=== PATIENT | female | born 1940 | race Caucasian/White ===

== ENCOUNTER 2020-05-18 12:00 | Inpatient (IN) | payer OTHER, SELFPAY ==
[2020-05-18] VITALS (8 sets, daily range): BP systolic 133–137; BP diastolic 59–70; PULSE 91–138; RESP 18–20; TEMP 36.7–37.7; O2SAT 91–97; BMI 22.6
--- NOTE | 2020-05-18 12:54 | XR_ITS ---
EXAMINATION: XR CHEST CLINICAL INFORMATION: Weakness COMPARISON: None TECHNIQUE: Frontal view of the chest was obtained. FINDINGS: The patient is rotated to the left. The cardiac silhouette does not appear enlarged. The thoracic aorta is calcified. Hilar and mediastinal contours are otherwise unremarkable. The lungs are clear. There is no pleural effusion or pneumothorax. There are degenerative changes of the spine and scoliosis.. XR/XR chest 1V IMPRESSION: No evidence for acute disease in the chest.
--- NOTE | 2020-05-18 12:54 | ECG_ITS ---
Test Reason : SOB Blood Pressure : / mmHG Vent. Rate : 092 BPM Atrial Rate : 092 BPM P-R Int : 160 ms QRS Dur : 078 ms QT Int : 346 ms P-R-T Axes : 070 006 014 degrees QTc Int : 427 ms Sinus rhythm with Premature atrial complexes Nonspecific ST and T wave abnormality Abnormal ECG When compared with ECG of 29-APR-2010 19:15, Premature atrial complexes are now Present Nonspecific T wave changes Referred By: Amelia Mtz Electronically Signed By:Sal Mcgrath
--- NOTE | 2020-05-18 13:01 | ED_ITS ---
HPI - URI/Sore Throat General Chief Complaint: Upper Respiratory Symptoms Stated Complaint: multiple complaints Time Seen by Provider: 05/18/20 12:43 Source: patient Mode of arrival: ambulatory Limitations: no limitations History of Present Illness HPI Narrative: 79-year-old female with a past medical history of glaucoma, high cholesterol here with complaints of malaise, diarrhea, chills, low-grade temps, headache, dyspnea on exertion, cough times 5 days. No chest pain, leg swelling or pain. MD elicited complaint: fever and cough Onset (ago): day(s) Consistency: intermittent Severity: moderate Able to tolerate fluids by mouth: Yes Exacerbating factors: nothing Relieving factors: nothing Associated symptoms: fever, chills, myalgias, headache, cough, shortness of breath and diarrhea Treatments prior to arrival: acetaminophen Related Data Allergies Allergy/AdvReac Type Severity Reaction Status Date / Time No Known Allergies Allergy Unverified 01/26/20 15:09 [No Known Allergies*] ssri Allergy Unknown diarrhea Uncoded 12/16/19 00:00 Augmex AdvReac Unknown severe Uncoded 12/16/19 00:00 vomiting/diarrhea Review of Systems Review of Systems: Yes all other systems are reviewed and are negative Constitutional: Constitutional: Reports no additional constitutional complaints, Reports body ache(s), Reports chills, Reports fever(s), Reports headache(s), Reports malaise and Denies weakness Eyes: Eyes: Reports no additional eye complaints and Denies change in vision ENT: Reports system reviewed and no additional complaints, except as documented, Denies dizziness, Reports headache(s), Denies nasal congestion, Denies nasal discharge and Denies neck pain Cardiovascular: Cardiovascular: Reports no additional cardiovascular complaints, Denies chest pain, Denies leg edema and Reports dyspnea Respiratory: Respiratory: Reports no additional respiratory complaints, Reports cough and Reports dyspnea Gastrointestinal: Gastrointestinal: Reports no additional gastrointestinal complaints, Denies abdominal pain, Reports diarrhea, Denies nausea and Denies vomiting Genitourinary: Genitourinary: Reports no additional female genitourinary complaints and Denies urinary incontinence Musculoskeletal: Musculoskeletal: Reports no additional musculoskeletal complaints, Denies back pain, Denies arthralgias, Denies joint swelling, Denies neck pain, Denies numbness and Denies tingling Integumentary/Breasts: Skin/Breast: Reports system reviewed and no additional complaints, except as docu and Denies rash Neurologic: Denies Abnormal speech present, Denies dizziness, Reports headache(s), Denies numbness, Denies tingling and Denies weakness PMFSH Past Medical History Attestation statement: The following information was validated with the patient. Source: old records reviewed and nursing notes reviewed Medical History Hypertension Social History Social History Alcohol intake: never Smoking Status: Current some day smoker Use of substances other than those prescribed or required for medical reasons: No Advance Directives: No Advance Directives Information Provided: No Physical Exam Vital Signs: Vital Signs: Last Vital Signs Temp 99.8 F 05/18/20 15:15 Pulse 104 H 05/18/20 15:15 Resp 18 05/18/20 15:15 BP 136/70 05/18/20 15:15 Pulse Ox 96 05/18/20 15:15 Body Mass Index 22.6 Const: General: cooperative, healthy appearing, comfortable and no acute distress Orientation/consciousness: patient oriented x3 Limitations: no limitations HENMT: Head: Yes normal to inspection Ears: hearing grossly normal bilaterally General nose exam: Normal external nose present Face and sin us: Yes normal facial exam Mouth: Normal oral and palatal mucosa present Throat: Yes posterior oropharynx normal Eyes: General: appearance normal, both eyes and all related structures Pupils: Equal, round and reactive pupils present Neck: Neck: Yes normal visual inspection Chest: Chest palpation & inspection: normal inspection of the chest Resp: Other: Mild tachypnea RR 20-24 with speaking Effort & Inspection: normal respiratory effort Auscultation: clear to auscultation bilaterally Cardio: Rate: regular rate Rhythm: regular rhythm Peripheral pulses: Peripheral pulses 2+ throughout GI: Inspection: Yes normal to inspection Palpation (GI): Soft to palpation and nontender Auscultation: normal bowel sounds Back/Spine/Pelvis: Thoracic/Lumbar Spine: thoracic and lumbar spine normal to inspection Skin: General skin exam: no rashes or lesions noted Neuro: General: patient oriented x3, no focal motor deficits and normal sensation to monofilament Cranial nerves: Yes Equal, round and reactive pupils present Cognition (Neuro): normal cognition Speech: No Abnormal speech present Gait exam (Neuro): Normal gait present Motor exam (neuro): 5/5 motor strength present throughout Extrem: General: Yes normal to inspection, Yes no pedal edema and Yes no calf tenderness Course Course Course Narrative: 79-year-old female here with flu-like symptoms x5 days. On arrival mild tachypnea, low-grade fever, room air saturation 91%. Will check labs including blood cultures and lactic acid, chest x-ray, EKG, COVID testing. This is from a viral infection. 1430-patient has an EKG with depressions in leads V4, V5 and V6. No recent EKGs to compare to. She has a troponin that is elevated at 288.3. Less likely ACS as patient has no reports of chest pain. Will add on D-dimer, cpk. Labs also reviewed which show mild hypokalemia likely secondary to volume loss. Repletion ordered. Elevated PT/INR, LFTs, thrombocytopenia all likely secondary to a viral infection. 1615-CTA is negative for PE. Repeat troponin is pending. UA is consistent with the UTI. At this time bacterial infection is suspected. Antibiotics ordered. Patient was ambulated in the ER with oxygen saturation of 90-91% and a heart rate of 130 with some dyspnea noted on exertion. Plan to discuss with Cardiology s/p repeat EKG, repeat troponin. 1650-unfortunately the repeat troponin was drawn by nursing 1 hour to early. The patient will need to be drawn again for repeat troponin at 17:30 this was scheduled and discussed with nursing. 1700-sign out to Bharat GUILLOTINE OPERATOR pending above. MDM - URI/Sore Throat MDM Narrative Medical decision making narrative: viral syndrome, covid 19, underlying bacterial process(PNA), pe, nstemi Medical Records Attestation: I reviewed the patient's medical records. Lab Data Attestation: I reviewed the patient's lab results. Result diagrams: 05/18/20 13:32 05/18/20 13:32 Labs: Lab Results 05/18/20 05/18/20 05/18/20 Range/Units 13:32 13:32 13:32 WBC 9.6 (4.8-10.8) X10*3/uL RBC 4.27 (4.20-5.50) X10*6/uL Hgb 12.9 (12.0-16.0) g/dl Hct 38.4 (37-47) % MCV 89.9 (80-98) fL MCH 30.2 (27.0-33.0) pg MCHC 33.6 (31.0-35.0) g/dl RDW 13.3 (11.0-16.0) % Plt Count 84 L (160-400) X10*3/uL MPV 12.0 (9.4-12.3) fL Immature Gran % (Auto) 0.7 H (0.0-0.4) % Neut % (Auto) 89.5 H (45-73) % Lymph % (Auto) 4.8 L (20-40) % [place] % (Auto) 4.8 (2-11) % Eos % (Auto) 0.1 (0-4) % Baso % (Auto) 0.1 (0-2) % Lymph # (Auto) 0.5 L (1.2-4.9) X10*3/uL [place] # (Auto) 0.5 (0.1-1.2) X10*3/uL Eos # (Auto) 0.0 (0.0-0.4) X10*3/uL Baso # (Auto) 0.0 (0.0-0.2) X10*3/uL Abs Immat Gran (auto) 0.07 H (0.00-0.03) X10*3/uL Absolute Neuts (auto) 8.6 H (2.0-8.3) X10*3/uL Absolute Nucleated RBC 0.000 (0.0-0.012) X10*3/uL Nucleated RBC % (auto) 0.0 (0.0-0.2) /100WBC Smear Tech's Comments VERIFIED PT 14.9 H (10.8-13.0) SEC INR 1.3 H (0.9-1.1) D-Dimer 2784 NG/ML Sodium 134 L (135-145) mmol/L Potassium 3.0 L (3.3-5.1) mmol/l Chloride 101 (96-108) mmol/L Carbon Dioxide 21 L (22-29) mmol/L Anion Gap 15 (12-20) BUN 17 H (9-16) mg/dL Creatinine 0.75 (0.5-1.4) mg/dL Estim Creat Clear Calc 55.0 Estimated GFR > 60 Random Glucose 102 (60-115) mg/dL Lactic Acid (0.5-2.0) mmol/L Calcium 7.8 L (8.4-10.2) mg/dL Magnesium 1.8 (1.6-2.6) mg/dL Ferritin (10-250) ng/mL Total Bilirubin 0.9 (0.0-1.0) mg/dL Direct Bilirubin 0.5 (0.0-0.5) mg/dL AST 77 H (5-31) U/L ALT 67 H (0-31) U/L Alkaline Phosphatase 74 (39-117) U/L Lactate Dehydrogenase 214 (122-220) U/L Total Creatine Kinase 401 H (26-140) U/L Troponin I High Sens (<3.5-17.0) ng/L B-Natriuretic Peptide (<100) pg/mL Total Protein 5.8 L (6.5-8.0) g/dL Albumin 3.6 (3.5-5.0) g/dL Procalcitonin ng/mL Urine Color Urine Appearance Urine pH (5.0-8.0) Ur Specific [place] (1.005-1.025) Urine Protein (NEG-TRACE) MG/DL Urine Glucose (UA) (NEG) MG/DL Urine Ketones (NEG) MG/DL Urine Blood (NEG) Urine Nitrite (NEG) Ur Leukocyte Esterase (NEG) Urine RBC (0) /HPF Urine WBC (0-4) /HPF Ur Squamous Epith Cells /LPF Urine Bacteria /LPF Coronavirus (PCR) (Negative) Influenza Type A (PCR) (Negative) Influenza Type B (PCR) (Negative) RSV RNA Qual (PCR) (Negative) 05/18/20 05/18/20 05/18/20 Range/Units 13:32 13:32 13:33 WBC (4.8-10.8) X10*3/uL RBC (4.20-5.50) X10*6/uL Hgb (12.0-16.0) g/dl Hct (37-47) % MCV (80-98) fL MCH (27.0-33.0) pg MCHC (31.0-35.0) g/dl RDW (11.0-16.0) % Plt Count (160-400) X10*3/uL MPV (9.4-12.3) fL Immature Gran % (Auto) (0.0-0.4) % Neut % (Auto) (45-73) % Lymph % (Auto) (20-40) % [place] % (Auto) (2-11) % Eos % (Auto) (0-4) % Baso % (Auto) (0-2) % Lymph # (Auto) (1.2-4.9) X10*3/uL [place] # (Auto) (0.1-1.2) X10*3/uL Eos # (Auto) (0.0-0.4) X10*3/uL Baso # (Auto) (0.0-0.2) X10*3/uL Abs Immat Gran (auto) (0.00-0.03) X10*3/uL Absolute Neuts (auto) (2.0-8.3) X10*3/uL Absolute Nucleated RBC (0.0-0.012) X10*3/uL Nucleated RBC % (auto) (0.0-0.2) /100WBC Smear Tech's Comments PT (10.8-13.0) SEC INR (0.9-1.1) D-Dimer NG/ML Sodium (135-145) mmol/L Potassium (3.3-5.1) mmol/l Chloride (96-108) mmol/L Carbon Dioxide (22-29) mmol/L Anion Gap (12-20) BUN (9-16) mg/dL Creatinine (0.5-1.4) mg/dL Estim Creat Clear Calc Estimated GFR Random Glucose (60-115) mg/dL Lactic Acid (0.5-2.0) mmol/L Calcium (8.4-10.2) mg/dL Magnesium (1.6-2.6) mg/dL Ferritin 338 H (10-250) ng/mL Total Bilirubin (0.0-1.0) mg/dL Direct Bilirubin (0.0-0.5) mg/dL AST (5-31) U/L ALT (0-31) U/L Alkaline Phosphatase (39-117) U/L Lactate Dehydrogenase (122-220) U/L Total Creatine Kinase (26-140) U/L Troponin I High Sens 288.3 H (<3.5-17.0) ng/L B-Natriuretic Peptide 147 H (<100) pg/mL Total Protein (6.5-8.0) g/dL Albumin (3.5-5.0) g/dL Procalcitonin ng/mL Urine Color Urine Appearance Urine pH (5.0-8.0) Ur Specific [place] (1.005-1.025) Urine Protein (NEG-TRACE) MG/DL Urine Glucose (UA) (NEG) MG/DL Urine Ketones (NEG) MG/DL Urine Blood (NEG) Urine Nitrite (NEG) Ur Leukocyte Esterase (NEG) Urine RBC (0) /HPF Urine WBC (0-4) /HPF Ur Squamous Epith Cells /LPF Urine Bacteria /LPF Coronavirus (PCR) NEGATIVE (Negative) Influenza Type A (PCR) NEGATIVE (Negative) Influenza Type B (PCR) NEGATIVE (Negative) RSV RNA Qual (PCR) NEGATIVE (Negative) 05/18/20 05/18/20 05/18/20 Range/Units 13:33 13:33 15:14 WBC (4.8-10.8) X10*3/uL RBC (4.20-5.50) X10*6/uL Hgb (12.0-16.0) g/dl Hct (37-47) % MCV (80-98) fL MCH (27.0-33.0) pg MCHC (31.0-35.0) g/dl RDW (11.0-16.0) % Plt Count (160-400) X10*3/uL MPV (9.4-12.3) fL Immature Gran % (Auto) (0.0-0.4) % Neut % (Auto) (45-73) % Lymph % (Auto) (20-40) % [place] % (Auto) (2-11) % Eos % (Auto) (0-4) % Baso % (Auto) (0-2) % Lymph # (Auto) (1.2-4.9) X10*3/uL [place] # (Auto) (0.1-1.2) X10*3/uL Eos # (Auto) (0.0-0.4) X10*3/uL Baso # (Auto) (0.0-0.2) X10*3/uL Abs Immat Gran (auto) (0.00-0.03) X10*3/uL Absolute Neuts (auto) (2.0-8.3) X10*3/uL Absolute Nucleated RBC (0.0-0.012) X10*3/uL Nucleated RBC % (auto) (0.0-0.2) /100WBC Smear Tech's Comments PT (10.8-13.0) SEC INR (0.9-1.1) D-Dimer NG/ML Sodium (135-145) mmol/L Potassium (3.3-5.1) mmol/l Chloride (96-108) mmol/L Carbon Dioxide (22-29) mmol/L Anion Gap (12-20) BUN (9-16) mg/dL Creatinine (0.5-1.4) mg/dL Estim Creat Clear Calc Estimated GFR Random Glucose (60-115) mg/dL Lactic Acid 0.7 (0.5-2.0) mmol/L Calcium (8.4-10.2) mg/dL Magnesium (1.6-2.6) mg/dL Ferritin (10-250) ng/mL Total Bilirubin (0.0-1.0) mg/dL Direct Bilirubin (0.0-0.5) mg/dL AST (5-31) U/L ALT (0-31) U/L Alkaline Phosphatase (39-117) U/L Lactate Dehydrogenase (122-220) U/L Total Creatine Kinase (26-140) U/L Troponin I High Sens (<3.5-17.0) ng/L B-Natriuretic Peptide (<100) pg/mL Total Protein (6.5-8.0) g/dL Albumin (3.5-5.0) g/dL Procalcitonin 19.16 ng/mL Urine Color YELLOW Urine Appearance HAZY Urine pH 6.0 (5.0-8.0) Ur Specific [place] 1.020 (1.005-1.025) Urine Protein TRACE (NEG-TRACE) MG/DL Urine Glucose (UA) NEG (NEG) MG/DL Urine Ketones 15 (NEG) MG/DL Urine Blood 1+ H (NEG) Urine Nitrite NEG (NEG) Ur Leukocyte Esterase NEG (NEG) Urine RBC 1-4 (0) /HPF Urine WBC 15-29 H (0-4) /HPF Ur Squamous Epith Cells 1+ /LPF Urine Bacteria 1+ /LPF Coronavirus (PCR) (Negative) Influenza Type A (PCR) (Negative) Influenza Type B (PCR) (Negative) RSV RNA Qual (PCR) (Negative) Imaging Data Chest x-ray: Attestation: I personally reviewed and interpreted this imaging study as follows: Radiologist's impression: [address] [address] XRay Report Signed Patient: Zuleima Shepard EMR#: [id number] : 1941Acct:[id number] Age/Sex: 79 / FADM Date: 05/18/20 Loc: .ED Attending Dr: Ordering Physician: AMELIA JETT NP Date of Service: 05/18/20 Procedure(s): XR chest 1V Accession Number(s): [id number] cc: AMELIA JETT NP~ EXAMINATION: XR CHEST CLINICAL INFORMATION: Weakness COMPARISON: None TECHNIQUE: Frontal view of the chest was obtained. FINDINGS: The patient is rotated to the left. The cardiac silhouette does not appear enlarged. The thoracic aorta is calcified. Hilar and mediastinal contours are otherwise unremarkable. The lungs are clear. There is no pleural effusion or pneumothorax. There are degenerative changes of the spine and scoliosis.. XR/XR chest 1V IMPRESSION: No evidence for acute disease in the chest. CT scan - chest: Attestation: I personally reviewed and interpreted this imaging study as follows: Radiologist's impression: EXAMINATION: CT ANGIOGRAM OF THE CHEST WITH AND WITHOUT CONTRAST (CT PULMONARY ANGIOGRAM FOR PE) CLINICAL INFORMATION: Reason for Exam sob, elevated d dimer, r/o pe COMPARISON: None TECHNIQUE: Prior to contrast administration, noncontrast localization images were obtained. Subsequently, multidetector volumetric imaging was performed from the thoracic inlet to below the diaphragms following the administration of 80 mL Omnipaque 350 intravenous contrast. No contrast reaction reported Sagittal, coronal, and MIP oblique sagittal reformatted images were obtained on the CT workstation, uploaded to PACS, and reviewed. This CT examination was performed using dose optimization techniques as appropriate, variously including the following: *Automated exposure control *Adjustment of mA and/or kV according to patient size (this includes techniques or standardized protocols for targeted exams where dose is matched to indication/reason for exam; i.e. extremities or head) *Use of iterative reconstruction technique Total exam dose-length product 305 mGy-cm FINDINGS: QUALITY OF STUDY/CONTRAST BOLUS: Satisfactory. PULMONARY ARTERIES: No central or segmental pulmonary emboli. THORACIC AORTA: There is no evidence of aneurysm or dissection. Mild atherosclerotic changes are seen at the origins of brachiocephalic and left common carotid artery. LUNG: The lungs are well-expanded with atelectatic changes seen in the right lung apex. There is dependent bibasilar atelectasis. No acute consolidation or mass appearing nodules seen. PLEURA: No pleural effusion or pneumothorax. MEDIASTINUM: The thyroid lobes are symmetrical and normal. Central trachea and the bronchi widely patent. No pericardial effusion. No hilar or mediastinal lymphadenopathy. No evidence of septal bowing or right heart strain. CHEST WALL/AXILLA: No axillary or internal mammary lymphadenopathy. OSSEOUS STRUCTURES: There is moderate ventral osteophytosis T4-T5, T5-T6 severe compression fracture T8. No acute or suspicious osseous abnormality. There is mild scoliosis. UPPER ABDOMEN: Visualized liver, spleen, pancreas and bilateral adrenal glands are unremarkable. No reflux of contrast into the hepatic veins to suggest elevated right heart pressures. CT/CT angio chest PE protocol IMPRESSION: No evidence of PE. No evidence of aortic dissection or aneurysm. The lungs are clear. Compression deformity T8 vertebra most likely old. Moderate spondylosis mid dorsal spine. Mild scoliosis VTE: Negative. ECG Data Attestation: I personally reviewed and interpreted this ECG as follows: ECG interpretation date: 05/18/20 ECG interpretation time: 13:55 Interpretation: Sinus rhythm with PACs, ST changes with depressions in leads V4, V5 and V6. Normal UT, normal QRS, normal QT
--- NOTE | 2020-05-18 13:35 | PC.NURSE ---
iv inserted, labs drawn, covid swab performed, will continue to monitor
[2020-05-18 13:46] LABS: Basophils Percent Auto 0.1 % (0-2); Eosinophils Percent Auto 0.1 % (0-4); Hematocrit 38.4 % (37-47); Hemoglobin 12.9 g/dl (12.0-16.0); Imm Gran Abs Auto 0.07 X10*3/uL (0.00-0.03); Imm Gran Pct Auto 0.7 % (0.0-0.4); Lymphocytes Absolute Auto 0.5 X10*3/uL (1.2-4.9); Lymphocytes Percent Auto 4.8 % (20-40); MANUAL DIFF FLAG SCAN; Mean Corpuscular HGB Conc 33.6 g/dl (31.0-35.0); Mean Corpuscular Hemoglobin 30.2 pg (27.0-33.0); Mean Corpuscular Volume 89.9 fL (80-98); Monocytes Absolute Auto 0.5 X10*3/uL (0.1-1.2); Monocytes Percent Auto 4.8 % (2-11); Neutrophils Absolute Auto 8.6 X10*3/uL (2.0-8.3); Neutrophils Percent Auto 89.5 % (45-73); Red Blood Count 4.27 X10*6/uL (4.20-5.50); Red Cell Distribution Width 13.3 % (11.0-16.0); SCAN SMEAR FLAG 1; White Blood Count 9.6 X10*3/uL (4.8-10.8)
[2020-05-18 13:52] LABS: INTERNATIONAL NORM RATIO 1.3 (0.9-1.1); Prothrombin Time 14.9 SEC (10.8-13.0)
[2020-05-18 14:02] LABS: Lactic Acid 0.7 mmol/L (0.5-2.0)
[2020-05-18 14:07] LABS: Alanine Aminotransferase 67 U/L (0-31); Albumin Level 3.6 g/dL (3.5-5.0); Alkaline Phosphatase 74 U/L (39-117); Anion Gap 15 (12-20); Aspartate Amino Transferase 77 U/L (5-31); Bilirubin Direct 0.5 mg/dL (0.0-0.5); Bilirubin Total 0.9 mg/dL (0.0-1.0); Blood Urea Nitrogen 17 mg/dL (9-16); Calcium 7.8 mg/dL (8.4-10.2); Carbon Dioxide 21 mmol/L (22-29); Chloride 101 mmol/L (96-108); Estimated Glomerular Filt Rate > 60; Glucose Random 102 mg/dL (60-115); Lactate Dehydrogenase 214 U/L (122-220); Magnesium 1.8 mg/dL (1.6-2.6); Sodium 134 mmol/L (135-145); Total Protein 5.8 g/dL (6.5-8.0)
[2020-05-18 14:15] LABS: Troponin-I High Sensitivity 288.3 ng/L (<3.5-17.0)
[2020-05-18 14:23] LABS: Platelet Count 84 X10*3/uL (160-400)
[2020-05-18 14:24] LABS: SLIDE REVIEW VERIFIED
[2020-05-18 14:25] LABS: Ferritin 338 ng/mL (10-250)
[2020-05-18 14:25] LABS: Procalcitonin 19.16 ng/mL
[2020-05-18 14:36] LABS: D Dimer 2784 NG/ML
[2020-05-18] MEDS: Potassium Chloride ER 20 MEQ TAB.ER.PRT 50 MEQ PO (14:36)
--- NOTE | 2020-05-18 14:42 | CT_ITS ---
EXAMINATION: CT ANGIOGRAM OF THE CHEST WITH AND WITHOUT CONTRAST (CT PULMONARY ANGIOGRAM FOR PE) CLINICAL INFORMATION: Reason for Exam sob, elevated d dimer, r/o pe COMPARISON: None TECHNIQUE: Prior to contrast administration, noncontrast localization images were obtained. Subsequently, multidetector volumetric imaging was performed from the thoracic inlet to below the diaphragms following the administration of 80 mL Omnipaque 350 intravenous contrast. No contrast reaction reported Sagittal, coronal, and MIP oblique sagittal reformatted images were obtained on the CT workstation, uploaded to PACS, and reviewed. This CT examination was performed using dose optimization techniques as appropriate, variously including the following: *Automated exposure control *Adjustment of mA and/or kV according to patient size (this includes techniques or standardized protocols for targeted exams where dose is matched to indication/reason for exam; i.e. extremities or head) *Use of iterative reconstruction technique Total exam dose-length product 305 mGy-cm FINDINGS: QUALITY OF STUDY/CONTRAST BOLUS: Satisfactory. PULMONARY ARTERIES: No central or segmental pulmonary emboli. THORACIC AORTA: There is no evidence of aneurysm or dissection. Mild atherosclerotic changes are seen at the origins of brachiocephalic and left common carotid artery. LUNG: The lungs are well-expanded with atelectatic changes seen in the right lung apex. There is dependent bibasilar atelectasis. No acute consolidation or mass appearing nodules seen. PLEURA: No pleural effusion or pneumothorax. MEDIASTINUM: The thyroid lobes are symmetrical and normal. Central trachea and the bronchi widely patent. No pericardial effusion. No hilar or mediastinal lymphadenopathy. No evidence of septal bowing or right heart strain. CHEST WALL/AXILLA: No axillary or internal mammary lymphadenopathy. OSSEOUS STRUCTURES: There is moderate ventral osteophytosis T4-T5, T5-T6 severe compression fracture T8. No acute or suspicious osseous abnormality. There is mild scoliosis. UPPER ABDOMEN: Visualized liver, spleen, pancreas and bilateral adrenal glands are unremarkable. No reflux of contrast into the hepatic veins to suggest elevated right heart pressures. CT/CT angio chest PE protocol IMPRESSION: No evidence of PE. No evidence of aortic dissection or aneurysm. The lungs are clear. Compression deformity T8 vertebra most likely old. Moderate spondylosis mid dorsal spine. Mild scoliosis VTE: Negative.
[2020-05-18 14:43] LABS: Influenza A PCR NEGATIVE (Negative); Influenza B PCR NEGATIVE (Negative); Resp Syncy Virus RNA Qual PCR NEGATIVE (Negative); SARS COV2 PCR INHOUSE NEGATIVE (Negative)
--- NOTE | 2020-05-18 14:43 | PC.NURSE ---
patient medicated per order, vitals currently stable, patient speaking in full sentences/breathing non labored at this time, 1l o2 nc, will continue to monitor.
--- NOTE | 2020-05-18 15:17 | PC.NURSE ---
patient ambulated with assist to bathroom on o2 sat monitor on room air, patients o2 sat decreased to 91% and hr increased to 138, pt also was noted to be dyspnic and unsteady ambulating, pt o2 was reapplied and she recovered quickly speaking in full sentences- provider was notified and in to see the patient, urine was obtained, pt moved to [facility] 5, school bus monitor applied, pt is sinus tach on monitor- vitals otherwise now stable, pt now awaiting ct scan, will continue to monitor
[2020-05-18 15:30] LABS: Glucose Urine UA NEG (NEG); Leukocyte Esterase Urine NEG (NEG); Nitrite Urine NEG (NEG); Urine Blood 1+ (NEG); Urine Ketones 15 MG/DL (NEG); Urine Protein TRACE MG/DL (NEG-TRACE)
--- NOTE | 2020-05-18 15:30 | PC.NURSE ---
unable to get an ekg for patient due to the machine being not available, charge nurse is aware
[2020-05-18 15:35] LABS: Appearance Urine HAZY; Color Urine YELLOW
[2020-05-18 15:39] LABS: Bacteria Urine 1+ /LPF; Squamous Epithelial Cell Urine 1+ /LPF; UACC CULT YES
[2020-05-18] MEDS: iohexoL 350 MG/ML 100 ML INFUS..BTL IV (15:45)
--- NOTE | 2020-05-18 16:17 | ECG_ITS ---
Test Reason : repeat, elevated troponin Blood Pressure : / mmHG Vent. Rate : 099 BPM Atrial Rate : 099 BPM P-R Int : 168 ms QRS Dur : 080 ms QT Int : 358 ms P-R-T Axes : 063 012 010 degrees QTc Int : 459 ms Poor data quality Sinus rhythm with Premature atrial complexes Nonspecific ST and T wave abnormality Abnormal ECG When compared with ECG of 18-MAY-2020 13:55, No significant change was found Referred By: Amelia Mtz Electronically Signed By:Sal Mcgrath
[2020-05-18 16:56] LABS: B Type Natriuretic Peptide 147 pg/mL (<100)
[2020-05-18] MEDS: cefTRIAXone sodium 1 GM in 0.9 % Sodium Chloride 50 ML IV (17:06)
[2020-05-18 17:20] LABS: Troponin-I High Sensitivity 248.1 ng/L (<3.5-17.0)
--- NOTE | 2020-05-18 17:30 | PC.NURSE ---
ekg machine not available
--- NOTE | 2020-05-18 20:38 | PC.NURSE ---
ekg performed, hospitalist saw in room.
--- NOTE | 2020-05-18 21:25 | PM.IMHP ---
History of Present Illness Date of Service: 05/18/20 Chief Complaint: Nausea, diarrhea, chills, lethargy An 79 years old lady with PMH of hypertension who presents to the hospital complaining of 3 days history of nausea, watery diarrhea and lower abdominal pain. To patient reports that diarrhea started out of no where up to 10 times a day which was watery in nature associated with nausea but no vomiting. She had no appetite over the last 3 days to eat much as her symptoms were associated with lower abdominal pain which was colicky in nature with no radiation and improved significantly today. She reports chills mainly 2 days ago associated with tremors but seems to be improving today. Id because of her decreased oral intake her son brought her to the hospital today. In the emergency she was found to be hypokalemic of 3. Rest of blood work was concerning for elevated troponin with mild EKG changes which was discussed with Cardiology by ED provider and recommended no active treatment at this point. Noticed to have elevated D-dimers and a CTA was done negative for any PE or infiltrates. Admitted to the hospital for further evaluation and treatment. Review of Systems Review of Systems: Reporting a lot of chills and generalized weakness No chest pain, palpitation Reporting exertion shortness of breath or coughing Mild nausea, lower abdominal pain, no vomiting No urinary symptoms No any rash or wounds Constitutional: Constitutional: Reports headache(s) and Denies weakness ENT: Denies dizziness and Reports headache(s) Musculoskeletal: Musculoskeletal: Denies numbness and Denies tingling Neurologic: Denies Abnormal speech present, Denies dizziness, Reports headache(s), Denies numbness, Denies tingling and Denies weakness [facility] Medical History Hypertension Social History Alcohol intake: never Smoking Status: Current some day smoker Use of substances other than those prescribed or required for medical reasons: No Advance Directives: No Advance Directives Information Provided: No Meds Allergies Allergy/AdvReac Type Severity Reaction Status Date / Time No Known Allergies Allergy Unverified 01/26/20 15:09 [No Known Allergies*] ssri Allergy Unknown diarrhea Uncoded 12/16/19 00:00 Augmex AdvReac Unknown severe Uncoded 12/16/19 00:00 vomiting/diarrhea Physical Exam Vital Signs and Narrative: Vital Signs: Last Vital Signs Temp 99.8 F 05/18/20 15:15 Pulse 104 H 05/18/20 15:15 Resp 18 05/18/20 15:15 BP 136/70 05/18/20 15:15 Pulse Ox 96 05/18/20 15:15 Body Mass Index 22.6 Constitutional : Alert, oriented, not in distress Neck : Normal inspection, Supple Cardiovascular : RRR, S1 S2, no lower extremity edema Respiratory : Good bilateral air entry, no crackles, wheezes or rhonchi Gastrointestinal: soft, lax, Normal bowel sounds, mild suprapubic tenderness with palpation Skin : Warm/Dry, No rash Neurological : Alert & oriented x3, No focal deficit Neuro: Speech: No Abnormal speech present Results Labs CBC and Chem 7: 05/18/20 13:32 05/18/20 13:32 Labs: Laboratory Results - last 24 hr 05/18/20 05/18/20 05/18/20 13:32 13:32 13:32 MCV 89.9 MCH 30.2 MCHC 33.6 RDW 13.3 Plt Count 84 L MPV 12.0 Immature Gran % (Auto) 0.7 H Neut % (Auto) 89.5 H Lymph % (Auto) 4.8 L [place] % (Auto) 4.8 Eos % (Auto) 0.1 Baso % (Auto) 0.1 Lymph # (Auto) 0.5 L [place] # (Auto) 0.5 Eos # (Auto) 0.0 Baso # (Auto) 0.0 Abs Immat Gran (auto) 0.07 H Absolute Neuts (auto) 8.6 H Absolute Nucleated RBC 0.000 Nucleated RBC % (auto) 0.0 Smear Tech's Comments VERIFIED PT 14.9 H INR 1.3 H D-Dimer 2784 Anion Gap 15 Estim Creat Clear Calc 55.0 Estimated GFR > 60 Random Glucose 102 Lactic Acid Calcium 7.8 L Magnesium 1.8 Ferritin Total Bilirubin 0.9 Direct Bilirubin 0.5 AST 77 H ALT 67 H Alkaline Phosphatase 74 Lactate Dehydrogenase 214 Total Creatine Kinase 401 H Troponin I High Sens B-Natriuretic Peptide Total Protein 5.8 L Albumin 3.6 Procalcitonin Urine Color Urine Appearance Urine pH Ur Specific [place] Urine Protein Urine Glucose (UA) Urine Ketones Urine Blood Urine Nitrite Ur Leukocyte Esterase Urine RBC Urine WBC Ur Squamous Epith Cells Urine Bacteria Coronavirus (PCR) Influenza Type A (PCR) Influenza Type B (PCR) RSV RNA Qual (PCR) 05/18/20 05/18/20 05/18/20 13:32 13:32 13:33 MCV MCH MCHC RDW Plt Count MPV Immature Gran % (Auto) Neut % (Auto) Lymph % (Auto) [place] % (Auto) Eos % (Auto) Baso % (Auto) Lymph # (Auto) [place] # (Auto) Eos # (Auto) Baso # (Auto) Abs Immat Gran (auto) Absolute Neuts (auto) Absolute Nucleated RBC Nucleated RBC % (auto) Smear Tech's Comments PT INR D-Dimer Anion Gap Estim Creat Clear Calc Estimated GFR Random Glucose Lactic Acid Calcium Magnesium Ferritin 338 H Total Bilirubin Direct Bilirubin AST ALT Alkaline Phosphatase Lactate Dehydrogenase Total Creatine Kinase Troponin I High Sens 288.3 H B-Natriuretic Peptide 147 H Total Protein Albumin Procalcitonin Urine Color Urine Appearance Urine pH Ur Specific [place] Urine Protein Urine Glucose (UA) Urine Ketones Urine Blood Urine Nitrite Ur Leukocyte Esterase Urine RBC Urine WBC Ur Squamous Epith Cells Urine Bacteria Coronavirus (PCR) NEGATIVE Influenza Type A (PCR) NEGATIVE Influenza Type B (PCR) NEGATIVE RSV RNA Qual (PCR) NEGATIVE 05/18/20 05/18/20 05/18/20 13:33 13:33 15:14 MCV MCH MCHC RDW Plt Count MPV Immature Gran % (Auto) Neut % (Auto) Lymph % (Auto) [place] % (Auto) Eos % (Auto) Baso % (Auto) Lymph # (Auto) [place] # (Auto) Eos # (Auto) Baso # (Auto) Abs Immat Gran (auto) Absolute Neuts (auto) Absolute Nucleated RBC Nucleated RBC % (auto) Smear Tech's Comments PT INR D-Dimer Anion Gap Estim Creat Clear Calc Estimated GFR Random Glucose Lactic Acid 0.7 Calcium Magnesium Ferritin Total Bilirubin Direct Bilirubin AST ALT Alkaline Phosphatase Lactate Dehydrogenase Total Creatine Kinase Troponin I High Sens B-Natriuretic Peptide Total Protein Albumin Procalcitonin 19.16 Urine Color YELLOW Urine Appearance HAZY Urine pH 6.0 Ur Specific [place] 1.020 Urine Protein TRACE Urine Glucose (UA) NEG Urine Ketones 15 Urine Blood 1+ H Urine Nitrite NEG Ur Leukocyte Esterase NEG Urine RBC 1-4 Urine WBC 15-29 H Ur Squamous Epith Cells 1+ Urine Bacteria 1+ Coronavirus (PCR) Influenza Type A (PCR) Influenza Type B (PCR) RSV RNA Qual (PCR) 05/18/20 16:20 MCV MCH MCHC RDW Plt Count MPV Immature Gran % (Auto) Neut % (Auto) Lymph % (Auto) [place] % (Auto) Eos % (Auto) Baso % (Auto) Lymph # (Auto) [place] # (Auto) Eos # (Auto) Baso # (Auto) Abs Immat Gran (auto) Absolute Neuts (auto) Absolute Nucleated RBC Nucleated RBC % (auto) Smear Tech's Comments PT INR D-Dimer Anion Gap Estim Creat Clear Calc Estimated GFR Random Glucose Lactic Acid Calcium Magnesium Ferritin Total Bilirubin Direct Bilirubin AST ALT Alkaline Phosphatase Lactate Dehydrogenase Total Creatine Kinase Troponin I High Sens 248.1 H B-Natriuretic Peptide Total Protein Albumin Procalcitonin Urine Color Urine Appearance Urine pH Ur Specific [place] Urine Protein Urine Glucose (UA) Urine Ketones Urine Blood Urine Nitrite Ur Leukocyte Esterase Urine RBC Urine WBC Ur Squamous Epith Cells Urine Bacteria Coronavirus (PCR) Influenza Type A (PCR) Influenza Type B (PCR) RSV RNA Qual (PCR) Imaging Radiologist's Impressions: Impressions Chest X-Ray 05/18/20 12:54 IMPRESSION: No evidence for acute disease in the chest. Chest CTA 05/18/20 14:42 IMPRESSION: No evidence of PE. No evidence of aortic dissection or aneurysm. The lungs are clear. Compression deformity T8 vertebra most likely old. Moderate spondylosis mid dorsal spine. Mild scoliosis VTE: Negative. Assessment and Plan (1) Hypokalemia: Status: Acute (2) Elevated troponin: Status: Acute (3) Elevated d-dimer: Status: Acute (4) Diarrhea: Status: Acute (5) Chills: Status: Acute (6) Generalized weakness: Status: Acute An 79 years old lady with PMH of hypertension who presents to the hospital complaining of 3 days history of nausea, watery diarrhea and lower abdominal pain. Generalized weakness Nausea, diarrhea and chills Could be viral gastroenteritis Benign exam, improving at this point, no images done in ED Continue supportive measures and if needed CT abdomen can be done start diet UTI Suprapubic pain, abnormal urine test Pending cultures Treat with ceftriaxone Hypokalemia Secondary to diarrhea and decreased oral intake Replacement given Monitor BMP Elevated troponin Likely type 2 demand mediated ischemia No specific ST or T-wave changes to suggest ACS Troponin trended flat Keep on telemetry To get cardiology consult Elevated D-dimer 2700 Negative CTA for PE To discuss with Cardiology in morning Home meds not ready at time of admission, follow for reconciliation DVT PPX Juanx
[2020-05-18] MEDS: Enoxaparin Sodium 40 MG/0.4 ML SYRINGE SUBCUT (22:11)
--- NOTE | 2020-05-18 22:54 | PC.NURSE ---
patient a&ox3, rn cardiac cath sinus tach, vss, will continue to monitor.
[2020-05-18 23:44] LABS: Troponin-I High Sensitivity 164.9 ng/L (<3.5-17.0)
[2020-05-19] VITALS (22 sets, daily range): BP systolic 84–145; BP diastolic 51–79; PULSE 77–156; RESP 14–20; TEMP 36.4–37.6; O2SAT 91–97
[2020-05-19] MEDS: 0.9 % Sodium Chloride Flush 3 ML SYRINGE IVFLUSH ×3 (01:21→18:08)
--- NOTE | 2020-05-19 02:45 | PC.NURSE ---
pt a&o, no sob or chest pain. pt oob to bathroom with a steady gait. Pt denies any dizziness or lightheadness.
[2020-05-19] MEDS: Acetaminophen 325 MG TABLET 975 MG PO (02:58)
--- NOTE | 2020-05-19 03:01 | PC.NURSE ---
Patient has a fever of 99.6 and was given Tylenol.
--- NOTE | 2020-05-19 09:47 | CT_ITS ---
EXAMINATION: CT ABDOMEN AND PELVIS WITHOUT CONTRAST CLINICAL INFORMATION: Abdominal pain, LFTs elevated COMPARISON: CT angiogram chest from 05/18/2020 CT pelvis from 10/07/2015 TECHNIQUE: Multidetector volumetric imaging was performed from the superior aspect of the liver through the pubic symphysis. Sagittal and coronal reformatted images were obtained on the technologist's workstation. This CT examination was performed using dose optimization techniques as appropriate, variously including the following: *Automated exposure control *Adjustment of mA and/or kV according to patient size (this includes techniques or standardized protocols for targeted exams where dose is matched to indication/reason for exam; i.e. extremities or head) *Use of iterative reconstruction technique DLP: 526 mGy-cm FINDINGS: LUNG BASES: Basilar atelectasis. The heart is not enlarged. There is no pericardial effusion. LIVER, GALLBLADDER, AND BILIARY TREE: The liver is normal in size, shape, and attenuation. No focal hepatic lesion or biliary ductal dilatation is present. The gallbladder is unremarkable with no evidence of radiopaque gallstones, gallbladder wall thickening, or obvious pericholecystic inflammatory changes. PANCREAS: Unremarkable. SPLEEN: Unremarkable. ADRENAL GLANDS: Unremarkable. KIDNEYS AND URETERS: The kidneys are normal in size, shape, and attenuation. No hydronephrosis, hydroureter, or calculi seen. No perinephric stranding. BLADDER: Unremarkable. GASTROINTESTINAL TRACT: Mild thickening of the sigmoid colon with pericolonic inflammatory stranding suggesting sigmoid diverticulitis. There is no extraluminal free air, fluid collection, or abscess formation identified. The small and large bowel are unremarkable. The appendix is unremarkable. ABDOMINAL WALL: No significant hernia is appreciated. LYMPH NODES: No enlarged lymph nodes per CT size criteria VASCULAR: Abdominal aorta is nonaneurysmal. Atherosclerotic calculations of the abdominal aorta and its branches. PELVIC VISCERA: Unremarkable. OSSEOUS STRUCTURES: Visualized osseous structures are osteopenic. Moderate dextro curvature of the mid lumbar spine. Compression deformity of L3, chronicity indeterminate. Slight loss of height of the superior endplate of L4, chronicity indeterminate. Multilevel degenerative changes of the thoracolumbar and lumbosacral spine. No large lytic or blastic lesions are identified. Healed fracture deformities involving the left superior and inferior pubic rami. 2 mm bone island noted in the left femoral head. CT/CT abdomen pelvis wo con IMPRESSION: 1. Mild thickening of the sigmoid colon with pericolonic inflammatory stranding suggesting sigmoid diverticulitis. There is no extraluminal free air, fluid collection, or abscess formation identified . 2. Osteopenia with compression deformity of L3, chronicity indeterminate. Slight loss of height of the superior endplate of L4, chronicity indeterminate. 3. Healed fracture deformities involving the left superior and inferior pubic rami.
--- NOTE | 2020-05-19 09:48 | HO.PM.IMPN ---
Subjective Subjective Date of Service: 05/19/20 Interval History: feeling much better, stool more formed, denies ever having chest pain, no sob Cardiovascular Cardiovascular: Reports no additional cardiovascular complaints Respiratory Respiratory: Reports no additional respiratory complaints Physical Exam Vital Signs: Vital Signs: Last Vital Signs Temp 97.9 F 05/19/20 08:06 Pulse 77 05/19/20 08:06 Resp 17 05/19/20 08:06 BP 129/72 05/19/20 08:06 Pulse Ox 93 05/19/20 08:06 Body Mass Index 22.6 General: AO X 3, no acute distress Resp: CTA bilateral CVS: S1,S2,RRR GI: soft, non tender, non distended Neuro: motor grossly intact Psych: appropriate affect Objective Data Current Medications Generic Name Dose Route Start Last Admin Trade Name Freq PRN Reason Stop Dose Admin Acetaminophen 650 mg 05/18/20 21:23 Acetaminophen 325 Mg Tablet PO Q6H PRN Pain, Mild (Pain Scale 1-3) Al Hydroxide/Mg Hydroxide 30 ml 05/18/20 21:23 Magnesium Hydrox/Alum Hydrox 30 Ml Oral.Susp PO Q4H PRN Heartburn/Nausea Aspirin 81 mg 05/19/20 09:00 Aspirin 81 Mg Tab.Chew PO DAILY [facility] Atenolol 50 mg 05/19/20 09:00 Atenolol 50 Mg Tablet PO DAILY [facility] Protocol Atorvastatin Calcium 10 mg 05/19/20 02:15 05/19/20 03:08 Atorvastatin Calcium 10 Mg Tablet PO Not Given BEDTIME [facility] Calcium Carbonate 500 mg 05/19/20 09:00 Calcium Carbonate 500 Mg Tablet PO DAILY [facility] Dorzolamide HCl 1 drop 05/19/20 09:00 Dorzolamide Hcl 2 % Ophth [place] 10 Ml Drpbtl EYE-BOTH BID [facility] Enoxaparin Sodium 40 mg 05/18/20 21:30 05/18/20 22:11 Enoxaparin Sodium 40 Mg/0.4 Ml Syringe SUBCUT 40 mg Q24H [facility] Administration Ceftriaxone Sodium 1 gm/ 50 mls @ 100 mls/hr 05/19/20 16:00 Sodium Chloride IV Q24H RAFFI Magnesium Hydroxide 30 ml 05/18/20 21:23 Milk Of Magnesia 30 Ml Oral.Susp PO DAILY PRN Constipation Multivitamins/Vitamin C 1 tab 05/19/20 09:00 Multivitamin Tablet PO DAILY [facility] Ondansetron HCl 4 mg 05/18/20 21:23 Ondansetron Hcl 4 Mg/2 Ml Vial IVPUSH Q8H PRN Nausea and Vomiting Sodium Chloride 3 ml 05/19/20 00:00 05/19/20 01:21 0.9 % Sodium Chloride Flush 3 Ml Syringe IVFLUSH 3 ml QSHIFT RAFFI Administration Timolol Maleate 1 drop 05/19/20 09:00 Timolol Maleate 0.5 % Oph [place]raine 5 Ml Drbtl EYE-BOTH DAILY [facility] Labs CBC & Chem 7: 05/18/20 13:32 05/18/20 13:32 Microbiology Microbiology Results: Microbiology 05/18/20 Unknown Urine clean catch - Clean Catch Midstream Urine Culture - Preliminary Gram negative torie 05/18/20 13:33 Blood - Venous Blood Culture - Preliminary 05/18/20 13:33 Blood - Venous Blood Culture - Preliminary Assessment and Plan (1) Thrombocytopenia: Status: Acute (2) UTI (urinary tract infection): Status: Acute (3) Gram-negative bacteremia: Status: Acute (4) Gastroenteritis: Status: Acute (5) HLD (hyperlipidemia): Status: Acute (6) Osteoporosis: Status: Acute (7) Unspecified glaucoma: Status: Acute Assessment and Plan: 79F presented with abdominal pain, diarrhea, chills, found to have elevated troponin, positive ua with gram negative bacteremia. severe sepsis (thrombocytopenia) poa due to UTI GNR in urine continue ceftriaxone GNR bacteremia could be urine source... given GI symptoms, could also be gi source continue ceftriaxone, follow up species/sensitivities check CT abd hepatitis panel afib with RVR appears to be new rate control cardio to see thrombocytopenia appears chronic, but worse than baseline, monitor elevated troponin stable, asymptomatic, likely strain, follow up cardiology hypokalemia due to diarreha, replace and monitor htn atenolol
--- NOTE | 2020-05-19 10:19 | PC.NURSE ---
PT SITTING UP IN STRETCHER HER HR HAS INCREASED TO THE 160'S. SHE DENIES SOB OR CHEST PAIN
--- NOTE | 2020-05-19 10:27 | ECG_ITS ---
Test Reason : TACHYCARDIA Blood Pressure : / mmHG Vent. Rate : 146 BPM Atrial Rate : 182 BPM P-R Int : 000 ms QRS Dur : 080 ms QT Int : 312 ms P-R-T Axes : 000 025 -34 degrees QTc Int : 486 ms Atrial fibrillation with rapid ventricular response Septal infarct , age undetermined ST & T wave abnormality, consider inferior ischemia Abnormal ECG When compared with ECG of 18-MAY-2020 20:31, Atrial fibrillation has replaced Sinus rhythm Referred By: Donell Epstein Electronically Signed By:Sal Mcgrath
[2020-05-19] MEDS: Multivitamin TABLET 1 TAB PO (10:29)
[2020-05-19] MEDS: Aspirin 81 MG TAB.CHEW PO (10:29)
[2020-05-19] MEDS: atenoloL 50 MG TABLET PO (10:29)
[2020-05-19] MEDS: dilTIAZem HCL 50 MG/10 ML VIAL 20 MG IVPUSH (11:01)
[2020-05-19] MEDS: Lactated Ringers 1,000 ML 100 ML IVCONT ×2 (11:02→21:48)
--- NOTE | 2020-05-19 11:30 | PC.NURSE ---
RESTING QUEITLY. SKIN PWD. UNLABORED RESP. CONTROLLED A FIB ON MONITORO FOLLOWING CARDIZEM IVP. AWARE OF PLAN OF CARE INCLUDING ADMITTION ORDERS. LS CTA.
--- NOTE | 2020-05-19 12:22 | PC.NURSE ---
cardio at bedside. plan is hold cardizem drip and asa, given digoxin which will be ordered.
--- NOTE | 2020-05-19 13:12 | PC.NURSE ---
bp remains in 80/50's. LR opened wide. No change in mental statues. A fib in 130's. Doc Jesin aware. pt awaiting transfer to floor.
[2020-05-19] MEDS: timoloL maleate 0.5 % Oph Sol 5 ML DRBTL 1 DROP EYE-BOTH (13:14)
[2020-05-19] MEDS: Dorzolamide HCl 2 % Ophth Sol 10 ML DRPBTL 1 DROP EYE-BOTH (13:14)
[2020-05-19 13:15] LABS: Hematocrit 39.8 % (37-47); Hemoglobin 13.4 g/dl (12.0-16.0); Mean Corpuscular HGB Conc 33.7 g/dl (31.0-35.0); Mean Corpuscular Hemoglobin 30.2 pg (27.0-33.0); Mean Corpuscular Volume 89.8 fL (80-98); Mean Platelet Volume 12.7 fL (9.4-12.3); Red Blood Count 4.43 X10*6/uL (4.20-5.50); Red Cell Distribution Width 13.2 % (11.0-16.0); White Blood Count 10.3 X10*3/uL (4.8-10.8)
[2020-05-19] MEDS: Apixaban 5 MG TABLET PO ×2 (13:15→21:47)
[2020-05-19] MEDS: Digoxin 0.5 MG/2 ML AMPUL 0.25 MG IVPUSH ×3 (13:16→23:58)
[2020-05-19 13:19] LABS: Platelet Count 84 X10*3/uL (160-400)
[2020-05-19 13:36] LABS: Alanine Aminotransferase 52 U/L (0-31); Albumin Level 3.3 g/dL (3.5-5.0); Alkaline Phosphatase 73 U/L (39-117); Anion Gap 12 (12-20); Aspartate Amino Transferase 41 U/L (5-31); Bilirubin Total 0.7 mg/dL (0.0-1.0); Blood Urea Nitrogen 12 mg/dL (9-16); Calcium 7.7 mg/dL (8.4-10.2); Carbon Dioxide 23 mmol/L (22-29); Chloride 104 mmol/L (96-108); Creatinine Clr Calc Pharmacy 63.5; Estimated Glomerular Filt Rate > 60; Glucose Random 107 mg/dL (60-115); Sodium 136 mmol/L (135-145); Total Protein 5.3 g/dL (6.5-8.0)
--- NOTE | 2020-05-19 15:19 | PM.CNCAR ---
History of Present Illness History of Present Illness Date of Service: 05/19/20 Requesting physician: Donell Epstein Chief complaint: Bacteremia gram negative Narrative: 79-year-old female who is presenting with diarrhea and nausea. She had multiple episodes of watery diarrhea. She presented to [facility] and subsequently was diagnosed with UTI and Gram-negative bacteremia. She also developed AFib with RVR in the emergency department. She complained of palpitations when she was in AFib. She continues to be in atrial fibrillation with rate control fluctuating and uncontrolled at at times. She has no bleeding issues. She was on baby aspirin in the past. She has history of hypertension and has been on atenolol. Denies any chest discomfort or any other symptoms right now. Review of Systems Constitutional: Constitutional: Reports headache(s) and Denies weakness ENT: Denies dizziness and Reports headache(s) Musculoskeletal: Musculoskeletal: Denies numbness and Denies tingling Neurologic: Denies dizziness, Reports headache(s), Denies numbness, Denies tingling and Denies weakness PMF Past Medical History Medical History (Updated 05/19/20 @ 18:49 by Sal Mcgrath MD) HLD (hyperlipidemia) Hypertension Osteoporosis Thrombocytopenia Unspecified glaucoma Social History Social History Alcohol intake: never Smoking Status: Current some day smoker Use of substances other than those prescribed or required for medical reasons: No Advance Directives: No Advance Directives Information Provided: No Meds Allergies Allergy/AdvReac Type Severity Reaction Status Date / Time No Known Allergies Allergy Unverified 01/26/20 15:09 [No Known Allergies*] ssri Allergy Unknown diarrhea Uncoded 12/16/19 00:00 Augmex AdvReac Unknown severe Uncoded 12/16/19 00:00 vomiting/diarrhea Home Medications Medication Instructions Recorded Confirmed Type Calcium 500 500 mg PO DAILY 05/18/20 05/18/20 History aspirin 81 mg PO DAILY 05/18/20 05/18/20 History atenolol 50 mg PO DAILY 05/18/20 05/18/20 History atorvastatin 10 mg PO DIRECTED 05/18/20 05/18/20 History dorzolamide 1 drp OPHTHALMIC (EYE) BID 05/18/20 05/18/20 History multivitamin 1 tab PO DAILY 05/18/20 05/18/20 History timolol 1 drp OPHTHALMIC (EYE) DAILY 05/18/20 05/18/20 History Physical Exam Vital Signs: Vital Signs: Last Vital Signs Temp 97.9 F 05/19/20 08:06 Pulse 125 H 05/19/20 14:38 Resp 17 05/19/20 14:38 BP 113/79 05/19/20 14:38 Pulse Ox 96 05/19/20 14:38 Body Mass Index 22.6 GENERAL APPEARANCE: in no acute distress, well developed, well nourished. HEENT: unremarkable. HEAD: normocephalic, atraumatic. NECK/THYROID: no carotid bruit, no jugular venous distention. SKIN: no suspicious lesions, warm and dry. HEART: no murmurs, irregular rate and rhythm, S1, S2 normal. LUNGS: Few crackles at bases. ABDOMEN: normal, bowel sounds present, soft, nontender, nondistended. EXTREMITIES: no clubbing, cyanosis, or edema. PERIPHERAL PULSES: equal. NEUROLOGIC: nonfocal, alert and oriented. PSYCH: mood/affect full range. Results Labs and Meds Result diagrams: 05/19/20 12:51 05/19/20 12:51 Lab results: Laboratory Results - last 24 hr 05/18/20 05/18/20 05/18/20 13:32 15:14 16:20 WBC RBC Hgb Hct MCV MCH MCHC RDW Plt Count MPV Absolute Nucleated RBC Nucleated RBC % (auto) Sodium Potassium Chloride Carbon Dioxide Anion Gap BUN Creatinine Estim Creat Clear Calc Estimated GFR Random Glucose Calcium Total Bilirubin AST ALT Alkaline Phosphatase Troponin I High Sens 248.1 H B-Natriuretic Peptide 147 H Total Protein Albumin Urine Color YELLOW Urine Appearance HAZY Urine pH 6.0 Ur Specific [place] 1.020 Urine Protein TRACE Urine Glucose (UA) NEG Urine Ketones 15 Urine Blood 1+ H Urine Nitrite NEG Ur Leukocyte Esterase NEG Urine RBC 1-4 Urine WBC 15-29 H Ur Squamous Epith Cells 1+ Urine Bacteria 1+ 05/18/20 05/19/20 05/19/20 22:50 12:51 12:51 WBC 10.3 RBC 4.43 Hgb 13.4 Hct 39.8 MCV 89.8 MCH 30.2 MCHC 33.7 RDW 13.2 Plt Count 84 L MPV 12.7 H Absolute Nucleated RBC 0.000 Nucleated RBC % (auto) 0.0 Sodium 136 Potassium 3.0 L Chloride 104 Carbon Dioxide 23 Anion Gap 12 BUN 12 Creatinine 0.65 Estim Creat Clear Calc 63.5 Estimated GFR > 60 Random Glucose 107 Calcium 7.7 L Total Bilirubin 0.7 AST 41 H D ALT 52 H Alkaline Phosphatase 73 Troponin I High Sens 164.9 H B-Natriuretic Peptide Total Protein 5.3 L Albumin 3.3 L Urine Color Urine Appearance Urine pH Ur Specific [place] Urine Protein Urine Glucose (UA) Urine Ketones Urine Blood Urine Nitrite Ur Leukocyte Esterase Urine RBC Urine WBC Ur Squamous Epith Cells Urine Bacteria Imaging Radiologist's impression: Impressions Chest CTA 05/18/20 14:42 IMPRESSION: No evidence of PE. No evidence of aortic dissection or aneurysm. The lungs are clear. Compression deformity T8 vertebra most likely old. Moderate spondylosis mid dorsal spine. Mild scoliosis VTE: Negative. Assessment and Plan (1) Elevated troponin: Status: Acute (2) Thrombocytopenia: Status: Acute (3) Gram-negative bacteremia: Status: Acute (4) PAF (paroxysmal atrial fibrillation): Status: Acute Pleasant 79-year-old female who is presenting with diarrhea and nausea and was diagnosed with urinary tract infection and Gram-negative bacteremia. She has been on IV antibiotics. She has developed atrial fibrillation with rapid ventricular response in the emergency department. She has been on atenolol her blood pressure is soft. She was given Cardizem bolus in the ED but I do not think she can tolerate Cardizem. I think we will load her with digoxin and then continue digoxin 125 microgram every other day. She has high chads Vasc score. Please stop the aspirin. Please start her Eliquis. Please monitor electrolytes specially potassium closely while the patient is on digoxin. We will follow along with the. Thank you for allowing me to participate in the care of your patient. Please feel free to contact me if you have any questions.
--- NOTE | 2020-05-19 15:41 | PC.NURSE ---
pt found standing near commode with loose mucously stool dripiing down legs. steady on feet but needing assistance. cleansed and placed back in bed. denies lightheadedness.
[2020-05-19] MEDS: cefTRIAXone sodium 1 GM in 0.9 % Sodium Chloride 50 ML IV (16:07)
--- NOTE | 2020-05-19 17:58 | PC.NURSE ---
rn [place] [facility] [place]
[2020-05-19] MEDS: Atorvastatin Calcium 10 MG TABLET PO (21:47)
[2020-05-20] VITALS (8 sets, daily range): BP systolic 99–120; BP diastolic 52–68; PULSE 85–108; RESP 18–20; TEMP 36.8–37.4; O2SAT 93–97
[2020-05-20] MEDS: Lactated Ringers 1,000 ML 100 ML IVCONT ×2 (06:43→15:57)
[2020-05-20] MEDS: atenoloL 50 MG TABLET PO (08:15)
[2020-05-20] MEDS: Apixaban 5 MG TABLET PO ×2 (08:15→20:35)
[2020-05-20] MEDS: Multivitamin TABLET 1 TAB PO (08:15)
[2020-05-20] MEDS: Dorzolamide HCl 2 % Ophth Sol 10 ML DRPBTL 1 DROP EYE-BOTH ×2 (08:24→20:36)
[2020-05-20] MEDS: timoloL maleate 0.5 % Oph Sol 5 ML DRBTL 1 DROP EYE-BOTH (08:24)
--- NOTE | 2020-05-20 08:37 | P.PNIM_ITS ---
Subjective Subjective Date of Service: 05/20/20 Interval History: feeling pretty well, had some more diarrhea today though Cardiovascular Cardiovascular: Reports no additional cardiovascular complaints Respiratory Respiratory: Reports no additional respiratory complaints Physical Exam Vital Signs: Vital Signs: Last Vital Signs Temp 99.3 F 05/20/20 07:35 Pulse 88 05/20/20 08:15 Resp 20 05/20/20 07:35 BP 111/61 05/20/20 08:15 Pulse Ox 94 05/20/20 07:35 Body Mass Index 22.6 General: AO X 3, no acute distress Resp: CTA bilateral CVS: S1,S2,irregular GI: soft, LLQ mildly tender, non distended Neuro: motor grossly intact Psych: appropriate affect Objective Data Current Medications Generic Name Dose Route Start Last Admin Trade Name Freq PRN Reason Stop Dose Admin Acetaminophen 650 mg 05/18/20 21:23 Acetaminophen 325 Mg Tablet PO Q6H PRN Pain, Mild (Pain Scale 1-3) Al Hydroxide/Mg Hydroxide 30 ml 05/18/20 21:23 Magnesium Hydrox/Alum Hydrox 30 Ml Oral.Susp PO Q4H PRN Heartburn/Nausea Apixaban 5 mg 05/19/20 12:45 05/20/20 08:15 Apixaban 5 Mg Tablet PO 5 mg BID RAFFI Administration Atenolol 50 mg 05/19/20 09:00 05/20/20 08:15 Atenolol 50 Mg Tablet PO 50 mg DAILY RAFFI Administration Protocol Atorvastatin Calcium 10 mg 05/19/20 02:15 05/19/20 21:47 Atorvastatin Calcium 10 Mg Tablet PO 10 mg BEDTIME RAFFI Administration Calcium Carbonate 500 mg 05/19/20 09:00 05/20/20 08:15 Calcium Carbonate 500 Mg Tablet PO 500 mg DAILY RAFFI Administration Digoxin 0.125 mg 05/21/20 08:00 Digoxin 0.125 Mg Tablet PO Q2D RAFFI Dorzolamide HCl 1 drop 05/19/20 09:00 05/20/20 08:24 Dorzolamide Hcl 2 % Ophth Lorraine 10 Ml Drpbtl EYE-BOTH 1 drop BID RAFFI Administration Ceftriaxone Sodium 1 gm/ 50 mls @ 100 mls/hr 05/19/20 16:00 05/19/20 18:49 Sodium Chloride IV Infused Q24H RAFFI Infusion Lactated Ringer's 1,000 mls @ 100 mls/hr 05/19/20 10:45 05/20/20 06:43 Lr IVCONT 100 mls/hr .Q10H RAFFI Administration Magnesium Hydroxide 30 ml 05/18/20 21:23 Milk Of Magnesia 30 Ml Oral.Susp PO DAILY PRN Constipation Multivitamins/Vitamin C 1 tab 05/19/20 09:00 05/20/20 08:15 Multivitamin Tablet PO 1 tab DAILY RAFFI Administration Ondansetron HCl 4 mg 05/18/20 21:23 Ondansetron Hcl 4 Mg/2 Ml Vial IVPUSH Q8H PRN Nausea and Vomiting Potassium Chloride 40 meq 05/20/20 08:37 Potassium Chloride Er 20 Meq Tab.Er.Prt PO 05/20/20 08:38 ONCE ONE Sodium Chloride 3 ml 05/19/20 00:00 05/20/20 08:15 0.9 % Sodium Chloride Flush 3 Ml Syringe IVFLUSH Not Given QSHIFT RAFFI Timolol Maleate 1 drop 05/19/20 09:00 05/20/20 08:24 Timolol Maleate 0.5 % Oph Lorraine 5 Ml Drbtl EYE-BOTH 1 drop DAILY RAFFI Administration Labs CBC & Chem 7: 05/19/20 12:51 05/19/20 12:51 Microbiology Microbiology Results: Microbiology 05/18/20 Unknown Urine clean catch - Clean Catch Midstream Urine Culture - Final Gram negative torie 05/18/20 13:33 Blood - Venous Blood Culture - Preliminary Gram negative torie 05/18/20 13:33 Blood - Venous Blood Culture - Preliminary Gram negative torie Assessment and Plan (1) Thrombocytopenia: Status: Acute (2) UTI (urinary tract infection): Status: Acute (3) Gram-negative bacteremia: Status: Acute (4) Gastroenteritis: Status: Acute (5) HLD (hyperlipidemia): Status: Acute (6) Osteoporosis: Status: Acute (7) Unspecified glaucoma: Status: Acute Assessment and Plan: 79F presented with abdominal pain, diarrhea, chills, found to have elevated troponin, positive ua with gram negative bacteremia. then went into new onset afib with rvr severe sepsis poa due to UTI +/- sigmoid diverticulitis complicated by GNR b acteremia continue ceftriaxone follow up cultures afib with RVR appears to be new continue atenolol, s/p digoxin load, continue maintance 0.125 q2D asa disconitnued, started on eliquis 5mg bid cardio following elevated troponin likely type II due to sepsis and afib follow up echo thrombocytopenia appears chronic, but worse than baseline, monitor hypokalemia due to diarrhea, replace and monitor htn atenolol
[2020-05-20 09:42] LABS: Hematocrit 37.1 % (37-47); Hemoglobin 12.5 g/dl (12.0-16.0); Mean Corpuscular HGB Conc 33.7 g/dl (31.0-35.0); Mean Corpuscular Hemoglobin 30.1 pg (27.0-33.0); Mean Corpuscular Volume 89.4 fL (80-98); Mean Platelet Volume 12.3 fL (9.4-12.3); Platelet Count 83 X10*3/uL (160-400); Red Blood Count 4.15 X10*6/uL (4.20-5.50); White Blood Count 9.2 X10*3/uL (4.8-10.8)
[2020-05-20 10:02] LABS: Anion Gap 11 (12-20); Blood Urea Nitrogen 11 mg/dL (9-16); Calcium 7.4 mg/dL (8.4-10.2); Carbon Dioxide 23 mmol/L (22-29); Chloride 105 mmol/L (96-108); Creatinine Clr Calc Pharmacy 64.5; Estimated Glomerular Filt Rate > 60; Glucose Random 141 mg/dL (60-115); Magnesium 1.7 mg/dL (1.6-2.6); Sodium 136 mmol/L (135-145)
[2020-05-20] MEDS: Magnesium Oxide 400 MG TABLET 800 MG PO (12:07)
[2020-05-20] MEDS: Potassium Chloride ER 20 MEQ TAB.ER.PRT 40 MEQ PO (12:07)
--- NOTE | 2020-05-20 13:57 | MHC.CM.PN ---
Pt report she lives alone and is fully independent with all care and mobility. Pt has no services and no DME. Pt reports she has completed a HCP in the past but does not know where it is, she will complete a new one today naming her son, Leon Travis ([phone]) as her agent. Pt confirms her PCP is Ellie Chen. [facility]MM delivered current DC plan is home with no services family to transport
[2020-05-20] MEDS: cefTRIAXone sodium 1 GM in 0.9 % Sodium Chloride 50 ML IV (15:19)
[2020-05-20] MEDS: 0.9 % Sodium Chloride Flush 3 ML SYRINGE IVFLUSH (15:20)
[2020-05-20 16:36] LABS: CDIFF Ag Negative (Negative); CDIFF Internal ctrl Dots and bkg OK (V); CDiff Toxin Negative (Negative)
[2020-05-20] MEDS: Atorvastatin Calcium 10 MG TABLET PO (20:35)
[2020-05-21] VITALS (9 sets, daily range): BP systolic 109–140; BP diastolic 57–73; PULSE 83–90; RESP 18–20; TEMP 36.4–36.9; O2SAT 96–99
[2020-05-21] MEDS: Lactated Ringers 1,000 ML 100 ML IVCONT (01:21)
[2020-05-21 04:03] LABS: HBS Num1 1.45 mIU/mL (0-7.99); HBc Num1 0.14 S/CO (0.00-0.79); Hepatitis B Core Antibody Nonreactive (Nonreactive); ~HepC Num1 0.06 S/CO (0.00-0.79); ~Hepatitis B Surface Antibody NONREACTIVE (Nonreactive); ~Hepatitis C Antibody Nonreactive (Nonreactive)
[2020-05-21 04:20] LABS: Hepatitis B Surface Antigen Negative (Negative)
[2020-05-21 06:31] LABS: Basophils Percent Auto 0.3 % (0-2); Hemoglobin 11.4 g/dl (12.0-16.0); MANUAL DIFF FLAG SCAN; Red Cell Distribution Width 13.2 % (11.0-16.0); SCAN SMEAR FLAG 1
[2020-05-21 06:33] LABS: Eosinophils Absolute Auto 0.1 X10*3/uL (0.0-0.4); Hematocrit 33.7 % (37-47); Imm Gran Abs Auto 0.03 X10*3/uL (0.00-0.03); Imm Gran Pct Auto 0.5 % (0.0-0.4); Lymphocytes Absolute Auto 1.3 X10*3/uL (1.2-4.9); Lymphocytes Percent Auto 20.4 % (20-40); Mean Corpuscular HGB Conc 33.8 g/dl (31.0-35.0); Mean Corpuscular Hemoglobin 30.5 pg (27.0-33.0); Mean Corpuscular Volume 90.1 fL (80-98); Mean Platelet Volume 12.7 fL (9.4-12.3); Monocytes Absolute Auto 0.7 X10*3/uL (0.1-1.2); Monocytes Percent Auto 10.8 % (2-11); Neutrophils Absolute Auto 4.4 X10*3/uL (2.0-8.3); Red Blood Count 3.74 X10*6/uL (4.20-5.50); White Blood Count 6.6 X10*3/uL (4.8-10.8)
[2020-05-21 06:38] LABS: PLT ABN DIST 1; Platelet Count 85 X10*3/uL (160-400)
[2020-05-21 07:33] LABS: Anion Gap 11 (12-20); Blood Urea Nitrogen 8 mg/dL (9-16); Calcium 7.2 mg/dL (8.4-10.2); Carbon Dioxide 22 mmol/L (22-29); Chloride 109 mmol/L (96-108); Creatinine Clr Calc Pharmacy 67.7; Estimated Glomerular Filt Rate > 60; Glucose Fasting 103 mg/dL (60-99); Magnesium 1.7 mg/dL (1.6-2.6); Potassium 3.4 mmol/l (3.3-5.1); Sodium 139 mmol/L (135-145)
[2020-05-21] MEDS: atenoloL 50 MG TABLET PO ×2 (09:04→20:13)
[2020-05-21] MEDS: Multivitamin TABLET 1 TAB PO (09:05)
[2020-05-21] MEDS: Apixaban 5 MG TABLET PO ×2 (09:05→20:14)
[2020-05-21] MEDS: timoloL maleate 0.5 % Oph Sol 5 ML DRBTL 1 DROP EYE-BOTH (09:06)
[2020-05-21] MEDS: Dorzolamide HCl 2 % Ophth Sol 10 ML DRPBTL 1 DROP EYE-BOTH ×2 (09:06→20:14)
[2020-05-21 09:15] LABS: SLIDE REVIEW VERIFIED
[2020-05-21] MEDS: Digoxin 0.125 MG TABLET PO (09:38)
[2020-05-21] MEDS: 0.9 % Sodium Chloride Flush 3 ML SYRINGE IVFLUSH ×3 (09:39→20:14)
--- NOTE | 2020-05-21 10:31 | PM.PNCARD ---
Subjective Subjective Date of Service: 05/21/20 Principal diagnosis: Atrial fibrillation, urosepsis Interval history: Patient converted to sinus rhythm, still has some small short bursts of atrial fibrillation with rapid ventricular response. Symptoms of palpitation with improved. Denies any other cardiac symptoms at current time. Review of Systems Constitutional: Reports weakness Cardiovascular: Reports no additional cardiovascular complaints Respiratory: Reports no additional respiratory complaints Gastrointestinal: Reports no additional gastrointestinal complaints Reports system reviewed and no additional complaints, except as documented and Reports weakness Physical Exam Vital Signs: Last Vital Signs Temp 97.6 F 05/21/20 07:59 Pulse 90 05/21/20 09:38 Resp 20 05/21/20 07:59 BP 136/65 05/21/20 09:04 Pulse Ox 97 05/21/20 07:59 Body Mass Index 22.6 Const General: cooperative, comfortable, alert and awake Orientation/consciousness: patient oriented x3 Neck Neck: Yes trachea midline, Yes supple and Yes no JVD Chest Chest palpation & inspection: normal inspection of the chest Resp Effort & Inspection: normal respiratory effort Auscultation: crackles bilateral at the base Cardio Jugular venous distension: no JVD Palpation: normal PMI Rate: regular rate Rhythm: regular rhythm Heart sounds: S1 normal heart sound present and S2 normal heart sound present Skin General skin exam: no rashes or lesions noted Neuro General: patient oriented x3 Extrem General: Yes no clubbing, cyanosis or edema Psych Appearance: grossly normal Results Labs and Meds Result diagrams: 05/21/20 05:47 05/21/20 05:47 Lab results: Laboratory Results - last 24 hr 05/19/20 05/20/20 05/21/20 12:51 15:26 05:47 WBC 6.6 RBC 3.74 L Hgb 11.4 L Hct 33.7 L MCV 90.1 MCH 30.5 MCHC 33.8 RDW 13.2 Plt Count 85 L MPV 12.7 H Immature Gran % (Auto) 0.5 H Neut % (Auto) 66.0 Lymph % (Auto) 20.4 [place] % (Auto) 10.8 Eos % (Auto) 2.0 Baso % (Auto) 0.3 Lymph # (Auto) 1.3 [place] # (Auto) 0.7 Eos # (Auto) 0.1 Baso # (Auto) 0.0 Abs Immat Gran (auto) 0.03 Absolute Neuts (auto) 4.4 Absolute Nucleated RBC 0.000 Nucleated RBC % (auto) 0.0 Smear Tech's Comments VERIFIED Sodium Potassium Chloride Carbon Dioxide Anion Gap BUN Creatinine Estim Creat Clear Calc Estimated GFR Fasting Glucose Calcium Magnesium C. difficile Toxin A&B Negative C. difficile Antigen Negative C. difficile Interpret SEE NOTE Hep Bs Antigen Negative Hep Bs Antibody NONREACTIVE Hep B Core Total Ab Nonreactive Hepatitis C Ab (EIA) Nonreactive 05/21/20 05:47 WBC RBC Hgb Hct MCV MCH MCHC RDW Plt Count MPV Immature Gran % (Auto) Neut % (Auto) Lymph % (Auto) [place] % (Auto) Eos % (Auto) Baso % (Auto) Lymph # (Auto) [place] # (Auto) Eos # (Auto) Baso # (Auto) Abs Immat Gran (auto) Absolute Neuts (auto) Absolute Nucleated RBC Nucleated RBC % (auto) Smear Tech's Comments Sodium 139 Potassium 3.4 Chloride 109 H Carbon Dioxide 22 Anion Gap 11 L BUN 8 L Creatinine 0.61 Estim Creat Clear Calc 67.7 Estimated GFR > 60 Fasting Glucose 103 H Calcium 7.2 L Magnesium 1.7 C. difficile Toxin A&B C. difficile Antigen C. difficile Interpret Hep Bs Antigen Hep Bs Antibody Hep B Core Total Ab Hepatitis C Ab (EIA) Progress Note: A&P Assessment and plan (1) PAF (paroxysmal atrial fibrillation): Status: Acute Assessment and Plan: Paroxysmal atrial fibrillation in elderly woman admitted with urinary tract infection sepsis. Converted to sinus rhythm with treatment. We discussed about management of atrial fibrillation and pathophysiology. Given that she has atrial fibrillation with her age and hypertension likely underlying atrial pathology that makes her more prone to get atrial fibrillation the future. Agree with oral anticoagulation with Eliquis. Still has some short burst of atrial fibrillation. Will increase atenolol to 50 mg b.i.d. given her blood pressure is improved. Discontinue IV fluids. Discontinue digoxin therapy to reduce long-term toxicity. Will follow with the patient. Will review the echocardiogram to assess LV systolic and diastolic function biatrial chamber size. (2) Hypertension: Status: Acute Assessment and Plan: Hypertension, admitted with borderline low blood pressure due to sepsis. This is now normalized. Will increase atenolol as above. Continue monitor blood pressure closely at home. (3) Elevated troponin: Status: Acute Assessment and Plan: Elevated troponin suggestive of myocardial injury. This appears to be secondary to urosepsis as well as atrial fibrillation rapid ventricular response. Will pursue outpatient ischemic workup. No other interventions required at this time. (4) Gram-negative bacteremia: Status: Acute Assessment and Plan: Gram-negative bacteremia, being treated by hospitalist team. She seems to have improved from that perspective. Treatment as per the primary team. Will sign of the case at current time. Will follow as needed Fall Risk Details Current Medications: Current Medications Generic Name Dose Route Start Last Admin Trade Name Freq PRN Reason Stop Dose Admin Acetaminophen 650 mg 05/18/20 21:23 Acetaminophen 325 Mg Tablet PO Q6H PRN Pain, Mild (Pain Scale 1-3) Al Hydroxide/Mg Hydroxide 30 ml 05/18/20 21:23 Magnesium Hydrox/Alum Hydrox 30 Ml Oral.Susp PO Q4H PRN Heartburn/Nausea Apixaban 5 mg 05/19/20 12:45 05/21/20 09:05 Apixaban 5 Mg Tablet PO 5 mg BID RAFFI Administration Atorvastatin Calcium 10 mg 05/19/20 02:15 05/20/20 20:35 Atorvastatin Calcium 10 Mg Tablet PO 10 mg BEDTIME RAFFI Administration Calcium Carbonate 500 mg 05/19/20 09:00 05/21/20 09:05 Calcium Carbonate 500 Mg Tablet PO 500 mg DAILY RAFFI Administration Dorzolamide HCl 1 drop 05/19/20 09:00 05/21/20 09:06 Dorzolamide Hcl 2 % Ophth Lorraine 10 Ml Drpbtl EYE-BOTH 1 drop BID RAFFI Administration Ceftriaxone Sodium 1 gm/ 50 mls @ 100 mls/hr 05/19/20 16:00 05/20/20 15:54 Sodium Chloride IV Infused Q24H RAFFI Infusion Lactated Ringer's 1,000 mls @ 100 mls/hr 05/19/20 10:45 05/21/20 01:21 Lr IVCONT 100 mls/hr .Q10H RAFFI Administration Magnesium Hydroxide 30 ml 05/18/20 21:23 Milk Of Magnesia 30 Ml Oral.Susp PO DAILY PRN Constipation Multivitamins/Vitamin C 1 tab 05/19/20 09:00 05/21/20 09:05 Multivitamin Tablet PO 1 tab DAILY RAFFI Administration Ondansetron HCl 4 mg 05/18/20 21:23 Ondansetron Hcl 4 Mg/2 Ml Vial IVPUSH Q8H PRN Nausea and Vomiting Sodium Chloride 3 ml 05/19/20 00:00 05/21/20 09:39 0.9 % Sodium Chloride Flush 3 Ml Syringe IVFLUSH 3 ml QSHIFT RAFFI Administration Timolol Maleate 1 drop 05/19/20 09:00 05/21/20 09:06 Timolol Maleate 0.5 % Oph Lorraine 5 Ml Drbtl EYE-BOTH 1 drop DAILY RAFFI Administration Time Spent With Patient Time: Total time spent is greater than 50% in coordination of care (as documented) at patient's floor/unit and/or counseling patient: Time with patient: 25 - 35 minutes
--- NOTE | 2020-05-21 10:41 | CA_ITS ---
Transthoracic Echocardiogram Patient (Last, First, Middle): Zuleima Shepard E Gender: Female Date of : 1940 Age: 79 Procedure Date: 05/21/2020 Procedure Type: Transthoracic Echocardiogram Location: [facility] Height: 167.64 cm Weight: 63.5 kg BSA: 1.72 m2 Heart Rate: bpm BP: 129 / 61 mmHg [employer] Estimator: BENJY Cantu MD: Donell Epstein MD Collections Professional: Brad Hansen MD Symptoms: afib Study Quality: Good ECG Rhythm: Sinus Conclusions: - 1. Normal LV systolic function with impaired relaxation filling pattern 2. Normal cardiac valvular Doppler 3. Normal RV systolic pressure 4. No pericardial effusion Findings Left Ventricle Normal left ventricular size, thickness, and systolic function. The visually estimated ejection fraction is between 60-65%. Spectral Doppler is indicative of an impaired relaxation filling pattern. E/E prime ratio is between 8 and 15 consistent with indeterminate filling pressures. Right Ventricle Normal right ventricular cavity size and systolic function. Atria Both atria are normal in size. There is no evidence of interatrial shunt. Aortic Valve Normal aortic valve structure and function. There is no aortic valve stenosis. There is no aortic valve regurgitation. Mitral Valve Normal mitral valve structure and function. There is mild mitral annular calcification. There is trace mitral valve regurgitation. There is no mitral valve stenosis. Pulmonic Valve The pulmonic valve was not well visualized. Tricuspid Valve Normal tricuspid valve structure. There is mild tricuspid valve regurgitation. The right ventricular systolic pressure is normal. The right ventricular systolic pressure is 27 mmHg. Normal right atrial pressure. There is no evidence of pulmonary hypertension. Great Vessels All visible segments of the aorta are normal in size. The pulmonary artery was not well visualized. Venous The inferior vena cava is normal in size and collapses greater than 50% with inspiration. Pericardium/Pleural There is no evidence of pericardial effusion. Prior Study Comparison No prior study available for comparison. Measurements 2D Linear Measurements IVSd: 0.97 0.6-0.9/0.6-1.0 cm LVIDd: 3.97 3.9-5.3/4.2-5.9 cm LVIDd Index: 2.31 2.4-3.2/2.2-3.1 cm/m2 LVIDs: 2.52 2.0-3.6 cm LVPWd: 0.97 0.7-1.1 cm Ao Root: 3.40 2.1-3.5 cm LA Diam: 3.50 2.7-3.8/3.0-4.0 cm LAIDs Index: 2.03 1.5-2.3 cm/m2 LV Mass: 149.94 67-162/88-224 g LV Mass Index: 87.17 43-95/49-115 g/m2 LVOT Diam: 2.00 3.0+(-)1.3 cm 2D Systolic Function EF 4C: 63.70 >55% EF 2C: 59.90 >55% EF BiP: 61.10 >55% Mitral Valve MV Pk E: 0.93 MV PK A: 0.65 MV Decel Time: 289.00 E/A: 1.40 E'Lateral: 7.94 E'Medial: 7.07 E/E' Med: 13.20 E/E' Lat: 11.70 PHT: 85.00 MVA PHT: 2.59 Decel [place]: 3.22 Aortic Valve AoV Pk Pasha: 1.27 AoV Mn Pasha: 0.90 AoV VTI: 0.27 AoV Pk Grad: 6.00 Aov Mn Grad: 4.00 JHON Cont.VTI: 2.16 LVOT LVOT Pk Pasha: 1.00 LVOT Mn Pasha: 0.59 LVOT VTI: 0.19 LVOT Pk Grad: 4.00 LVOT Mn Grad: 2.00 LVOT Diam: 2.00 LVOT Area: 3.14 Diastolic Function MV Pk E: 0.93 MV Pk A: 0.65 E/A: 1.40 E'Medial: 7.07 E/E' Med: 13.20 E' Laterial: 7.94 E/E' Lat: 11.70 Tricuspid Valve TR Pk Pasha: 2.44 TR Pk Grad: 24.00 RA Press: 3.00 RVSP: 27.00 Great Vessels Aorta Ao Root-2D: 3.40 2.0-3.7 cm Ao Asc: 3.80 2.1-3.4 cm Ao Arch: 2.90 Updated in Other Vendor System with Status of Final Brad Hansen MD electronically signed on 05/21/2020 4:50:42 PM with status of Final
--- NOTE | 2020-05-21 14:04 | P.PNIM_ITS ---
Subjective Subjective Date of Service: 05/21/20 Interval History: the patient was seen and evaluated this morning Laying in bed, feels comfortable Denies any fever, chills or shortness of breath No reported other overnight events. Systemic review: No fever, chills or weakness No chest pain, palpitation No shortness of breath or coughing No abdominal pain, nausea or vomiting No urinary symptoms No any rash or wounds Physical Exam 2 Vital Signs: Vital Signs: Last Vital Signs Temp 98.4 F 05/21/20 12:00 Pulse 85 05/21/20 12:00 Resp 18 05/21/20 12:00 BP 109/57 L 05/21/20 12:00 Pulse Ox 99 05/21/20 12:00 Body Mass Index 22.6 Constitutional : Alert, oriented, not in distress Neck : Normal inspection, Supple Cardiovascular : RRR, S1 S2, no lower extremity edema Respiratory : Good bilateral air entry, no crackles, wheezes or rhonchi Gastrointestinal: soft, lax, Normal bowel sounds, Non tender Skin : Warm/Dry, No rash Neurological : Alert & oriented x3, No focal deficit Objective Data Current Medications Generic Name Dose Route Start Last Admin Trade Name Freq PRN Reason Stop Dose Admin Acetaminophen 650 mg 05/18/20 21:23 Acetaminophen 325 Mg Tablet PO Q6H PRN Pain, Mild (Pain Scale 1-3) Al Hydroxide/Mg Hydroxide 30 ml 05/18/20 21:23 Magnesium Hydrox/Alum Hydrox 30 Ml Oral.Susp PO Q4H PRN Heartburn/Nausea Apixaban 5 mg 05/19/20 12:45 05/21/20 09:05 Apixaban 5 Mg Tablet PO 5 mg BID RAFFI Administration Atenolol 50 mg 05/21/20 21:00 Atenolol 50 Mg Tablet PO BID RAFFI Protocol Atorvastatin Calcium 10 mg 05/19/20 02:15 05/20/20 20:35 Atorvastatin Calcium 10 Mg Tablet PO 10 mg BEDTIME RAFFI Administration Calcium Carbonate 500 mg 05/19/20 09:00 05/21/20 09:05 Calcium Carbonate 500 Mg Tablet PO 500 mg DAILY RAFFI Administration Dorzolamide HCl 1 drop 05/19/20 09:00 05/21/20 09:06 Dorzolamide Hcl 2 % Ophth Lorraine 10 Ml Drpbtl EYE-BOTH 1 drop BID RAFFI Administration Ceftriaxone Sodium 1 gm/ 50 mls @ 100 mls/hr 05/19/20 16:00 05/20/20 15:54 Sodium Chloride IV Infused Q24H RAFFI Infusion Magnesium Hydroxide 30 ml 05/18/20 21:23 Milk Of Magnesia 30 Ml Oral.Susp PO DAILY PRN Constipation Multivitamins/Vitamin C 1 tab 05/19/20 09:00 05/21/20 09:05 Multivitamin Tablet PO 1 tab DAILY RAFFI Administration Ondansetron HCl 4 mg 05/18/20 21:23 Ondansetron Hcl 4 Mg/2 Ml Vial IVPUSH Q8H PRN Nausea and Vomiting Sodium Chloride 3 ml 05/19/20 00:00 05/21/20 09:39 0.9 % Sodium Chloride Flush 3 Ml Syringe IVFLUSH 3 ml QSHIFT RAFFI Administration Timolol Maleate 1 drop 05/19/20 09:00 05/21/20 09:06 Timolol Maleate 0.5 % Oph Lorraine 5 Ml Drbtl EYE-BOTH 1 drop DAILY RAFFI Administration Labs CBC & Chem 7: 05/21/20 05:47 05/21/20 05:47 Microbiology Microbiology Results: Microbiology 05/18/20 13:33 Blood - Venous Blood Culture - Preliminary Escherichia coli 05/18/20 13:33 Blood - Venous Blood Culture - Final Escherichia coli 05/18/20 Unknown Urine clean catch - Clean Catch Midstream Urine Culture - Final Gram negative torie Assessment and Plan (1) Thrombocytopenia: Status: Acute (2) UTI (urinary tract infection): Status: Acute (3) Gram-negative bacteremia: Status: Acute (4) Gastroenteritis: Status: Acute (5) HLD (hyperlipidemia): Status: Acute (6) Osteoporosis: Status: Acute (7) Unspecified glaucoma: Status: Acute Assessment and Plan: 79F presented with abdominal pain, diarrhea, chills, found to have elevated troponin, positive ua with gram negative bacteremia. then went into new onset afib with rvr severe sepsis due to UTI and possible sigmoid diverticulitis complicated by E.Coli bacteremia continue ceftriaxone To be discharged to finish total 10 days Abx afib with RVR New onset, better controlled continue atenolol continue Digoxin maintance 0.125 q2D asa disconitnued, started on eliquis 5mg bid cardio following Pending ECHO elevated troponin likely type II due to sepsis and afib follow up echo thrombocytopenia appears chronic, but worse than baseline, monitor hypokalemia due to diarrhea, replace and monitor htn atenolol DVT ppx Eliquis
--- NOTE | 2020-05-21 15:30 | MHC.CM.PN ---
per rounds brie antcapated for 05/22 plan reman[facility] home no services
[2020-05-21] MEDS: cefTRIAXone sodium 1 GM in 0.9 % Sodium Chloride 50 ML IV (16:13)
[2020-05-21] MEDS: Atorvastatin Calcium 10 MG TABLET PO (20:13)
[2020-05-22] VITALS: BP 125/55; PULSE 84; RESP 18; TEMP 36.4; O2SAT 94
[2020-05-22 04:00] VITALS: BP 118/57; PULSE 81; RESP 18; TEMP 36.8; O2SAT 93
[2020-05-22 05:14] LABS: Anion Gap 12 (12-20); Blood Urea Nitrogen 7 mg/dL (9-16); Calcium 7.4 mg/dL (8.4-10.2); Carbon Dioxide 20 mmol/L (22-29); Chloride 110 mmol/L (96-108); Creatinine Clr Calc Pharmacy 65.5; Estimated Glomerular Filt Rate > 60; Glucose Random 94 mg/dL (60-115); Potassium 3.3 mmol/l (3.3-5.1); Sodium 139 mmol/L (135-145)
[2020-05-22 07:11] VITALS: BP 123/65; PULSE 74; RESP 18; TEMP 36.8; O2SAT 93
[2020-05-22] MEDS: 0.9 % Sodium Chloride Flush 3 ML SYRINGE IVFLUSH (09:28)
[2020-05-22] MEDS: Apixaban 5 MG TABLET PO (09:29)
[2020-05-22] MEDS: timoloL maleate 0.5 % Oph Sol 5 ML DRBTL 1 DROP EYE-BOTH (09:29)
[2020-05-22] MEDS: Dorzolamide HCl 2 % Ophth Sol 10 ML DRPBTL 1 DROP EYE-BOTH (09:29)
[2020-05-22] MEDS: Multivitamin TABLET 1 TAB PO (09:29)
[2020-05-22 09:31] VITALS: BP 111/58; PULSE 86
[2020-05-22] MEDS: atenoloL 50 MG TABLET PO (09:31)
[2020-05-22 10:58] VITALS: BP 117/52; PULSE 74; RESP 20; TEMP 36.6; O2SAT 97
--- NOTE | 2020-05-22 11:17 | PM.PNCARD ---
Subjective Subjective Date of Service: 05/22/20 Principal diagnosis: Atrial fibrillation, urosepsis Interval history: Patient is feeling extremely well today. She is very happy. No overnight episodes of atrial fibrillation. Denies any cardiac symptoms at this time. Review of Systems Constitutional: Reports no additional constitutional complaints Denies dizziness Cardiovascular: Reports no additional cardiovascular complaints Respiratory: Reports no additional respiratory complaints Musculoskeletal: Denies numbness and Denies tingling Reports system reviewed and no additional complaints, except as documented, Denies dizziness, Denies numbness and Denies tingling Physical Exam Vital Signs: Last Vital Signs Temp 97.8 F 05/22/20 10:58 Pulse 74 05/22/20 10:58 Resp 20 05/22/20 10:58 BP 117/52 L 05/22/20 10:58 Pulse Ox 97 05/22/20 10:58 Body Mass Index 22.6 Const General: cooperative, comfortable, alert and awake Orientation/consciousness: patient oriented x3 HENMT Head: Yes normocephalic and Yes atraumatic Neck Neck: Yes trachea midline and Yes no JVD Chest Chest palpation & inspection: normal inspection of the chest Resp Effort & Inspection: normal respiratory effort Auscultation: clear to auscultation bilaterally Cardio Jugular venous distension: no JVD Palpation: normal PMI Rate: regular rate Rhythm: regular rhythm Heart sounds: S1 normal heart sound present and S2 normal heart sound present Skin General skin exam: no rashes or lesions noted Neuro General: patient oriented x3 and no focal motor deficits Extrem General: Yes no clubbing, cyanosis or edema Psych Appearance: grossly normal Results Labs and Meds Result diagrams: 05/21/20 05:47 05/22/20 04:05 Lab results: Laboratory Results - last 24 hr 05/22/20 04:05 Sodium 139 Potassium 3.3 Chloride 110 H Carbon Dioxide 20 L Anion Gap 12 BUN 7 L Creatinine 0.63 Estim Creat Clear Calc 65.5 Estimated GFR > 60 Random Glucose 94 Calcium 7.4 L Progress Note: A&P Assessment and plan (1) PAF (paroxysmal atrial fibrillation): Status: Acute Assessment and Plan: Paroxysmal atrial fibrillation, most likely induced by a her infectious etiology. Biatrial enlargement. However given her age and hypertension are risk factors for development of atrial fibrillation. No recurrence since yesterday. Continue with atenolol 50 mg b.i.d.. She does have symptoms related to atrial fibrillation, can monitor for the same. Will obtain outpatient Holter monitor. Avoidance of stimulants was discussed. Continue full oral anticoagulation, currently on Eliquis 5 mg b.i.d.. Can discharge home from cardiac perspective. Will follow up as outpatient. (2) Gram-negative bacteremia: Status: Acute Assessment and Plan: Urosepsis. This has significantly improved. She appears clinically much improved. Management as per the hospitalist team. Will follow up as outpatient. Fall Risk Details Current Medications: Current Medications Generic Name Dose Route Start Last Admin Trade Name Freq PRN Reason Stop Dose Admin Acetaminophen 650 mg 05/18/20 21:23 Acetaminophen 325 Mg Tablet PO Q6H PRN Pain, Mild (Pain Scale 1-3) Al Hydroxide/Mg Hydroxide 30 ml 05/18/20 21:23 Magnesium Hydrox/Alum Hydrox 30 Ml Oral.Susp PO Q4H PRN Heartburn/Nausea Apixaban 5 mg 05/19/20 12:45 05/22/20 09:29 Apixaban 5 Mg Tablet PO 5 mg BID RAFFI Administration Atenolol 50 mg 05/21/20 21:00 05/22/20 09:31 Atenolol 50 Mg Tablet PO 50 mg BID RAFFI Administration Protocol Atorvastatin Calcium 10 mg 05/19/20 02:15 05/21/20 20:13 Atorvastatin Calcium 10 Mg Tablet PO 10 mg BEDTIME RAFFI Administration Calcium Carbonate 500 mg 05/19/20 09:00 05/22/20 09:29 Calcium Carbonate 500 Mg Tablet PO 500 mg DAILY RAFFI Administration Dorzolamide HCl 1 drop 05/19/20 09:00 05/22/20 09:29 Dorzolamide Hcl 2 % Ophth Lorraine 10 Ml Drpbtl EYE-BOTH 1 drop BID RAFFI Administration Ceftriaxone Sodium 1 gm/ 50 mls @ 100 mls/hr 05/19/20 16:00 05/21/20 16:50 Sodium Chloride IV Infused Q24H RAFFI Infusion Magnesium Hydroxide 30 ml 05/18/20 21:23 Milk Of Magnesia 30 Ml Oral.Susp PO DAILY PRN Constipation Multivitamins/Vitamin C 1 tab 05/19/20 09:00 05/22/20 09:29 Multivitamin Tablet PO 1 tab DAILY RAFFI Administration Ondansetron HCl 4 mg 05/18/20 21:23 Ondansetron Hcl 4 Mg/2 Ml Vial IVPUSH Q8H PRN Nausea and Vomiting Sodium Chloride 3 ml 05/19/20 00:00 05/22/20 09:28 0.9 % Sodium Chloride Flush 3 Ml Syringe IVFLUSH 3 ml QSHIFT RAFFI Administration Timolol Maleate 1 drop 05/19/20 09:00 05/22/20 09:29 Timolol Maleate 0.5 % Oph Lorraine 5 Ml Drbtl EYE-BOTH 1 drop DAILY RAFFI Administration Time Spent With Patient Time: Total time spent is greater than 50% in coordination of care (as documented) at patient's floor/unit and/or counseling patient: Time with patient: 25 - 35 minutes
[2020-05-22 13:46] LABS: COVID-19 Test Negative (Negative)
--- NOTE | 2020-05-22 14:04 | PM.DS ---
DS: Providers Provider Date of Service: 05/22/20 Date of admission: 05/18/20 21:23 Primary care physician: Ellie Chen MD Consults: 05/18/20 21:23 Consult to Cardiology Routine Consulting Provider: [facility] Reason for consultation: Elevated Trop I and D-Dimer. Nonspecific ST and T wave abnormalities DS: Diagnosis Discharge Diagnosis (1) PAF (paroxysmal atrial fibrillation): Status: Acute (2) Gram-negative bacteremia: Status: Acute (3) UTI (urinary tract infection): Status: Acute (4) Thrombocytopenia: Status: Acute (5) Elevated troponin: Status: Acute (6) Hypokalemia: Status: Acute (7) New onset atrial fibrillation: Status: Acute DS: Medications Discharge Medications Home Medications: Home Medications Medication Instructions Recorded Confirmed Calcium 500 500 mg PO DAILY 05/18/20 05/18/20 aspirin 81 mg PO DAILY 05/18/20 05/18/20 atenolol 50 mg PO DAILY 05/18/20 05/18/20 atorvastatin 10 mg PO DIRECTED 05/18/20 05/18/20 dorzolamide 1 drp OPHTHALMIC (EYE) BID 05/18/20 05/18/20 multivitamin 1 tab PO DAILY 05/18/20 05/18/20 timolol 1 drp OPHTHALMIC (EYE) DAILY 05/18/20 05/18/20 Previous Rx's Medication Instructions Recorded apixaban [Eliquis] 5 mg PO BID #60 tab 05/22/20 cefuroxime axetil 500 mg PO Q12H #14 tab 05/22/20 digoxin 125 mcg PO DAILY #30 tab 05/22/20 DS: Summary Hospital Course Hospital Course: Admission note HPI An 79 years old lady with PMH of hypertension who presents to the hospital complaining of 3 days history of nausea, watery diarrhea and lower abdominal pain. To patient reports that diarrhea started out of no where up to 10 times a day which was watery in nature associated with nausea but no vomiting. She had no appetite over the last 3 days to eat much as her symptoms were associated with lower abdominal pain which was colicky in nature with no radiation and improved significantly today. She reports chills mainly 2 days ago associated with tremors but seems to be improving today. Id because of her decreased oral intake her son brought her to the hospital today. In the emergency she was found to be hypokalemic of 3. Rest of blood work was concerning for elevated troponin with mild EKG changes which was discussed with Cardiology by ED provider and recommended no active treatment at this point. Noticed to have elevated D-dimers and a CTA was done negative for any PE or infiltrates. Admitted to the hospital for further evaluation and treatment. Hospital course For evaluation of diarrhea, chills and pain. Found to have urine infection growing E coli. Her blood cultures were also positive for E coli bacteremia. She was treated with IV ceftriaxone with good response over the course of hospital stay. Discharged on Ceftin to finish total of 10 days of of antibiotics. During the hospital stay she broke into atrial fibrillation with rapid ventricular response. It is a new onset disease. An echo was done showing normal heart chambers and valves. She was evaluated by electronics processing supervisor who recommended to continue atenolol and start her on digoxin along with Eliquis. Aspirin was discontinued. She has chronic thrombocytopenia but remained at baseline. Hypokalemia a time presentation resolved with replacement. Time Spent with Patient Time attestation: Total time spent providing and/or coordinating discharge services: Discharge coordination time: Greater than 30 minutes Physical Exam Vital Signs: Vital Signs: Last Vital Signs Temp 97.8 F 05/22/20 10:58 Pulse 74 05/22/20 10:58 Resp 20 05/22/20 10:58 BP 117/52 L 05/22/20 10:58 Pulse Ox 97 05/22/20 10:58 Body Mass Index 22.6 Constitutional : Alert, oriented, not in distress Neck : Normal inspection, Supple Cardiovascular : Irregular irregular rhythm, S1 S2, no lower extremity edema Respiratory : Good bilateral air entry, no crackles, wheezes or rhonchi Gastrointestinal: soft, lax, Normal bowel sounds, Non tender Skin : Warm/Dry, No rash Neurological : Alert & oriented x3, No focal deficit DS: Data Data Completed and Pending Labs on day of discharge: Laboratory Tests 05/18/20 05/18/20 05/18/20 13:32 13:32 13:32 WBC 9.6 RBC 4.27 Hgb 12.9 Hct 38.4 MCV 89.9 MCH 30.2 MCHC 33.6 RDW 13.3 Plt Count 84 L MPV 12.0 Immature Gran % (Auto) 0.7 H Neut % (Auto) 89.5 H Lymph % (Auto) 4.8 L [place] % (Auto) 4.8 Eos % (Auto) 0.1 Baso % (Auto) 0.1 Lymph # (Auto) 0.5 L [place] # (Auto) 0.5 Eos # (Auto) 0.0 Baso # (Auto) 0.0 Abs Immat Gran (auto) 0.07 H Absolute Neuts (auto) 8.6 H Absolute Nucleated RBC 0.000 Nucleated RBC % (auto) 0.0 Smear Tech's Comments VERIFIED PT 14.9 H INR 1.3 H D-Dimer 2784 Sodium 134 L Potassium 3.0 L Chloride 101 Carbon Dioxide 21 L Anion Gap 15 BUN 17 H Creatinine 0.75 Estim Creat Clear Calc 55.0 Estimated GFR > 60 Random Glucose 102 Fasting Glucose Lactic Acid Calcium 7.8 L Magnesium 1.8 Ferritin Total Bilirubin 0.9 Direct Bilirubin 0.5 AST 77 H ALT 67 H Alkaline Phosphatase 74 Lactate Dehydrogenase 214 Total Creatine Kinase 401 H Troponin I High Sens B-Natriuretic Peptide Total Protein 5.8 L Albumin 3.6 Procalcitonin Urine Color Urine Appearance Urine pH Ur Specific [place] Urine Protein Urine Glucose (UA) Urine Ketones Urine Blood Urine Nitrite Ur Leukocyte Esterase Urine RBC Urine WBC Ur Squamous Epith Cells Urine Bacteria C. difficile Toxin A&B C. difficile Antigen C. difficile Interpret Coronavirus (PCR) COVID-19 ([facility]) COVID-19 Clin Com Hep Bs Antigen Hep Bs Antibody Hep B Core Total Ab Hepatitis C Ab (EIA) Influenza Type A (PCR) Influenza Type B (PCR) RSV RNA Qual (PCR) 05/18/20 05/18/20 05/18/20 13:32 13:32 13:33 WBC RBC Hgb Hct MCV MCH MCHC RDW Plt Count MPV Immature Gran % (Auto) Neut % (Auto) Lymph % (Auto) [place] % (Auto) Eos % (Auto) Baso % (Auto) Lymph # (Auto) [place] # (Auto) Eos # (Auto) Baso # (Auto) Abs Immat Gran (auto) Absolute Neuts (auto) Absolute Nucleated RBC Nucleated RBC % (auto) Smear Tech's Comments PT INR D-Dimer Sodium Potassium Chloride Carbon Dioxide Anion Gap BUN Creatinine Estim Creat Clear Calc Estimated GFR Random Glucose Fasting Glucose Lactic Acid Calcium Magnesium Ferritin 338 H Total Bilirubin Direct Bilirubin AST ALT Alkaline Phosphatase Lactate Dehydrogenase Total Creatine Kinase Troponin I High Sens 288.3 H B-Natriuretic Peptide 147 H Total Protein Albumin Procalcitonin Urine Color Urine Appearance Urine pH Ur Specific [place] Urine Protein Urine Glucose (UA) Urine Ketones Urine Blood Urine Nitrite Ur Leukocyte Esterase Urine RBC Urine WBC Ur Squamous Epith Cells Urine Bacteria C. difficile Toxin A&B C. difficile Antigen C. difficile Interpret Coronavirus (PCR) NEGATIVE COVID-19 ([facility]) COVID-19 Clin Com Hep Bs Antigen Hep Bs Antibody Hep B Core Total Ab Hepatitis C Ab (EIA) Influenza Type A (PCR) NEGATIVE Influenza Type B (PCR) NEGATIVE RSV RNA Qual (PCR) NEGATIVE 05/18/20 05/18/20 05/18/20 13:33 13:33 15:14 WBC RBC Hgb Hct MCV MCH MCHC RDW Plt Count MPV Immature Gran % (Auto) Neut % (Auto) Lymph % (Auto) [place] % (Auto) Eos % (Auto) Baso % (Auto) Lymph # (Auto) [place] # (Auto) Eos # (Auto) Baso # (Auto) Abs Immat Gran (auto) Absolute Neuts (auto) Absolute Nucleated RBC Nucleated RBC % (auto) Smear Tech's Comments PT INR D-Dimer Sodium Potassium Chloride Carbon Dioxide Anion Gap BUN Creatinine Estim Creat Clear Calc Estimated GFR Random Glucose Fasting Glucose Lactic Acid 0.7 Calcium Magnesium Ferritin Total Bilirubin Direct Bilirubin AST ALT Alkaline Phosphatase Lactate Dehydrogenase Total Creatine Kinase Troponin I High Sens B-Natriuretic Peptide Total Protein Albumin Procalcitonin 19.16 Urine Color YELLOW Urine Appearance HAZY Urine pH 6.0 Ur Specific [place] 1.020 Urine Protein TRACE Urine Glucose (UA) NEG Urine Ketones 15 Urine Blood 1+ H Urine Nitrite NEG Ur Leukocyte Esterase NEG Urine RBC 1-4 Urine WBC 15-29 H Ur Squamous Epith Cells 1+ Urine Bacteria 1+ C. difficile Toxin A&B C. difficile Antigen C. difficile Interpret Coronavirus (PCR) COVID-19 ([facility]) COVID-19 Clin Com Hep Bs Antigen Hep Bs Antibody Hep B Core Total Ab Hepatitis C Ab (EIA) Influenza Type A (PCR) Influenza Type B (PCR) RSV RNA Qual (PCR) 05/18/20 05/18/20 05/19/20 16:20 22:50 12:51 WBC 10.3 RBC 4.43 Hgb 13.4 Hct 39.8 MCV 89.8 MCH 30.2 MCHC 33.7 RDW 13.2 Plt Count 84 L MPV 12.7 H Immature Gran % (Auto) Neut % (Auto) Lymph % (Auto) [place] % (Auto) Eos % (Auto) Baso % (Auto) Lymph # (Auto) [place] # (Auto) Eos # (Auto) Baso # (Auto) Abs Immat Gran (auto) Absolute Neuts (auto) Absolute Nucleated RBC 0.000 Nucleated RBC % (auto) 0.0 Smear Tech's Comments PT INR D-Dimer Sodium Potassium Chloride Carbon Dioxide Anion Gap BUN Creatinine Estim Creat Clear Calc Estimated GFR Random Glucose Fasting Glucose Lactic Acid Calcium Magnesium Ferritin Total Bilirubin Direct Bilirubin AST ALT Alkaline Phosphatase Lactate Dehydrogenase Total Creatine Kinase Troponin I High Sens 248.1 H 164.9 H B-Natriuretic Peptide Total Protein Albumin Procalcitonin Urine Color Urine Appearance Urine pH Ur Specific [place] Urine Protein Urine Glucose (UA) Urine Ketones Urine Blood Urine Nitrite Ur Leukocyte Esterase Urine RBC Urine WBC Ur Squamous Epith Cells Urine Bacteria C. difficile Toxin A&B C. difficile Antigen C. difficile Interpret Coronavirus (PCR) COVID-19 ([facility]) COVID-19 Clin Com Hep Bs Antigen Hep Bs Antibody Hep B Core Total Ab Hepatitis C Ab (EIA) Influenza Type A (PCR) Influenza Type B (PCR) RSV RNA Qual (PCR) 05/19/20 05/19/20 05/20/20 12:51 12:51 09:31 WBC 9.2 RBC 4.15 L Hgb 12.5 Hct 37.1 MCV 89.4 MCH 30.1 MCHC 33.7 RDW 13.0 Plt Count 83 L MPV 12.3 Immature Gran % (Auto) Neut % (Auto) Lymph % (Auto) [place] % (Auto) Eos % (Auto) Baso % (Auto) Lymph # (Auto) [place] # (Auto) Eos # (Auto) Baso # (Auto) Abs Immat Gran (auto) Absolute Neuts (auto) Absolute Nucleated RBC 0.000 Nucleated RBC % (auto) 0.0 Smear Tech's Comments PT INR D-Dimer Sodium 136 Potassium 3.0 L Chloride 104 Carbon Dioxide 23 Anion Gap 12 BUN 12 Creatinine 0.65 Estim Creat Clear Calc 63.5 Estimated GFR > 60 Random Glucose 107 Fasting Glucose Lactic Acid Calcium 7.7 L Magnesium Ferritin Total Bilirubin 0.7 Direct Bilirubin AST 41 H D ALT 52 H Alkaline Phosphatase 73 Lactate Dehydrogenase Total Creatine Kinase Troponin I High Sens B-Natriuretic Peptide Total Protein 5.3 L Albumin 3.3 L Procalcitonin Urine Color Urine Appearance Urine pH Ur Specific [place] Urine Protein Urine Glucose (UA) Urine Ketones Urine Blood Urine Nitrite Ur Leukocyte Esterase Urine RBC Urine WBC Ur Squamous Epith Cells Urine Bacteria C. difficile Toxin A&B C. difficile Antigen C. difficile Interpret Coronavirus (PCR) COVID-19 ([facility]) COVID-19 Clin Com Hep Bs Antigen Negative Hep Bs Antibody NONREACTIVE Hep B Core Total Ab Nonreactive Hepatitis C Ab (EIA) Nonreactive Influenza Type A (PCR) Influenza Type B (PCR) RSV RNA Qual (PCR) 05/20/20 05/20/20 05/21/20 09:31 15:26 05:47 WBC 6.6 RBC 3.74 L Hgb 11.4 L Hct 33.7 L MCV 90.1 MCH 30.5 MCHC 33.8 RDW 13.2 Plt Count 85 L MPV 12.7 H Immature Gran % (Auto) 0.5 H Neut % (Auto) 66.0 Lymph % (Auto) 20.4 [place] % (Auto) 10.8 Eos % (Auto) 2.0 Baso % (Auto) 0.3 Lymph # (Auto) 1.3 [place] # (Auto) 0.7 Eos # (Auto) 0.1 Baso # (Auto) 0.0 Abs Immat Gran (auto) 0.03 Absolute Neuts (auto) 4.4 Absolute Nucleated RBC 0.000 Nucleated RBC % (auto) 0.0 Smear Tech's Comments VERIFIED PT INR D-Dimer Sodium 136 Potassium 3.0 L Chloride 105 Carbon Dioxide 23 Anion Gap 11 L BUN 11 Creatinine 0.64 Estim Creat Clear Calc 64.5 Estimated GFR > 60 Random Glucose 141 H Fasting Glucose Lactic Acid Calcium 7.4 L Magnesium 1.7 Ferritin Total Bilirubin Direct Bilirubin AST ALT Alkaline Phosphatase Lactate Dehydrogenase Total Creatine Kinase Troponin I High Sens B-Natriuretic Peptide Total Protein Albumin Procalcitonin Urine Color Urine Appearance Urine pH Ur Specific [place] Urine Protein Urine Glucose (UA) Urine Ketones Urine Blood Urine Nitrite Ur Leukocyte Esterase Urine RBC Urine WBC Ur Squamous Epith Cells Urine Bacteria C. difficile Toxin A&B Negative C. difficile Antigen Negative C. difficile Interpret SEE NOTE Coronavirus (PCR) COVID-19 ([facility]) COVID-19 Clin Com Hep Bs Antigen Hep Bs Antibody Hep B Core Total Ab Hepatitis C Ab (EIA) Influenza Type A (PCR) Influenza Type B (PCR) RSV RNA Qual (PCR) 05/21/20 05/22/20 05/22/20 05:47 04:05 13:00 WBC RBC Hgb Hct MCV MCH MCHC RDW Plt Count MPV Immature Gran % (Auto) Neut % (Auto) Lymph % (Auto) [place] % (Auto) Eos % (Auto) Baso % (Auto) Lymph # (Auto) [place] # (Auto) Eos # (Auto) Baso # (Auto) Abs Immat Gran (auto) Absolute Neuts (auto) Absolute Nucleated RBC Nucleated RBC % (auto) Smear Tech's Comments PT INR D-Dimer Sodium 139 139 Potassium 3.4 3.3 Chloride 109 H 110 H Carbon Dioxide 22 20 L Anion Gap 11 L 12 BUN 8 L 7 L Creatinine 0.61 0.63 Estim Creat Clear Calc 67.7 65.5 Estimated GFR > 60 > 60 Random Glucose 94 Fasting Glucose 103 H Lactic Acid Calcium 7.2 L 7.4 L Magnesium 1.7 Ferritin Total Bilirubin Direct Bilirubin AST ALT Alkaline Phosphatase Lactate Dehydrogenase Total Creatine Kinase Troponin I High Sens B-Natriuretic Peptide Total Protein Albumin Procalcitonin Urine Color Urine Appearance Urine pH Ur Specific [place] Urine Protein Urine Glucose (UA) Urine Ketones Urine Blood Urine Nitrite Ur Leukocyte Esterase Urine RBC Urine WBC Ur Squamous Epith Cells Urine Bacteria C. difficile Toxin A&B C. difficile Antigen C. difficile Interpret Coronavirus (PCR) COVID-19 ([facility]) Negative COVID-19 Clin Com See Note Hep Bs Antigen Hep Bs Antibody Hep B Core Total Ab Hepatitis C Ab (EIA) Influenza Type A (PCR) Influenza Type B (PCR) RSV RNA Qual (PCR) Preliminary micro results at discharge 05/18/20 13:33 Blood Culture - Preliminary Blood - Venous Escherichia coli Discharge Plan Discharge Patient Disposition: Home, Self-Care Referrals: Ellie Chen MD [Primary Care Provider] - Discharge Medications: New Eliquis 5 mg Tablet 5 mg PO BID Qty: 60 RF: 2 cefuroxime axetil 500 mg tablet 500 mg PO Q12H Qty: 14 RF: 0 digoxin 125 mcg (0.125 mg) tablet 125 mcg PO DAILY Qty: 30 RF: 0 atenolol 50 mg Tablet 50 mg PO BID Qty: 60 RF: 0 Continued multivitamin Tablet 1 tab PO DAILY RF: 0 atorvastatin 10 mg Tablet 10 mg PO DIRECTED RF: 0 timolol 0.5 % Drops 1 drp OPHTHALMIC (EYE) DAILY RF: 0 dorzolamide 2 % Drops 1 drp OPHTHALMIC (EYE) BID RF: 0 Calcium 500 500 mg PO DAILY RF: 0 Discontinued aspirin 81 mg Tablet,Chewable 81 mg PO DAILY RF: 0 atenolol 50 mg Tablet 50 mg PO DAILY RF: 0 Discharge Orders: Discharge Order (Routine); Ordered 05/22/20 Ordered By: Raoul Reyes Diet: advance to usual diet Activity on Discharge: As tolerated Visit Report Forms: Patient Portal Discharge page Care Plan Goals: Read below Health Concerns: Treat below Plan of Treatment: You were admitted to the hospital for evaluation of weakness and abdominal pain. Found to have urine infection with bacteria called E coli which was growing in your blood requiring prolonged course of antibiotic. Your treated with IV antibiotic with good response over the course of treatment as your symptoms resolved. To continue Ceftin to finish total of 10 days of antibiotics. You were also noticed to have new onset irregular heart rhythm called atrial fibrillation. It was controlled with metoprolol new medication goal digoxin as you were evaluated by electronics processing supervisor. Echo showed normal heart function. Start digoxin as prescribed continue home medications Start Eliquis as blood thinner To follow up with Cardiology as outpatient
[2020-05-23 07:35] LABS: HBsAGNum1 0.26 S/CO (0.00-0.99)
[2020-05-23 09:41] LABS: Hepatitis A Antibody IgM 0.15 Index (0-0.79); ~Hepatitis A Antibody IgM Nonreactive (Nonreactive)
== END 2020-05-22 14:15 | disposition home or self-care (01) | DRG 872 ==
LOC: HO.ED 05-19 15:20 → HO.IMC 05-19 17:04
PROVIDERS: Internal Medicine; Nurse Practitioner Family; Admitting Provider Student in an Organized Health Care Education/Training Program; Emergency Provider Emergency Medicine; PCP Internal Medicine; Visit Provider Student in an Organized Health Care Education/Training Program
DX: A41.50 Gram-negative sepsis, unspecified (principal); N39.0 Urinary tract infection, site not specified; K57.32 Diverticulitis of large intestine without perforation or abscess without bleeding; R65.20 Severe sepsis without septic shock; E87.6 Hypokalemia; I48.0 Paroxysmal atrial fibrillation; B96.20 Unspecified Escherichia coli [E. coli] as the cause of diseases classified elsewhere; I10 Essential (primary) hypertension; K29.70 Gastritis, unspecified, without bleeding; D69.6 Thrombocytopenia, unspecified; M81.0 Age-related osteoporosis without current pathological fracture; E78.5 Hyperlipidemia, unspecified; F17.210 Nicotine dependence, cigarettes, uncomplicated; Z71.6 Tobacco abuse counseling; Z20.828 Contact with and (suspected) exposure to other viral communicable diseases; Z79.01 Long term (current) use of anticoagulants; Z79.899 Other long term (current) drug therapy
CPT/HCPCS: 0241U; 36415; 71045; 71275; 74176; 80048; 80053; 80076; 81001; 82550; 82728; 83605; 83615; 83735; 83880; 84145; 84484; 85025; 85027; 85379; 85610; 86704; 86706; 86709; 86803; 87040; 87077; 87086; 87186; 87205; 87324; 87340; 87449; 87635; 93005; 93306; 96365; 96375; 99285; J0696; J1160; J1650; Q9967

== ENCOUNTER → 2020-06-18 09:17 | Outpatient (REF) | payer MEDICARE, SELFPAY ==
--- NOTE | ~2020-06-18 | NM_ITS ---
Myocardial perfusion study Indication: Elevated troponin to evaluate for myocardial ischemia Technique: The patient was brought in for a Lexiscan perfusion study on 06/18/2020. Patient performed low-level exercise and was injected 0.4 mg of Lexiscan intravenously. Within a minute of injection, 25 mCi of sestamibi was given intravenously. Images were obtained using the SPECT gamma camera interlaced with the gating device. Images were obtained in supine position. Resting perfusion study was performed on 06/19/2020. Patient was administered 25 mCi of sestamibi intravenously at rest. Images were then obtained in supine position. Images obtained with and without CT attenuation. Total DLP 65 mGy-cm. Images were processed with the software and compared side to side in short axis, horizontal long axis and vertical long axis views. Findings: The stress perfusion study showed non attenuated images show minimally reduced uptake in the basal lateral wall of the LV myocardium. Remainder of the LV myocardium is normally perfused. Attenuation corrected images show minimally reduced uptake in the apex of the LV myocardium. The gated study shows normal LV systolic function with calculated LVEF of greater than 70 %. LV cavity is normal in size. The gated study shows normal systolic wall thickening and contraction of segments. Resting study shows no change in perfusion study. Gating at rest reveals normal systolic wall motion with ejection fraction at greater than 70 %. The findings are consistent with normal myocardial perfusion. NM/NM cardiolite stress test Impression: 1. Myocardial perfusion imaging study shows normal myocardial perfusion 2. Gated LVEF is greater than 70% 3. Transient ischemic dilatation not present EKG is nondiagnostic for ischemia
--- NOTE | 2020-06-18 09:21 | ECG_ITS ---
Hook-up date: 2020-06-18 11:34:00 Duration: 25:10:00 Test Indications: PAF Medications: 87483 QRS complexes 189 Ventricular ectopics which represent <1 % of total QRS comp. 469 Supraventricular ectopics which represent <1 % of total QRS comp. * Paced QRS complexs which represent % of total QRS comp. VENTRICULAR ECTOPY 189 Isolated 0 Bigeminal Cycles 0 Couplets 0 Runs 0 Beats in Runs * Beats LONGEST at * BPM at :: -- * Beats FASTEST at * BPM at :: -- SUPRAVENTRICULAR ECTOPY 356 Isolated 31 Couplets 13 Runs 51 Beats in Runs 6 Beats LONGEST at 124 BPM at 22:44:56 2020-06-18 4 Beats FASTEST at 161 BPM at 17:37:05 2020-06-18 HEART RATES 48 MIN at 10:07:54 2020-06-19 68 AVG 157 MAX at 11:54:18 2020-06-18 LONGEST RR 1.3760 secs at 09:15:18 2020-06-19 S-T LEVELS Channel 1 - 128 mm at 11:34:00 2020-06-18 - 128 mm at 11:34:00 2020-06-18 Channel 2 - 128 mm at 11:34:00 2020-06-18 - 128 mm at 11:34:00 2020-06-18 Channel 3 - 128 mm at 03:05:31 -- - 128 mm at 03:05:31 Basic rhythm Normal sinus rhythm No long pause or profound bradycardia Occasional Premature atrial complexes / Premature ventricular complexes No sustained Atrial fibrillation No diary submitted Referred By: Brad Hansen Overread By: BRAD HANSEN MD
--- NOTE | 2020-06-18 09:22 | CA_ITS ---
Acquisition Time: 2020-06-18 10:08:33 Total Exercise Time: 00:04:22 Test Indications: PAF Medications: Protocol: KAREN Max HR: 125 BPM 89% of Pred: 139 BPM Max BP: 146/078 mmHG Max Work Load: 4.9 METS Pharmacologic stress test using Lexiscan while walking on the treadmill. Pt tolerated well. Denies any anginal sx. EKG without any arrhythmias. Non diagnostic for ischemia. Nuclear images to follow. Normotensive response to test. Test reviewed with Dr. Goodman Test was changed from Karen protocol as pt's HR attenuated by atenolol and pt was getting tired Referred By: Brad Hansen Overread By: Chiki Oconnor
== END ==
LOC: HO.CARD 09:17
PROVIDERS: Visit Provider Internal Medicine Cardiovascular Disease
DX: I48.0 Paroxysmal atrial fibrillation (principal); I10 Essential (primary) hypertension; R77.8 Other specified abnormalities of plasma proteins
CPT/HCPCS: 78452; 93017; 93225; 93226; A9500; J0280; J2785

== ENCOUNTER → 2020-06-21 10:16 | Outpatient (BNVA) | payer MEDICARE, SELFPAY | PROVIDERS: Visit Provider Nurse Practitioner Family | DX: I48.0 Paroxysmal atrial fibrillation (principal); I10 Essential (primary) hypertension; R77.8 Other specified abnormalities of plasma proteins | CPT/HCPCS: 93005; 99212 ==

== ENCOUNTER 2020-08-15 | Outpatient (REF) | payer MEDICARE, SELFPAY ==
[2020-08-16 15:28] LABS: FIT Int Ctl YES; FIT1 POSITIVE (NEGATIVE); FIT2 NEGATIVE (NEGATIVE)
== END 2020-08-15 00:01 | disposition home or self-care (01) ==
LOC: HO.LNP
PROVIDERS: Visit Provider Internal Medicine
DX: Z00.00 Encounter for general adult medical examination without abnormal findings (principal)
CPT/HCPCS: 82274

== ENCOUNTER 2020-08-16 07:55 | Outpatient (REF) | payer MEDICARE, SELFPAY ==
[2020-08-16 11:23] LABS: MANUAL DIFF FLAG NO
[2020-08-16 11:34] LABS: Basophils Percent Auto 0.3 % (0-2); Eosinophils Absolute Auto 0.1 X10*3/uL (0.0-0.4); Eosinophils Percent Auto 1.5 % (0-4); Hematocrit 43.5 % (37-47); Hemoglobin 13.6 g/dl (12.0-16.0); Imm Gran Abs Auto 0.01 X10*3/uL (0.00-0.03); Imm Gran Pct Auto 0.2 % (0.0-0.4); Lymphocytes Absolute Auto 1.8 X10*3/uL (1.2-4.9); Lymphocytes Percent Auto 29.5 % (20-40); Mean Corpuscular HGB Conc 31.3 g/dl (31.0-35.0); Mean Corpuscular Hemoglobin 29.8 pg (27.0-33.0); Mean Corpuscular Volume 95.4 fL (80-98); Mean Platelet Volume 12.6 fL (9.4-12.3); Monocytes Absolute Auto 0.4 X10*3/uL (0.1-1.2); Monocytes Percent Auto 6.8 % (2-11); Neutrophils Absolute Auto 3.7 X10*3/uL (2.0-8.3); Neutrophils Percent Auto 61.7 % (45-73); Platelet Count 150 X10*3/uL (160-400); Red Blood Count 4.56 X10*6/uL (4.20-5.50); Red Cell Distribution Width 13.8 % (11.0-16.0); White Blood Count 6.1 X10*3/uL (4.8-10.8)
[2020-08-16 11:54] LABS: Alanine Aminotransferase 14 U/L (0-31); Alkaline Phosphatase 66 U/L (39-117); Anion Gap 11 (12-20); Aspartate Amino Transferase 18 U/L (5-31); Bilirubin Total 0.8 mg/dL (0.0-1.0); Blood Urea Nitrogen 12 mg/dL (9-16); Calcium 8.3 mg/dL (8.4-10.2); Carbon Dioxide 26 mmol/L (22-29); Chloride 107 mmol/L (96-108); Cholesterol 169 mg/dL; Estimated Glomerular Filt Rate > 60; Glucose Fasting 88 mg/dL (60-99); HDL Cholesterol 56 mg/dL; Iron 116 mcg/dL (30-160); LDL Cholesterol Calculated 93 mg/dl; Percent Iron Saturation 37 % (15-50); Sodium 140 mmol/L (135-145); Total Iron Binding Capacity 313 mcg/dL (228-428); Total Protein 6.3 g/dL (6.5-8.0); Triglycerides 104 mg/dL; Unsaturated Iron Binding 197 ug/dL
[2020-08-16 12:18] LABS: TSH reflex Free T4 0.81 uIU/mL (0.32-4.0); Vitamin D 25-OH Total 35.4 ng/mL (>30)
== END 2020-08-16 07:56 | disposition home or self-care (01) ==
LOC: HO.HMGCLDS 07:55
PROVIDERS: PCP Internal Medicine; Visit Provider Internal Medicine
DX: D64.9 Anemia, unspecified (principal); I10 Essential (primary) hypertension; I48.0 Paroxysmal atrial fibrillation; E78.5 Hyperlipidemia, unspecified; M81.0 Age-related osteoporosis without current pathological fracture; Z78.0 Asymptomatic menopausal state
CPT/HCPCS: 36415; 80053; 80061; 82306; 83540; 84443; 85025

== ENCOUNTER → 2020-09-19 10:02 | Outpatient (BNVA) | payer MEDICARE, SELFPAY | PROVIDERS: PCP Internal Medicine; Referring Provider Internal Medicine; Visit Provider Physician Assistant | DX: R19.5 Other fecal abnormalities (principal) | CPT/HCPCS: 99202 ==

== ENCOUNTER → 2020-09-25 09:46 | Outpatient (BNVA) | payer MEDICARE, SELFPAY | PROVIDERS: PCP Internal Medicine; Referring Provider Internal Medicine; Visit Provider Nurse Practitioner Family | DX: I48.0 Paroxysmal atrial fibrillation (principal); I10 Essential (primary) hypertension; R77.8 Other specified abnormalities of plasma proteins | CPT/HCPCS: 99212 ==

== ENCOUNTER 2021-03-07 07:11 | Outpatient (REF) | payer MEDICARE, SELFPAY ==
[2021-03-07 11:41] LABS: Alanine Aminotransferase 12 U/L (0-31); Aspartate Amino Transferase 19 U/L (5-31); Cholesterol 164 mg/dL; HDL Cholesterol 52 mg/dL; LDL Cholesterol Calculated 95 mg/dl; Triglycerides 86 mg/dL
[2021-03-07 12:17] LABS: Vitamin D 25-OH Total 37.2 ng/mL (>30)
== END 2021-03-07 07:12 | disposition home or self-care (01) ==
LOC: HO.HMGCLDS 07:11
PROVIDERS: PCP Internal Medicine; Visit Provider Internal Medicine
DX: D64.9 Anemia, unspecified (principal); E78.5 Hyperlipidemia, unspecified; I10 Essential (primary) hypertension; M81.0 Age-related osteoporosis without current pathological fracture; R19.5 Other fecal abnormalities; Z78.0 Asymptomatic menopausal state
CPT/HCPCS: 36415; 80061; 82306; 84450; 84460

== ENCOUNTER → 2021-04-11 10:08 | Outpatient (BNVA) | payer MEDICARE, SELFPAY | PROVIDERS: PCP Internal Medicine; Referring Provider Internal Medicine; Visit Provider Internal Medicine Cardiovascular Disease | DX: I48.0 Paroxysmal atrial fibrillation (principal); I10 Essential (primary) hypertension | CPT/HCPCS: 93005; 99212 ==

== ENCOUNTER 2021-08-09 07:22 | Outpatient (REF) | payer OTHER, SELFPAY ==
[2021-08-09 11:24] LABS: MANUAL DIFF FLAG NO
[2021-08-09 11:32] LABS: Basophils Percent Auto 0.4 % (0-2); Eosinophils Absolute Auto 0.1 X10*3/uL (0.0-0.4); Eosinophils Percent Auto 1.2 % (0-4); Hematocrit 40.6 % (37.0-47.0); Hemoglobin 12.9 g/dl (12.0-16.0); Imm Gran Abs Auto 0.03 X10*3/uL (0.00-0.03); Imm Gran Pct Auto 0.4 % (0.0-0.4); Lymphocytes Absolute Auto 1.2 X10*3/uL (1.2-4.9); Lymphocytes Percent Auto 16.8 % (20-40); Mean Corpuscular HGB Conc 31.8 g/dl (31.0-35.0); Mean Corpuscular Hemoglobin 30.1 pg (27.0-33.0); Mean Corpuscular Volume 94.6 fL (80.0-98.0); Monocytes Absolute Auto 0.8 X10*3/uL (0.1-1.2); Monocytes Percent Auto 11.3 % (2-11); Neutrophils Absolute Auto 4.8 x10*3/uL (2.0-8.3); Neutrophils Percent Auto 69.9 % (45-73); Platelet Count 154 X10*3/uL (160-400); Red Blood Count 4.29 X10*6/uL (4.20-5.50); Red Cell Distribution Width 13.2 % (11.0-16.0); White Blood Count 6.9 X10*3/uL (4.8-10.8)
[2021-08-09 12:08] LABS: Alanine Aminotransferase 13 U/L (0-31); Anion Gap 12 (12-20); Aspartate Amino Transferase 17 U/L (5-31); Blood Urea Nitrogen 11 mg/dL (9-16); Calcium 8.7 mg/dL (8.4-10.2); Carbon Dioxide 25 mmol/L (22-29); Chloride 106 mmol/L (96-108); Cholesterol 148 mg/dL; Estimated Glomerular Filt Rate > 60; Glucose Fasting 101 mg/dL (60-99); HDL Cholesterol 46 mg/dL; LDL Cholesterol Calculated 87 mg/dl; Sodium 139 mmol/L (135-145); Triglycerides 79 mg/dL; Vitamin D 25-OH Total 34.2 ng/mL (>30)
[2021-08-09 12:17] LABS: Folate 18.7 ng/mL (> or = 4.0); Vitamin B12 1530 pg/mL (200-900)
== END 2021-08-09 07:23 | disposition home or self-care (01) ==
LOC: HO.HMGCLDS 07:22
PROVIDERS: Visit Provider Internal Medicine
DX: E78.5 Hyperlipidemia, unspecified (principal); I10 Essential (primary) hypertension; I48.0 Paroxysmal atrial fibrillation; M81.0 Age-related osteoporosis without current pathological fracture; Z78.0 Asymptomatic menopausal state
CPT/HCPCS: 36415; 80048; 80061; 82306; 82607; 82746; 84450; 84460; 85025

== ENCOUNTER 2021-08-12 10:40 | Outpatient (REF) | payer OTHER, SELFPAY ==
--- NOTE | ~2021-08-12 | XR_ITS ---
EXAMINATION: XR CHEST CLINICAL INFORMATION: Fever COMPARISON: Previous chest x-ray most recent May 2020 and chest CTA May 2020 TECHNIQUE: 2 views of the chest were obtained. FINDINGS: The cardiac and mediastinal contours are stable. The thoracic aorta is calcified but unchanged. The lungs are well-inflated. The lungs are clear without evidence of a pneumonia. There is no pleural effusion or pneumothorax. There are old thoracic vertebral body compression fractures that appear unchanged. There is curvature of the lower thoracic and upper lumbar spine to the right and degenerative changes. XR/XR chest 2V IMPRESSION: No evidence for acute disease in the chest / pneumonia.
== END 2021-08-12 10:41 | disposition home or self-care (01) ==
LOC: HO.HMGCX 10:40
PROVIDERS: Visit Provider Internal Medicine
DX: R50.9 Fever, unspecified (principal)
CPT/HCPCS: 71046

== ENCOUNTER 2021-08-14 09:04 | Outpatient (REF) | payer OTHER, SELFPAY ==
[2021-08-14 09:37] LABS: Binax Internal Control QC Valid; Binax Now Covid-19 Ag Negative (Negative); Binax Performed by: HO.BONILM
[2021-08-14 11:51] LABS: Basophils Percent Auto 0.5 % (0-2); Eosinophils Percent Auto 0.2 % (0-4); Hematocrit 38.8 % (37.0-47.0); Hemoglobin 12.9 g/dl (12.0-16.0); Imm Gran Abs Auto 0.04 X10*3/uL (0.00-0.03); Lymphocytes Absolute Auto 0.7 X10*3/uL (1.2-4.9); Lymphocytes Percent Auto 16.2 % (20-40); MANUAL DIFF FLAG SCAN; Mean Corpuscular HGB Conc 33.2 g/dl (31.0-35.0); Mean Corpuscular Hemoglobin 29.7 pg (27.0-33.0); Mean Corpuscular Volume 89.4 fL (80.0-98.0); Monocytes Absolute Auto 0.3 X10*3/uL (0.1-1.2); Monocytes Percent Auto 6.6 % (2-11); Neutrophils Absolute Auto 3.1 x10*3/uL (2.0-8.3); Neutrophils Percent Auto 75.5 % (45-73); Red Blood Count 4.34 X10*6/uL (4.20-5.50); Red Cell Distribution Width 13.2 % (11.0-16.0); SCAN SMEAR FLAG 1; White Blood Count 4.1 X10*3/uL (4.8-10.8)
[2021-08-14 11:54] LABS: PLT ABN DIST 1; Platelet Count 78 X10*3/uL (160-400)
[2021-08-14 12:06] LABS: SLIDE REVIEW VERIFIED
[2021-08-14 12:16] LABS: Anion Gap 13 (12-20); Blood Urea Nitrogen 23 mg/dL (9-16); Calcium 8.5 mg/dL (8.4-10.2); Carbon Dioxide 24 mmol/L (22-29); Chloride 96 mmol/L (96-108); Estimated Glomerular Filt Rate 60; Glucose Random 99 mg/dL (60-115); Potassium 3.5 mmol/L (3.3-5.1); Sodium 129 mmol/L (135-145)
== END 2021-08-14 09:05 | disposition home or self-care (01) ==
LOC: HO.HMGCLDS 09:04
PROVIDERS: Visit Provider Internal Medicine
DX: R50.9 Fever, unspecified (principal); K13.79 Other lesions of oral mucosa; R53.1 Weakness; R19.5 Other fecal abnormalities
CPT/HCPCS: 80048; 85025

== ENCOUNTER 2021-09-13 08:52 | Outpatient (REF) | payer OTHER, SELFPAY ==
[2021-09-13 11:12] LABS: MANUAL DIFF FLAG NO
[2021-09-13 11:24] LABS: Basophils Percent Auto 0.5 % (0-2); Eosinophils Absolute Auto 0.1 X10*3/uL (0.0-0.4); Eosinophils Percent Auto 1.9 % (0-4); Hematocrit 40.9 % (37.0-47.0); Imm Gran Abs Auto 0.02 X10*3/uL (0.00-0.03); Imm Gran Pct Auto 0.3 % (0.0-0.4); Lymphocytes Absolute Auto 1.9 X10*3/uL (1.2-4.9); Lymphocytes Percent Auto 32.4 % (20-40); Mean Corpuscular HGB Conc 31.8 g/dl (31.0-35.0); Mean Corpuscular Hemoglobin 30.2 pg (27.0-33.0); Mean Corpuscular Volume 95.1 fL (80.0-98.0); Mean Platelet Volume 12.5 fL (9.4-12.3); Monocytes Absolute Auto 0.4 X10*3/uL (0.1-1.2); Monocytes Percent Auto 6.9 % (2-11); Neutrophils Absolute Auto 3.3 x10*3/uL (2.0-8.3); Platelet Count 153 X10*3/uL (160-400); Red Cell Distribution Width 14.6 % (11.0-16.0); White Blood Count 5.8 X10*3/uL (4.8-10.8)
== END 2021-09-13 08:53 | disposition home or self-care (01) ==
LOC: HO.HMGCLDS 08:52
PROVIDERS: Visit Provider Internal Medicine
DX: D69.6 Thrombocytopenia, unspecified (principal)
CPT/HCPCS: 36415; 85025

== ENCOUNTER → 2022-01-22 12:51 | Outpatient (BNVA) | payer OTHER, SELFPAY | PROVIDERS: PCP Internal Medicine; Referring Provider Internal Medicine; Visit Provider Nurse Practitioner Family | DX: I48.0 Paroxysmal atrial fibrillation (principal); I10 Essential (primary) hypertension; R77.8 Other specified abnormalities of plasma proteins | CPT/HCPCS: 93005 ==

== ENCOUNTER → 2022-01-29 09:56 | Outpatient (BNVA) | payer OTHER, SELFPAY | PROVIDERS: PCP Internal Medicine; Referring Provider Internal Medicine; Visit Provider Nurse Practitioner Family | DX: R00.1 Bradycardia, unspecified (principal); I48.91 Unspecified atrial fibrillation | CPT/HCPCS: 93005 ==

== ENCOUNTER → 2022-02-25 13:19 | Outpatient (BNVA) | payer OTHER, SELFPAY | PROVIDERS: PCP Internal Medicine; Visit Provider Nurse Practitioner Family | DX: I48.0 Paroxysmal atrial fibrillation (principal); I10 Essential (primary) hypertension; R77.8 Other specified abnormalities of plasma proteins | CPT/HCPCS: 93005 ==

== ENCOUNTER 2022-03-04 09:17 | Outpatient (REF) | payer OTHER, SELFPAY ==
[2022-03-04 09:34] LABS: MANUAL DIFF FLAG NO
[2022-03-04 09:50] LABS: Basophils Percent Auto 0.3 % (0-2); Eosinophils Absolute Auto 0.1 X10*3/uL (0.0-0.4); Eosinophils Percent Auto 1.2 % (0-4); Hematocrit 39.1 % (37.0-47.0); Hemoglobin 12.7 g/dl (12.0-16.0); Imm Gran Abs Auto 0.01 X10*3/uL (0.00-0.03); Imm Gran Pct Auto 0.2 % (0.0-0.4); Lymphocytes Absolute Auto 1.7 X10*3/uL (1.2-4.9); Lymphocytes Percent Auto 27.8 % (20-40); Mean Corpuscular HGB Conc 32.5 g/dl (31.0-35.0); Mean Corpuscular Hemoglobin 30.2 pg (27.0-33.0); Mean Corpuscular Volume 93.1 fL (80.0-98.0); Mean Platelet Volume 12.7 fL (9.4-12.3); Monocytes Absolute Auto 0.5 X10*3/uL (0.1-1.2); Monocytes Percent Auto 8.4 % (2-11); Neutrophils Absolute Auto 3.8 x10*3/uL (2.0-8.3); Neutrophils Percent Auto 62.1 % (45-73); Platelet Count 137 X10*3/uL (160-400); Red Cell Distribution Width 13.3 % (11.0-16.0); White Blood Count 6.1 X10*3/uL (4.8-10.8)
[2022-03-04 10:20] LABS: Alanine Aminotransferase 13 U/L (0-31); Anion Gap 14 (12-20); Aspartate Amino Transferase 21 U/L (5-31); Blood Urea Nitrogen 10 mg/dL (9-16); Calcium 9.1 mg/dL (8.4-10.2); Carbon Dioxide 23 mmol/L (22-29); Chloride 110 mmol/L (96-108); Cholesterol 143 mg/dL; Estimated Glomerular Filt Rate > 60; Glucose Fasting 70 mg/dL (60-99); HDL Cholesterol 54 mg/dL; LDL Cholesterol Calculated 76 mg/dl; Sodium 143 mmol/L (135-145); Triglycerides 68 mg/dL
[2022-03-04 10:41] LABS: TSH reflex Free T4 0.74 uIU/mL (0.32-4.0)
[2022-03-04 10:43] LABS: Vitamin D 25-OH Total 36.2 ng/mL (>30)
== END 2022-03-04 09:18 | disposition home or self-care (01) ==
LOC: HO.LAB 09:17
PROVIDERS: PCP Internal Medicine; Visit Provider Nurse Practitioner Family
DX: R00.1 Bradycardia, unspecified (principal); I48.0 Paroxysmal atrial fibrillation; E78.5 Hyperlipidemia, unspecified; I10 Essential (primary) hypertension; M81.0 Age-related osteoporosis without current pathological fracture; Z78.0 Asymptomatic menopausal state
CPT/HCPCS: 36415; 80048; 80061; 82306; 84443; 84450; 84460; 85025; 93005

== ENCOUNTER → 2022-03-24 08:54 | Outpatient (BNVA) | payer OTHER, SELFPAY | PROVIDERS: PCP Internal Medicine; Referring Provider Internal Medicine; Visit Provider Nurse Practitioner Family | DX: Z79.899 Other long term (current) drug therapy (principal) | CPT/HCPCS: 93005 ==

== ENCOUNTER → 2022-04-29 13:11 | Outpatient (BNVA) | payer OTHER, SELFPAY | PROVIDERS: PCP Internal Medicine; Referring Provider Internal Medicine; Visit Provider Nurse Practitioner Family | DX: I48.0 Paroxysmal atrial fibrillation (principal) ==

== ENCOUNTER 2022-05-19 09:00 | Outpatient (REF) | payer MEDICARE, SELFPAY ==
[2022-05-19 12:21] LABS: Anion Gap 9 (12-20); Bilirubin Total 0.7 mg/dL (0.0-1.0); Blood Urea Nitrogen 15 mg/dL (9-16); Calcium 9.5 mg/dL (8.4-10.2); Carbon Dioxide 28 mmol/L (22-29); Chloride 107 mmol/L (96-108); Estimated Glomerular Filt Rate 55; Glucose Random 44 mg/dL (60-115); Potassium 4.1 mmol/L (3.3-5.1); Sodium 140 mmol/L (135-145)
[2022-05-19 12:22] LABS: Alanine Aminotransferase 20 U/L (0-31); Alkaline Phosphatase 74 U/L (39-117); Aspartate Amino Transferase 26 U/L (5-31); Total Protein 6.4 g/dL (6.5-8.0)
== END 2022-05-19 09:01 | disposition home or self-care (01) ==
LOC: HO.HMGCLDS 09:00
PROVIDERS: PCP Internal Medicine; Visit Provider Nurse Practitioner Family
DX: I48.0 Paroxysmal atrial fibrillation (principal)
CPT/HCPCS: 36415; 80053; 84443

== ENCOUNTER 2022-08-11 11:28 | Outpatient (AMB) | payer MEDICARE, SELFPAY ==
--- NOTE | 2022-08-11 11:47 | MHC.PC.OV ---
Vital Signs 08/11/22 11:55 Height 5 ft 6 in Weight 158 lb 6 oz BMI 25.5 BP 100/70 Blood Pressure Location Lt brachial Position Sitting Pulse 55 Pulse Source Pulse Oximeter Pulse Oximetry (%) 96 Oxygen Delivery Method Room Air Intake Visit Reasons: Physical exam Intake Note: Pt is here today to PE Allergies ssri Allergy (Unknown, Uncoded 02/01/23 17:31) diarrhea Augmex Adverse Reaction (Unknown, Uncoded 02/01/23 17:31) severe vomiting/diarrhea Medication List - Last Reconciled 08/11/22 by Ellie Chen MD amiodarone 200 mg PO DAILY 90 days ascorbate calcium (vitamin C) 500 mg PO DAILY atenolol 50 mg PO DAILY atorvastatin 10 mg PO 3XW [Calcium 500 500 mg PO DAILY] dorzolamide-timolol 22.3-6.8 mg/mL 1 drp ophthalmic (eye) BID multivitamin 1 tab PO DAILY rivaroxaban (Xarelto) 20 mg PO DAILY 90 days Tobacco use date assessed: 08/11/22 Fall risk assessment: No Falls in past year Last assessed Fall Risk: 08/11/22 HPI HPI Comments History of Present Illness Details 82-year-old lady here today for her physical exam. She has paroxysmal atrial fibrillation currently on Xarelto, and amiodarone as well as atenolol 50 mg daily. She has hypertension, dyslipidemia,stable controlled present treatment. She has been diagnosed of osteoporosis on last bone density scan but declines further treatment will repeat screening. Declines getting any vaccinations, including the COVID vaccine. Declines screening mammograms or repeat screening colonoscopy despite positive FIT test in 2020. [facility] Medical History (Updated 02/01/23 @ 18:03 by Ellie Chen MD) Colonoscopy refused Smoker unmotivated to quit COVID-19 vaccine series declined Immunization declined Weakness generalized Sore mouth Positive FIT (fecal immunochemical test) Mammogram declined Dyslipidemia Postmenopause Normocytic anemia Hx: UTI (urinary tract infection) PAF (paroxysmal atrial fibrillation) Unspecified glaucoma Osteoporosis Thrombocytopenia Hypertension Surgical History History of colonoscopy History of section Family History Father Lung cancer Mother Unknown family medical history Maternal Grandfather No problems noted. Maternal Grandmother No problems noted. Paternal Grandmother No problems noted. Sister No problems noted. Social History Household Members: None Housing: House Do you presently have visiting nurse or other home services: No Alcohol intake: never Patient Tobacco Use Status: Former Tobacco user e-Cigarette/Vaping Use: Never Used Second Hand Smoke Exposure: No service: No Current occupational status: retired Cognitive needs: No Hearing needs: No Vision needs: Yes Questionnaire PHQ-9 Over the last 2 weeks, how often have you been bothered by any of the following problems? 1. Little interest or pleasure in doing things: not at all 2. Feeling down, depressed, or hopeless: not at all 3. Trouble falling or staying asleep, or sleeping too much: not at all 4. Feeling tired or having little energy: not at all 5. Poor appetite or overeating: not at all 6. Feeling bad about yourself - or that you are a failure or have let yourself or your family down: not at all 7. Trouble concentrating on things, such as reading the newspaper or watching television: not at all 8. Moving or speaking so slowly that other people could have noticed. Or the opposite - being so fidgety or restless that you have been moving around a lot more than usual: not at all 9. Thoughts that you would be better off or of hurting yourself in some way: not at all Total score: 0 Depression Screening Interpretation: Negative Source: Developed by Drs. Jorge Hector, Bessie Ervin, Jed Downey and colleagues, with an educational roderick from [employer]. Thrive Questionnaire Date Thrive assessed: 08/11/22 I am a: Patient What is your living situation today?: I have a steady place to live Within the past 12 months, did the food you bought not last and you didn't have the money to get more?: Never true Within the past 12 months, did you worry whether your food would run out before you got money to buy more?: Never true Do you have trouble paying for medicines?: No Do you have trouble getting transportation to medical appointments?: No Do you have trouble paying your heating and electricity bill?: No Do you have trouble taking care of your child, family member or friend?: No Do you have trouble with day-to-day activities such as bathing, preparing meals, shopping, managing finances, etc.?: No Are you currently unemployed and looking for a job?: No Are you interested in more education?: No Currently or been in a relationship where the following occur: no concerns reported AUDIT C Alcohol Use Questionnaire (AUDIT-C) 1. How often do you have a drink containing alcohol?: Never Total Score: 0 FELY-7 AMB Questionnaire FELY-7 Date FELY - 7 assessed: 08/11/22 Feeling nervous, anxious, or on edge: 0 = Not at all Not being able to stop or control worryin = Not at all Worrying too much about different things: 0 = Not at all Trouble relaxin = Not at all Being so restless that it is hard to sit still: 0 = Not at all Becoming easily annoyed or irritable: 0 = Not at all Feeling afraid as if something awful might happen: 0 = Not at all Total FELY-7 score (0-4 normal; 5-9 mild; 10-14 moderate; 15-21 severe): 0 Source: Developed by Drs. Jorge Hector, Bessie Ervin, Jed Downey and colleagues, with an educational roderick from [employer]. FELY-7 Assessment Billing FELY-7 Assessment Tool: FELY-7 Assessment 74254 Review of Systems Const Reports no additional complaints Eyes Denies change in vision ENT Reports no additional complaints Card Denies chest pain, Denies chest pain with activity, Denies syncope, Denies rapid heart rate, Denies pedal edema, Denies edema, Denies lightheadedness, Denies dyspnea, Denies dyspnea on exertion and Denies orthopnea Resp Denies cough, Denies dyspnea and Denies dyspnea on exertion GI Denies abdominal pain, Denies melena, Denies hematochezia, Denies change in stool character and Denies heartburn Reports no additional complaints Musc Denies abnormal gait, Denies muscle cramps, Denies muscle weakness, Denies numbness, Denies radiating pain into limb and Denies tingling Skin/Breast Denies breast pain, Denies breast mass and Denies rash Neuro Denies abnormal gait, Denies syncope, Denies numbness and Denies tingling Psych Reports no additional complaints Endo Reports no additional complaints Colten/Lymph Denies easy bleeding and Denies easy bruising Aller/Immun Reports no additional complaints Physical exam (Primary Care) Vital Signs: Last Vital Signs Pulse 55 08/11/22 11:55 BP 100/70 08/11/22 11:55 Pulse Ox 96 08/11/22 11:55 Oxygen Delivery Method Room Air 08/11/22 11:55 BMI result Body Mass Index 25.5 Tobacco/Smoking Status: Tobacco use Status Tobacco use date assessed 08/11/22 08/11/22 12:01 Patient Tobacco Use Status Former Tobacco user 08/11/22 12:01 e-Cigarette/Vaping Use Never Used 08/11/22 11:47 Depression Screening Interpretation: Negative Thrive Assessment: Date of Thrive Assessment Date Thrive assessed 03/12/22 08/11/22 11:47 Currently or been in a relationship where the following occur: no concerns reported Advance Care Planning discussion: On file, no changes Date of discussion: 03/12/22 Who was present: patient Forms completed: MOLST Time spent: 1-15 minutes, on File Actual minutes spent: 15 Const General: comfortable, no acute distress and alert Nutritional Appearance: average body habitus Orientation/consciousness: patient oriented x3 HENMT Head: Yes normocephalic and Yes atraumatic Ears: hearing grossly normal bilaterally, TM's normal bilaterally and EAC's normal General nose exam: Normal external nose present and No nasal discharge present Face and sinus: Yes face symmetric Mouth: Normal oral and palatal mucosa present, oropharynx normal and moist mucous membranes Eyes General: appearance normal, both eyes and all related structures Pupils: Equal, round and reactive pupils present EOM: EOMs intact bilaterally Neck Neck: Yes full ROM, Yes no lymphadenopathy and Yes supple Thyroid: Thyroid normal Chest Breast/axilla palpation: normal palpation of the breasts Resp Effort & Inspection: normal respiratory effort and able to speak in complete sentences Auscultation: clear to auscultation bilaterally Cardio Other: S1-S2 present , regular rate and rhythm with occasional skipped beat Rate: regular rate Rhythm: regular rhythm Heart sounds: S1 normal heart sound present and S2 normal heart sound present GI Inspection: Yes normal to inspection Palpation (GI): Soft to palpation, nontender, no guarding and no masses Auscultation: normal bowel sounds General: Yes no CVA tenderness Back/Spine/Pelvis Back: no CVA tenderness Skin General skin exam: no rashes or lesions noted Neuro General: patient oriented x3, gait normal, tone normal, moves all extremities, Normal light touch and pain sensation, no focal motor deficits and CN's II-XI intact bilaterally Cranial nerves: Yes Equal, round and reactive pupils present Extrem General: Yes full ROM, Yes no joint enlargement, Yes no pedal edema, Yes no calf tenderness and Yes normal gait Psych Appearance: grossly normal and well kempt Mental Status: mental status grossly normal Speech and movement: Normal speech and movement present Affect: normal affect Attitude: cooperative Thought process: Normal thought process present Assessment and Plan Assessment & Plan (1) Annual visit for general adult medical examination with abnormal findings: Code(s): Z00.01 - Encounter for general adult medical examination with abnormal findings Plan: Will check appropriate labs. Recommended dental visit every 6 months and regular eye exams, at least every 2 years. Take adequate calcium in diet and vitamin-D 3 at 2000 IU per cap once a day, in addition to weight-bearing exercises to help maintain good muscle tone and weight control. Instructed to do self-breast exam, declines further screening mammogram, bone density scan or colonoscopy, does not want to get any vaccinations (2) Dyslipidemia: Code(s): E78.5 - Hyperlipidemia, unspecified Plan: Fasting lipids ordered, Continue with atorvastatin 10 mg 3 times a week , in addition to adherence to low-cholesterol diet and regular exercise, at least 30 minutes 3 to 4 times a week. Advised patient to make healthy food choices, eat more fruits, vegetables, whole grains, wild caught fish and low-fat dairy. Limit amount of meat and fried or fatty food products, as well as processed foods and fast foods. (3) Hypertension: Code(s): I10 - Essential (primary) hypertension Qualifiers: Hypertension type: essential hypertension Qualified Code(s): I10 - Essential (primary) hypertension Plan: Blood pressure at goal of less than 130/80. Continue with current medication. Reinforced importance of following a low sodium diet, getting regular exercise, and lowering stress levels. (4) Osteoporosis: Comment: declines repeat bone density scan Code(s): M81.0 - Age-related osteoporosis without current pathological fracture Qualifiers: Osteoporosis type: age-related Presence of current pathological fracture: without current pathological fracture Qualified Code(s): M81.0 - Age-related osteoporosis without current pathological fracture Plan: Declined further testing, advised to continue taking daily vitamin-D 3 supplements at least 2000 units daily and take adequate calcium from dietary sources, continue staying active with regular weight-bearing exercise (5) PAF (paroxysmal atrial fibrillation): Code(s): I48.0 - Paroxysmal atrial fibrillation Plan: Currently on amiodarone, Xarelto and atenolol by Cardiology (6) Mammogram declined: Code(s): Z53.20 - Procedure and treatment not carried out because of patient's decision for unspecified reasons (7) Immunization declined: Code(s): Z28.21 - Immunization not carried out because of patient refusal (8) COVID-19 vaccine series declined: Code(s): Z28.21 - Immunization not carried out because of patient refusal; Z28.310 - Unvaccinated for COVID-19 (9) Encounter for physical examination: Code(s): Z00.00 - Encounter for general adult medical examination without abnormal findings Orders: Orders Lipid Panel 08/13/22 E78.5 - Hyperlipidemia, unspecified, M81.0 - Age-related osteoporosis without current pathological fracture, Z78.0 - Asymptomatic menopausal state Vitamin D 25-OH Total 08/13/22 E78.5 - Hyperlipidemia, unspecified, M81.0 - Age-related osteoporosis without current pathological fracture, Z78.0 - Asymptomatic menopausal state Coding Level of Care Code Est Pt Prev Care >65y(99287) Diagnoses Annual visit for general adult medical examination with abnormal findings Z00.01 Dyslipidemia E78.5 Essential hypertension I10 Hypertension type: essential hypertension Age-related osteoporosis without current pathological fracture M81.0 Osteoporosis type: age-related Presence of current pathological fracture: without current pathological fracture PAF (paroxysmal atrial fibrillation) I48.0 Mammogram declined Z53.20 Immunization declined Z28.21 COVID-19 vaccine series declined Z28.21; Z28.310 Encounter for physical examination Z00.00 Additional Codes PHQ-9 - 14636 - PHQ-9 Billing: ([id number]) FELY-7 Assessment Billing - FELY-7 Assessment Tool: FELY-7 Assessment 66418 ([id number]) Vital Signs *Quality* - Time spent: 1-15 minutes, on File ([id number]) Vital Signs *Quality* - Advance Care Planning discussion: On file, no changes ([id number])
[2022-08-11 11:55] VITALS: BP 100/70; PULSE 55; O2SAT 96; BMI 25.5
== END 2022-08-11 13:03 | disposition home or self-care (01) ==
PROVIDERS: PCP Internal Medicine; Visit Provider Internal Medicine
DX: Z00.00 Encounter for general adult medical examination without abnormal findings (principal); I10 Essential (primary) hypertension; I48.0 Paroxysmal atrial fibrillation; E78.5 Hyperlipidemia, unspecified; M81.0 Age-related osteoporosis without current pathological fracture; Z53.20 Procedure and treatment not carried out because of patient's decision for unspecified reasons; Z28.21 Immunization not carried out because of patient refusal; Z28.310 Unvaccinated for COVID-19
CPT/HCPCS: 1123F; 99397

== ENCOUNTER → 2022-08-12 15:27 | Outpatient (BNVA) | payer MEDICARE, SELFPAY | PROVIDERS: PCP Internal Medicine; Referring Provider Internal Medicine; Visit Provider Nurse Practitioner Family | DX: I48.0 Paroxysmal atrial fibrillation (principal); I10 Essential (primary) hypertension; E78.5 Hyperlipidemia, unspecified; F17.200 Nicotine dependence, unspecified, uncomplicated; Z79.01 Long term (current) use of anticoagulants; Z79.899 Other long term (current) drug therapy | CPT/HCPCS: 93005; 99212 ==

== ENCOUNTER 2022-08-13 08:28 | Outpatient (REF) | payer MEDICARE, SELFPAY ==
--- NOTE | ~2022-08-13 | XR_ITS ---
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 FINDINGS: The heart and pulmonary vessels appear normal. No infiltrates effusions or lung masses are seen. There is mild increase in reticular nodular markings seen in the right upper lobe similar to the prior CT from 05/18/2020. No infiltrates, pleural effusions or lung masses are seen. Biconvex thoracolumbar scoliosis is present with moderate degenerative changes. XR/XR chest 2V IMPRESSION: No acute intrathoracic disease.
[2022-08-13 11:12] LABS: MANUAL DIFF FLAG NO
[2022-08-13 11:47] LABS: Basophils Percent Auto 0.5 % (0-2); Eosinophils Absolute Auto 0.2 X10*3/uL (0.0-0.4); Eosinophils Percent Auto 2.6 % (0-4); Hematocrit 43.3 % (37.0-47.0); Hemoglobin 13.8 g/dl (12.0-16.0); Imm Gran Abs Auto 0.01 X10*3/uL (0.00-0.03); Imm Gran Pct Auto 0.2 % (0.0-0.4); Lymphocytes Absolute Auto 1.3 X10*3/uL (1.2-4.9); Lymphocytes Percent Auto 22.9 % (20-40); Mean Corpuscular HGB Conc 31.9 g/dl (31.0-35.0); Mean Corpuscular Hemoglobin 30.4 pg (27.0-33.0); Mean Corpuscular Volume 95.4 fL (80.0-98.0); Monocytes Absolute Auto 0.4 X10*3/uL (0.1-1.2); Monocytes Percent Auto 7.2 % (2-11); Neutrophils Absolute Auto 3.9 x10*3/uL (2.0-8.3); Neutrophils Percent Auto 66.6 % (45-73); Platelet Count 139 X10*3/uL (160-400); Red Blood Count 4.54 X10*6/uL (4.20-5.50); Red Cell Distribution Width 13.9 % (11.0-16.0); White Blood Count 5.8 X10*3/uL (4.8-10.8)
[2022-08-13 11:53] LABS: Alanine Aminotransferase 18 U/L (0-31); Alkaline Phosphatase 69 U/L (39-117); Anion Gap 10 (12-20); Aspartate Amino Transferase 21 U/L (5-31); Bilirubin Total 0.9 mg/dL (0.0-1.0); Blood Urea Nitrogen 18 mg/dL (9-16); Calcium 8.9 mg/dL (8.4-10.2); Carbon Dioxide 27 mmol/L (22-29); Chloride 108 mmol/L (96-108); Cholesterol 187 mg/dL; Estimated Glomerular Filt Rate > 60; Glucose Fasting 88 mg/dL (60-99); HDL Cholesterol 61 mg/dL; LDL Cholesterol Calculated 113 mg/dl; Potassium 4.1 mmol/L (3.3-5.1); Sodium 141 mmol/L (135-145); Total Protein 6.2 g/dL (6.5-8.0); Triglycerides 69 mg/dL
[2022-08-13 12:10] LABS: Vitamin D 25-OH Total 36.7 ng/mL (>30)
[2022-08-13 12:13] LABS: TSH reflex Free T4 0.73 uIU/mL (0.32-4.0)
== END 2022-08-13 08:29 | disposition home or self-care (01) ==
LOC: HO.HMGCLDS 08:28
PROVIDERS: PCP Internal Medicine; Visit Provider Nurse Practitioner Family
DX: I48.0 Paroxysmal atrial fibrillation (principal); I10 Essential (primary) hypertension; E78.5 Hyperlipidemia, unspecified; M81.0 Age-related osteoporosis without current pathological fracture; F17.200 Nicotine dependence, unspecified, uncomplicated; Z78.0 Asymptomatic menopausal state; Z79.01 Long term (current) use of anticoagulants; Z79.899 Other long term (current) drug therapy
CPT/HCPCS: 36415; 71046; 80053; 80061; 82306; 84443; 85025

== ENCOUNTER 2023-01-24 09:34 | Outpatient (AMB) | payer MEDICARE, SELFPAY ==
--- NOTE | 2023-01-24 09:43 | AM.OFFWIN_ITS ---
Intake Vital Signs 01/24/23 09:52 Height 5 ft 6 in Weight 154 lb BMI 24.9 BP 122/70 Blood Pressure Location Rt brachial Position Sitting Pulse 56 Pulse Source Pulse Oximeter Temp 97.6 F Temp Source Temporal Artery Scan Pulse Oximetry (%) 97 Intake Visit Reasons: EP ?UTI Intake Note: pt is here for possible uti Patient Tobacco Use Status: Former Tobacco user Allergies ssri Allergy (Unknown, Uncoded 01/24/23 09:52) diarrhea Augmex Adverse Reaction (Unknown, Uncoded 01/24/23 09:52) severe vomiting/diarrhea HPI HPI Comments History of Present Illness Details This is a 82-year-old female who presents to the office today for sick visit. Patient complaining of mild dysuria and lower abdominal discomfort x1 day. Patient denies any flank or back pain. She denies any hematuria. She denies any fevers or chills. She is otherwise feeling well. [facility] Medical History COVID-19 vaccine series declined Dyslipidemia Hx: UTI (urinary tract infection) Hypertension Immunization declined Mammogram declined Normocytic anemia Osteoporosis PAF (paroxysmal atrial fibrillation) Positive FIT (fecal immunochemical test) Postmenopause Smoker unmotivated to quit Sore mouth Thrombocytopenia Unspecified glaucoma Weakness generalized Surgical History History of section History of colonoscopy Family History Father Lung cancer Mother Unknown family medical history Maternal Grandfather No problems noted. Maternal Grandmother No problems noted. Paternal Grandmother No problems noted. Sister No problems noted. Social History Household Members: None Housing: House Do you presently have visiting nurse or other home services: No Alcohol intake: never Patient Tobacco Use Status: Former Tobacco user e-Cigarette/Vaping Use: Never Used Second Hand Smoke Exposure: No service: No Current occupational status: retired Cognitive needs: No Hearing needs: No Vision needs: Yes Review of Systems Const All systems reviewed & are unremarkable except as noted in HPI and below Reports no additional complaints Eyes Reports no additional complaints ENT Reports no additional complaints Card Reports no additional complaints Resp Reports no additional complaints GI Reports no additional complaints Reports no additional complaints Musc Reports no additional complaints Skin/Breast Reports system reviewed and no additional complaints, except as documented Neuro Reports no additional complaints Psych Reports no additional complaints Endo Reports no additional complaints Colten/Lymph Reports no additional complaints Aller/Immun Reports no additional complaints Physical Exam Vital Signs: Last Vital Signs Temp 97.6 F 01/24/23 09:52 Pulse 56 01/24/23 09:52 BP 122/70 01/24/23 09:52 Pulse Ox 97 01/24/23 09:52 BMI result Body Mass Index 24.9 Const General: cooperative, healthy appearing, no acute distress and well developed Orientation/consciousness: patient oriented x3 HEENT Head: Yes normal to inspection Ears: hearing grossly normal bilaterally General nose exam: Normal external nose present Face and sinus: Yes normal facial exam Mouth: Normal oral and palatal mucosa present Eyes General: appearance normal, both eyes and all related structures Pupils: Equal, round and reactive pupils present EOM: EOMs intact bilaterally Resp Effort & Inspection: normal respiratory effort and no respiratory distress Auscultation: clear to auscultation bilaterally Cardio Rate: regular rate Rhythm: regular rhythm Heart sounds: no gallops, no murmurs and no rubs Peripheral pulses: Peripheral pulses 2+ throughout GI Inspection: No distended Palpation (GI): Soft to palpation and nontender Auscultation: normal bowel sounds General: Yes no CVA tenderness Back/Spine/Pelvis Back: no CVA tenderness Skin General skin exam: no rashes or lesions noted Neuro General: patient oriented x3 Cranial nerves: Yes CN's II-XII intact bilaterally and Yes Equal, round and reactive pupils present Gait exam (Neuro): Normal gait present Motor exam (neuro): 5/5 motor strength present throughout Extrem General: Yes normal to inspection, Yes full ROM and Yes no clubbing, cyanosis or edema Psych Appearance: grossly normal Mental Status: mental status grossly normal Results AMB Urinalysis, Automated UA Leukoctes 500 Hilda/uL Last Edit by Casey Dodson CMA on 01/24/23 10:0 7 UA Nitrite Negative Last Edit by Casey Dodson CMA on 01/24/23 10:07 UA Urobilinogen 0.2 mg/dL Last Edit by Casey Dodson CMA on 01/24/23 10 :07 UA Protein 0 mg/dL Last Edit by Casey Dodson CMA on 01/24/23 10:07 UA pH 6.5 Last Edit by Casey Dodson CMA on 01/24/23 10:07 UA Blood 25 Jose A/uL Last Edit by Casey Dodson CMA on 01/24/23 10:07 UA Specific Emmett 1.010 Last Edit by Casey Dodson CMA on 01/24/23 10:07 UA Ketone Negative Last Edit by Casey Dodson CMA on 01/24/23 10:07 UA Bilirubin 0 mg/dL Last Edit by Casey Dodson CMA on 01/24/23 10:07 UA Glucose 0 mg/dL Last Edit by Casey Dodson CMA on 01/24/23 10:07 Assessment & Plan Assessment & Plan (1) Urinary tract infection: Code(s): N39.0 - Urinary tract infection, site not specified Plan Patient has presenting to the office complaining of urinary symptoms including dysuria and lower abdominal discomfort. POCT urinalysis shows 3+ leukocyte esterase. Patient's vital signs are stable, physical exam is otherwise benign, and patient is overall nontoxic appearing. No CVA tenderness or systemic symptoms to suggest acute pyelonephritis. Patient is safe to be discharged home. History and physical most consistent with an acute uncomplicated cystitis. Recommended symptomatic management including increased fluids, Advil/Tylenol as needed for pain as long as patient has no medical contraindications, and PO phenazopyridine three times daily as needed x 3 days. Patient sent home on p.o. cefuroxime 500 mg twice daily x7 days. Patient was advised to follow-up here or proceed directly to the emergency room if they were to develop fever/chills, nausea/vomiting, flank/back pain, or worsening/persistent symptoms. Patient verbalizes understanding and they are in agreement with the plan. Orders: Orders AMB Urinalysis Automated Today Z13.9 - Encounter for screening, unspecified Medications: New phenazopyridine 100 mg PO TID PRN 6 tabs 0RF pain 6 doses cefuroxime axetil 500 mg PO BID 14 tabs 0RF Coding Level of Care Code New Pt Level 3 (50158) Diagnoses Urinary tract infection N39.0
[2023-01-24 09:52] VITALS: BP 122/70; PULSE 56; TEMP 36.4; O2SAT 97; BMI 24.9
== END 2023-01-24 10:31 | disposition home or self-care (01) ==
PROVIDERS: PCP Internal Medicine; Visit Provider Physician Assistant Medical
DX: N39.0 Urinary tract infection, site not specified (principal); R30.0 Dysuria
CPT/HCPCS: 81003; 99051; 99203

== ENCOUNTER 2023-02-07 07:06 | Outpatient (REF) | payer MEDICARE, SELFPAY ==
[2023-02-07 11:34] LABS: Hematocrit 43.6 % (37.0-47.0); Hemoglobin 13.8 g/dl (12.0-16.0)
[2023-02-07 11:50] LABS: Alanine Aminotransferase 18 U/L (0-31); Anion Gap 12 (12-20); Aspartate Amino Transferase 25 U/L (5-31); Blood Urea Nitrogen 12 mg/dL (9-16); Calcium 9.2 mg/dL (8.4-10.2); Carbon Dioxide 25 mmol/L (22-29); Chloride 109 mmol/L (96-108); Cholesterol 166 mg/dL (<200); Estimated Glomerular Filt Rate > 60; Glucose Fasting 82 mg/dL (60-99); HDL Cholesterol 56 mg/dL (>40); LDL Cholesterol Calculated 98 mg/dL (<100); Potassium 4.1 mmol/L (3.3-5.1); Sodium 142 mmol/L (135-145); Triglycerides 64 mg/dL (<150)
== END 2023-02-07 07:07 | disposition home or self-care (01) ==
LOC: HO.HMGCLDS 07:06
PROVIDERS: PCP Internal Medicine; Visit Provider Internal Medicine
DX: I48.0 Paroxysmal atrial fibrillation (principal); I10 Essential (primary) hypertension; E78.5 Hyperlipidemia, unspecified; Z79.899 Other long term (current) drug therapy; Z79.01 Long term (current) use of anticoagulants
CPT/HCPCS: 36415; 80048; 80061; 84450; 84460; 85014; 85018

== ENCOUNTER 2023-02-09 11:45 | Outpatient (AMB) | payer MEDICARE, SELFPAY ==
--- NOTE | 2023-02-09 11:51 | A.OFFPC_ITS ---
Vital Signs 02/09/23 11:52 Height 5 ft 6 in Weight 155 lb BMI 25.0 BP 140/70 H Blood Pressure Location Rt brachial Position Sitting Pulse 55 Pulse Source Pulse Oximeter Pulse Oximetry (%) 97 Oxygen Delivery Method Room Air Intake Visit Reasons: 6m follow up lipids Intake Note: Pt is here today for her 6mo. f/u lipids Allergies ssri Allergy (Unknown, Uncoded 02/09/23 12:17) diarrhea Augmex Adverse Reaction (Unknown, Uncoded 02/09/23 12:17) severe vomiting/diarrhea Medication List - Last Reconciled 02/09/23 by Ellie Chen MD amiodarone 200 mg PO DAILY 90 days ascorbate calcium (vitamin C) 500 mg PO DAILY atenolol 50 mg PO DAILY 90 days atorvastatin 10 mg PO 3XW [Calcium 500 500 mg PO DAILY] dorzolamide-timolol 22.3-6.8 mg/mL 1 drp ophthalmic (eye) BID multivitamin 1 tab PO DAILY rivaroxaban (Xarelto) 20 mg PO DAILY 90 days Tobacco use date assessed: 02/09/23 Fall risk assessment: No Falls in past year Last assessed Fall Risk: 02/09/23 Dental Screening Dental Screen Date: 02/09/23 Did you have a dental visit in the last 12 months?: Yes Did you have a dental problem in the last 6 months where you did not have access to dental care?: No Was dental information given to patient?: Patient has dentist HPI 6m follow up lipids HPI Details 82-year-old lady with essential hyperten carmelita, paroxysmal atrial fibrillation, here today for follow-up on her lipids. She is currently taking atorvastatin 10 mg 1 tablet 3 times a week, has been walking regularly for exercise and has been compliant with a low-cholesterol diet. Tolerating medication well, recent fasting showed lipids, electrolytes, renal function fasting glucose within normal limits. [facility] Medical History Colonoscopy refused Smoker unmotivated to quit COVID-19 vaccine series declined Immunization declined Weakness generalized Sore mouth Positive FIT (fecal immunochemical test) Mammogram declined Dyslipidemia Postmenopause Normocytic anemia Hx: UTI (urinary tract infection) PAF (paroxysmal atrial fibrillation) Unspecified glaucoma Osteoporosis Thrombocytopenia Hypertension Surgical History History of colonoscopy History of section Family History Father Lung cancer Mother Unknown family medical history Maternal Grandfather No problems noted. Maternal Grandmother No problems noted. Paternal Grandmother No problems noted. Sister No problems noted. Social History Household Members: None Housing: House Do you presently have visiting nurse or other home services: No Alcohol intake: never Patient Tobacco Use Status: Former Tobacco user e-Cigarette/Vaping Use: Never Used Second Hand Smoke Exposure: No service: No Current occupational status: retired Cognitive needs: No Hearing needs: No Vision needs: Yes Questionnaire PHQ-9 Over the last 2 weeks, how often have you been bothered by any of the following problems? 1. Little interest or pleasure in doing things: not at all 2. Feeling down, depressed, or hopeless: not at all 3. Trouble falling or staying asleep, or sleeping too much: not at all 4. Feeling tired or having little energy: not at all 5. Poor appetite or overeating: not at all 6. Feeling bad about yourself - or that you are a failure or have let yourself or your family down: not at all 7. Trouble concentrating on things, such as reading the newspaper or watching television: not at all 8. Moving or speaking so slowly that other people could have noticed. Or the o pposite - being so fidgety or restless that you have been moving around a lot more than usual: not at all 9. Thoughts that you would be better off or of hurting yourself in some way: not at all Total score: 0 Depression Screening Interpretation: Negative 61974 - PHQ-9 Billing: Yes Source: Developed by Drs. Jorge Hector, Bessie Ervin, Jed Downey and colleagues, with an educational roderick from [employer]. Thrive Questionnaire Date Thrive assessed: 02/09/23 I am a: Patient What is your living situation today?: I have a steady place to live Within the past 12 months, did the food you bought not last and you didn't have the money to get more?: Never true Within the past 12 months, did you worry whether your food would run out before you got money to buy more?: Never true Do you have trouble paying for medicines?: No Do you have trouble getting transportation to medical appointments?: No Do you have trouble paying your heating and electricity bill?: No Do you have trouble taking care of your child, family member or friend?: No Do you have trouble with day-to-day activities such as bathing, preparing meals, shopping, managing finances, etc.?: No Are you currently unemployed and looking for a job?: No Are you interested in more education?: No AUDIT C Alcohol Use Questionnaire (AUDIT-C) 1. How often do you have a drink containing alcohol?: Never Total Score: 0 FELY-7 AMB Questionnaire FELY-7 Date FELY - 7 assessed: 02/09/23 Feeling nervous, anxious, or on edge: 0 = Not at all Not being able to stop or control worryin = Not at all Worrying too much about different things: 0 = Not at all Trouble relaxin = Not at all Being so restless that it is hard to sit still: 0 = Not at all Becoming easily annoyed or irritable: 0 = Not at all Feeling afraid as if something awful might happen: 0 = Not at all Total FELY-7 score (0-4 normal; 5-9 mild; 10-14 moderate; 15-21 severe): 0 Source: Developed by Drs. Jorge Hector, Bessie Ervin, Jed Downey and colleagues, with an educational roderick from [employer]. FELY-7 Assessment Billing FELY-7 Assessment Tool: FELY-7 Assessment 33482 Review of Systems Const Reports no additional complaints Eyes Denies change in vision ENT Reports no additional complaints Card Denies chest pain, Denies chest pain with activity, Denies syncope, Denies rapid heart rate, Denies pedal edema, Denies edema, Denies lightheadedness, Denies dyspnea, Denies dyspnea on exertion and Denies orthopnea Resp Denies cough, Denies dyspnea and Denies dyspnea on exertion GI Denies abdominal pain, Denies melena, Denies hematochezia, Denies change in stool character and Denies heartburn Reports no additional complaints Musc Denies abnormal gait, Denies muscle cramps, Denies muscle weakness, Denies numbness, Denies radiating pain into limb and Denies tingling Neuro Denies abnormal gait, Denies syncope, Denies numbness and Denies tingling Psych Reports no additional complaints Endo Reports no additional complaints Colten/Lymph Denies easy bleeding and Denies easy bruising Aller/Immun Reports no additional complaints Physical exam (Primary Care) Vital Signs: Last Vital Signs Pulse 55 02/09/23 11:52 BP 140/70 H 02/09/23 11:52 Pulse Ox 97 02/09/23 11:52 Oxygen Delivery Method Room Air 02/09/23 11:52 BMI result Body Mass Index 25.0 Tobacco/Smoking Status: Tobacco use Status Tobacco use date assessed 02/09/23 02/09/23 11:57 Patient Tobacco Use Status Former Tobacco user 02/09/23 11:52 e-Cigarette/Vaping Use Never Used 02/09/23 11:52 PHQ-9: PHQ-9 Score PHQ-9: Total score 0 02/09/23 11:57 Depression Screening Interpretation: Negative Thrive Assessment: Date of Thrive Assessment Date Thrive assessed 02/09/23 02/09/23 11:57 Const General: comfortable, no acute distress and alert Nutritional Appearance: average body habitus Orientation/consciousness: patient oriented x3 HENMT Head: Yes normocephalic Ears: hearing grossly normal bilaterally General nose exam: Normal external nose present Face and sinus: Yes face symmetric Mouth: Normal oral and palatal mucosa present, oropharynx normal and moist mucous membranes Eyes General: appearance normal, both eyes and all related structures Neck Neck: Yes full ROM, Yes no lymphadenopathy and Yes supple Thyroid: Thyroid normal Resp Effort & Inspection: normal respiratory effort and able to speak in complete sentences Auscultation: clear to auscultation bilaterally Cardio Other: S1-S2 present , regular rate and rhythm with occasional skipped beat Rate: regular rate Rhythm: regular rhythm Heart sounds: S1 normal heart sound present and S2 normal heart sound present GI Inspection: Yes normal to inspection Palpation (GI): Soft to palpation, nontender, no guarding and no masses Auscultation: normal bowel sounds Neuro General: patient oriented x3, gait normal, tone normal, moves all extremities, Normal light touch and pain sensation, no focal motor deficits and CN's II-XI intact bilaterally Extrem General: Yes full ROM, Yes no joint enlargement, Yes no pedal edema, Yes no calf tenderness and Yes normal gait Results Reviewed Results Reviewed: RUN: 02/09/23 1227 PAGE 1 [facility] [address] [place] [id number] Beef Splitter: Bryson Gomes M.D. Specimen Inquiry Name: Zuleima Shepard Age/Sex: 82/F : 1940 Unit#: [id number] Attend Dr: Ellie Chen MD Re02/07/23 Status: DEP [facility] Disch: SPEC : [id number] GABRIEL: 02/07/23 STATUS: COMP REQ : [id number] RECD: 02/07/[address]: Ellie Chen MD COMP: 02/07/23 ENTERED: 02/07/[address] [facility] [address]: ORDERED: HGB and HCT Test Result Flag Reference Site HGB 13.8 12.0-16.0 g/dl HCT 43.6 37.0-47.0 % NTERED: 02/07/[address]: ORDERED: Met Prof Fast, AST, ALT, Lipid Panel Test Result Flag Reference Site Sodium 142 135-145 mmol/L Potassium 4.1 3.3-5.1 mmol/L CL 109 H 96-108 mmol/L CO2 25 22-29 mmol/L Gap 12 12-20 BUN 12 9-16 mg/dL Creat 0.83 0.5-1.4 mg/dL EGFR > 60 NOTE: For -Tongan individuals, multiply the result by 1.210. Chronic Kidney Disease: Estimated GFR < 60 mL/min/1.73m2 Severe Kidney Disease: Estimated GFR < 15 mL/min/1.73m2 FBS 82 60-99 mg/dL CA 9.2 8.4-10.2 mg/dL AST (GOT) 25 5-31 U/L ALT (GPT) 18 0-31 U/L Triglyceride 64 <150 mg/dL Desirable Triglyceride: less than 150 mg/dL Borderline High Triglyceride 150-199 mg/dL High Triglyceride: 200-499 mg/dL Very High Triglyceride: greater than or equal to 5OO mg/dL Cholesterol 166 <200 mg/dL Desirable Cholesterol: less than 200 mg/dL Borderline High Cholesterol: 200-239 mg/dL High Cholesterol: greater than 239 mg/dL LDL Calculated 98 <100 mg/dL Desirable LDL: less than 100 mg/dL Near Optimal/Above Optimal LDL: 110-129 mg/dL Borderline High LDL: 130-159 mg/dL High LDL: 160-189 mg/dL Very High LDL: greater than or equal to 190 mg/dL HDL 56 >40 mg/dL Desirable HDL: greater than 40 mg/dL Assessment and Plan Assessment & Plan (1) Dyslipidemia: Code(s): E78.5 - Hyperlipidemia, unspecified Plan: Reviewed recent fasting lipid profile with patient with levels within normal limits . Continue with atorvastatin 10 mg taken 1 tablet 3 times a week , in addition to adherence to low-cholesterol diet and regular exercise, at least 30 minutes 3 to 4 times a week. Advised patient to make healthy food choices, eat more fruits, vegetables, whole grains, wild caught fish and low-fat dairy. Limit amount of meat and fried or fatty food products, as well as processed foods and fast foods. Follow-up scheduled with repeat fasting lipid panel in 6 months. Orders: Orders Alanine Aminotransferase 08/03/23 E78.5 - Hyperlipidemia, unspecified Aspartate Amino Transferase 08/03/23 E78.5 - Hyperlipidemia, unspecified Lipid Panel 08/03/23 E78.5 - Hyperlipidemia, unspecified Coding Level of Care Code Est Pt Level 3 (29850) Diagnoses Dyslipidemia E78.5 Additional Codes FELY-7 Assessment Billing - FELY-7 Assessment Tool: FELY-7 Assessment 26354 ([id number])
[2023-02-09 11:52] VITALS: BP 140/70; PULSE 55; O2SAT 97; BMI 25.0
== END 2023-02-09 12:28 | disposition home or self-care (01) ==
PROVIDERS: Visit Provider Internal Medicine
DX: E78.5 Hyperlipidemia, unspecified (principal)
CPT/HCPCS: 99213

== ENCOUNTER 2023-02-17 12:29 | Outpatient (AMB) | payer MEDICARE, SELFPAY ==
--- NOTE | 2023-02-17 12:48 | MHC.OFFVIS ---
Intake Vital Signs 02/17/23 12:49 Height 5 ft 6 in Weight 154 lb BMI 24.9 BP 122/70 Blood Pressure Location Lt brachial Position Sitting Pulse 53 Intake Visit Reasons: 6 mth f/up Intake Note: 6 month f/u Allergies ssri Allergy (Unknown, Uncoded 02/09/23 12:17) diarrhea Augmex Adverse Reaction (Unknown, Uncoded 02/09/23 12:17) severe vomiting/diarrhea Medication List - Last Reconciled 02/17/23 by Ashwini Garcia, HAND CUTTER-C amiodarone 200 mg PO DAILY 90 days ascorbate calcium (vitamin C) 500 mg PO DAILY atenolol 50 mg PO DAILY 90 days atorvastatin 10 mg PO 3XW [Calcium 500 500 mg PO DAILY] dorzolamide-timolol 22.3-6.8 mg/mL 1 drp ophthalmic (eye) BID multivitamin 1 tab PO DAILY rivaroxaban (Xarelto) 20 mg PO DAILY 90 days HPI 6 mth f/up HPI Details Bebe is an 82-year-old female with past medical history of hypertension, hyperlipidemia, paroxysmal AFib that is currently suppressed with amiodarone who presents for follow-up. Today she reports that she has been feeling well with no concerning symptoms. She had been noticing some heart palpitations that she thought was AFib however she was drinking Gatorade daily at that time. After talking with our nurse and making the decision to stop Gatorade her symptoms resolved. She has not had any recent palpitations that make her feel she has had AFib. No chest discomfort at rest or with activity. No dizziness, presyncope, syncope, falls. No shortness of breath PND, orthopnea or edema. Very concerned over the cost of her Xarelto. Tells me she will not take Coumadin. No bleeding issues reported [facility] Medical History Colonoscopy refused Smoker unmotivated to quit COVID-19 vaccine series declined Immunization declined Weakness generalized Sore mouth Positive FIT (fecal immunochemical test) Mammogram declined Dyslipidemia Postmenopause Normocytic anemia Hx: UTI (urinary tract infection) PAF (paroxysmal atrial fibrillation) Unspecified glaucoma Osteoporosis Thrombocytopenia Hypertension Surgical History History of colonoscopy History of section Family History Father Lung cancer Mother Unknown family medical history Maternal Grandfather No problems noted. Maternal Grandmother No problems noted. Paternal Grandmother No problems noted. Sister No problems noted. Social History Household Members: None Housing: House Do you presently have visiting nurse or other home services: No Alcohol intake: never Patient Tobacco Use Status: Former Tobacco user e-Cigarette/Vaping Use: Never Used Second Hand Smoke Exposure: No service: No Current occupational status: retired Cognitive needs: No Hearing needs: No Vision needs: Yes Review of Systems Const All systems reviewed & are unremarkable except as noted in HPI and below ENT Denies dizziness Card Denies chest pain, Denies chest pain at rest, Denies chest pain with activity, Denies rapid heart rate, Denies pedal edema, Denies edema, Denies leg edema, Denies lightheadedness, Denies palpitations, Denies dyspnea, Denies dyspnea on exertion and Denies orthopnea Resp Denies cough, Denies dyspnea and Denies dyspnea on exertion GI Denies hematochezia and Denies change in stool character Musc Denies abnormal gait, Denies limited range of motion, Denies muscle cramps, Denies muscle weakness, Denies numbness, Denies radiating pain into limb, Denies stiffness and Denies tingling Neuro Denies abnormal gait, Denies dizziness, Denies numbness and Denies tingling Endo Denies palpitations Physical Exam Vital Signs: Last Vital Signs Pulse 53 02/17/23 12:49 BP 122/70 02/17/23 12:49 BMI result Body Mass Index 24.9 Const General: cooperative, healthy appearing, comfortable and no acute distress Orientation/consciousness: patient oriented x3 Neck Neck: Yes normal visual inspection Resp Effort & Inspection: normal respiratory effort Auscultation: clear to auscultation bilaterally, no crackles, rales (Each base, fine), no rhonchi and no wheezes Cardio Jugular venous distension: no JVD Rate: regular rate Rhythm: regular rhythm Heart sounds: S1 normal heart sound present, S2 normal heart sound present, no murmurs and no rubs Neuro General: patient oriented x3 Extrem General: Yes normal to inspection Psych Appearance: grossly normal Mental Status: mental status grossly normal Speech and movement: Normal speech and movement present Office Procedures EKG Details: Today, read by me, sinus bradycardia, rate 53, QTC 450 milliseconds [id number], Complete Assessment & Plan Assessment & Plan (1) PAF (paroxysmal atrial fibrillation): Code(s): I48.0 - Paroxysmal atrial fibrillation Plan: History of paroxysmal atrial fibrillation. Initial finding May 2020 during [facility] admit for UTI, urosepsis. Echocardiogram 05/21/2020 showed EF 60-65%, normal valves. Holter monitor done 06/18/2020 showed sinus rhythm, occasional PACs and PVCs, no AFib, average heart rate 68. A nuclear stress test done on 06/18/2020 showed normal myocardial perfusion imaging. She was initially treated with rate control. Diltiazem was added to her atenolol and she developed a rash and it was stopped. She was then order to start on Multaq however the co-pay was too high. She was then started on amiodarone, which has been working well to suppress her atrial fibrillation. She currently pleased with how she is feeling. EKG done today showing sinus bradycardia, heart rate 53, QTC 450 milliseconds. She is not interested in reducing her atenolol dose due to fears of recurrent AFib. She is on Xarelto for anticoagulation. She is having concerns with a very high co-pay. She will continue to research options to lower her co-payment. Written script given to her. She is able to feel heart AFib in will call if she has any concerning symptoms. Labs done 02/07/2023 showed AST 25, ALT 18, labs done 08/13/2022 showed TSH 0.73. Chest x-ray done 08/13/2022 showed no acute findings. She does have some rales in her bases on exam today with no recent illness or shortness of breath. Will have her update chest x-ray to assess for any signs of toxicity. She tells me she did have a recent eye exam. Emergency care if needed for sustained rapid irregular heartbeats. Will continue on current amiodarone, atenolol and Xarelto. Cardiology follow-up with EKG in 6 months, sooner if need. (2) Hypertension: Code(s): I10 - Essential (primary) hypertension Qualifiers: Hypertension type: essential hypertension Qualified Code(s): I10 - Essential (primary) hypertension Plan: Well controlled at this time. No med changes made Orders: Orders XR chest 2V Today R09.89 - Other specified symptoms and signs involving the circulatory and respiratory systems, Z79.899 - Other terminal press operator (current) drug therapy Medications: New rivaroxaban (Xarelto) must administer with evening meal 20 mg PO DAILY 90 days 90 tabs 3RF Coding Level of Care Code Est Pt Level 4 (20356) Diagnoses PAF (paroxysmal atrial fibrillation) I48.0 Essential hypertension I10 Hypertension type: essential hypertension CPT Codes EKG - CPT: 48940-[id number], Complete ([id number]) Time Spent (min) 28
[2023-02-17 12:49] VITALS: BP 122/70; PULSE 53; BMI 24.9
== END 2023-02-17 13:29 | disposition home or self-care (01) ==
PROVIDERS: PCP Internal Medicine; Visit Provider Nurse Practitioner Family
DX: I48.0 Paroxysmal atrial fibrillation (principal); I10 Essential (primary) hypertension
CPT/HCPCS: 93010; 99214

== ENCOUNTER → 2023-02-17 12:29 | Outpatient (BNVA) | payer MEDICARE, SELFPAY | PROVIDERS: PCP Internal Medicine; Visit Provider Nurse Practitioner Family | DX: I48.0 Paroxysmal atrial fibrillation (principal); I10 Essential (primary) hypertension; Z79.01 Long term (current) use of anticoagulants; Z79.899 Other long term (current) drug therapy | CPT/HCPCS: 93005; 99212 ==

== ENCOUNTER 2023-02-18 08:39 | Outpatient (REF) | payer MEDICARE, SELFPAY | END 2023-02-18 08:40 | disposition home or self-care (01) | LOC: HO.HMGCX 08:39 | PROVIDERS: PCP Internal Medicine; Visit Provider Nurse Practitioner Family | DX: R09.89 Other specified symptoms and signs involving the circulatory and respiratory systems (principal); Z79.899 Other long term (current) drug therapy | CPT/HCPCS: 71046 ==

== ENCOUNTER 2023-04-30 11:02 | Emergency (ER) | payer MEDICARE, SELFPAY ==
--- NOTE | ~2023-04-30 | XR_ITS ---
EXAMINATION: CHEST AND LEFT RIBS, THORACIC SPINE, LUMBAR SPINE CLINICAL INFORMATION: Left lower rib pain with thoracic and lumbar spine pain COMPARISON: Chest radiograph 02/18/2023, CT abdomen and pelvis 05/19/2020, CT chest 05/18/2020 TECHNIQUE: Single view chest with 3 additional views left RIBS, 3 views thoracic spine, 3 views lumbar spine FINDINGS: Chest and RIBS: Coarse reticular markings are present which can also be seen on the prior CT scan. There is a new area of increased airspace disease in the right midlung which may be a pneumonia. No rib fractures or bony destructive lesions seen. Thoracic and lumbar spine: There is a biconvex thoracolumbar scoliosis present with degenerative changes seen throughout the spine. Multiple chronic appearing compression fractures are seen in the thoracic and lumbar spine most marked at L3 and T8 with unchanged appearances when compared with the chest radiograph from 02/18/2023. No pathologic bony destructive lesions are seen. There is evidence of old superior and inferior rami fracture in the left pelvis which can be seen on the prior CT abdomen pelvis from 05/19/2020. Marked aortic atherosclerotic change seen with calcified plaque XR/XR thoracic spine 3V IMPRESSION: 1. New area of airspace disease right midlung which may be a pneumonia. Follow-up until clearing is recommended. 2. No rib fractures are seen. 3. Multiple chronic appearing compression fractures in the thoracic and lumbar spine. 4. Old left superior and inferior rami fracture.
--- NOTE | ~2023-04-30 | XR_ITS ---
EXAMINATION: CHEST AND LEFT RIBS, THORACIC SPINE, LUMBAR SPINE CLINICAL INFORMATION: Left lower rib pain with thoracic and lumbar spine pain COMPARISON: Chest radiograph 02/18/2023, CT abdomen and pelvis 05/19/2020, CT chest 05/18/2020 TECHNIQUE: Single view chest with 3 additional views left RIBS, 3 views thoracic spine, 3 views lumbar spine FINDINGS: Chest and RIBS: Coarse reticular markings are present which can also be seen on the prior CT scan. There is a new area of increased airspace disease in the right midlung which may be a pneumonia. No rib fractures or bony destructive lesions seen. Thoracic and lumbar spine: There is a biconvex thoracolumbar scoliosis present with degenerative changes seen throughout the spine. Multiple chronic appearing compression fractures are seen in the thoracic and lumbar spine most marked at L3 and T8 with unchanged appearances when compared with the chest radiograph from 02/18/2023. No pathologic bony destructive lesions are seen. There is evidence of old superior and inferior rami fracture in the left pelvis which can be seen on the prior CT abdomen pelvis from 05/19/2020. Marked aortic atherosclerotic change seen with calcified plaque XR/XR ribs LT min 3V w CXR1V IMPRESSION: 1. New area of airspace disease right midlung which may be a pneumonia. Follow-up until clearing is recommended. 2. No rib fractures are seen. 3. Multiple chronic appearing compression fractures in the thoracic and lumbar spine. 4. Old left superior and inferior rami fracture.
--- NOTE | ~2023-04-30 | XR_ITS ---
EXAMINATION: CHEST AND LEFT RIBS, THORACIC SPINE, LUMBAR SPINE CLINICAL INFORMATION: Left lower rib pain with thoracic and lumbar spine pain COMPARISON: Chest radiograph 02/18/2023, CT abdomen and pelvis 05/19/2020, CT chest 05/18/2020 TECHNIQUE: Single view chest with 3 additional views left RIBS, 3 views thoracic spine, 3 views lumbar spine FINDINGS: Chest and RIBS: Coarse reticular markings are present which can also be seen on the prior CT scan. There is a new area of increased airspace disease in the right midlung which may be a pneumonia. No rib fractures or bony destructive lesions seen. Thoracic and lumbar spine: There is a biconvex thoracolumbar scoliosis present with degenerative changes seen throughout the spine. Multiple chronic appearing compression fractures are seen in the thoracic and lumbar spine most marked at L3 and T8 with unchanged appearances when compared with the chest radiograph from 02/18/2023. No pathologic bony destructive lesions are seen. There is evidence of old superior and inferior rami fracture in the left pelvis which can be seen on the prior CT abdomen pelvis from 05/19/2020. Marked aortic atherosclerotic change seen with calcified plaque XR/XR lumbar spine 2-3V IMPRESSION: 1. New area of airspace disease right midlung which may be a pneumonia. Follow-up until clearing is recommended. 2. No rib fractures are seen. 3. Multiple chronic appearing compression fractures in the thoracic and lumbar spine. 4. Old left superior and inferior rami fracture.
--- NOTE | ~2023-04-30 | CT_ITS ---
Examination: CT chest, abdomen and pelvis with IV contrast. Clinical indications: Trauma. Pain. COMPARISON: Chest and left RIBS 04/30/2023. CT abdomen pelvis without contrast 05/19/2020. TECHNIQUE: 5 mm thin axial and reformatted 3 mm thin sagittal and coronal images of chest, abdomen and pelvis were obtained following IV 100 mL Omnipaque 350. DLP 483. This CT examination was performed using dose optimization technique as appropriate, variously including the following: Automated exposure control Adjustment of MA and/or KV according to patient size(this includes techniques or standardized protocols for targeted exams where dose is matched to indication/reason for exam; extremities or head. Use of iterative reconstruction techniques. FINDINGS: CHEST: LUNGS: There is diffuse emphysematous changes of both lungs with groundglass opacity right upper lobe and left upper lobe posterior segment. There are cystic changes in the left upper lobe. No consolidation or large mass seen. There are subpleural 3 mm nodules right upper lobe axial image 35/8, 38/8 and lingula image 43/8. There is dependent bibasilar atelectasis. Mediastinum: The thyroid lobes are symmetric and normal. The central trachea is dilated likely is secondary to COPD. The thoracic aorta is of normal caliber without aneurysm or dissection. Ascending aorta measures 3.7 cm. There is good opacification up ovary artery and is branches without narrowing or thrombus. Heart size enlarged. No pericardial effusion seen. There is mild coronary artery calcifications present. No mediastinal mass or abnormal size lymph nodes seen. There are reactive retracted and precarinal 1 cm lymph nodes. Pleura: There is no pleural effusion, thickening or calcification. Axilla: No abnormal axillary lymph nodes seen. The chest wall is unremarkable. Osseous structures:. There is no aggressive lytic or sclerotic process seen. There is compression fracture deformity T8, T10 and T12 vertebra of indeterminate age. There is a minimally displaced fracture lateral ninth rib. No additional fracture seen. Abdomen and pelvis: Liver, ducts and gallbladder: The liver is normal size, contour and density. There is a 7 mm hypodensity right hepatic lobe axial image 12/15. No other focal lesion seen. Spleen: Unremarkable. Pancreas: Unremarkable. Adrenal glands: Unremarkable. Kidneys: There is normal symmetry of bilateral kidney nephrograms. No radiopaque renal calculi or hydronephrosis seen. No perinephric stranding. GI tract: There is moderate 2 significant stool and scattered diverticuli throughout the colon without diverticulitis. The small bowel loops are normal caliber. Appendix is not visualized no free air or free fluid seen. Abdominal wall: Unremarkable. Pelvis: The bladder is mildly distended but without any radiopaque calculi. There is periureteral heights diverticulum. The uterus is anteverted and appears unremarkable. There is no free fluid no pelvic hematoma seen. Osseous structures: There is mild osteophytic compression deformities throughout lumbar spine. 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 There is an old healed left superior pubic and ischial fractures. No acute fractures seen at this time. There is diffuse osteopenia. CT/CT abdomen pelvis w IV con IMPRESSION: No acute process seen in the chest, abdomen pelvis. No evidence aortic dissection or aneurysm. There is diffuse emphysematous lungs with cystic changes left upper lobe and groundglass density in both upper lobes likely sequelae of chronic lung disease. There is compressive bibasilar atelectasis. The heart size enlarged. Moderate to significant constipation. Colonic especially sigmoid colon diverticulosis without diverticulitis
--- NOTE | 2023-04-30 11:33 | ED_ITS ---
HPI - Fall General Chief Complaint: Fall Stated Complaint: Fall 1 week ago - body pain Time Seen by Provider: 04/30/23 14:35 Source: patient and family Mode of arrival: wheelchair Limitations: no limitations History of Present Illness HPI Narrative: 82-year-old female with history of AFib on Xarelto, hypertension, glaucoma presents to the ER with complaints of left posterior rib and back pain after fall 1 week ago. Patient reports she tripped on a carpet in her house causing her to fall on the left side. Denies head strike or loss of consciousness. Patient denies any headache, neck pain, chest pain, abdominal pain. Taking naproxen and Tylenol at home with continued pain. Related Data Home Medications Medication Instructions Recorded Confirmed Calcium 500 500 mg PO DAILY 05/18/20 02/17/23 multivitamin 1 tab PO DAILY 05/18/20 02/17/23 ascorbate calcium (vitamin C) 500 500 mg PO DAILY 05/16/21 02/17/23 mg tablet dorzolamide 22.3 mg-timolol 6.8 1 drp ophthalmic (eye) BID 01/22/22 02/17/23 mg/mL eye drops Previous Rx's Medication Instructions Recorded atenolol 50 mg tablet 50 mg PO DAILY 90 days #90 tabs 01/07/23 atorvastatin 10 mg tablet 10 mg PO 3XW #45 tabs 02/03/23 rivaroxaban 20 mg tablet (Xarelto) 20 mg PO DAILY 90 days #90 tabs 02/17/23 amiodarone 200 mg tablet 200 mg PO DAILY 90 days #90 tabs 02/19/23 cyclobenzaprine 10 mg tablet 10 mg PO TID PRN muscle spasm #15 04/30/23 tabs Allergies Allergy/AdvReac Type Severity Reaction Status Date / Time ssri Allergy Unknown diarrhea Uncoded 04/30/23 11:35 Augmex AdvReac Unknown severe Uncoded 04/30/23 11:35 vomiting/diarrhea Review of Systems 2 Review of Systems: Yes all other systems are reviewed and are negative Constitutional: Constitutional: Reports no additional constitutional complaints, Denies body ache(s), Denies chills, Denies fever(s), Denies headache(s) and Denies weakness Eyes: Eyes: Reports no additional eye complaints and Denies change in vision ENT: Reports system reviewed and no additional complaints, except as documented, Denies dizziness, Denies headache(s), Denies nasal congestion, Denies nasal discharge and Denies neck pain Cardiovascular: Cardiovascular: Reports no additional cardiovascular complaints, Denies chest pain, Denies leg edema and Denies dyspnea Respiratory: Respiratory: Reports no additional respiratory complaints, Denies cough and Denies dyspnea Gastrointestinal: Gastrointestinal: Reports no additional gastrointestinal complaints, Denies abdominal pain, Denies diarrhea, Denies nausea and Denies vomiting Genitourinary: Genitourinary: Reports no additional female genitourinary complaints and Denies urinary incontinence Musculoskeletal: Musculoskeletal: Reports no additional musculoskeletal complaints, Reports back pain, Denies arthralgias, Denies joint swelling, Denies neck pain, Denies numbness and Denies tingling Integumentary/Breasts: Skin/Breast: Reports system reviewed and no additional complaints, except as docu and Denies rash Neurologic: Reports system reviewed and no additional complaints, except as documented, Denies Abnormal speech present, Denies dizziness, Denies headache(s), Denies numbness, Denies tingling and Denies weakness PMFSH Past Medical History Attestation statement: The following information was validated with the patient. Source: old records reviewed and nursing notes reviewed Medical History Colonoscopy refused Smoker unmotivated to quit COVID-19 vaccine series declined Immunization declined Weakness generalized Sore mouth Positive FIT (fecal immunochemical test) Mammogram declined Dyslipidemia Postmenopause Normocytic anemia Hx: UTI (urinary tract infection) PAF (paroxysmal atrial fibrillation) Unspecified glaucoma Osteoporosis Thrombocytopenia Hypertension Surgical History History of colonoscopy History of section Family History Family History Father Lung cancer Mother Unknown family medical history Maternal Grandfather No problems noted. Maternal Grandmother No problems noted. Paternal Grandmother No problems noted. Sister No problems noted. Social History Social History Household Members: None Housing: House Do you presently have visiting nurse or other home services: No Alcohol intake: never Patient Tobacco Use Status: Former Tobacco user e-Cigarette/Vaping Use: Never Used Second Hand Smoke Exposure: No Advance Directives: No Advance Directives Information Provided: Yes service: No Current occupational status: retired Cognitive needs: No Hearing needs: No Vision needs: Yes Physical Exam 2 Vital Signs: Vital Signs: Last Vital Signs Temp 97.4 F 04/30/23 11:36 Pulse 59 04/30/23 15:33 Resp 16 04/30/23 15:33 BP 175/76 H 04/30/23 15:33 Pulse Ox 95 04/30/23 15:33 O2 Del Method Room Air 04/30/23 15:33 BMI result Body Mass Index 24.9 Const: General: cooperative, healthy appearing, comfortable and no acute distress Orientation/consciousness: patient oriented x3 Limitations: no limitations HEENT: Head: Yes normal to inspection Ears: hearing grossly normal bilaterally General nose exam: Normal external nose present Face and sinus: Yes normal facial exam Mouth: Normal oral and palatal mucosa present Throat: Yes posterior oropharynx normal Eyes: General: appearance normal, both eyes and all related structures P upils: Equal, round and reactive pupils present Neck: Neck: Yes normal visual inspection Chest: Chest palpation & inspection: normal inspection of the chest Resp: Effort & Inspection: normal respiratory effort Auscultation: clear to auscultation bilaterally Cardio: Rate: regular rate Rhythm: regular rhythm Peripheral pulses: P eripheral pulses 2+ throughout GI: Inspection: Yes normal to inspection Palpation (GI): Soft to palpation and nontender Auscultation: normal bowel sounds Back/Spine/Pelvis: Thoracic/Lumbar Spine: thoracic and lumbar spine normal to inspection Back/spine/pelvis image: 1. +TTP with no crepitus/ecchymosis or deformity Skin: General skin exam: no rashes or lesions noted Neuro: General: patient oriented x3, moves all extremities, no focal motor deficits and normal sensation to monofilament Cranial nerves: Yes CN's II-XII intact bilaterally, Yes Equal, round and reactive pupils present, Yes Bilaterally intact EOM present, Yes Nystagmus not present, Yes Normal facial strength present and Yes Midline tongue present Cognition (Neuro): normal cognition Speech: No Abnormal speech present Gait exam (Neuro): Normal gait present Motor exam (neuro): 5/5 motor strength present throughout S ensory Exam: Normal double simultaneous stimulation for sensation Extrem: General: Yes normal to inspection Course Course Course Narrative: RME: 82yo F w/PMHx PAF on Xarelto, HTN, thrombocytopenia, HLD, presenting to the ED complaining of left lower side/flank pain x1.5 weeks ago s/p slip & fall at kitchen sink after tripping on carpet. denies head trauma, LOC, or sx prior to fall. small eccymosis to L lower posterior ribs/L back with ttp. No flail chest, no erythema XRs ordered, patient also requesting UA Full HPI, ROS and PE to be performed by primary ED provider. Reevaluation(s) Reevaluation #1: CT shows single rib fracture. Patient be sent home with analgesia. She was given incentive spirometer with instructions. She is up and ambulatory with steady gait. No need for admission for pain control or pulmonary toilet as she is not hypoxic. Medications Administered Discontinued Medications Generic Name Dose Route Start Last Admin Trade Name Freq PRN Reason Stop Dose Admin Acetaminophen 975 mg 04/30/23 17:56 04/30/23 18:02 Acetaminophen 325 Mg Tablet PO 04/30/23 17:57 975 mg ONCE ONE Administration Sodium Chloride 500 mls @ 999 mls/hr 04/30/23 15:24 04/30/23 16:38 Ns IV 04/30/23 15:54 Infused .Q31M STA Infusion Iohexol 85 ml 04/30/23 17:02 04/30/23 17:03 Iohexol 350 Mg/Ml 100 Ml Infus..Btl IV 04/30/23 17:03 85 ml ONCE ONE Administration Morphine Sulfate 4 mg 04/30/23 15:09 04/30/23 15:37 Morphine Sulfate 4 Mg/Ml Cartridge IVPUSH 04/30/23 15:10 4 mg ONCE ONE Administration Protocol Ondansetron HCl 4 mg 04/30/23 15:09 04/30/23 15:37 Ondansetron Hcl 4 Mg/2 Ml Vial IVPUSH 04/30/23 15:10 4 mg ONCE ONE Administration Medical Decision Making Medical Decision Making [facility] Narrative: 82-year-old female with history of AFib on Xarelto, hypertension, glaucoma presents to the ER with complaints of left posterior rib and back pain after fall 1 week ago. Patient reports she tripped on a carpet in her house causing her to fall on the left side. Denies head strike or loss of consciousness. Patient denies any headache, neck pain, chest pain, abdominal pain. Taking naproxen and Tylenol at home with continued pain. TTP over left flank/posterior ribs X-rays from triage show no acute abnormality. In this patient on AC therapy I have high consideration for intra-abdominal and intrathoracic injury and so I will check a CT chest/ CT abdomen and pelvis as well as labs and provide analgesia Differential Diagnosis Differential Diagnoses: The differential diagnosis associated with the presentation includes rib fracture, pulmonary contusion, renal lac, splenic lac Admission/Observation Consideration of admission/observation: Escalation of care including admission/observation considered CT shows single rib fracture. Pain is well controlled. No need for admission for pain control or pulmonary toilet. Patient will be discharged home with analgesia and recommendations use symptoms from Lab Data MDM Lab Attestation statement: I reviewed the patient's lab results. 04/30/23 15:19 04/30/23 15:19 Labs: Lab Results 04/30/23 04/30/23 Range/Units 14:18 15:19 WBC 9.8 (4.8-10.8) X10*3/uL RBC 4.37 (4.20-5.50) X10*6/uL Hgb 13.0 (12.0-16.0) g/dl Hct 40.7 (37.0-47.0) % MCV 93.1 (80.0-98.0) fL MCH 29.7 (27.0-33.0) pg MCHC 31.9 (31.0-35.0) g/dl RDW 15.0 (11.0-16.0) % Plt Count 161 (160-400) X10*3/uL MPV 12.2 (9.4-12.3) fL Immature Gran % (Auto) 0.5 H (0.0-0.4) % Neut % (Auto) 79.7 H (45-73) % Lymph % (Auto) 10.4 L (20-40) % [place] % (Auto) 6.7 (2-11) % Eos % (Auto) 2.4 (0-4) % Baso % (Auto) 0.3 (0-2) % Lymph # (Auto) 1.0 L (1.2-4.9) X10*3/uL [place] # (Auto) 0.7 (0.1-1.2) X10*3/uL Eos # (Auto) 0.2 (0.0-0.4) X10*3/uL Baso # (Auto) 0.0 (0.0-0.2) X10*3/uL Abs Immat Gran (auto) 0.05 H (0.00-0.03) X10*3/uL Absolute Neuts (auto) 7.8 (2.0-8.3) x10*3/uL Absolute Nucleated RBC 0.000 (0.0-0.012) X10*3/uL Nucleated RBC % (auto) 0.0 (0.0-0.2) /100WBC PT 16.1 H (11.1-13.3) SEC INR 1.3 H (0.9-1.1) Sodium 141 (135-145) mmol/L Potassium 3.7 (3.3-5.1) mmol/L Chloride 109 H (96-108) mmol/L Carbon Dioxide 24 (22-29) mmol/L Anion Gap 12 (12-20) BUN 17 H (9-16) mg/dL Creatinine 0.80 (0.5-1.4) mg/dL Estim Creat Clear Calc 49.0 Estimated GFR > 60 Random Glucose 110 (60-115) mg/dL Calcium 9.0 (8.4-10.2) mg/dL Total Bilirubin 0.7 (0.0-1.0) mg/dL Direct Bilirubin 0.3 (0.0-0.5) mg/dL AST 26 (5-31) U/L ALT 16 (0-31) U/L Alkaline Phosphatase 103 (39-117) U/L Total Protein 6.5 (6.5-8.0) g/dL Albumin 3.6 (3.5-5.0) g/dL Urine Color Yellow Urine Appearance Turbid Urine pH 8.0 (5.0-9.0) Ur Specific [place] 1.010 (1.005-1.025) Urine Protein Negative (Neg-Trace) mg/dL Urine Glucose (UA) Negative (Negative) mg/dL Urine Ketones Negative (Negative) mg/dL Urine Blood Negative (Negative) Urine Nitrite Negative (Negative) Ur Leukocyte Esterase Trace H (Negative) Urine RBC 0-2 (0-2) /HPF Urine WBC 6-10 H (0-5) /HPF Ur Squamous Epith Cells 3-5 (0-2) /HPF Urine Bacteria None Seen (None Seen) Hyaline Casts 0-2 (0-2) /LPF Independent Interpretation I performed an independent interpretation of an: Plain X-Ray and CT Scan Interpretation: I independently reviewed the x-ray and the CT scan agree with the radiology report Radiology Impression Discussion of test interpretation with radiology: I have reviewed the radiologist's reading. Radiologist Impression: Launch?Image [address] [address] XRay Report Signed Patient: Zuleima Shepard MR#: [id number] : 1940 Acct:[id number] Age/Sex: 82 / F ADM Date: 04/30/23 Loc: .ED Attending Dr: Ordering Physician: Litzy Hussein Date of Service: 04/30/23 Procedure(s): XR thoracic spine 3V Accession Number(s): [id number] cc: Ellie Chen MD; Litzy Hussein~ EXAMINATION: CHEST AND LEFT RIBS, THORACIC SPINE, LUMBAR SPINE CLINICAL INFORMATION: Left lower rib pain with thoracic and lumbar spine pain COMPARISON: Chest radiograph 02/18/2023, CT abdomen and pelvis 05/19/2020, CT chest 05/18/2020 TECHNIQUE: Single view chest with 3 additional views left RIBS, 3 views thoracic spine, 3 views lumbar spine FINDINGS: Chest and RIBS: Coarse reticular markings are present which can also be seen on the prior CT scan. There is a new area of increased airspace disease in the right midlung which may be a pneumonia. No rib fractures or bony destructive lesions seen. Thoracic and lumbar spine: There is a biconvex thoracolumbar scoliosis present with degenerative changes seen throughout the spine. Multiple chronic appearing compression fractures are seen in the thoracic and lumbar spine most marked at L3 and T8 with unchanged appearances when compared with the chest radiograph from 02/18/2023. No pathologic bony destructive lesions are seen. There is evidence of old superior and inferior rami fracture in the left pelvis which can be seen on the prior CT abdomen pelvis from 05/19/2020. Marked aortic atherosclerotic change seen with calcified plaque XR/XR thoracic spine 3V IMPRESSION: 1. New area of airspace disease right midlung which may be a pneumonia. Follow-up until clearing is recommended. 2. No rib fractures are seen. 3. Multiple chronic appearing compression fractures in the thoracic and lumbar spine. 4. Old left superior and inferior rami fracture. Examination: CT chest, abdomen and pelvis with IV contrast. Clinical indications: Trauma. Pain. COMPARISON: Chest and left RIBS 04/30/2023. CT abdomen pelvis without contrast 05/19/2020. TECHNIQUE: 5 mm thin axial and reformatted 3 mm thin sagittal and coronal images of chest, abdomen and pelvis were obtained following IV 100 mL Omnipaque 350. DLP 483. This CT examination was performed using dose optimization technique as appropriate, variously including the following: Automated exposure control Adjustment of MA and/or KV according to patient size(this includes techniques or standardized protocols for targeted exams where dose is matched to indication/reason for exam; extremities or head. Use of iterative reconstruction techniques. FINDINGS: CHEST: LUNGS: There is diffuse emphysematous changes of both lungs with groundglass opacity right upper lobe and left upper lobe posterior segment. There are cystic changes in the left upper lobe. No consolidation or large mass seen. There are subpleural 3 mm nodules right upper lobe axial image 35/8, 38/8 and lingula image 43/8. There is dependent bibasilar atelectasis. Mediastinum: The thyroid lobes are symmetric and normal. The central trachea is dilated likely is secondary to COPD. The thoracic aorta is of normal caliber without aneurysm or dissection. Ascending aorta measures 3.7 cm. There is good opacification up ovary artery and is branches without narrowing or thrombus. Heart size enlarged. No pericardial effusion seen. There is mild coronary artery calcifications present. No mediastinal mass or abnormal size lymph nodes seen. There are reactive retracted and precarinal 1 cm lymph nodes. Pleura: There is no pleural effusion, thickening or calcification. Axilla: No abnormal axillary lymph nodes seen. The chest wall is unremarkable. Osseous structures:. There is no aggressive lytic or sclerotic process seen. There is compression fracture deformity T8, T10 and T12 vertebra of indeterminate age. There is a minimally displaced fracture lateral ninth rib. No additional fracture seen. Abdomen and pelvis: Liver, ducts and gallbladder: The liver is normal size, contour and density. There is a 7 mm hypodensity right hepatic lobe axial image 04/24. No other focal lesion seen. Spleen: Unremarkable. Pancreas: Unremarkable. Adrenal glands: Unremarkable. Kidneys: There is normal symmetry of bilateral kidney nephrograms. No radiopaque renal calculi or hydronephrosis seen. No perinephric stranding. GI tract: There is moderate 2 significant stool and scattered diverticuli throughout the colon without diverticulitis. The small bowel loops are normal caliber. Appendix is not visualized no free air or free fluid seen. Abdominal wall: Unremarkable. Pelvis: The bladder is mildly distended but without any radiopaque calculi. There is periureteral heights diverticulum. The uterus is anteverted and appears unremarkable. There is no free fluid no pelvic hematoma seen. Osseous structures: There is mild osteophytic compression deformities throughout lumbar spine. 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 There is an old healed left superior pubic and ischial fractures. No acute fractures seen at this time. There is diffuse osteopenia. CT/CT chest w IV con IMPRESSION: No acute process seen in the chest, abdomen pelvis. No evidence aortic dissection or aneurysm. There is diffuse emphysematous lungs with cystic changes left upper lobe and groundglass density in both upper lobes likely sequelae of chronic lung disease. There is compressive bibasilar atelectasis. The heart size enlarged. Moderate to significant constipation. Colonic especially sigmoid colon diverticulosis without diverticulitis Independent Historian Clinical information obtained from an independent historian. History obtained from or confirmed by: Friend Discharge Plan Discharge Clinical Impression: Closed rib fracture Patient Disposition: Home, Self-Care Instructions: Rib Fracture (ED) Additional Instructions: Use incentive spirometer as instructed Continue Tylenol Continue Salonpas patches use the Flexeril as needed for pain/muscle spasm. It is a muscle relaxant and can cause some sedation so be careful. Prescriptions: New cyclobenzaprine 10 mg tablet 10 mg PO TID PRN (Reason: muscle spasm) Qty: 15 0RF No Action atenolol 50 mg tablet 50 mg PO DAILY 90 Days Qty: 90 3RF atorvastatin 10 mg tablet 10 mg PO 3XW Qty: 45 1RF amiodarone 200 mg tablet 200 mg PO DAILY 90 Days Qty: 90 3RF multivitamin Tablet 1 tab PO DAILY Calcium 500 500 mg PO DAILY ascorbate calcium (vitamin C) 500 mg tablet 500 mg PO DAILY dorzolamide-timolol 22.3-6.8 mg/mL drops 1 drp ophthalmic (eye) BID Xarelto 20 mg tablet 20 mg PO DAILY 90 Days Qty: 90 3RF Rx Instructions: must administer with evening meal Referrals: Ellie Chen MD [Primary Care Provider] - 1 week
[2023-04-30 11:36] VITALS: BP 187/72; PULSE 59; RESP 16; TEMP 36.3; O2SAT 96; BMI 24.9
[2023-04-30 14:24] VITALS: BP 174/68; PULSE 60; RESP 16; O2SAT 97
[2023-04-30 14:44] LABS: Appearance Urine Turbid; Color Urine Yellow; Glucose Urine UA Negative (Negative); Leukocyte Esterase Urine Trace (Negative); Nitrite Urine Negative (Negative); UMIC TRIGGER UACC YES; Urine Blood Negative (Negative); Urine Ketones Negative (Negative); Urine Protein Negative (Neg-Trace)
[2023-04-30 14:49] LABS: Bacteria Urine None Seen (None Seen); Hyaline Casts Urine 0-2 /LPF (0-2); RBC Urine 0-2 /HPF (0-2); UACC Culture Trigger YES
[2023-04-30 15:25] LABS: MANUAL DIFF FLAG NO
[2023-04-30 15:28] LABS: Basophils Percent Auto 0.3 % (0-2); Eosinophils Absolute Auto 0.2 X10*3/uL (0.0-0.4); Eosinophils Percent Auto 2.4 % (0-4); Hematocrit 40.7 % (37.0-47.0); Imm Gran Abs Auto 0.05 X10*3/uL (0.00-0.03); Imm Gran Pct Auto 0.5 % (0.0-0.4); Lymphocytes Percent Auto 10.4 % (20-40); Mean Corpuscular HGB Conc 31.9 g/dl (31.0-35.0); Mean Corpuscular Hemoglobin 29.7 pg (27.0-33.0); Mean Corpuscular Volume 93.1 fL (80.0-98.0); Mean Platelet Volume 12.2 fL (9.4-12.3); Monocytes Absolute Auto 0.7 X10*3/uL (0.1-1.2); Monocytes Percent Auto 6.7 % (2-11); Neutrophils Absolute Auto 7.8 x10*3/uL (2.0-8.3); Neutrophils Percent Auto 79.7 % (45-73); Platelet Count 161 X10*3/uL (160-400); Red Blood Count 4.37 X10*6/uL (4.20-5.50); White Blood Count 9.8 X10*3/uL (4.8-10.8)
[2023-04-30 15:33] VITALS: BP 175/76; PULSE 59; RESP 16; O2SAT 95
[2023-04-30 15:33] LABS: INTERNATIONAL NORM RATIO 1.3 (0.9-1.1); Prothrombin Time 16.1 SEC (11.1-13.3)
[2023-04-30] MEDS: Morphine Sulfate 4 MG/ML CARTRIDGE IVPUSH (15:37)
[2023-04-30] MEDS: ondansetron HCL 4 MG/2 ML VIAL IVPUSH (15:37)
[2023-04-30] MEDS: 0.9 % Sodium Chloride 500 ML 999 ML IV (15:42)
[2023-04-30 15:46] LABS: Alanine Aminotransferase 16 U/L (0-31); Albumin Level 3.6 g/dL (3.5-5.0); Alkaline Phosphatase 103 U/L (39-117); Anion Gap 12 (12-20); Aspartate Amino Transferase 26 U/L (5-31); Bilirubin Direct 0.3 mg/dL (0.0-0.5); Bilirubin Total 0.7 mg/dL (0.0-1.0); Blood Urea Nitrogen 17 mg/dL (9-16); Carbon Dioxide 24 mmol/L (22-29); Chloride 109 mmol/L (96-108); Estimated Glomerular Filt Rate > 60; Glucose Random 110 mg/dL (60-115); Potassium 3.7 mmol/L (3.3-5.1); Sodium 141 mmol/L (135-145); Total Protein 6.5 g/dL (6.5-8.0)
[2023-04-30] MEDS: iohexoL 350 MG/ML 100 ML INFUS..BTL 85 ML IV (17:03)
[2023-04-30] MEDS: Acetaminophen 325 MG TABLET 975 MG PO (18:02)
[2023-04-30] MEDS: Cyclobenzaprine HCl 10 MG TABLET PO (19:00)
[2023-04-30 19:05] VITALS: BP 157/62; PULSE 58; RESP 16; O2SAT 92
== END 2023-04-30 19:21 | disposition home or self-care (01) ==
PROVIDERS: Nurse Practitioner Family; Physician Assistant; Emergency Provider Emergency Medicine Emergency Medical Services; PCP Internal Medicine
DX: S22.32XA Fracture of one rib, left side, initial encounter for closed fracture (principal); R07.81 Pleurodynia; M54.50 Low back pain, unspecified; R51.9 Headache, unspecified; M54.6 Pain in thoracic spine; X58.XXXA Exposure to other specified factors, initial encounter; Y93.9 Activity, unspecified; Y92.9 Unspecified place or not applicable; Y99.9 Unspecified external cause status; Z79.899 Other long term (current) drug therapy
CPT/HCPCS: 36415; 71101; 71260; 72072; 72100; 74177; 80048; 80076; 81001; 85025; 85610; 87086; 96361; 96374; 96375; 99283; 99284; J2270; J2405; Q9967

== ENCOUNTER 2023-06-17 08:59 | Outpatient (AMB) | payer MEDICARE, SELFPAY ==
[2023-06-17 09:27] VITALS: BP 118/80; PULSE 57; O2SAT 99; BMI 24.5
--- NOTE | 2023-06-17 09:27 | A.OFFPC_ITS ---
Vital Signs 06/17/23 09:27 Height 5 ft 6 in Weight 152 lb BMI 24.5 BP 118/80 Blood Pressure Location Lt brachial Position Sitting Pulse 57 Pulse Source Pulse Oximeter Pulse Oximetry (%) 99 Oxygen Delivery Method Room Air Intake Visit Reasons: [facility] [place]23 Fractured rib Intake Note: Pt is here today for her HDF C fractured rib Allergies ssri Allergy (Unknown, Uncoded 06/17/23 09:53) diarrhea Augmex Adverse Reaction (Unknown, Uncoded 06/17/23 09:53) severe vomiting/diarrhea Medication List - Last Reconciled 06/17/23 by Ellie Chen MD acetaminophen ER (Tylenol Arthritis Pain) 650 mg PO Q12H amiodarone 200 mg PO DAILY 90 days ascorbate calcium (vitamin C) 500 mg PO DAILY atenolol 50 mg PO DAILY 90 days atorvastatin 10 mg PO 3XW [Calcium 500 500 mg PO DAILY] dorzolamide-timolol 22.3-6.8 mg/mL 1 drp ophthalmic (eye) BID multivitamin 1 tab PO DAILY rivaroxaban (Xarelto) 20 mg PO DAILY 90 days Tobacco use date assessed: 06/17/23 Fall risk assessment: 2 + Falls in past year Last assessed Fall Risk: 06/17/23 Dental Screening Dental Screen Date: 06/17/23 Did you have a dental visit in the last 12 months?: Yes Did you have a dental problem in the last 6 months where you did not have access to dental care?: No Was dental information given to patient?: Patient has dentist [facility] On 04/30/23 Fractured rib HPI Details 82 year old lady, with PAF on Xarelto, H [place], thrombocytopenia, hyperlipidemia, here today for complaining of pain across her mid to lower back. She had a fall 04/30/2023, tripped and CT shows single rib fracture. She tripped again several days ago and hit the bathroom door, sustained a come [place] on her left temporal area which is not subsiding but now complains of pain in her mid to lower back, unable to straighten up because it hurts. Did not go to the ER, has been self medicating with Tylenol which affords minimal relief. Denies any accompanying urinary or stool incontinence, no numbness or weakness in extremities. Has been lying down on her recliner as it hurts to lie flat on her back. [facility] Medical History Pain of mid back Lower back pain Colonoscopy refused Smoker unmotivated to quit COVID-19 vaccine series declined Immunization declined Weakness generalized Sore mouth Positive FIT (fecal immunochemical test) Mammogram declined Dyslipidemia Postmenopause Normocytic anemia Hx: UTI (urinary tract infection) PAF (paroxysmal atrial fibrillation) Unspecified glaucoma Osteoporosis Thrombocytopenia Hypertension Surgical History History of colonoscopy History of section Family History Father Lung cancer Mother Unknown family medical history Maternal Grandfather No problems noted. Maternal Grandmother No problems noted. Paternal Grandmother No problems noted. Sister No problems noted. Social History Household Members: None Housing: House Do you presently have visiting nurse or other home services: No Alcohol intake: never Patient Tobacco Use Status: Former Tobacco user e-Cigarette/Vaping Use: Never Used Second Hand Smoke Exposure: No service: No Current occupational status: retired Cognitive needs: No Hearing needs: No Vision needs: Yes Questionnaire PHQ-9 Over the last 2 weeks, how often have you been bothered by any of the following problems? 1. Little interest or pleasure in doing things: not at all 2. Feeling down, depressed, or hopeless: not at all 3. Trouble falling or staying asleep, or sleeping too much: several days 4. Feeling tired or having little energy: several days 5. Poor appetite or overeating: not at all 6. Feeling bad about yourself - or that you are a failure or have let yourself or your family down: not at all 7. Trouble concentrating on things, such as reading the newspaper or watching television: not at all 8. Moving or speaking so slowly that other people could have noticed. Or the opposite - being so fidgety or restless that you have been moving around a lot more than usual: not at all Depression Screening Interpretation: Negative Depression Screening Done: Yes 30033 - PHQ-9 Billing: Yes Source: Developed by Drs. Jorge Hector, Bessie Ervin, Jed Downey and colleagues, with an educational roderick from [employer]. Thrive Questionnaire Date Thrive assessed: 06/17/23 I am a: Patient What is your living situation today?: I have a steady place to live Within the past 12 months, did the food you bought not last and you didn't have the money to get more?: Never true Within the past 12 months, did you worry whether your food would run out before you got money to buy more?: Never true Do you have trouble paying for medicines?: No Do you have trouble getting transportation to medical appointments?: No Do you have trouble paying your heating and electricity bill?: No Do you have trouble taking care of your child, family member or friend?: No Do you have trouble with day-to-day activities such as bathing, preparing meals, shopping, managing finances, etc.?: No Are you currently unemployed and looking for a job?: No Are you interested in more education?: No THRIVE Score: 0 AUDIT C Alcohol Use Questionnaire (AUDIT-C) 1. How often do you have a drink containing alcohol?: Never Total Score: 0 FELY-7 AMB Questionnaire FELY-7 Date FELY - 7 assessed: 02/09/23 Feeling nervous, anxious, or on edge: 0 = Not at all Not being able to stop or control worryin = Not at all Worrying too much about different things: 0 = Not at all Trouble relaxin = Several days Being so restless that it is hard to sit still: 0 = Not at all Becoming easily annoyed or irritable: 0 = Not at all Feeling afraid as if something awful might happen: 0 = Not at all Total FELY-7 score (0-4 normal; 5-9 mild; 10-14 moderate; 15-21 severe): 1 Source: Developed by Drs. Jorge Hector, Bessie Ervin, Jed herrera nd colleagues, with an educational roderick from [employer]. FELY-7 Assessment Billing FELY-7 Assessment Tool: FELY-7 Assessment 21613 Review of Systems Const Reports as per HPI and Denies headache(s) Eyes Reports no additional complaints ENT Denies dizziness and Denies headache(s) Card Reports no additional complaints and Denies dyspnea Resp Denies pain on inspiration and Denies dyspnea GI Denies abdominal pain, Denies melena, Denies hematochezia and Denies change in bowel habits Denies hematuria, Denies difficulty voiding, Denies dysuria and Denies urinary incontinence Musc Reports as per HPI, Reports loss of height and Denies numbness Neuro Denies confusion, Denies dizziness, Denies headache(s), Denies focal weakness, Denies numbness and Denies Sensory deficit (Neuro) Psych Denies confusion Colten/Lymph Reports no additional complaints Physical exam (Primary Care) Vital Signs: Last Vital Signs Pulse 57 06/17/23 09:27 BP 118/80 06/17/23 09:27 Pulse Ox 99 06/17/23 09:27 Oxygen Delivery Method Room Air 06/17/23 09:27 BMI result Body Mass Index 24.5 Tobacco/Smoking Status: Tobacco use Status Tobacco use date assessed 06/17/23 06/17/23 09:33 Patient Tobacco Use Status Former Tobacco user 06/17/23 09:33 e-Cigarette/Vaping Use Never Used 06/17/23 09:33 Depression Screening Interpretation: Negative Thrive Assessment: Date of Thrive Assessment Date Thrive assessed 06/17/23 06/17/23 10:23 Const Other: Alert oriented x3, ambulatory with slow gait, marked stooped posture noted, packer operator automatic present General: No confusion Orientation/consciousness: patient oriented x3 and No confusion HENMT Other: Healing ecchymosis on left temporal area Face and sinus: Yes face symmetric Eyes General: appearance normal, both eyes and all related structures Neck Neck: Yes full ROM, Yes no lymphadenopathy and Yes supple Resp Auscultation: clear to auscultation bilaterally Cardio Other: S1-S2 present regular rate Back/Spine/Pelvis Thoracic/Lumbar Spine: kyphosis and pain with thoraco-lumbar ROM Neuro General: patient oriented x3, tone normal, moves all extremities, no focal motor deficits and No confusion Cognition (Neuro): normal cognition Sensory Exam: No Sensory deficit (Neuro) Assessment and Plan Assessment & Plan (1) Pain of mid back: Code(s): M54.9 - Dorsalgia, unspecified (2) Lower back pain: Code(s): M54.50 - Low back pain, unspecified (3) Hx of fall: Code(s): Z91.81 - History of falling Plan: Ordered x-ray of thoracic and lumbar spine, rule out compression fracture after fall. Prescription sent for tramadol to take 50 mg 1 tablet as needed for severe pain , may continue Tylenol 650 mg 1 every 8 hours as needed for pain Orders: Orders XR lumbar spine 2-3V 06/17/23 M54.50 - Low back pain, unspecified, M54.9 - Dorsalgia, unspecified XR thoracic spine 3V 06/17/23 M54.50 - Low back pain, unspecified, M54.9 - Dorsalgia, unspecified Medications: New tramadol 50 mg PO DAILY PRN 20 tabs 0RF pain, severe Coding Level of Care Code Est Pt Level 3 (81208) Diagnoses Pain of mid back M54.9 Lower back pain M54.50 Hx of fall Z91.81 Additional Codes FELY-7 Assessment Billing - FELY-7 Assessment Tool: FELY-7 Assessment 24910 ([id number])
== END 2023-06-17 10:18 | disposition home or self-care (01) ==
PROVIDERS: PCP Internal Medicine; Visit Provider Internal Medicine
DX: M54.9 Dorsalgia, unspecified (principal); M54.50 Low back pain, unspecified; Z91.81 History of falling; I48.0 Paroxysmal atrial fibrillation
CPT/HCPCS: 99213

== ENCOUNTER 2023-06-17 10:18 | Outpatient (REF) | payer MEDICARE, SELFPAY ==
--- NOTE | ~2023-06-17 | XR_ITS ---
EXAMINATION: XR THORACIC SPINE CLINICAL INFORMATION: Lower back pain. COMPARISON: Radiographs dated 04/30/2023 TECHNIQUE: AP and lateral views of the thoracic spine were obtained. FINDINGS: There is bony demineralization. There are marked T8 and T12 compression fractures. There is a chronic mild T10 compression fracture. There is a marked thoracolumbar dextroscoliosis. The thoracic disc spaces are relatively well-maintained. There is multi-level thoracic spondylosis. The posterior elements are intact. The paravertebral soft tissues are unremarkable. XR/XR thoracic spine 3V IMPRESSION: 1. There is a marked thoracolumbar dextroscoliosis. 2. Chronic marked T8 and mild T10 and acute marked T12 anterior wedge compression fractures are seen. EXAMINATION: XR LUMBOSACRAL SPINE CLINICAL INFORMATION: Lower back pain. COMPARISON: Radiograph dated 04/30/2023. TECHNIQUE: AP and lateral views of the lumbar spine and lateral view of the lumbosacral junction. FINDINGS: There is bony demineralization. There is a marked thoracolumbar dextroscoliosis. A marked T12 compression fracture is redemonstrated. There are mild to moderate endplate deformities of the L1-L5 vertebral bodies, most pronounced at L1 and L3. There is multi-level spondylosis and facet arthropathy. There are aortoiliac atherosclerotic calcifications. IMPRESSION: 1. There is a marked thoracolumbar dextroscoliosis. 2. There are multi-level lumbar compression fractures, most pronounced at L1 and L3. 3. There is multi-level lumbar spondylosis and facet arthropathy.
--- NOTE | ~2023-06-17 | XR_ITS ---
EXAMINATION: XR THORACIC SPINE CLINICAL INFORMATION: Lower back pain. COMPARISON: Radiographs dated 04/30/2023 TECHNIQUE: AP and lateral views of the thoracic spine were obtained. FINDINGS: There is bony demineralization. There are marked T8 and T12 compression fractures. There is a chronic mild T10 compression fracture. There is a marked thoracolumbar dextroscoliosis. The thoracic disc spaces are relatively well-maintained. There is multi-level thoracic spondylosis. The posterior elements are intact. The paravertebral soft tissues are unremarkable. XR/XR lumbar spine 2-3V IMPRESSION: 1. There is a marked thoracolumbar dextroscoliosis. 2. Chronic marked T8 and mild T10 and acute marked T12 anterior wedge compression fractures are seen. EXAMINATION: XR LUMBOSACRAL SPINE CLINICAL INFORMATION: Lower back pain. COMPARISON: Radiograph dated 04/30/2023. TECHNIQUE: AP and lateral views of the lumbar spine and lateral view of the lumbosacral junction. FINDINGS: There is bony demineralization. There is a marked thoracolumbar dextroscoliosis. A marked T12 compression fracture is redemonstrated. There are mild to moderate endplate deformities of the L1-L5 vertebral bodies, most pronounced at L1 and L3. There is multi-level spondylosis and facet arthropathy. There are aortoiliac atherosclerotic calcifications. IMPRESSION: 1. There is a marked thoracolumbar dextroscoliosis. 2. There are multi-level lumbar compression fractures, most pronounced at L1 and L3. 3. There is multi-level lumbar spondylosis and facet arthropathy.
== END 2023-06-17 10:19 | disposition home or self-care (01) ==
LOC: HO.HMGCX 10:18
PROVIDERS: PCP Internal Medicine; Visit Provider Internal Medicine
DX: M54.50 Low back pain, unspecified (principal); M54.9 Dorsalgia, unspecified
CPT/HCPCS: 72072; 72100

== ENCOUNTER 2023-07-02 14:45 | Outpatient (REF) | payer MEDICARE, SELFPAY ==
--- NOTE | ~2023-07-02 | IR_ITS ---
History of the present illness: Patient is an 82-year-old female with osteoporosis. She sustained a ground-level fall in April with resultant fractured ribs. Reportedly after this she had some difficulty straightening her spine, but did not endorse specific back pain. Roughly 3.5 weeks ago she fell again, this time sustaining immediate back pain. Since this time, her pain has waxed and waned, but is intermittently as high as 8 or 9 out of 10 in intensity, particularly during the mornings. The pain is fairly constant and does not show significant improvement. It is limiting her activity and ambulation. It limits her ability to walk any significant distance and she finds standing difficult as well. She has difficulty straightening her back in a chair. She has had some relief with tramadol and Tylenol. She denies any radicular symptoms. She has no new bowel or bladder dysfunction. Medication list: Acetaminophen extended release 650 mg by mouth every 12 hours Amiodarone 200 mg by mouth daily Vitamin C 500 mg by mouth daily Atenolol 50 mg by mouth daily Atorvastatin 10 mg by mouth 3 times a week Calcium 500 mg by mouth daily Dorzolamide-timolol 22.3-6.8 mg/mL 1 drop twice a day in each eye Multivitamin 1 tab daily Xarelto 20 mg by mouth daily PAST MEDICAL HISTORY: Lower back pain Tobacco abuse Positive fecal immunochemical chest Dyslipidemia Post menopause Normocytic anemia Urinary tract infection Paroxysmal atrial fibrillation Glaucoma Osteoporosis Compression fracture Thrombocytopenia Hypertension PAST SURGICAL HISTORY: Prior colonoscopy section Family history notable for father that is from lung cancer. No other reported family history Social history: Prior tobacco use. Patient lives alone. REVIEW OF SYSTEMS: Notable for generalized weakness and back pain. Prior constipation, but this has resolved. Physical exam: Normocephalic. Airway class II. The neck is supple with no carotid bruit nor cervical adenopathy. Lungs are diminished at the bases with few fine rales bilaterally. Heart rate is irregular. No significant murmur, gallop, or rub. The abdomen is soft and nontender. Point tenderness elicited over the lower lumbar spine extending laterally to the left. Lower extremity strength in the flexor and extensor compartments of the upper and lower legs is 5+ bilaterally and symmetric. ASSESSMENT AND PLAN: In summary, the patient is a pleasant 82-year-old female with osteoporosis and new onset back pain from a fall 3 1/2 weeks ago. Plain films demonstrate advanced spondylosis of the lumbar spine and fractures of L1 and L3. These appear to be acute, but cannot definitively be ascertained as such from plain film alone. She has intermittently severe back pain and this is significantly affecting her day-to-day activity. We are going to order an MRI of the lumbar spine. We extensively discussed kyphoplasty, including all the associated risks, benefits, and alternatives to care. She would like to proceed with the procedure under the assumption that she is a candidate. We will await the results of the MRI and then offer her treatment as appropriate. We very sincerely appreciate this kind referral.
== END 2023-07-02 14:46 | disposition home or self-care (01) ==
LOC: HO.RADIR 14:45
PROVIDERS: PCP Internal Medicine; Visit Provider Internal Medicine
DX: S22.000A Wedge compression fracture of unspecified thoracic vertebra, initial encounter for closed fracture (principal); S32.000A Wedge compression fracture of unspecified lumbar vertebra, initial encounter for closed fracture; X58.XXXA Exposure to other specified factors, initial encounter; Y93.9 Activity, unspecified; Y92.9 Unspecified place or not applicable; Y99.9 Unspecified external cause status
CPT/HCPCS: 76000

== ENCOUNTER → 2023-07-02 14:53 | Outpatient (BNV) | payer MEDICARE, SELFPAY | PROVIDERS: PCP Internal Medicine; Visit Provider Radiology Vascular & Interventional Radiology | DX: M80.00XA Age-related osteoporosis with current pathological fracture, unspecified site, initial encounter for fracture (principal) | CPT/HCPCS: 76000 ==

== ENCOUNTER 2023-07-07 11:52 | Outpatient (REF) | payer MEDICARE, SELFPAY ==
--- NOTE | ~2023-07-07 | MR_ITS ---
EXAMINATION: MR THORACIC SPINE WITHOUT CONTRAST MR LUMBAR SPINE WITHOUT CONTRAST CLINICAL INFORMATION: Wedge compression fracture. COMPARISON: CT scan of the chest abdomen and pelvis 04/30/2023. TECHNIQUE: Multiplanar MR imaging of the thoracic and lumbar spine was performed without contrast. FINDINGS: Thoracic spine: There is bone marrow edema associated with a subacute compression fracture of the T12 vertebral body. There is impaction of the lower endplate with greater than 75% vertebral height loss anteriorly. There is distraction of the lower T12 endplate in the supine position with fluid filling the collapsed of the distracted compression fracture. There is retropulsion of the posterior cortex causing abutment on the ventral surface of the lower thoracic cord. No canal compromise or cord compression at this level. There is also bone marrow edema associated with a subacute compression fracture of the T10 vertebral body with impaction upper endplate resulting in 25% vertebral height loss centrally. No retropulsion of the posterior cortex and no canal compromise at this level. There is also bone marrow edema associated with an acute to subacute compression fracture of the upper L1 endplate. There is approximately 40% vertebral height loss anteriorly at this level. No retropulsion of posterior cortex and no canal compromise. Mixed predominantly type I degenerative endplate changes at T11-T12. A chronic compression deformity of the T8 vertebral body has remained stable when compared to prior imaging and there is a proximally 75% vertebral height loss anteriorly at this level. No retropulsion of posterior cortex. There is no canal compromise or cord compression. No abnormal intramedullary signal changes within the thoracic spinal cord. There are a few perineural root sleeve cysts within the thoracic spine. For instance the dominant root sleeve cyst at the level of T8-T9 extending along the foraminal segment of the right T8 nerve root measures up to 1 cm in maximal transaxial dimension. No substantial neuroforaminal compromise. Limited visualization of intrathoracic anatomy reveals no abnormal finding. Specifically no paraspinal soft tissue mass or collection. Lumbar spine: As described above there is bone marrow edema associated with a compression fracture of the L1 vertebral body with impaction of the upper endplate resulting in approximately 25% vertebral height loss anteriorly. Otherwise no acute bone marrow signal changes within the lumbar spine. There are however chronic compression deformities of L2, L3, L4, and L5. No overt retropulsion of posterior cortex at any of the vertebral levels within the lumbar spine. There is slight grade 1 anterolisthesis of L2 on L3 and L3 on L4 there appears to be related to advanced facet degenerative changes at these levels. The tip of the conus medullaris is located at L2. No mass effect on the conus. Visualized distal cord signal intensity is normal. At L1-L2 there is a bulging disc. No canal stenosis. No mass effect on the traversing or foraminal nerve roots. At L2-L3 there is a pseudodisc bulge. Advanced bilateral facet degenerative change. Mild canal stenosis. Subtle abutment of the left traversing L3 nerve roots. No foraminal nerve root compression. At L3-L4 there is a pseudodisc bulge. Advanced bilateral facet degenerative change. Mild canal stenosis. No mass effect on the traversing or foraminal nerve roots. At L4-L5 there is a pseudodisc bulge. Advanced bilateral facet degenerative change. No canal stenosis. Mild mass effect on the right L4 foraminal nerve root. At L5-S1 the annular contour is normal. Bilateral facet degenerative change. No canal stenosis. No mass effect on the traversing or foraminal nerve roots. There is a relatively large perineural root sleeve cyst that extends along the foraminal segment of the right S2 nerve root measuring up to 4.8 cm in maximal transaxial dimension. This finding is best illustrated on axial image 44 of 48 series 12. Limited visualization of the retroperitoneal anatomy reveals no abnormal finding. Psoas and paraspinal muscle groups are symmetric. MR/MR thoracic spine wo con IMPRESSION: There is bone marrow edema associated with subacute compression fractures of the T12, T10, and L1 vertebral bodies. There is greater than 75% vertebral height loss anteriorly at T12 with distraction of the lower T12 endplate in the supine position. There is retropulsion of the posterior cortex at T12-L1 causing abutment on the ventral surface of the lower thoracic cord. No overt cord compression and no abnormal intramedullary signal changes at this level. Chronic compression deformities at multiple additional levels within the thoracic and lumbar spine as described above. There is mild canal stenosis at L2-L3 and L3-L4. Otherwise no canal compromise. No cord compression or abnormal intramedullary signal changes. There is mild mass effect on the right L4 foraminal nerve root. Otherwise no substantial mass effect on the traversing or foraminal nerve roots elsewhere within the thoracic or lumbar spine. Of note there is a relatively large perineural root sleeve cyst that extends along the foraminal segment of the right S2 nerve root measuring up to 4.8 cm in maximal transaxial dimension.
== END 2023-07-07 11:53 | disposition home or self-care (01) ==
LOC: HO.MRI 11:52
PROVIDERS: PCP Internal Medicine; Visit Provider Internal Medicine
DX: S22.000A Wedge compression fracture of unspecified thoracic vertebra, initial encounter for closed fracture (principal); S32.000A Wedge compression fracture of unspecified lumbar vertebra, initial encounter for closed fracture; X58.XXXA Exposure to other specified factors, initial encounter; Y93.9 Activity, unspecified; Y92.9 Unspecified place or not applicable; Y99.9 Unspecified external cause status
CPT/HCPCS: 72146; 72148

== ENCOUNTER 2023-08-10 11:22 | Day surgery (SDC) | payer MEDICARE, SELFPAY ==
[2023-07-31 10:04] VITALS: BMI 24.5
--- NOTE | 2023-08-06 14:17 | HO.ANESPROP2 ---
Documented by User: Patricia Munson NP 08/06/23 14:20 HPI - Anesthesia Eval Consult details Narrative: 82yo F for Kyphoplasty Xarelto for afib Follow[place] [facility] [place]. OK to hold OAC. Last office visit 02/2023, some palps that resolved with decrease in gatorade consumption. [facility] Active Problems Active Problems: All Active Problems (Updated 07/31/23 @ 09:37 by Sabrina Valencia RN) Chronic anticoagulation (Acute) On amiodarone therapy (Acute) Thoracic compression fracture (Acute) Lumbar compression fracture (Acute) Pain of mid back (Acute) Lower back pain (Acute) Colonoscopy refused (Acute) Smoker unmotivated to quit (Acute) COVID-19 vaccine series declined (Acute) Immunization declined (Acute) Positive FIT (fecal immunochemical test) (Acute) Mammogram declined (Acute) Dyslipidemia (Acute) Hypertension (Acute) Osteoporosis (Acute) PAF (paroxysmal atrial fibrillation) (Acute) Past Medical History Medical History (Updated 07/31/23 @ 09:37 by Sabrina Valencia RN) Emphysema lung Thoracic compression fracture Lumbar compression fracture Pain of mid back Lower back pain Colonoscopy refused Smoker unmotivated to quit COVID-19 vaccine series declined Immunization declined Weakness generalized Sore mouth Positive FIT (fecal immunochemical test) Mammogram declined Dyslipidemia Postmenopause Normocytic anemia Hx: UTI (urinary tract infection) PAF (paroxysmal atrial fibrillation) Unspecified glaucoma Osteoporosis Thrombocytopenia Hypertension Family History Family History Father Lung cancer Mother Unknown family medical history Maternal Grandfather No problems noted. Maternal Grandmother No problems noted. Paternal Grandmother No problems noted. Sister No problems noted. Surgical History Surgical History (Updated 07/31/23 @ 09:44 by Sabrina Valencia RN) History of lumpectomy of left breast History of colonoscopy History of section Social History Social History Household Members: None Housing: House Are you a primary care navigator to a significant other at home: No Do you presently have visiting nurse or other home services: No Alcohol intake: never Patient Tobacco Use Status: Current someday Tobacco user Tobacco use type: Cigarette e-Cigarette/Vaping Use: Never Used Second Hand Smoke Exposure: No Have you been hit, kicked, punched, or otherwise hurt by someone within the past year? If so, by whom?: No Advance Directives: No Advance Directives Information Provided: Yes Advance Directives on File: No Recently lost weight without trying: No Eating poorly because of decreased appetite: No Nutrition Risks: No Nutritional Risk Patient : No : No Poor oral hygiene: Yes (crowns upper and lower) service: No Current occupational status: retired Cognitive needs: No Hearing needs: No Vision needs: Yes Meds Allergies Allergy/AdvReac Type Severity Reaction Status Date / Time diltiazem Allergy Rash Verified 07/31/23 09:31 ssri Allergy Unknown diarrhea Uncoded 06/17/23 09:53 Augmex AdvReac Unknown severe Uncoded 06/17/23 09:53 vomiting/diarrhea Home Medications Medication Instructions Recorded Confirmed Last Taken Type Calcium 500 500 mg PO DAILY 05/18/20 07/31/23 Unknown History multivitamin 1 tab PO DAILY 05/18/20 07/31/23 Unknown History ascorbate calcium (vitamin C) 500 500 mg PO DAILY 05/16/21 07/31/23 Unknown History mg tablet dorzolamide 22.3 mg-timolol 6.8 1 drp ophthalmic (eye) BID 01/22/22 07/31/23 Unknown History mg/mL eye drops acetaminophen 650 mg 650 mg PO TID 06/17/23 07/31/23 Unknown History tablet,extended release (Tylenol Arthritis Pain) rivaroxaban 20 mg tablet (Xarelto) 20 mg PO DAILY@1700 07/31/23 07/31/23 08/07/23 History Exam Height,Weight and Vital Signs: Height 5 ft 6 in Weight 68.946 kg Pertinent Lab Results Pertinent Lab Results: Laboratory Tests 04/30/23 15:19 WBC 9.8 Hgb 13.0 Hct 40.7 Plt Count 161 Sodium 141 Potassium 3.7 Chloride 109 H Carbon Dioxide 24 BUN 17 H Creatinine 0.80 Narrative Narrative: CT chest w IV con 04/2023 IMPRESSION: No acute process seen in the chest, abdomen pelvis. No evidence aortic dissection or aneurysm. There is diffuse emphysematous lungs with cystic changes left upper lobe and groundglass density in both upper lobes likely sequelae of chronic lung disease. There is compressive bibasilar atelectasis. The heart size enlarged. Moderate to significant constipation. Colonic especially sigmoid colon diverticulosis without diverticulitis Assessment and Plan Assessment Anesthesia Assessment: Chart Reviewed Documented by User: Sara Hauser MD 08/10/23 14:36 PMFSH Past Medical History Medical History (Updated 07/31/23 @ 09:37 by Sabrina Valencia RN) Emphysema lung Thoracic compression fracture Lumbar compression fracture Pain of mid back Lower back pain Colonoscopy refused Smoker unmotivated to quit COVID-19 vaccine series declined Immunization declined Weakness generalized Sore mouth Positive FIT (fecal immunochemical test) Mammogram declined Dyslipidemia Postmenopause Normocytic anemia Hx: UTI (urinary tract infection) PAF (paroxysmal atrial fibrillation) Unspecified glaucoma Osteoporosis Thrombocytopenia Hypertension Family History Family History Father Lung cancer Mother Unknown family medical history Maternal Grandfather No problems noted. Maternal Grandmother No problems noted. Paternal Grandmother No problems noted. Sister No problems noted. Family history of problems with anesthesia: No Surgical History Surgical History (Updated 07/31/23 @ 09:44 by Sabrina Valencia RN) History of lumpectomy of left breast History of colonoscopy History of section History of Problems with Anesthesia: No Social History Social History Household Members: None Housing: House Are you a primary care navigator to a significant other at home: No Do you presently have visiting nurse or other home services: No Alcohol intake: never Patient Tobacco Use Status: Current someday Tobacco user Tobacco use type: Cigarette e-Cigarette/Vaping Use: Never Used Second Hand Smoke Exposure: No Have you been hit, kicked, punched, or otherwise hurt by someone within the past year? If so, by whom?: No Advance Directives: No Advance Directives Information Provided: Yes Advance Directives on File: No Recently lost weight without trying: No Eating poorly because of decreased appetite: No Nutrition Risks: No Nutritional Risk Patient : No : No Poor oral hygiene: Yes (crowns upper and lower) service: No Current occupational status: retired Cognitive needs: No Hearing needs: No Vision needs: Yes Meds Allergies Allergy/AdvReac Type Severity Reaction Status Date / Time diltiazem Allergy Rash Verified 07/31/23 09:31 ssri Allergy Unknown diarrhea Uncoded 06/17/23 09:53 Augmex AdvReac Unknown severe Uncoded 06/17/23 09:53 vomiting/diarrhea Home Medications Medication Instructions Recorded Confirmed Last Taken Type Calcium 500 500 mg PO DAILY 05/18/20 07/31/23 Unknown History multivitamin 1 tab PO DAILY 05/18/20 07/31/23 Unknown History ascorbate calcium (vitamin C) 500 500 mg PO DAILY 05/16/21 07/31/23 Unknown History mg tablet dorzolamide 22.3 mg-timolol 6.8 1 drp ophthalmic (eye) BID 01/22/22 07/31/23 Unknown History mg/mL eye drops acetaminophen 650 mg 650 mg PO TID 06/17/23 07/31/23 Unknown History tablet,extended release (Tylenol Arthritis Pain) rivaroxaban 20 mg tablet (Xarelto) 20 mg PO DAILY@1700 07/31/23 07/31/23 08/07/23 History Exam Airway Mallampati Class: II (multiple caps throughout, top front ) TM Dist: >3cm Neck ROM: Full Heart: rrr Lungs: cta Assessment and Plan Assessment Anesthesia Assessment: Anesthesia Plan Discussed Final Anesthetic Review Family History of Problems with Anesthesia: No History of Problems with Anesthesia: No NPO: Yes ASA Class: III Final Preanesthetic Review: No Changes in Pt Med Stat, Meds/Allgs Chart Reviewed and Consent Obtained/Reviewed Patient Risk: Intermediate Procedure Risk: Intermediate Anesthetic Plan Anesthetic Plan: MAC: Disposition: Standard PACU
[2023-08-10] VITALS (12 sets, daily range): BP systolic 163–194; BP diastolic 63–81; PULSE 49–60; RESP 14–18; TEMP 36.2–37.1; O2SAT 94–99; BMI 24.0
--- NOTE | ~2023-08-10 | IR_ITS ---
EXAMINATION: IR THORACIC VERTEBROPLASTY IR LUMBAR VERTEBROPLASTY CLINICAL INFORMATION: Osteoporosis. Compression fractures. Patient remains in severe pain. COMPARISON: MRI images of the lumbar and lower thoracic spine performed at [place] 07/07/23 were reviewed ? ? FLUOROSCOPY TIME: minutes DOSE AREA PRODUCT: uGy-m2 (microgray-meter squared) TECHNIQUE: Prior to the procedure the patient was seen and reviewed and the nature of the procedure with attendant risks and benefits explained to the patient. Following detailed discussion a decision was made to proceed with the kyphoplasty. Consent for the procedure was given. The patient was brought to the angio suite and placed in a prone position. Fluoroscopy in AP and lateral projections were used for image guidance throughout the procedure. Anesthesia/sedation was provided by an anesthesiologist as separately recorded. The patient was brought to the angio suite and placed in a prone position. ? AP and lateral fluoroscopy was used for image guidance throughout the procedure. Preprocedure imaging demonstrates the known fractures at T10, T12 and L1. Given the severe compression and retropulsion at T12 it is deemed unsafe to perform kyphoplasty at this level and therefore we elected to only treat T10 and L2 Appropriate access points were marked on the skin using fluoroscopy. The back was prepped and draped in the usual sterile manner. We began by dressing of the L1 fracture. Following injection of 1% Lidocaine with bicarbonate and also 2 cc. each side of 0.5% Bupivicaine for local anesthesia and using biplane fluoroscopy a Kyphx One Step needle was advanced to the right side of the vertebral body. Satisfactory position was confirmed by fluoroscopy. [ ] The Trochar was removed and a drill was advanced anteriorly. A pusher was inserted and the anterior cortex probed to confirm no perforation of the anterior cortex. Having done this we then performed the same procedure on the patient?s left side. Having done this [ ] Kyphx Inflatable Bone Tamp balloons were inserted through the right and left cannulae and advanced under fluoroscopic guidance into appropriate positions in the vertebral body. The balloons were inflated. Having done this, the balloons were gently removed. The bone voids created were filled with 8 ml of bone cement. The bone cement is Kyphx-HVR. Once the bone cement was hardened the cannula were removed. Sterile dressings were applied. We then addressed the T10 fracture Following injection of 1% Lidocaine with bicarbonate and also 2 cc. each side of 0.5% Bupivicaine for local anesthesia and using biplane fluoroscopy a Kyphx One Step needle was advanced to the right side of the vertebral body. Satisfactory position was confirmed by fluoroscopy. [ ] The Trochar was removed and a drill was advanced anteriorly. A pusher was inserted and the anterior cortex probed to confirm no perforation of the anterior cortex. Having done this we then performed the same procedure on the patient?s left side. Having done this [ ] Kyphx Inflatable Bone Tamp balloons were inserted through the right and left cannulae and advanced under fluoroscopic guidance into appropriate positions in the vertebral body. The balloons were inflated. Having done this, the balloons were gently removed. The bone voids created were filled with 4.6 ml of bone cement. The bone cement is Kyphx-HVR. Once the bone cement was hardened the cannula were removed. Sterile dressings were applied. The patient tolerated the procedure well with no immediate complications. FINDINGS: Acute compression fracture of T10, T12 and L1 vertebral bodies. Technically successful kyphoplasty treatment at T0 and L1 as above. T12 unsuitable for kyphoplasty IR/IR kyphoplasty thoracic IMPRESSION: Acute compression fracture of T10 and L1 vertebral bodies treated balloon kyphoplasty as above.
[2023-08-10] MEDS: Lactated Ringers 1,000 ML 100 ML IVCONT (12:17)
== END 2023-08-10 17:54 | disposition home or self-care (01) ==
PROVIDERS: PCP Internal Medicine; Visit Provider Student in an Organized Health Care Education/Training Program
DX: S32.019A Unspecified fracture of first lumbar vertebra, initial encounter for closed fracture (principal); S22.079A Unspecified fracture of T9-T10 vertebra, initial encounter for closed fracture; W18.09XA Striking against other object with subsequent fall, initial encounter; Y93.89 Activity, other specified; Y92.091 Bathroom in other non-institutional residence as the place of occurrence of the external cause; Y99.8 Other external cause status; Y93.9 Activity, unspecified; Y92.008 Other place in unspecified non-institutional (private) residence as the place of occurrence of the external cause; Y99.9 Unspecified external cause status; M81.0 Age-related osteoporosis without current pathological fracture; N95.8 Other specified menopausal and perimenopausal disorders; M54.6 Pain in thoracic spine; M54.50 Low back pain, unspecified; Z91.81 History of falling; R53.1 Weakness; I10 Essential (primary) hypertension; I48.0 Paroxysmal atrial fibrillation; D69.6 Thrombocytopenia, unspecified; E78.5 Hyperlipidemia, unspecified; Z79.01 Long term (current) use of anticoagulants; Z79.899 Other long term (current) drug therapy; Z88.8 Allergy status to other drugs, medicaments and biological substances; Z87.891 Personal history of nicotine dependence
CPT/HCPCS: 22513; 22514; J0360; J0665; J0690; J1805; J2250; J2704; J3010; Q9967

== ENCOUNTER → 2023-08-10 13:05 | Outpatient (BNV) | payer MEDICARE, SELFPAY | PROVIDERS: PCP Internal Medicine; Visit Provider Student in an Organized Health Care Education/Training Program | DX: S22.000A Wedge compression fracture of unspecified thoracic vertebra, initial encounter for closed fracture (principal); S32.000A Wedge compression fracture of unspecified lumbar vertebra, initial encounter for closed fracture | CPT/HCPCS: 22513; 22515 ==

== ENCOUNTER 2023-08-18 09:22 | Outpatient (AMB) | payer MEDICARE, SELFPAY ==
--- NOTE | 2023-08-18 09:38 | A.OFFPC_ITS ---
Vital Signs 08/18/23 09:45 Height 5 ft 6 in Weight 148 lb BMI 23.9 BP 136/60 Blood Pressure Location Lt brachial Position Sitting Pulse 57 Pulse Source Pulse Oximeter Pulse Oximetry (%) 98 Oxygen Delivery Method Room Air Intake Visit Reasons: Annual PE Intake Note: Pt is here today for her PE: Last colonoscopy 08/14/11, bone density scan 06/22/2019, mammogram 06/22/2019 [employer] Lo[employer] Officer: Present Accompanied by: daughter in law (Kristy) Allergies diltiazem Allergy (Verified 10/03/23 10:34) Rash ssri Allergy (Unknown, Uncoded 10/03/23 10:34) diarrhea Augmex Adverse Reaction (Unknown, Uncoded 10/03/23 10:34) severe vomiting/diarrhea Medication List - Last Reconciled 08/18/23 by Ellie Chen MD acetaminophen ER (Tylenol Arthritis Pain) 650 mg PO TID amiodarone 200 mg PO DAILY 90 days ascorbate calcium (vitamin C) 500 mg PO DAILY atenolol 50 mg PO DAILY 90 days atorvastatin 10 mg PO 3XW [Calcium 500 500 mg PO DAILY] dorzolamide-timolol 22.3-6.8 mg/mL 1 drp ophthalmic (eye) BID multivitamin 1 tab PO DAILY rivaroxaban (Xarelto) 20 mg PO DAILY@1700 Tobacco use date assessed: 08/18/23 Fall risk assessment: 2 + Falls in past year Last assessed Fall Risk: 08/18/23 Dental Screening Dental Screen Date: 08/18/23 Did you have a dental visit in the last 12 months?: Yes Did you have a dental problem in the last 6 months where you did not have access to dental care?: No Was dental information given to patient?: Patient has dentist HPI Annual PE HPI Details 83 year old lady stefano for her physical ex am. She sustained an acute compression fracture of T10, T12 and L1 vertebral bodies after a fall, s/p lutz ccessful kyphoplasty treatment at T0 and L1 , but T12 unsuitable for kyphoplasty. She is now able to stand upright and walk without stooping, back pain has resolved. Shehas paroxysmal atrial fibrillation currently followed by cardiology currently on chronic anticoagulation Xarelto mg daily and is on amiodarone 200 mg daily. Takes atenolol 50 mg daily for control of hypertension, and is on atorvastatin 10 mg, taken 1 tablet 3 times a week for hyperlipidemia. She declines mammogram and bone density scan. Last colonoscopy 08/14/[address] Webb and was told that no further screening needed, last bone density scan 06/22/2019, mammogram 06/22/2019. She does not want to get any COVID vaccine flu shot or any other vaccinations. She continues to smoke cigarettes, but per patient has been cutting back, but does not want to give up her cigarettes. [facility] Medical History (Updated 10/20/23 @ 15:08 by Ellie Chen MD) History of compression fracture of spine Emphysema lung Thoracic compression fracture Lumbar compression fracture Colonoscopy refused Smoker unmotivated to quit COVID-19 vaccine series declined Immunization declined Weakness generalized Sore mouth Positive FIT (fecal immunochemical test) Mammogram declined Dyslipidemia Postmenopause Normocytic anemia Hx: UTI (urinary tract infection) PAF (paroxysmal atrial fibrillation) Unspecified glaucoma Osteoporosis Thrombocytopenia Hypertension Surgical History H/O kyphoplasty History of lumpectomy of left breast History of colonoscopy History of section Family History Father Lung cancer Mother Unknown family medical history Maternal Grandfather No problems noted. Maternal Grandmother No problems noted. Paternal Grandmother No problems noted. Sister No problems noted. Social History Household Members: None Housing: House Are you a primary adult care provider to a significant other at home: No Do you presently have visiting nurse or other home services: No Alcohol intake: never Patient Tobacco Use Status: Current someday Tobacco user Tobacco use type: Cigarette e-Cigarette/Vaping Use: Never Used Second Hand Smoke Exposure: No service: No Current occupational status: retired Cognitive needs: No Hearing needs: No Vision needs: Yes Questionnaire PHQ-9 Over the last 2 weeks, how often have you been bothered by any of the following problems? Depression Screening Interpretation: Negative Depression Screening Done: Yes Source: Developed by Drs. Jorge Hector, Bessie Ervin, Jed Dwoney and colleagues, with an educational roderick from [employer]. Thrive Questionnaire Date Thrive assessed: 06/17/23 AUDIT C Alcohol Use Questionnaire (AUDIT-C) 1. How often do you have a drink containing alcohol?: Never Total Score: 0 FELY-7 AMB Questionnaire FELY-7 Date FELY - 7 assessed: 02/09/23 Source: Developed by Drs. Jorge Hector, Bessie Ervin, Jed Downey and colleagues, with an educational roderick from [employer]. Review of Systems Const Denies difficulty sleeping, Denies fatigue, Denies fever(s), Denies headache(s), Denies poor appetite and Denies weakness Eyes Denies change in vision ENT Denies dizziness, Denies headache(s) and Denies nasal congestion Card Denies chest pain, Denies rapid heart rate, Denies pedal edema, Denies edema, Denies leg edema, Denies lightheadedness, Denies dyspnea and Denies dyspnea on exertion Resp Denies cough, Denies dyspnea and Denies dyspnea on exertion GI Denies abdominal pain, Denies melena, Denies hematochezia, Denies change in bowel habits, Denies change in stool character and Denies heartburn Reports no additional complaints Musc Denies limited range of motion, Denies muscle cramps, Denies muscle weakness, Denies numbness, Denies radiating pain into limb, Denies stiffness and Denies tingling Skin/Breast Denies breast pain, Denies breast mass and Denies rash Neuro Denies dizziness, Denies headache(s), Denies focal weakness, Denies numbness, Denies Sensory deficit (Neuro), Denies tingling and Denies weakness Psych Reports no additional complaints Endo Reports no additional complaints and Denies fatigue Colten/Lymph Reports no additional complaints Aller/Immun Reports no additional complaints Physical exam (Primary Care) Vital Signs: Last Vital Signs Pulse 57 08/18/23 09:45 BP 136/60 08/18/23 09:45 Pulse Ox 98 08/18/23 09:45 Oxygen Delivery Method Room Air 08/18/23 09:45 BMI result Body Mass Index 23.9 Tobacco/Smoking Status: Tobacco use Status Tobacco use date assessed 08/18/23 08/18/23 09:42 Patient Tobacco Use Status Current someday Tobacco 08/18/23 09:42 Tobacco use type Cigarette 08/18/23 09:42 e-Cigarette/Vaping Use Never Used 08/18/23 09:42 Depression Screening Interpretation: Negative Thrive Assessment: Date of Thrive Assessment Date Thrive assessed 06/17/23 08/18/23 09:42 Advance Care Planning discussion: On file, no changes Date of discussion: 03/12/22 Who was present: Patient Forms completed: MOLST Time spent: 1-15 minutes, on File Actual minutes spent: 15 Const General: comfortable, no acute distress and alert Orientation/consciousness: patient oriented x3 HENMT Head: Yes normocephalic and Yes atraumatic Ears: external ears normal, TM's normal bilaterally and EAC's normal General nose exam: Normal external nose present Face and sinus: Yes face symmetric Mouth: Normal oral and palatal mucosa present, oropharynx normal and moist mucous membranes Eyes General: appearance normal, both eyes and all related structures Neck Neck: Yes full ROM, Yes no lymphadenopathy and Yes supple Resp Auscultation: clear to auscultation bilaterally Cardio Other: S1-S2 present regular rate GI Palpation (GI): Soft to palpation, nontender, no guarding and no masses General: Yes no CVA tenderness Back/Spine/Pelvis Back: no CVA tenderness and No back tenderness Thoracic/Lumbar Spine: thoraco-lumbar ROM normal and straight leg raise negative bilaterally Skin General skin exam: no rashes or lesions noted Neuro General: patient oriented x3, tone normal, moves all extremities and no focal motor deficits Cognition (Neuro): normal cognition Sensory Exam: No Sensory deficit (Neuro) Extrem General: Yes full ROM, Yes no joint enlargement, Yes no clubbing, cyanosis or edema and Yes normal gait Psych Appearance: grossly normal and well kempt Mental Status: mental status grossly normal Speech and movement: Normal speech and movement present Affect: normal affect Assessment and Plan Assessment & Plan (1) Annual visit for general adult medical examination with abnormal findings: Code(s): Z00.01 - Encounter for general adult medical examination with abnormal findings Plan: Will check appropriate labs. Recommended dental visit every 6 months and regular eye exams, at least every 2 years. Take adequate calcium in diet and vitamin-D 3 at 2000 IU per cap once a day, in addition to weight-bearing exercises to help maintain good muscle tone and weight control. Declines getting further screening mammograms, bone density scan and does not want to get any further vaccinations (2) History of compression fracture of spine: Code(s): Z87.81 - Personal history of (healed) traumatic fracture Plan: Status post successful kyphoplasty 08/10/2023, now with relief from back pain, able to walk straight without a stooped posture (3) Smoker unmotivated to quit: Code(s): F17.200 - Nicotine dependence, unspecified, uncomplicated Plan: Patient strongly advised to stop smoking, as smoking damages blood vessels, degenerative of joints and spine, damage to lungs and heart., predisposes to developing certain cancers like lung, breast, bladder, colon. Recommended to try decreasing cigarette use by 1-2 cigarettes a day. Advised to monitor what triggers are for smoking so that this can be discussed on the next office visit. We can discuss different options to quit smoking when ready. (4) Immunization declined: Code(s): Z28.21 - Immunization not carried out because of patient refusal Plan: Does not want to get any vaccination (5) PAF (paroxysmal atrial fibrillation): Code(s): I48.0 - Paroxysmal atrial fibrillation Plan: Currently on Xarelto and amiodarone, followed by cardiology (6) Osteoporosis: Comment: declines repeat bone density scan Code(s): M81.0 - Age-related osteoporosis without current pathological fracture Qualifiers: Osteoporosis type: age-related Presence of current pathological fracture: without current pathological fracture Qualified Code(s): M81.0 - Age- related osteoporosis without current pathological fracture Plan: Patient does not want to get any further bone density scan or treatment for osteoporosis (7) Hypertension: Code(s): I10 - Essential (primary) hypertension Qualifiers: Hypertension type: essential hypertension Qualified Code(s): I10 - Essential (primary) hypertension Plan: Blood pressure at goal of less than 130/80. Continue with atenolol. Reinforced importance of following a low sodium diet, getting regular exercise, and lowering stress levels. Ordered a basic metabolic panel (8) Dyslipidemia: Code(s): E78.5 - Hyperlipidemia, unspecified Plan: Fasting lipid panel ordered. Continue atorvastatin 10 mg taken 1 tablet 3 times a week, continue with adherence to low-cholesterol diet and getting regular exercise (9) Colonoscopy refused: Code(s): Z53.20 - Procedure and treatment not carried out because of patient's decision for unspecified reasons Plan: Patient does not want to get any further colon cancer screening, as per 2012 colonoscopy, patient states that Dr. Webb did not recommend further testing (10) COVID-19 vaccine series declined: Code(s): Z28.21 - Immunization not carried out because of patient refusal; Z28.310 - Unvaccinated for COVID-19 Plan: Declines getting further COVID vaccine (11) Mammogram declined: Code(s): Z53.20 - Procedure and treatment not carried out because of patient's decision for unspecified reasons Plan: Patient declines further screening mammogram Orders: Orders Complete Blood Count Auto Diff 08/24/23 Z87.81 - Personal history of (healed) traumatic fracture, F17.200 - Nicotine dependence, unspecified, uncomplicated, E78.5 - Hyperlipidemia, unspecified, I10 - Essential (primary) hypertension, M81.0 - Age-related osteoporosis without current pathological fracture, I48.0 - Paroxysmal atrial fibrillation, 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, Z00.01 - Encounter for general adult medical examination with abnormal findings Alanine Aminotransferase 08/24/23 Z87.81 - Personal history of (healed) traumatic fracture, F17.200 - Nicotine dependence, unspecified, uncomplicated, E78.5 - Hyperlipidemia, unspecified, I10 - Essential (primary) hypertension, M81.0 - Age-related osteoporosis without current pathological fracture, I48.0 - Paroxysmal atrial fibrillation, 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, Z00.01 - Encounter for general adult medical examination with abnormal findings Lipid Panel 08/24/23 Z87.81 - Personal history of (healed) traumatic fracture, F17.200 - Nicotine dependence, unspecified, uncomplicated, E78.5 - Hyperlipidemia, unspecified, I10 - Essential (primary) hypertension, M81.0 - Age-related osteoporosis without current pathological fracture, I48.0 - Paroxysmal atrial fibrillation, 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, Z00.01 - Encounter for general adult medical examination with abnormal findings Aspartate Amino Transferase 08/24/23 Z87.81 - Personal history of (healed) traumatic fracture, F17.200 - Nicotine dependence, unspecified, uncomplicated, E78.5 - Hyperlipidemia, unspecified, I10 - Essential (primary) hypertension, M81.0 - Age-related osteoporosis without current pathological fracture, I48.0 - Paroxysmal atrial fibrillation, Z79.01 - FPC (current) use of anticoagulants, Z00.01 - Encounter for general adult medical examination with abnormal findings Vitamin D 25-OH Total 08/24/23 Z87.81 - Personal history of (healed) traumatic fracture, F17.200 - Nicotine dependence, unspecified, uncomplicated, E78.5 - Hyperlipidemia, unspecified, I10 - Essential (primary) hypertension, M81.0 - Age-related osteoporosis without current pathological fracture, I48.0 - Paroxysmal atrial fibrillation, Z79.01 - FPC (current) use of anticoagulants, Z00.01 - Encounter for general adult medical examination with abnormal findings Basic Metabolic Panel Fasting 08/24/23 Z87.81 - Personal history of (healed) traumatic fracture, F17.200 - Nicotine dependence, unspecified, uncomplicated, E78.5 - Hyperlipidemia, unspecified, I10 - Essential (primary) hypertension, M81.0 - Age-related osteoporosis without current pathological fracture, I48.0 - Paroxysmal atrial fibrillation, 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, Z00.01 - Encounter for general adult medical examination with abnormal findings Coding Level of Care Code Est Pt Prev Care >65y(83895) Diagnoses Annual visit for general adult medical examination with abnormal findings Z00.01 History of compression fracture of spine Z87.81 Smoker unmotivated to quit F17.200 Immunization declined Z28.21 PAF (paroxysmal atrial fibrillation) I48.0 Age-related osteoporosis without current pathological fracture M81.0 Osteoporosis type: age-related Presence of current pathological fracture: without current pathological fracture Essential hypertension I10 Hypertension type: essential hypertension Dyslipidemia E78.5 Colonoscopy refused Z53.20 COVID-19 vaccine series declined Z28.21; Z28.310 Mammogram declined Z53.20 Additional Codes Vital Signs *Quality* - Advance Care Planning discussion: On file, no changes ([id number]) Vital Signs *Quality* - Time spent: 1-15 minutes, on File ([id number])
[2023-08-18 09:45] VITALS: BP 136/60; PULSE 57; O2SAT 98; BMI 23.9
== END 2023-08-18 10:32 | disposition home or self-care (01) ==
PROVIDERS: PCP Internal Medicine; Visit Provider Internal Medicine
DX: Z00.00 Encounter for general adult medical examination without abnormal findings (principal); I48.0 Paroxysmal atrial fibrillation; Z87.81 Personal history of (healed) traumatic fracture; F17.200 Nicotine dependence, unspecified, uncomplicated; Z28.21 Immunization not carried out because of patient refusal; M81.0 Age-related osteoporosis without current pathological fracture; I10 Essential (primary) hypertension; E78.5 Hyperlipidemia, unspecified; Z53.20 Procedure and treatment not carried out because of patient's decision for unspecified reasons; Z28.310 Unvaccinated for COVID-19
CPT/HCPCS: 1123F; 99397

== ENCOUNTER 2023-08-21 08:03 | Outpatient (AMB) | payer MEDICARE, SELFPAY ==
[2023-08-21 08:18] VITALS: BP 130/62; PULSE 57; BMI 23.6
--- NOTE | 2023-08-21 08:18 | A.OFFVIS_ITS ---
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 Required: No Allergies diltiazem Allergy (Verified 08/21/23 08:21) Rash ssri Allergy (Unknown, Uncoded 08/21/23 08:21) diarrhea Augmex Adverse Reaction (Unknown, Uncoded 08/21/23 08:21) severe vomiting/diarrhea Medication List - Last Reconciled 08/21/23 by Ashwini Garcia, COUNTRY DIRECTOR-C acetaminophen ER (Tylenol Arthritis Pain) 650 mg PO TID amiodarone 200 mg PO DAILY 90 days ascorbate calcium (vitamin C) 500 mg PO DAILY atenolol 50 mg PO DAILY 90 days atorvastatin 10 mg PO 3XW [Calcium 500 500 mg PO DAILY] dorzolamide-timolol 22.3-6.8 mg/mL 1 drp ophthalmic (eye) BID multivitamin 1 tab PO DAILY rivaroxaban (Xarelto) 20 mg PO DAILY@1700 HPI 6 mth f/up HPI Details Zuleima is an 83-year-old female past medical history of hypertension, hyperlipidemia, paroxysmal atrial fibrillation which is suppressed with amiodarone who presents for follow-up. Today she reports that since her last visit she did have 2 mechanical falls. On the 1st fall she fractured a rib. On the 2nd fall she had 4 compression fractures. For the last few months she has been suffering with significant back pain. She underwent a kyphoplasty procedure on 08/10/2023 and her pain has significantly reduced. She recalls having flutters of atrial fibrillation on at least 2 occasions in the last few months. More recently no heart palpitations or concerns of AFib. She has been taking her meds as directed. No chest discomfort at rest or with activity. No shortness of breath, lightheadedness, presyncope, syncope. No bleeding issues reported. [facility] Medical History History of compression fracture of spine Emphysema lung Thoracic compression fracture Lumbar compression fracture Colonoscopy refused Smoker unmotivated to quit COVID-19 vaccine series declined Immunization declined Weakness generalized Sore mouth Positive FIT (fecal immunochemical test) Mammogram declined Dyslipidemia Postmenopause Normocytic anemia Hx: UTI (urinary tract infection) PAF (paroxysmal atrial fibrillation) Unspecified glaucoma Osteoporosis Thrombocytopenia Hypertension Surgical History H/O kyphoplasty History of lumpectomy of left breast History of colonoscopy History of section Family History Father Lung cancer Mother Unknown family medical history Maternal Grandfather No problems noted. Maternal Grandmother No problems noted. Paternal Grandmother No problems noted. Sister No problems noted. Social History Household Members: None Housing: House Are you a primary rn wound care to a significant other at home: No Do you presently have visiting nurse or other home services: No Alcohol intake: never Patient Tobacco Use Status: Current someday Tobacco user Tobacco use type: Cigarette e-Cigarette/Vaping Use: Never Used Second Hand Smoke Exposure: No service: No Current occupational status: retired Cognitive needs: No Hearing needs: No Vision needs: Yes Review of Systems Const All systems reviewed & are unremarkable except as noted in HPI and below ENT Denies dizziness Card Denies chest pain, Denies chest pain at rest, Denies chest pain with activity, Denies rapid heart rate, Denies pedal edema, Denies edema, Denies leg edema, Denies lightheadedness, Denies palpitations, Denies dyspnea, Denies dyspnea on exertion and Denies orthopnea Resp Denies cough, Denies dyspnea and Denies dyspnea on exertion GI Denies hematochezia and Denies change in stool character Musc Details: back discomfort Reports abnormal gait, Denies limited range of motion, Denies muscle cramps, Denies muscle weakness, Denies numbness, Denies radiating pain into limb, Denies stiffness and Denies tingling Neuro Reports abnormal gait, Denies dizziness, Denies numbness and Denies tingling Endo Denies palpitations Physical Exam Vital Signs: Last Vital Signs Pulse 57 08/21/23 08:18 BP 130/62 08/21/23 08:18 BMI result Body Mass Index 23.6 Const Other: ambulates with cane General: cooperative, healthy appearing, comfortable and no acute distress Orientation/consciousness: patient oriented x3 Neck Neck: Yes normal visual inspection Resp Effort & Inspection: normal respiratory effort Auscultation: clear to auscultation bilaterally, no crackles, rales (Each base, fine), no rhonchi and no wheezes Cardio Jugular venous distension: no JVD Rate: regular rate Rhythm: regular rhythm Heart sounds: S1 normal heart sound present, S2 normal heart sound present, no murmurs and no rubs Neuro General: patient oriented x3 Extrem General: Yes normal to inspection Psych Appearance: grossly normal Mental Status: mental status grossly normal Speech and movement: Normal speech and movement present Office Procedures EKG Details: today read by me, sinus bradycardia, rate 57, QTC 441 millisecond [id number], Complete Assessment & Plan Assessment & Plan (1) PAF (paroxysmal atrial fibrillation): Code(s): I48.0 - Paroxysmal atrial fibrillation Plan: History of paroxysmal atrial fibrillation. [place] [facility] [place]rose[place] Echocardiogram 05/21/2020 showed EF 60-65%, normal valves. Holter monitor done 06/18/2020 showed sinus rhythm, occasional PACs and PVCs, no AFib, average heart rate 68. A nuclear stress test done on 06/18/2020 showed normal myocardial perfusion imaging. She was initially treated with rate control. Diltiazem was added to her atenolol and she developed a rash and it was stopped. She was then order to start on Multaq however the co-pay was too high. She was then started on amiodarone, which has been working well to suppress her atrial fibrillation. She currently pleased with how she is feeling. EKG done today showing sinus bradycardia, heart rate 57, QTC 441milliseconds. She is on Xarelto for anticoagulation. She has been able to work with the makers of Xarelto and get a more affordable co-pay. She is able to feel when she has atrial fibrillation and will call if she has any concerning symptoms. Labs done 04/30/2023 showed AST 26, ALT 16, labs done 08/13/2022 showed TSH 0.73. She is upcoming labs to be done and TSH will be added. Chest CT done 04/30/2023 does show diffuse emphysematous changes, cystic change in the left upper lobe, chronic lung disease. At present she states her breathing is unchanged and overall is comfortable for her. She tells me she did have a recent eye exam. Emergency care if needed for sustained rapid irregular heartbeats. Will continue on current amiodarone, atenolol and Xarelto. Cardiology follow-up with EKG in 6 months, sooner if need. (2) Hypertension: Code(s): I10 - Essential (primary) hypertension Qualifiers: Hypertension type: essential hypertension Qualified Code(s): I10 - Essential (primary) hypertension Plan: Well controlled at this time. No med changes made Orders: Orders TSH reflex Free T4 Today Z79.899 - Other intermediate frame tender (current) drug therapy Coding Level of Care Code Est Pt Level 4 (59903) Diagnoses PAF (paroxysmal atrial fibrillation) I48.0 Essential hypertension I10 Hypertension type: essential hypertension CPT Codes EKG - CPT: [id number], Complete ([id number]) Time Spent (min) 28
== END 2023-08-21 08:51 | disposition home or self-care (01) ==
PROVIDERS: PCP Internal Medicine; Visit Provider Nurse Practitioner Family
DX: I48.0 Paroxysmal atrial fibrillation (principal); I10 Essential (primary) hypertension
CPT/HCPCS: 93010; 99214

== ENCOUNTER → 2023-08-21 08:03 | Outpatient (BNVA) | payer MEDICARE, SELFPAY | PROVIDERS: PCP Internal Medicine; Visit Provider Nurse Practitioner Family | DX: I48.0 Paroxysmal atrial fibrillation (principal); I10 Essential (primary) hypertension; R00.1 Bradycardia, unspecified | CPT/HCPCS: 93005; 99212 ==

== ENCOUNTER 2023-08-24 06:28 | Outpatient (REF) | payer MEDICARE, SELFPAY ==
[2023-08-24 10:28] LABS: MANUAL DIFF FLAG NO
[2023-08-24 10:29] LABS: Basophils Percent Auto 0.5 % (0-2); Eosinophils Absolute Auto 0.1 X10*3/uL (0.0-0.4); Eosinophils Percent Auto 1.4 % (0-4); Hematocrit 42.7 % (37.0-47.0); Hemoglobin 13.7 g/dl (12.0-16.0); Imm Gran Abs Auto 0.02 X10*3/uL (0.00-0.03); Imm Gran Pct Auto 0.3 % (0.0-0.4); Lymphocytes Absolute Auto 0.9 X10*3/uL (1.2-4.9); Lymphocytes Percent Auto 14.2 % (20-40); Mean Corpuscular HGB Conc 32.1 g/dl (31.0-35.0); Mean Corpuscular Volume 96.6 fL (80.0-98.0); Mean Platelet Volume 11.9 fL (9.4-12.3); Monocytes Absolute Auto 0.4 X10*3/uL (0.1-1.2); Monocytes Percent Auto 6.4 % (2-11); Neutrophils Absolute Auto 5.1 x10*3/uL (2.0-8.3); Neutrophils Percent Auto 77.2 % (45-73); Platelet Count 172 X10*3/uL (160-400); Red Blood Count 4.42 X10*6/uL (4.20-5.50); Red Cell Distribution Width 14.3 % (11.0-16.0); White Blood Count 6.5 X10*3/uL (4.8-10.8)
[2023-08-24 10:48] LABS: Blood Urea Nitrogen 14 mg/dL (9-16)
[2023-08-24 10:55] LABS: Alanine Aminotransferase 18 U/L (0-31); Anion Gap 12 (12-20); Aspartate Amino Transferase 22 U/L (5-31); Blood Urea Nitrogen 14 mg/dL (9-16); Calcium 8.8 mg/dL (8.4-10.2); Carbon Dioxide 24 mmol/L (22-29); Chloride 107 mmol/L (96-108); Cholesterol 161 mg/dL (<200); Estimated Glomerular Filt Rate > 60; Glucose Fasting 86 mg/dL (60-99); HDL Cholesterol 62 mg/dL (>40); LDL Cholesterol Calculated 87 mg/dL (<100); Potassium 3.7 mmol/L (3.3-5.1); Sodium 139 mmol/L (135-145); Triglycerides 63 mg/dL (<150)
[2023-08-24 11:07] LABS: Vitamin D 25-OH Total 34.1 ng/mL (>30)
[2023-08-24 11:13] LABS: TSH reflex Free T4 0.63 uIU/mL (0.32-4.0)
== END 2023-08-24 06:29 | disposition home or self-care (01) ==
LOC: HO.HMGCLDS 06:28
PROVIDERS: Nurse Practitioner Family; PCP Internal Medicine; Visit Provider Internal Medicine
DX: Z00.01 Encounter for general adult medical examination with abnormal findings (principal); S22.000A Wedge compression fracture of unspecified thoracic vertebra, initial encounter for closed fracture; S32.000A Wedge compression fracture of unspecified lumbar vertebra, initial encounter for closed fracture; E78.5 Hyperlipidemia, unspecified; I10 Essential (primary) hypertension; M81.0 Age-related osteoporosis without current pathological fracture; F17.200 Nicotine dependence, unspecified, uncomplicated; I48.0 Paroxysmal atrial fibrillation; Z87.81 Personal history of (healed) traumatic fracture; Z79.01 Long term (current) use of anticoagulants; Z79.899 Other long term (current) drug therapy
CPT/HCPCS: 36415; 80048; 80061; 82306; 84443; 84450; 84460; 84520; 85025

== ENCOUNTER 2023-10-03 09:18 | Outpatient (AMB) | payer OTHER, MEDICARE, SELFPAY ==
[2023-10-03 10:32] VITALS: BP 130/72; PULSE 53; O2SAT 97; BMI 23.9
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
== END 2023-10-03 12:16 | disposition home or self-care (01) ==
PROVIDERS: PCP Internal Medicine; Visit Provider Physician Assistant Medical
DX: S39.012A Strain of muscle, fascia and tendon of lower back, initial encounter (principal)
CPT/HCPCS: 99051; 99214

== ENCOUNTER 2023-10-03 11:06 | Outpatient (REF) | payer MEDICARE, SELFPAY ==
--- NOTE | ~2023-10-03 | XR_ITS ---
EXAMINATION: XR LUMBOSACRAL SPINE WITH OBLIQUES CLINICAL INFORMATION: Low back pain COMPARISON: None available. TECHNIQUE: AP, both oblique, and lateral views of the lumbar spine. Lateral view of the lumbosacral junction. FINDINGS: There is dextroscoliosis. Postsurgical changes vertebroplasty L1, there is compression fracture of L3 unchanged. Compression fracture of T12 unchanged. Narrowing of intervertebral disc spaces suggest underlying degenerative disc disease. Heavy vascular calcification. Diffuse bone cortical thinning suggests demineralization, this can be more accurately measured on DEXA exam . Old left pubic rami fractures. XR/XR lumbar spine 4V min IMPRESSION: 1. Stable compression fractures of T12 and L3. Vertebroplasty L1 2. Narrowing of intervertebral disc spaces suggest underlying degenerative disc disease. 3. Dextroscoliosis. 4. Heavy vascular calcification. 5. Diffuse bone cortical thinning suggests demineralization, this can be more accurately measured on DEXA exam.
== END 2023-10-03 11:07 | disposition home or self-care (01) ==
LOC: HO.HMGCX 11:06
PROVIDERS: PCP Internal Medicine; Visit Provider Physician Assistant Medical
DX: M54.50 Low back pain, unspecified (principal)
CPT/HCPCS: 72110

== ENCOUNTER 2023-10-21 13:01 | Outpatient (AMB) | payer OTHER, MEDICARE, SELFPAY ==
[2023-10-21 13:05] VITALS: BP 142/62; PULSE 62; O2SAT 96; BMI 23.7
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
== END 2023-10-21 13:57 | disposition home or self-care (01) ==
PROVIDERS: PCP Internal Medicine; Visit Provider Internal Medicine
DX: M54.50 Low back pain, unspecified (principal); Z98.890 Other specified postprocedural states; K58.0 Irritable bowel syndrome with diarrhea
CPT/HCPCS: 99214

== ENCOUNTER 2023-12-09 09:00 | Outpatient (RCR) | payer OTHER, MEDICARE, SELFPAY ==
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
== END 2023-12-09 09:48 | disposition home or self-care (01) ==
LOC: HO.PTCHIC 09:00
PROVIDERS: PCP Internal Medicine; Visit Provider Internal Medicine
DX: M54.40 Lumbago with sciatica, unspecified side (principal)
CPT/HCPCS: 97110; 97162

== ENCOUNTER 2024-02-09 08:59 | Outpatient (AMB) | payer MEDICARE, SELFPAY ==
[2024-02-09 09:01] VITALS: BP 132/72; PULSE 53; BMI 24.6
--- NOTE | 2024-02-09 09:01 | MHC.OFFVIS ---
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: No Allergies diltiazem Allergy (Verified 02/09/24 09:07) Rash ssri Allergy (Unknown, Uncoded 02/09/24 09:07) diarrhea Augmex Adverse Reaction (Unknown, Uncoded 02/09/24 09:07) severe vomiting/diarrhea Medication List - Last Reconciled 02/09/24 by Ashwini Garcia, JAD-C acetaminophen ER (Tylenol Arthritis Pain) 650 mg PO TID amiodarone 200 mg PO DAILY 90 days ascorbate calcium (vitamin C) 500 mg PO DAILY atenolol 50 mg PO DAILY 90 days atorvastatin 10 mg PO 3XW [Calcium 500 500 mg PO DAILY] dorzolamide-timolol 22.3-6.8 mg/mL 1 drp ophthalmic (eye) BID multivitamin 1 tab PO DAILY rivaroxaban (Xarelto) 20 mg PO DAILY@1700 HPI HPI 6mnth f/up: Details: Zuleima is an 83-year-old female past medical history of hypertension, hyperlipidemia, paroxysmal atrial fibrillation which is suppressed with amiodarone who presents for follow-up. Today she reports that since her last visit she underwent kyphoplasty and her back is feeling much better. He has been doing exercises to try to strengthen her core. She still ambulates with a cane. He has had no issues with lightheadedness, presyncope, syncope, falls. No heart palpitations or concerns that she has recurrent atrial fibrillation. No chest discomfort at rest or with activity. No shortness of breath, PND, orthopnea or edema. No bleeding issues reported. She has been taking her meds as directed. [facility] Medical History Irritable bowel syndrome with diarrhea History of compression fracture of spine Emphysema lung Thoracic compression fracture Lumbar compression fracture Colonoscopy refused Smoker unmotivated to quit COVID-19 vaccine series declined Immunization declined Weakness generalized Sore mouth Positive FIT (fecal immunochemical test) Mammogram declined Dyslipidemia Postmenopause Normocytic anemia Hx: UTI (urinary tract infection) PAF (paroxysmal atrial fibrillation) Unspecified glaucoma Osteoporosis Thrombocytopenia Hypertension Surgical History H/O kyphoplasty History of lumpectomy of left breast History of colonoscopy History of section Family History Father Lung cancer Mother Unknown family medical history Maternal Grandfather No problems noted. Maternal Grandmother No problems noted. Paternal Grandmother No problems noted. Sister No problems noted. Social History Household Members: None Housing: House Are you a primary field care coordinator to a significant other at home: No Do you presently have visiting nurse or other home services: No Alcohol intake: never Patient Tobacco Use Status: Current someday Tobacco user Tobacco use type: Cigarette e-Cigarette/Vaping Use: Never Used Second Hand Smoke Exposure: No service: No Current occupational status: retired Cognitive needs: No Hearing needs: No Vision needs: Yes Review of Systems Const All systems reviewed & are unremarkable except as noted in HPI and below ENT Denies dizziness Card Denies chest pain, Denies chest pain at rest, Denies chest pain with activity, Denies rapid heart rate, Denies pedal edema, Denies edema, Denies leg edema, Denies lightheadedness, Denies palpitations, Denies dyspnea, Denies dyspnea on exertion and Denies orthopnea Resp Denies cough, Denies dyspnea and Denies dyspnea on exertion GI Denies hematochezia and Denies change in stool character Musc Denies abnormal gait, Reports back pain (Much improved following kyphoplasty), Denies limited range of motion, Denies muscle cramps, Denies muscle weakness, Denies numbness, Denies radiating pain into limb, Denies stiffness and Denies tingling Neuro Denies abnormal gait, Denies dizziness, Denies numbness and Denies tingling Endo Denies palpitations Physical Exam Vital Signs: Last Vital Signs Pulse 53 02/09/24 09:01 BP 132/72 02/09/24 09:01 BMI result Body Mass Index 24.6 Const Other: ambulates with cane General: cooperative, healthy appearing, comfortable and no acute distress Orientation/consciousness: patient oriented x3 Neck Neck: Yes normal visual inspection Resp Effort & Inspection: normal respiratory effort Auscultation: clear to auscultation bilaterally, no crackles, rales (Each base, fine), no rhonchi and no wheezes Cardio Jugular venous distension: no JVD Rate: regular rate Rhythm: regular rhythm Heart sounds: S1 normal heart sound present, S2 normal heart sound present, no murmurs and no rubs Neuro General: patient oriented x3 Extrem General: Yes normal to inspection Psych Appearance: grossly normal Mental Status: mental status grossly normal Speech and movement: Normal speech and movement present Office Procedures EKG Details: Today, read by me, sinus Sukhi with first-degree AV block, rate 53, QTC 452 milliseconds [id number], Complete Assessment & Plan Assessment & Plan (1) PAF (paroxysmal atrial fibrillation): Code(s): I48.0 - Paroxysmal atrial fibrillation Category: Medical Plan: History of paroxysmal atrial fibrillation. Initial finding May 2020 during [facility] admit for UTI, urosepsis. Echocardiogram 05/21/2020 showed EF 60-65%, normal valves. Holter monitor done 06/18/2020 showed sinus rhythm, occasional PACs and PVCs, no AFib, average heart rate 68. A nuclear stress test done on 06/18/2020 showed normal myocardial perfusion imaging. She was initially treated with rate control. Diltiazem was added to her atenolol and she developed a rash and it was stopped. She was then order to start on Multaq however the co-pay was too high. She was then started on amiodarone, which has been working well to suppress her atrial fibrillation. She currently pleased with how she is feeling. EKG done today showing sinus bradycardia first-degree AV block, heart rate 53, QTC 452milliseconds. Discussed reducing amiodarone down to 100 mg daily to reduce the risk of toxicity and she declines. She is fearful of having recurrent atrial fibrillation in his aware of the potential toxic effects of amiodarone. We will continue to watch closely for toxicity. She is on Xarelto for anticoagulation. She has been able to work with the makers of Xarelto and get a more affordable co-pay. Labs done 08/24/23 showed AST 22, ALT 18, TSH 0.63. She is having labs today. Chest CT done 04/30/2023 does show diffuse emphysematous changes, cystic change in the left upper lobe, chronic lung disease. Will check a chest x-ray today for comparison to last. At present she states her breathing is unchanged and overall is comfortable for her. She tells me she did have a recent eye exam. Emergency care if needed for sustained rapid irregular heartbeats. Will continue on current amiodarone, atenolol and Xarelto. Cardiology follow-up with EKG in 6 months, sooner if need. (2) Hypertension: Code(s): I10 - Essential (primary) hypertension Category: Medical Qualifiers: Hypertension type: essential hypertension Qualified Code(s): I10 - Essential (primary) hypertension Plan: Well controlled at this time. No med changes made (3) First degree AV block: Code(s): I44.0 - Atrioventricular block, first degree Category: Medical Plan: EKG today noted to have a first-degree AV block, DC interval 216 milliseconds. Heart rate 53. She has been bradycardic in the past. She is on amiodarone and atenolol. She is currently asymptomatic. Will plan for an EKG next visit to follow. Plan Time spent on chart review, documentation, interview, assessment Orders: Orders XR chest 2V Today Z79.899 - Other supervisor intermediates (current) drug therapy TSH reflex Free T4 Today Z79.899 - Other supervisor intermediates (current) drug therapy Coding Level of Care Code Est Pt Level 3 (00535) Diagnoses PAF (paroxysmal atrial fibrillation) I48.0 Essential hypertension I10 Hypertension type: essential hypertension First degree AV block I44.0 CPT Codes EKG - CPT: 97233-[id number], Complete ([id number]) Time Spent (min) 24
== END 2024-02-09 09:35 | disposition home or self-care (01) ==
PROVIDERS: PCP Internal Medicine; Visit Provider Nurse Practitioner Family
DX: I48.0 Paroxysmal atrial fibrillation (principal); I10 Essential (primary) hypertension; I44.0 Atrioventricular block, first degree
CPT/HCPCS: 93010; 99213

== ENCOUNTER 2024-02-09 08:59 | Outpatient (REF) | payer MEDICARE, SELFPAY ==
--- NOTE | ~2024-02-09 | XR_ITS ---
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 Chest x-ray dated February 18, 2023. TECHNIQUE: 2 views of the chest were obtained. FINDINGS: Examination demonstrates patchy bilateral upper lobe interstitial prominence and groundglass densities, similar compared with February 18, 2023. No consolidation, effusion, or pneumothorax is seen. The cardiac silhouette is suboptimally evaluated. Mildly atherosclerotic aorta. Thoracolumbar dextroscoliosis. Status post kyphoplasty of lower thoracic and upper lumbar vertebral bodies. XR/XR chest 2V IMPRESSION: Findings as above. Electronically signed by: Stalin Miner MD 02/09/2024 01:21 PM EDT RP
[2024-02-09 11:11] LABS: Estimated Glomerular Filt Rate > 60
[2024-02-09 11:30] LABS: TSH reflex Free T4 0.93 uIU/mL (0.32-4.0)
== END 2024-02-09 09:00 | disposition home or self-care (01) ==
LOC: HO.LAB 08:59
PROVIDERS: Absent Provider Internal Medicine; PCP Internal Medicine; Visit Provider Nurse Practitioner Family
DX: S22.000A Wedge compression fracture of unspecified thoracic vertebra, initial encounter for closed fracture (principal); S32.000A Wedge compression fracture of unspecified lumbar vertebra, initial encounter for closed fracture; Z79.899 Other long term (current) drug therapy; I48.0 Paroxysmal atrial fibrillation; I44.0 Atrioventricular block, first degree; I10 Essential (primary) hypertension; Z98.890 Other specified postprocedural states
CPT/HCPCS: 36415; 71046; 82565; 84443; 93005; 99212

== ENCOUNTER 2024-02-10 07:26 | Outpatient (REF) | payer MEDICARE, SELFPAY ==
[2024-02-10 10:42] LABS: Alanine Aminotransferase 17 U/L (0-31); Aspartate Amino Transferase 22 U/L (5-31); Cholesterol 172 mg/dL (<200); HDL Cholesterol 62 mg/dL (>40); LDL Cholesterol Calculated 95 mg/dL (<100); Triglycerides 79 mg/dL (<150)
== END 2024-02-10 07:27 | disposition home or self-care (01) ==
LOC: HO.HMGCLDS 07:26
PROVIDERS: PCP Internal Medicine; Visit Provider Internal Medicine
DX: Z00.01 Encounter for general adult medical examination with abnormal findings (principal); E78.5 Hyperlipidemia, unspecified; I10 Essential (primary) hypertension; M81.0 Age-related osteoporosis without current pathological fracture; I48.0 Paroxysmal atrial fibrillation; F17.200 Nicotine dependence, unspecified, uncomplicated; Z79.01 Long term (current) use of anticoagulants; Z87.81 Personal history of (healed) traumatic fracture
CPT/HCPCS: 36415; 80061; 84450; 84460

== ENCOUNTER 2024-03-10 09:58 | Outpatient (AMB) | payer MEDICARE, SELFPAY ==
[2024-03-10 10:13] VITALS: BP 140/70; PULSE 55; O2SAT 99; BMI 24.9
--- NOTE | 2024-03-10 10:13 | MHC.PC.OV ---
Vital Signs 03/10/24 10:13 Height 5 ft 6 in Weight 154 lb BMI 24.9 BP 140/70 H Blood Pressure Location Lt brachial Position Sitting Pulse 55 Pulse Source Pulse Oximeter Pulse Oximetry (%) 99 Oxygen Delivery Method Room Air Intake Visit Reasons: ffup lipids Intake Note: Pt is here today for her 6mo. f/u lipids Allergies diltiazem Allergy (Verified 03/10/24 10:39) Rash ssri Allergy (Unknown, Uncoded 03/10/24 10:39) diarrhea Augmex Adverse Reaction (Unknown, Uncoded 03/10/24 10:39) severe vomiting/diarrhea Medication List - Last Reconciled 03/10/24 by Ellie Chen MD acetaminophen ER (Tylenol Arthritis Pain) 650 mg PO TID amiodarone 200 mg PO DAILY 90 days ascorbate calcium (vitamin C) 500 mg PO DAILY atenolol 50 mg PO DAILY 90 days atorvastatin 10 mg PO 3XW [Calcium 500 500 mg PO DAILY] dorzolamide-timolol 22.3-6.8 mg/mL 1 drp ophthalmic (eye) BID multivitamin 1 tab PO DAILY rivaroxaban (Xarelto) 20 mg PO DAILY@1700 Tobacco use date assessed: 03/10/24 Fall risk assessment: 1 Fall in past year Last assessed Fall Risk: 03/10/24 Dental Screening Dental Screen Date: 03/10/24 HPI HPI Comments History of Present Illness Details 83-year-old lady with history paroxysmal atrial fibrillation currently on Xarelto, and amiodarone as well as atenolol 50 mg daily, has hypertension, dyslipidemia, osteoporosis on last bone density scan but declines further treatment will repeat screening, here today for follow-up on her lipids. Declines getting any vaccinations, including the COVID vaccine. Declines screening mammograms or repeat screening colonoscopy despite positive FIT test in 2020. She has been seeing Dr. Ambrosio for glaucoma, currently on dorzolamide-timolol eyedrops but patient states that Dr. Garcia lens no longer under her insurance and she has an appointment with her new eye doctor [facility] not until 05/30/2024. Would like a refill on her eyedrops just for the month of April as she is running out. 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 Has a hard time walking for extended periods of time due to pain in her lower back, and would like to apply for [employer]. [facility] Medical History Irritable bowel syndrome with diarrhea History of compression fracture of spine Emphysema lung Thoracic compression fracture Lumbar compression fracture Colonoscopy refused COVID-19 vaccine series declined Immunization declined Positive FIT (fecal immunochemical test) Mammogram declined Dyslipidemia Postmenopause Normocytic anemia Hx: UTI (urinary tract infection) PAF (paroxysmal atrial fibrillation) Unspecified glaucoma Osteoporosis Thrombocytopenia Hypertension Surgical History H/O kyphoplasty History of lumpectomy of left breast History of colonoscopy History of section Family History Father Lung cancer Mother Unknown family medical history Maternal Grandfather No problems noted. Maternal Grandmother No problems noted. Paternal Grandmother No problems noted. Sister No problems noted. Social History Household Members: None Housing: House Are you a primary healthcare educator to a significant other at home: No Do you presently have visiting nurse or other home services: No Alcohol intake: never Patient Tobacco Use Status: Former Tobacco user Tobacco use type: Cigarette e-Cigarette/Vaping Use: Never Used Second Hand Smoke Exposure: No service: No Current occupational status: retired Cognitive needs: No Hearing needs: No Vision needs: Yes Questionnaire PHQ-9 Over the last 2 weeks, how often have you been bothered by any of the following problems? 1. Little interest or pleasure in doing things: not at all 2. Feeling down, depressed, or hopeless: not at all 3. Trouble falling or staying asleep, or sleeping too much: not at all 4. Feeling tired or having little energy: not at all 5. Poor appetite or overeating: not at all 6. Feeling bad about yourself - or that you are a failure or have let yourself or your family down: not at all 7. Trouble concentrating on things, such as reading the newspaper or watching television: not at all 8. Moving or speaking so slowly that other people could have noticed. Or the opposite - being so fidgety or restless that you have been moving around a lot more than usual: not at all 9. Thoughts that you would be better off or of hurting yourself in some way: not at all Total score: 0 Depression Screening Interpretation: Negative Depression Screening Done: Yes [id number] - PHQ-9 Billing: Yes Source: Developed by Drs. Jorge Hector, Bessie Ervin, Jed Downey and colleagues, with an educational roderick from 24h00. Thrive Questionnaire Date Thrive assessed: 03/10/24 I am a: Patient What is your living situation today?: I have a steady place to live Within the past 12 months, did the food you bought not last and you didn't have the money to get more?: Never true Within the past 12 months, did you worry whether your food would run out before you got money to buy more?: Never true Do you have trouble paying for medicines?: No Do you have trouble getting transportation to medical appointments?: No Do you have trouble paying your heating and electricity bill?: No Do you have trouble taking care of your child, family member or friend?: I choose not to answer this question Do you have trouble with day-to-day activities such as bathing, preparing meals, shopping, managing finances, etc.?: No Are you currently unemployed and looking for a job?: No Are you interested in more education?: No Please select the resources that you would like help with: None Currently or been in a relationship where the following occur: I choose not to answer THRIVE Score: 0 AUDIT C Alcohol Use Questionnaire (AUDIT-C) 1. How often do you have a drink containing alcohol?: Never Total Score: 0 FELY-7 AMB Questionnaire FELY-7 Date FELY - 7 assessed: 03/10/24 Feeling nervous, anxious, or on edge: 0 = Not at all Not being able to stop or control worryin = Not at all Worrying too much about different things: 0 = Not at all Trouble relaxin = Not at all Being so restless that it is hard to sit still: 0 = Not at all Becoming easily annoyed or irritable: 0 = Not at all Feeling afraid as if something awful might happen: 0 = Not at all Total FELY-7 score (0-4 normal; 5-9 mild; 10-14 moderate; 15-21 severe): 0 Source: Developed by Drs. Jorge Hector, Bessie Ervin, Jed Downey and colleagues, with an educational roderick from 24h00. FELY-7 Assessment Billing FELY-7 Assessment Tool: FELY-7 Assessment 36800 Review of Systems Const All systems reviewed & are unremarkable except as noted in HPI and below Eyes Reports no additional complaints ENT Denies dizziness Card Denies chest pain at rest, Denies chest pain with activity, Denies rapid heart rate, Denies pedal edema, Denies lightheadedness, Denies palpitations, Denies dyspnea, Denies dyspnea on exertion and Denies orthopnea Resp Denies cough, Denies dyspnea and Denies dyspnea on exertion GI Denies hematochezia and Denies change in stool character Musc Denies abnormal gait, Reports back pain (Much improved following kyphoplasty), Denies limited range of motion, Denies muscle cramps, Denies muscle weakness, Denies numbness, Denies radiating pain into limb, Denies stiffness and Denies tingling Neuro Denies abnormal gait, Denies dizziness, Denies numbness, Denies Sensory deficit (Neuro) and Denies tingling Endo Denies palpitations Physical exam (Primary Care) Vital Signs: Last Vital Signs Pulse 55 03/10/24 10:13 BP 140/70 H 03/10/24 10:13 Pulse Ox 99 03/10/24 10:13 Oxygen Delivery Method Room Air 03/10/24 10:13 BMI result Body Mass Index 24.9 Tobacco/Smoking Status: Tobacco use Status Tobacco use date assessed 03/10/24 03/10/24 10:16 Patient Tobacco Use Status Former Tobacco user 03/10/24 10:30 Tobacco use type Cigarette 03/10/24 10:14 e-Cigarette/Vaping Use Never Used 03/10/24 10:14 PHQ-9: PHQ-9 Score PHQ-9: Total score 0 03/10/24 10:41 Depression Screening Interpretation: Negative Thrive Assessment: Date of Thrive Assessment Date Thrive assessed 03/10/24 03/10/24 10:16 Currently or been in a relationship where the following occur: I choose not to answer Const Other: Ambulatory with a cane General: comfortable, no acute distress and alert Orientation/consciousness: patient oriented x3 Limitations: ambulation with cane HENMT Head: Yes normocephalic and Yes atraumatic Ears: external ears normal General nose exam: Normal external nose present Face and sinus: Yes face symmetric Neck Neck: Yes full ROM, Yes no lymphadenopathy and Yes supple Resp Auscultation: clear to auscultation bilaterally Cardio Other: S1-S2 present regular rate GI Palpation (GI): Soft to palpation, nontender, no guarding and no masses Back/Spine/Pelvis Other: Mild stooped posture , Neuro General: patient oriented x3, tone normal, moves all extremities and no focal motor deficits Cognition (Neuro): normal cognition Sensory Exam: No Sensory deficit (Neuro) Extrem General: Yes full ROM, Yes no joint enlargement, Yes no clubbing, cyanosis or edema and Yes normal gait Results Reviewed Results Reviewed: Name: Zuleima Shepard (Eileen) Age/Sex: 83/F : 1940 Unit#: [id number] Attend Dr: Ellie Chen MD Re02/10/24 Status: DEP [facility] Disch: SPEC : [id number] GABRIEL: 02/10/24 STATUS: COMP REQ : [id number] RECD: 02/10/[address]: Ellie Chen MD COMP: 02/10/24 ENTERED: 02/10/[address]: ORDERED: AST, ALT, Lipid Panel Test Result Flag Reference AST (GOT) 22 5-31 U/L ALT (GPT) 17 0-31 U/L Triglyceride 79 <150 mg/dL Desirable Triglyceride: less than 150 mg/dL Borderline High Triglyceride 150-199 mg/dL High Triglyceride: 200-499 mg/dL Very High Triglyceride: greater than or equal to 5OO mg/dL Cholesterol 172 <200 mg/dL Desirable Cholesterol: less than 200 mg/dL Borderline High Cholesterol: 200-239 mg/dL High Cholesterol: greater than 239 mg/dL LDL Calculated 95 <100 mg/dL Desirable LDL: less than 100 mg/dL Near Optimal/Above Optimal LDL: 110-129 mg/dL Borderline High LDL: 130-159 mg/dL High LDL: 160-189 mg/dL Very High LDL: greater than or equal to 190 mg/dL HDL 62 >40 mg/dL Desirable HDL: greater than 40 mg/dL Note: This HDL assay may give artificially low results in patients with liver disease. 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 of anticoagulants Basic Metabolic Panel Fasting 08/09/24 E78.5 - Hyperlipidemia, unspecified, I10 - Essential (primary) hypertension, I48.0 - Paroxysmal atrial fibrillation, M81.0 - Age-related osteoporosis without current pathological fracture, Z79.01 - penitentiary (current) use of anticoagulants Vitamin D 25-OH Total 08/09/24 E78.5 - Hyperlipidemia, unspecified, I10 - Essential (primary) hypertension, I48.0 - Paroxysmal atrial fibrillation, M81.0 - Age-related osteoporosis without current pathological fracture, Z79.01 - watermelon inspector (current) use of anticoagulants Aspartate Amino Transferase 08/09/24 E78.5 - Hyperlipidemia, unspecified, I10 - Essential (primary) hypertension, I48.0 - Paroxysmal atrial fibrillation, M81.0 - Age-related osteoporosis without current pathological fracture, Z79.01 - penitentiary (current) use of anticoagulants Lipid Panel 08/09/24 E78.5 - Hyperlipidemia, unspecified, I10 - Essential (primary) hypertension, I48.0 - Paroxysmal atrial fibrillation, M81.0 - Age-related osteoporosis without current pathological fracture, Z79.01 - watermelon inspector (current) use of anticoagulants Hemoglobin and Hematocrit 08/09/24 E78.5 - Hyperlipidemia, unspecified, I10 - Essential (primary) hypertension, I48.0 - Paroxysmal atrial fibrillation, M81.0 - Age-related osteoporosis without current pathological fracture, Z79.01 - penitentiary (current) use of anticoagulants Medications: New dorzolamide-timolol 22.3-6.8 mg/mL 1 drp ophthalmic (eye) Q12H 10 mL 0RF
== END 2024-03-10 11:04 | disposition home or self-care (01) ==
LOC: HO.HMCC 09:59
PROVIDERS: PCP Internal Medicine; Visit Provider Internal Medicine
DX: H40.9 Unspecified glaucoma (principal); E78.5 Hyperlipidemia, unspecified; Z87.81 Personal history of (healed) traumatic fracture; I10 Essential (primary) hypertension

== ENCOUNTER → 2024-03-10 09:58 | Outpatient (BNVA) | payer MEDICARE, SELFPAY | PROVIDERS: PCP Internal Medicine; Visit Provider Internal Medicine | DX: H40.9 Unspecified glaucoma (principal); E78.5 Hyperlipidemia, unspecified; I10 Essential (primary) hypertension; Z87.81 Personal history of (healed) traumatic fracture | CPT/HCPCS: 96127; 99212 ==

== ENCOUNTER 2024-03-14 10:41 | Outpatient (AMB) | payer MEDICARE, SELFPAY ==
[2024-03-14 11:08] VITALS: BP 158/76; PULSE 54; O2SAT 98; BMI 24.9
--- NOTE | 2024-03-14 11:08 | A.OFFVIS_ITS ---
Vital Signs 03/14/24 11:08 Height 5 ft 6 in Weight 154 lb 5.177 oz BMI 24.9 BP 158/76 H Blood Pressure Location Lt brachial Position Sitting Pulse 54 Pulse Source Pulse Oximeter Pulse Oximetry (%) 98 Oxygen Delivery Method Room Air Intake Visit Reasons: Abnormal chest X-ray Allergies diltiazem Allergy (Verified 03/14/24 11:17) Rash ssri Allergy (Unknown, Uncoded 03/14/24 11:17) diarrhea Augmex Adverse Reaction (Unknown, Uncoded 03/14/24 11:17) severe vomiting/diarrhea HPI HPI Abnormal chest X-ray: Details: Kallie is a pleasant 83 year old female, former smoker, with approximately 20 pyh with underlying atrial fibrillation, HTN, Osteoporosis and dyslipidemia.She was referred by cardiology for pulmonary evaluation after chest CT from 05/02 revealed diffuse ggo, with question of amiodarone ILD. She has been maintained on amiodarone for two years with good effect. She denies any respiratory symptoms at this time. Prior CTA from 2020 did not have these findings, which was prior to the start of Amiodarone. She denies prior h/o asthma. She reports son with respiratory issues , otherwise no family h/o ILD/fibrosis. She denies any personal or family h/o autoimmune conditions. 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 [facility] Medical History Irritable bowel syndrome with diarrhea History of compression fracture of spine Emphysema lung Thoracic compression fracture Lumbar compression fracture Colonoscopy refused COVID-19 vaccine series declined Immunization declined Positive FIT (fecal immunochemical test) Mammogram declined Dyslipidemia Postmenopause Normocytic anemia Hx: UTI (urinary tract infection) PAF (paroxysmal atrial fibrillation) Unspecified glaucoma Osteoporosis Thrombocytopenia Hypertension Surgical History H/O kyphoplasty History of lumpectomy of left breast History of colonoscopy History of section Family History Father Lung cancer Mother Unknown family medical history Maternal Grandfather No problems noted. Maternal Grandmother No problems noted. Paternal Grandmother No problems noted. Sister No problems noted. Social History Household Members: None Housing: House Are you a primary professional healthcare representative to a significant other at home: No Do you presently have visiting nurse or other home services: No Alcohol intake: never Patient Tobacco Use Status: Former Tobacco user Tobacco use type: Cigarette e-Cigarette/Vaping Use: Never Used Second Hand Smoke Exposure: No service: No Current occupational status: retired Cognitive needs: No Hearing needs: No Vision needs: Yes Review of Systems Const Denies chills, Denies excessive sweating, Denies fever(s), Denies headache(s) and Denies night sweats Eyes Denies dry eyes, Denies irritation and Denies itchy eyes ENT Reports Normal hearing present, Denies headache(s), Denies nasal congestion, Denies nasal discharge, Denies post nasal drip and Denies sore throat Card Denies chest pain, Denies chest pain at rest, Denies chest pain with activity, Denies claudication, Denies leg edema, Denies dyspnea, Denies dyspnea on exertion, Denies orthopnea and Denies paroxysmal nocturnal dyspnea Resp Denies chest congestion, Denies cough, Denies excessive phlegm production, Denies pain on inspiration, Denies pain with cough, Denies dyspnea, Denies dyspnea on exertion, Denies stridor and Denies wheezing Neuro Reports Normal hearing present and Denies headache(s) Endo Denies excessive sweating Colten/Lymph Denies lymphadenopathy Aller/Immun Denies itchy eyes, Denies seasonal rhinorrhea and Denies wheezing Physical Exam Vital Signs: Last Vital Signs Pulse 54 03/14/24 11:08 BP 158/76 H 03/14/24 11:08 Pulse Ox 98 03/14/24 11:08 Oxygen Delivery Method Room Air 03/14/24 11:08 BMI result Body Mass Index 24.9 Const General: cooperative, healthy appearing, comfortable, no acute distress, well developed and alert Orientation/consciousness: patient oriented x3 Limitations: no limitations HEENT Head: Yes normal to inspection, Yes normocephalic and Yes atraumatic Ears: hearing grossly normal bilaterally and external ears normal Eyes General: appearance normal, both eyes and all related structures Eyelids: Yes eyelids normal Sclerae: sclerae normal EOM: EOMs intact bilaterally Neck Neck: Yes normal visual inspection and Yes no lymphadenopathy Lymphatic: no lymphadenopathy noted Chest Chest palpation & inspection: normal inspection of the chest Resp Other: inspiratory bibasilar crackles Effort & Inspection: normal respiratory effort, able to speak in complete sentences, no audible wheezes, no cough, no stridor, not tachypneic, no tripod positioning and no use of accessory muscles Cardio Jugular venous distension: no JVD Rate: regular rate Rhythm: regular rhythm Skin Other: warm, dry General skin exam: no rashes or lesions noted Neuro General: patient oriented x3 Cranial nerves: Yes Normal hearing present Cognition (Neuro): normal cognition Extrem General: Yes normal to inspection, Yes capillary refill normal, Yes no clubbing, cyanosis or edema and Yes no pedal edema Psych Appearance: grossly normal and well kempt Speech and movement: Normal speech and movement present and Clear speech present Affect: normal affect Attitude: cooperative Thought process: Normal thought process present Thought content: Normal thought content present Insight: Good insight present (Psych) Judgement: Good judgement present (Psych) Results Reviewed Results Reviewed: [place] [id number] CT Scan Report Signed Patient: Zuleima Shepard MR#: [id number] : 1940 Acct:[id number] Age/Sex: 82 / F ADM Date: 04/30/23 Loc: .ED Attending Dr: Ordering Physician: Amelia Mtz NP Date of Service: 04/30/23 Procedure(s): CT chest w IV con Accession Number(s): [id number] cc: Ellie Chen MD; Amelia Mtz NP~ Examination: CT chest, abdomen and pelvis with IV contrast. Clinical indications: Trauma. Pain. COMPARISON: Chest and left RIBS 04/30/2023. CT abdomen pelvis without contrast 05/19/2020. TECHNIQUE: 5 mm thin axial and reformatted 3 mm thin sagittal and coronal images of chest, abdomen and pelvis were obtained following IV 100 mL Omnipaque 350. DLP 483. This CT examination was performed using dose optimization technique as appropriate, variously including the following: Automated exposure control Adjustment of MA and/or KV according to patient size(this includes techniques or standardized protocols for targeted exams where dose is matched to indication/reason for exam; extremities or head. Use of iterative reconstruction techniques. FINDINGS: CHEST: LUNGS: There is diffuse emphysematous changes of both lungs with groundglass opacity right upper lobe and left upper lobe posterior segment. There are cystic changes in the left upper lobe. No consolidation or large mass seen. There are subpleural 3 mm nodules right upper lobe axial image 35/8, 38/8 and lingula image 43/8. There is dependent bibasilar atelectasis. Mediastinum: The thyroid lobes are symmetric and normal. The central trachea is dilated likely is secondary to COPD. The thoracic aorta is of normal caliber without aneurysm or dissection. Ascending aorta measures 3.7 cm. There is good opacification up ovary artery and is branches without narrowing or thrombus. Heart size enlarged. No pericardial effusion seen. There is mild coronary artery calcifications present. No mediastinal mass or abnormal size lymph nodes seen. There are reactive retracted and precarinal 1 cm lymph nodes. Pleura: There is no pleural effusion, thickening or calcification. Axilla: No abnormal axillary lymph nodes seen. The chest wall is unremarkable. Osseous structures:. There is no aggressive lytic or sclerotic process seen. There is compression fracture deformity T8, T10 and T12 vertebra of indeterminate age. There is a minimally displaced fracture lateral ninth rib. No additional fracture seen. Abdomen and pelvis: Liver, ducts and gallbladder: The liver is normal size, contour and density. There is a 7 mm hypodensity right hepatic lobe axial image 12/15. No other focal lesion seen. Spleen: Unremarkable. Pancreas: Unremarkable. Adrenal glands: Unremarkable. Kidneys: There is normal symmetry of bilateral kidney nephrograms. No radiopaque renal calculi or hydronephrosis seen. No perinephric stranding. GI tract: There is moderate 2 significant stool and scattered diverticuli throughout the colon without diverticulitis. The small bowel loops are normal caliber. Appendix is not visualized no free air or free fluid seen. Abdominal wall: Unremarkable. Pelvis: The bladder is mildly distended but without any radiopaque calculi. There is periureteral heights diverticulum. The uterus is anteverted and appears unremarkable. There is no free fluid no pelvic hematoma seen. Osseous structures: There is mild osteophytic compression deformities throughout lumbar spine. 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 There is an old healed left superior pubic and ischial fractures. No acute fractures seen at this time. There is diffuse osteopenia. CT/CT chest w IV con IMPRESSION: No acute process seen in the chest, abdomen pelvis. No evidence aortic dissection or aneurysm. There is diffuse emphysematous lungs with cystic changes left upper lobe and groundglass density in both upper lobes likely sequelae of chronic lung disease. There is compressive bibasilar atelectasis. The heart size enlarged. Moderate to significant constipation. Colonic especially sigmoid colon diverticulosis without diverticulitis Dictated By: Anuel Murphy MD Signed By: <Electronically signed by Anuel Murphy MD in OV> 04/30/23 1832 DD/ 1705 TD/TT: Business Systems Technician: CARON Assessment & Plan Assessment & Plan (1) Interstitial lung disease: Code(s): J84.9 - Interstitial pulmonary disease, unspecified Category: Medical (2) On amiodarone therapy: Code(s): Z79.899 - Other assisted (current) drug therapy Category: Medical Plan At this time, findings on chest CT from 05/02 suspicious for Amiodarone tox icity, compared to prior imaging when patient was reportedly not on Amiodarone. Will reach out to cardiology to discontinue Amiodarone and find alternative. Will repeat chest CT as prior was performed in April 2023 and consider prednisone. At this time, patient denies any respiratory symptoms however inspiratory bibasilar crackles appreciated on exam. Discussed importance of obtaining PFT however she would like to defer at this time. All questions were answered and patient is in agreement of plan. Will follow up after CT. Orders: Orders CT chest wo IV con Today J84.9 - Interstitial pulmonary disease, unspecified, Z79.899 - Other assisted (current) drug therapy Coding Level of Care Code New Pt Level 4 (23654) Diagnoses Interstitial lung disease J84.9 On amiodarone therapy Z79.899
== END 2024-03-14 15:44 | disposition home or self-care (01) ==
LOC: HO.HPS 10:42
PROVIDERS: PCP Internal Medicine; Referring Provider Nurse Practitioner Family; Visit Provider Nurse Practitioner Family
DX: J84.9 Interstitial pulmonary disease, unspecified (principal); Z79.899 Other long term (current) drug therapy
CPT/HCPCS: 99204

== ENCOUNTER → 2024-03-14 10:41 | Outpatient (BNVA) | payer MEDICARE, SELFPAY | PROVIDERS: PCP Internal Medicine; Referring Provider Nurse Practitioner Family; Visit Provider Nurse Practitioner Family | DX: J84.9 Interstitial pulmonary disease, unspecified (principal); Z79.899 Other long term (current) drug therapy | CPT/HCPCS: 99202 ==

== ENCOUNTER 2024-04-04 14:38 | Outpatient (AMB) | payer MEDICARE, SELFPAY ==
[2024-04-04 14:57] VITALS: BP 124/64; PULSE 68; BMI 24.2
--- NOTE | 2024-04-04 14:57 | MHC.OFFVIS ---
Vital Signs 04/04/24 14:57 Height 5 ft 6 in Weight 149 lb 14.629 oz BMI 24.2 BP 124/64 Blood Pressure Location Lt brachial Position Sitting Pulse 68 Pulse Source Pulse Oximeter Intake Visit Reasons: 2/3 wks f/up Allergies diltiazem Allergy (Verified 03/14/24 11:17) Rash ssri Allergy (Unknown, Uncoded 03/14/24 11:17) diarrhea Augmex Adverse Reaction (Unknown, Uncoded 03/14/24 11:17) severe vomiting/diarrhea Medication List - Last Reconciled 04/04/24 by Ashwini Garcia NP-C acetaminophen ER (Tylenol Arthritis Pain) 650 mg PO TID ascorbate calcium (vitamin C) 500 mg PO DAILY atenolol 50 mg PO DAILY 90 days atorvastatin 10 mg PO 3XW [Calcium 500 500 mg PO DAILY] dorzolamide-timolol 22.3-6.8 mg/mL 1 drp ophthalmic (eye) BID dorzolamide-timolol 22.3-6.8 mg/mL 1 drp ophthalmic (eye) Q12H multivitamin 1 tab PO DAILY rivaroxaban (Xarelto) 20 mg PO DAILY@1700 HPI HPI 2/3 wks f/up: Details: Zuleima is an 83-year-old female past medical history of hypertension, hyperlipidemia, paroxysmal atrial fibrillation which has been suppressed with amiodarone who was found to have lung changes on recent chest x-ray and prior CT scan. She underwent pulmonology evaluation with recommendation to stop amiodarone which was done on 03/18/2024. She now presents for follow-up. Today she reports that since stopping amiodarone she has noticed a few brief flutters in her chest. Episodes have last only seconds. She is fearful of having recurrent atrial fibrillation as she was quite symptomatic with it in the past. She does not want any antiarrhythmic that will require hospitalization to start. She is not interested in AFib ablation. She does not want a repeat stress test at this time. She is willing to try to get Multaq at a lower cost like she did with Xarelto. She is active through the day and ambulates with a cane. She has had no issues with lightheadedness, presyncope, syncope, falls. No chest discomfort at rest or with activity. No shortness of breath, PND, orthopnea or edema. No bleeding issues reported. She has been taking her meds as directed. [facility] Medical History Irritable bowel syndrome with diarrhea History of compression fracture of spine Emphysema lung Thoracic compression fracture Lumbar compression fracture Colonoscopy refused COVID-19 vaccine series declined Immunization declined Positive FIT (fecal immunochemical test) Mammogram declined Dyslipidemia Postmenopause Normocytic anemia Hx: UTI (urinary tract infection) PAF (paroxysmal atrial fibrillation) Unspecified glaucoma Osteoporosis Thrombocytopenia Hypertension Surgical History H/O kyphoplasty History of lumpectomy of left breast History of colonoscopy History of section Family History Father Lung cancer Mother Unknown family medical history Maternal Grandfather No problems noted. Maternal Grandmother No problems noted. Paternal Grandmother No problems noted. Sister No problems noted. Social History Household Members: None Housing: House Are you a primary aged or disabled care worker to a significant other at home: No Do you presently have visiting nurse or other home services: No Alcohol intake: never Patient Tobacco Use Status: Former Tobacco user Tobacco use type: Cigarette e-Cigarette/Vaping Use: Never Used Second Hand Smoke Exposure: No service: No Current occupational status: retired Cognitive needs: No Hearing needs: No Vision needs: Yes Review of Systems Const All systems reviewed & are unremarkable except as noted in HPI and below Denies weakness ENT Denies dizziness Card Details: brief palpitations Denies chest pain, Denies chest pain with activity, Denies syncope, Denies rapid heart rate, Denies pedal edema, Denies edema, Denies leg edema, Denies lightheadedness, Denies palpitations, Denies dyspnea, Denies dyspnea on exertion and Denies orthopnea Resp Denies cough, Denies dyspnea and Denies dyspnea on exertion GI Denies hematochezia and Denies change in stool character Musc Denies abnormal gait, Denies muscle cramps, Denies muscle weakness, Denies numbness, Denies radiating pain into limb and Denies tingling Neuro Denies abnormal gait, Denies dizziness, Denies syncope, Denies numbness, Denies tingling and Denies weakness Endo Denies palpitations Physical Exam Vital Signs: Last Vital Signs Pulse 68 04/04/24 14:57 BP 124/64 04/04/24 14:57 BMI result Body Mass Index 24.2 Const Other: ambulates with cane General: cooperative, healthy appearing, comfortable and no acute distress Orientation/consciousness: patient oriented x3 Neck Neck: Yes normal visual inspection Resp Effort & Inspection: normal respiratory effort Auscultation: clear to auscultation bilaterally, no crackles, rales (Each base, fine), no rhonchi and no wheezes Cardio Jugular venous distension: no JVD Rate: regular rate Rhythm: regular rhythm Heart sounds: S1 normal heart sound present, S2 normal heart sound present, no murmurs and no rubs Neuro General: patient oriented x3 Extrem General: Yes normal to inspection Psych Appearance: grossly normal Mental Status: mental status grossly normal Speech and movement: Normal speech and movement present Office Procedures EKG Details: Today, read by me, sinus bradycardia, first-degree AV block, septal Q-wave, rate 56, QTC 443 millisecond [id number], Complete Assessment & Plan Assessment & Plan (1) PAF (paroxysmal atrial fibrillation): Code(s): I48.0 - Paroxysmal atrial fibrillation Category: Medical Plan: History of paroxysmal atrial fibrillation, symptomatic. Initial finding May 2020 during [facility] [place] for UTI, urosepsis. Echocardiogram 05/21/2020 showed EF 60-65%, normal valves. Holter monitor done 06/18/2020 showed sinus rhythm, occasional PACs and PVCs, no AFib, average heart rate 68. A nuclear stress test done on 06/18/2020 showed normal myocardial perfusion imaging. She was initially treated with rate control then eventually required rhythm control with amiodarone. Amiodarone has done very well at suppressing her rhythm however recent chest x-ray showed patchy bilateral upper lobe interstitial prominence and ground-glass densities. A prior CT scan of the chest done 12 05/30/2022 had shown diffuse emphysema. We had her undergo pulmonology evaluation who recommended stopping amiodarone. Patient was reluctant but did agree and amiodarone was stopped on 03/18/2024. Today she reports that she has had some brief palpitations since then, lasting seconds. EKG done today shows sinus bradycardia with first-degree AV block, QTC 443 milliseconds, rate 56. Discussed options for antiarrhythmics with her. She does not want sotalol or Tikosyn as they will require hospital admission for the initial administrations. She initially was unable to afford the co-pay of Multaq. He is not interested in a repeat stress test at this time that is needed for the use flecainide. Discussed ablation and she adamantly refuses. - at this time she is willing to relook at [employer] to see if she could get it at a lower cost. I was able to give her a coupon for a free 30 day supply. She will work with her insurance company and look for cost reduction programs. Her heart rate is 56 today. Will have her reduce her atenolol dose to 25 mg daily. Continue Xarelto without interruption. Office EKG in 1 week. Cardiology follow-up 1 month, sooner if needed. (2) Hypertension: Code(s): I10 - Essential (primary) hypertension Category: Medical Qualifiers: Hypertension type: essential hypertension Qualified Code(s): I10 - Essential (primary) hypertension Plan: Well controlled at this time. Plan Time spent on chart review, documentation, interview, assessment Medications: New dronedarone (Multaq) must administer with a meal/food New - she has a coupon for free 30 day supply 400 mg PO BID 60 tabs 5RF Coding Level of Care Code Est Pt Level 4 (29432) Complex EM visit Add On G2211 Diagnoses PAF (paroxysmal atrial fibrillation) I48.0 Essential hypertension I10 Hypertension type: essential hypertension CPT Codes EKG - CPT: 37228-[id number], Complete ([id number]) Time Spent (min) 36
== END 2024-04-04 16:04 | disposition home or self-care (01) ==
PROVIDERS: PCP Internal Medicine; Visit Provider Nurse Practitioner Family
DX: R94.31 Abnormal electrocardiogram [ECG] [EKG] (principal)
CPT/HCPCS: 93010; 99214; G2211

== ENCOUNTER → 2024-04-04 14:38 | Outpatient (BNVA) | payer MEDICARE, SELFPAY | PROVIDERS: PCP Internal Medicine; Visit Provider Nurse Practitioner Family | DX: I48.0 Paroxysmal atrial fibrillation (principal); I10 Essential (primary) hypertension | CPT/HCPCS: 93005; 99212 ==

== ENCOUNTER → 2024-04-15 08:44 | Outpatient (BNVA) | payer MEDICARE, SELFPAY | PROVIDERS: PCP Internal Medicine; Visit Provider Nurse Practitioner Family ==

== ENCOUNTER 2024-04-22 08:55 | Outpatient (AMB) | payer MEDICARE, SELFPAY ==
--- NOTE | 2024-04-22 09:04 | AM.OFFWIN_ITS ---
Intake Vital Signs 04/22/24 09:06 Height 5 ft 6 in Weight 150 lb BMI 24.2 BP 120/80 Blood Pressure Location Rt brachial Position Sitting Pulse 59 Pulse Source Pulse Oximeter Pulse Oximetry (%) 98 Oxygen Delivery Method Room Air Intake Visit Reasons: EP-IBS flare up Intake Note: Patient here for IBS flare up. Patient Tobacco Use Status: Former Tobacco user Allergies diltiazem Allergy (Verified 04/22/24 09:05) Rash ssri Allergy (Unknown, Uncoded 04/22/24 09:05) diarrhea Augmex Adverse Reaction (Unknown, Uncoded 04/22/24 09:05) severe vomiting/diarrhea Do you need a note to return to daycare/school/sports/work: No HPI HPI Comments History of Present Illness Details This is an 83-year-old female with a past medical history of atrial fibrillation currently maintained on Xarelto, hyperlipidemia, hypertension and anemia presenting for evaluation of an ?IBS flare?. Patient states she was initially diagnosed with IBS approximately 18 months ago. Today the patient reports 3 days of diarrhea which was preceded by abdominal bloating and left lower quadrant abdominal pain. Patient has not taken any medication for tr eatment of her symptoms and denies any previous abdominal surgeries. Additionally, patient denies having any fevers, chills, weakness, nausea, vomiting, dysuria, urinary frequency, dark or bloody stools. Patient states she usually has 1 stool a day however over the past 2-3 days has had ?too many to count? bowel movements. [facility] Medical History Irritable bowel syndrome with diarrhea History of compression fracture of spine Emphysema lung Thoracic compression fracture Lumbar compression fracture Colonoscopy refused COVID-19 vaccine series declined Immunization declined Positive FIT (fecal immunochemical test) Mammogram declined Dyslipidemia Postmenopause Normocytic anemia Hx: UTI (urinary tract infection) PAF (paroxysmal atrial fibrillation) Unspecified glaucoma Osteoporosis Thrombocytopenia Hypertension Surgical History H/O kyphoplasty History of lumpectomy of left breast History of colonoscopy History of section Family History Father Lung cancer Mother Unknown family medical history Maternal Grandfather No problems noted. Maternal Grandmother No problems noted. Paternal Grandmother No problems noted. Sister No problems noted. Social History Household Members: None Housing: House Are you a primary home care music therapist to a significant other at home: No Do you presently have visiting nurse or other home services: No Alcohol intake: never Patient Tobacco Use Status: Former Tobacco user Tobacco use type: Cigarette e-Cigarette/Vaping Use: Never Used Second Hand Smoke Exposure: No service: No Current occupational status: retired Cognitive needs: No Hearing needs: No Vision needs: Yes Review of Systems Const Denies chills, Denies fatigue and Denies fever(s) Eyes Reports no additional complaints ENT Reports no additional complaints Card Reports no additional complaints Resp Reports no additional complaints GI Reports no additional complaints, Denies melena, Reports bloating, Reports change in bowel habits, Reports change in stool character, Denies GI cramping, Denies fecal incontinence, Reports diarrhea, Reports loose stools, Denies nausea and Denies vomiting Reports no additional complaints, Denies dysuria and Denies urinary incontinence Musc Reports no additional complaints Skin/Breast Reports system reviewed and no additional complaints, except as documented Neuro Reports no additional complaints Psych Reports no additional complaints Endo Reports no additional complaints and Denies fatigue [place]/Lymph Reports no additional complaints Aller/Immun Reports no additional complaints Physical Exam Vital Signs: Last Vital Signs Pulse 59 04/22/24 09:06 BP 120/80 04/22/24 09:06 Pulse Ox 98 04/22/24 09:06 Oxygen Delivery Method Room Air 04/22/24 09:06 BMI result Body Mass Index 24.2 Const General: cooperative, healthy appearing, comfortable, no acute distress, well developed, alert, awake and Physically active; No diaphoretic, ill appearing or lethargic Nutritional Appearance: average body habitus Orientation/consciousness: patient oriented x3 and No lethargic Limitations: ambulation with cane HEENT Other: Moist mucous membranes Head: Yes normal to inspection and Yes normocephalic Ears: hearing grossly normal bilaterally Mouth: Normal oral and palatal mucosa present and moist mucous membranes Cardio Rate: regular rate Rhythm: regular rhythm GI Inspection: Yes normal to inspection, No distended and No obesity Palpation (GI): Soft to palpation, Tenderness to palpation present (GI) in the LLQ (mild, without guarding) and no guarding Auscultation: normal bowel sounds Rectal Exam - Female: deferred General: Yes bladder normal to palpation and Yes no CVA tenderness Bimanual exam- vagina & uterus: bladder normal to palpation Back/Spine/Pelvis Back: no CVA tenderness Skin General skin exam: no rashes or lesions noted Neuro General: patient oriented x3 Psych Appearance: grossly normal Mental Status: mental status grossly normal Insight: Good insight present (Psych) Judgement: Good judgement present (Psych) Assessment & Plan Assessment & Plan (1) Diarrhea: Comment: Patient is well-appearing, is not tachycardic or hypotensive. Patient is encouraged to stay very well hydrated upon returning home and use loperamide [id number]. Code(s): R19.7 - Diarrhea, unspecified Qualifiers: Diarrhea type: unspecified type Qualified Code(s): R19.7 - Diarrhea, unspecified Plan: Loperamide OTC -- 4mg immediately then 2mg after every other loose stool. Patient urged to go to ED or return to urgent care for any abdominal pain, fevers, dysuria, dark or bloody stools. Coding Level of Care Code Est Pt Level 3 (45060) Diagnoses Diarrhea, unspecified type R19.7 Diarrhea type: unspecified type Time Spent (min) 20
[2024-04-22 09:06] VITALS: BP 120/80; PULSE 59; O2SAT 98; BMI 24.2
== END 2024-04-22 10:06 | disposition home or self-care (01) ==
PROVIDERS: PCP Internal Medicine; Visit Provider Physician Assistant
DX: R19.7 Diarrhea, unspecified (principal)

== ENCOUNTER → 2024-04-22 08:55 | Outpatient (BNVA) | payer MEDICARE, SELFPAY | PROVIDERS: PCP Internal Medicine; Visit Provider Physician Assistant | DX: R19.7 Diarrhea, unspecified (principal) | CPT/HCPCS: 99212 ==

== ENCOUNTER 2024-05-03 04:01 | Inpatient (IN) | payer MEDICARE, SELFPAY ==
[2024-05-03] VITALS (9 sets, daily range): BP systolic 111–146; BP diastolic 51–69; PULSE 63–93; RESP 18–24; TEMP 36–36.9; O2SAT 88–100; BMI 27.0
--- NOTE | 2024-05-03 | ECG_ITS ---
Test Reason : SOB, CP Blood Pressure : / mmHG Vent. Rate : 065 BPM Atrial Rate : 065 BPM P-R Int : 194 ms QRS Dur : 084 ms QT Int : 464 ms P-R-T Axes : 072 025 050 degrees QTc Int : 482 ms Sinus rhythm with Premature supraventricular complexes Nonspecific ST abnormality Abnormal ECG When compared with ECG of 19-MAY-2020 10:34, Sinus rhythm has replaced Atrial fibrillation Vent. rate has decreased BY 81 BPM Criteria for Septal infarct are no longer Present T wave inversion no longer evident in Inferior leads Referred By: Meagan Toussaint Electronically Signed By:Sal Mcgrath
--- NOTE | ~2024-05-03 | XR_ITS ---
EXAMINATION: XR CHEST CLINICAL INFORMATION: Follow up hypoxia. COMPARISON: Chest radiograph dated 05/03/2024. TECHNIQUE: Frontal view of the chest was obtained. FINDINGS: Chronic interstitial prominence with patchy right upper lobe airspace opacities, similar or slightly increased when compared to the prior examination. No pleural effusion or pneumothorax. Stable cardiomediastinal silhouette. XR/XR chest 1V IMPRESSION: Chronic interstitial prominence with patchy right upper lobe airspace opacities, similar or slightly increased when compared to the prior examination. Electronically signed by: Corey Juan MD 05/06/2024 10:12 AM [facility]
--- NOTE | ~2024-05-03 | CT_ITS ---
EXAMINATION: CT CHEST WITHOUT CONTRAST CLINICAL INFORMATION: Hypoxia. Abnormal chest radiograph. COMPARISON: Most recent chest radiograph dated 05/06/[address] chest dated 04/30/2023. TECHNIQUE: Multidetector volumetric CT imaging of the chest was done. Axial MIP volume rendering provided. Sagittal and coronal reformatted images were obtained. This CT examination was performed using dose optimization techniques as appropriate, variously including the following: *Automated exposure control *Adjustment of mA and/or kV according to patient size (this includes techniques or standardized protocols for targeted exams where dose is matched to indication/reason for exam; i.e. 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 LUNGS: Moderate emphysematous changes are redemonstrated, increased when compared to the prior examination. Interstitial prominence with patchy ground versus airspace opacities most prominent within the right upper lobe as well as the anterior aspect of the left upper lobe, significantly increased when compared to the prior examination. Additional patchy areas within the apex of the right lower lobe. No large, confluent airspace consolidation. No large pulmonary nodule or mass. MEDIASTINUM: No cardiomegaly. Dilatation of the ascending thoracic aorta is redemonstrated measuring up to 4.1 cm, unchanged when compared to the prior examination. No pericardial effusion. Stable, enlarged superior mediastinal lymph nodes with the largest in the precarinal region measuring up to 1.4 x 2.1 cm, not significantly changed. Prevascular lymph nodes are also unchanged. No increasing lymphadenopathy. Unremarkable thyroid. CORONARY ARTERY CALCIFICATION: None visualized on this study. PLEURA: There is no pleural effusion. No pleural mass or thickening. AXILLA: No lymphadenopathy. UPPER ABDOMEN: Unremarkable. OSSEOUS STRUCTURES: Interval kyphoplasty at L1 and T10, new when compared to the prior examination. Near-complete compression deformity of T12, increased when compared to the prior CT. Stable compression deformity of T8. No new lytic or blastic osseous lesion. CT/CT chest wo IV con IMPRESSION: 1. Moderate emphysematous changes are redemonstrated, increased when compared to the prior examination. Interstitial prominence with patchy ground versus airspace opacities most prominent within the right upper lobe as well as the anterior aspect of the left upper lobe, significantly increased when compared to the prior examination. Additional patchy areas within the apex of the right lower lobe. No large, confluent airspace consolidation. 2. Stable dilatation of the ascending thoracic aorta measuring up to 4.1 cm. 3. Stable superior mediastinal lymphadenopathy. 4. Interval kyphoplasty at L1 and T10, new when compared to the prior examination. Near-complete compression deformity of T12, increased when compared to the prior CT. Stable compression deformity of T8. Fleischner guidelines were followed. Electronically signed by: Corey Juan MD 05/06/2024 03:01 PM [facility]
--- NOTE | ~2024-05-03 | XR_ITS ---
EXAMINATION: XR CHEST CLINICAL INFORMATION: Chest pain COMPARISON: February 09, 2024. TECHNIQUE: Frontal view of the chest was obtained. FINDINGS: The lung volumes are low. The cardiomediastinal silhouette is stable. There is right upper lung field infiltrate in the left perihilar infiltrate. There is diffuse increased markings. The costophrenic angles appear to be blunted. The bony structures are osteopenic. Prior vertebroplasties are noted. Soft tissues are unremarkable. XR/XR chest 1V IMPRESSION: 1. Right upper lung field infiltrate and left perihilar infiltrate. Pneumonia suspected. 2. Diffuse increased lung markings. Electronically signed by: Praful Hopkins MD 05/03/2024 05:19 AM [facility]
--- NOTE | 2024-05-03 04:34 | ED.SOB ---
HPI - SOB/Dyspnea General Chief Complaint: Dyspnea Stated Complaint: SOB Time Seen by Provider: 05/03/24 04:23 Source: patient, family and EMS Mode of arrival: EMS Limitations: other History of Present Illness ED Provider: Dr. Meagan Toussaint HPI Narrative: Patient comes to the emergency room complaining of shortness of breath for 6 days prior to arrival. According to the patient, this morning she woke up with shortness of breath, called 911. Per EMS, when they arrived, patient was wheezing, patient was given a nebulization treatment, 125 mg of IV Solu-Medrol. Patient states that on arrival, she feels much better. According to the patient, she has been having a few days sore throat, cough, right-sided chest pain that hurts more when she coughs. Related Data Home Medications ?Medication ?Instructions ?Recorded ?Confirmed Calcium 500 500 mg PO DAILY 05/18/20 04/04/24 multivitamin 1 tab PO DAILY 05/18/20 04/04/24 ascorbate calcium (vitamin C) 500 500 mg PO DAILY 05/16/21 04/04/24 mg tablet dorzolamide 22.3 mg-timolol 6.8 1 drp ophthalmic (eye) BID 01/22/22 04/04/24 mg/mL eye drops acetaminophen 650 mg 650 mg PO TID 06/17/23 04/04/24 tablet,extended release (Tylenol Arthritis Pain) rivaroxaban 20 mg tablet (Xarelto) 20 mg PO DAILY@1700 07/31/23 04/04/24 Previous Rx's ?Medication ?Instructions ?Recorded atenolol 50 mg tablet 50 mg PO DAILY 90 days #90 tabs 12/31/23 atorvastatin 10 mg tablet 10 mg PO 3XW #45 tabs 02/26/24 dorzolamide 22.3 mg-timolol 6.8 1 drp ophthalmic (eye) Q12H #10 mL 03/10/24 mg/mL eye drops dronedarone 400 mg tablet (Multaq) 400 mg PO BID #60 tabs 04/04/24 amlodipine 2.5 mg tablet 2.5 mg PO DAILY #30 tabs 04/19/24 Allergies Allergy/AdvReac Type Severity Reaction Status Date / Time diltiazem Allergy Rash Unverified 05/03/24 04:23 ssri Allergy Unknown diarrhea Uncoded 04/22/24 09:05 Augmex AdvReac Unknown severe Uncoded 04/22/24 09:05 vomiting/diarrhea Review of Systems Review of Systems: Constitutional : No Weight loss, No Fever, No Chills, No Night Sweats, No Fatigue, No Malaise ENT/Mouth : No Hearing loss, No Ear Pain, No Nasal Congestion, No Sinus Pain, No Hoarseness, No sore throat, No Rhinorrhea, No Swallowing Difficulty Eyes: No Eye Pain, No Swelling, No Redness, No Foreign Body, No Discharge, No Vision Changes Cardiovascular : Coughing, denies orthopnea or palpitations Respiratory : Complaining of dry cough, wheezing, shortness of breath Gastrointestinal : No Nausea, No Vomiting, No Diarrhea, No Constipation, No abdominal Pain, No Hematochezia, No Melena Genitourinary : no irregular bleeding, No Dysuria, No Urinary Frequency, No Hematuria, No Urinary Incontinence, No Urgency, No Flank Pain, No Urinary Flow Changes, No Hesitancy Musculoskeletal : No joint pain, No Myalgias, No Joint Swelling Skin : No Skin Lesions, No rash Neuro : No Weakness, No Numbness, No Paresthesias, No Loss of Consciousness, No Dizziness, No Headache Psych : No Anxiety/Panic, No Depression, No SI/HI/AH/VH, No Social Issues, Heme/Lymph: No Bruising, No Bleeding,No Lymphadenopathy Endocrine : No Polyuria, No Polydipsia, No Temperature Intolerance [facility] Past Medical History Medical History Irritable bowel syndrome with diarrhea History of compression fracture of spine Emphysema lung Thoracic compression fracture Lumbar compression fracture Colonoscopy refused COVID-19 vaccine series declined Immunization declined Positive FIT (fecal immunochemical test) Mammogram declined Dyslipidemia Postmenopause Normocytic anemia Hx: UTI (urinary tract infection) PAF (paroxysmal atrial fibrillation) Unspecified glaucoma Osteoporosis Thrombocytopenia Hypertension Surgical History H/O kyphoplasty History of lumpectomy of left breast History of colonoscopy History of section Family History Family History Father Lung cancer Mother Unknown family medical history Maternal Grandfather No problems noted. Maternal Grandmother No problems noted. Paternal Grandmother No problems noted. Sister No problems noted. Social History Social History Household Members: None Housing: House Are you a primary child care development specialist to a significant other at home: No Do you presently have visiting nurse or other home services: No Alcohol intake: never Patient Tobacco Use Status: Former Tobacco user Tobacco use type: Cigarette e-Cigarette/Vaping Use: Never Used Second Hand Smoke Exposure: No Use of substances other than those prescribed or required for medical reasons: No Advance Directives: Yes Advance Directives on File: Yes Advance Directives Date on File: 03/12/22 Do you have a plan to hurt others: No Plan service: No Current occupational status: retired Cognitive needs: No Hearing needs: No Vision needs: Yes Physical Exam Vital Signs: Vital Signs: Last Vital Signs Temp 98.4 F 05/03/24 04:11 Pulse 93 05/03/24 04:11 Resp 18 05/03/24 04:11 BP 142/55 H 05/03/24 04:11 Pulse Ox 88 L 05/03/24 05:00 O2 Del Method Room Air 05/03/24 04:11 BMI result Body Mass Index 27.0 Const: Other: Appearance: Alert. Oriented X3. No acute distress. Eyes: Pupils equal, round and reactive to light. ENT: Pharynx normal. Neck: Normal inspection. Neck supple. No lymph nodes noted. No crepitus CVS: Normal heart rate and rhythm. Pulses normal. Normal S1 and S2 Respiratory: No respiratory distress. Breath sounds normal. No Wheezing. No rales Abdomen: Soft and nontender. No rigidity. No distention. Skin: Skin warm and dry. Normal skin color. Normal skin turgor. Extremities: No lower extremity edema. No Lacerations. No Rash Neuro: Oriented X 3. No motor deficit. No sensory deficit. Moving all extremities. No slurred speech. CN 2 through 12 grossly intact Psych: calm, cooperative, normal affect Course Course Course Narrative: Patient states that after the nebulization treatment and Solu-Medrol she feels much better, breathing comfortably. Patient denies history of asthma, emphysema or even smoking. Medical Decision Making Medical Decision Making MDM Narrative: Patient ambulating drops to 86-87%. Patient was put on 2 L nasal cannula My interpretation of labs: No significant abnormality in hematology and chemistry, troponin negative, serology negative for influenza RSV and COVID Chest x-ray shows right upper lobe pneumonia -no episodes of hypotension, no fever or tachycardia, lactic acid pending. At this time, 05:55, sepsis is not suspected. Patient started on IV fluids, ceftriaxone and azithromycin I discussed the patient with Dr. Carr from the Medicine team, patient being admitted Differential Diagnosis Differential Diagnoses: The differential diagnosis associated with the presentation includes (Pneumonia, CHF, viral illness) Admission/Observation Consideration of admission/observation: Escalation of care including admission/observation considered Consult Healthcare Provider Management of the patient was discussed with: Hospitalist Lab Data MDM Lab Attestation statement: I reviewed the patient's lab results. 05/03/24 04:35 05/03/24 04:35 Labs: Lab Results 05/03/24 Range/Units 04:35 WBC 9.6 (4.8-10.8) X10*3/uL RBC 3.60 L (4.20-5.50) X10*6/uL Hgb 11.2 L (12.0-16.0) g/dl Hct 33.1 L D (37.0-47.0) % MCV 91.9 (80.0-98.0) fL MCH 31.1 (27.0-33.0) pg MCHC 33.8 (31.0-35.0) g/dl RDW 13.5 (11.0-16.0) % Plt Count 173 (160-400) X10*3/uL MPV 11.6 (9.4-12.3) fL Immature Gran % (Auto) 0.4 (0.0-0.4) % Neut % (Auto) 81.8 H (45-73) % Lymph % (Auto) 6.8 L (20-40) % [place] % (Auto) 9.1 (2-11) % Eos % (Auto) 1.6 (0-4) % Baso % (Auto) 0.3 (0-2) % Lymph # (Auto) 0.7 L (1.2-4.9) X10*3/uL [place] # (Auto) 0.9 (0.1-1.2) X10*3/uL Eos # (Auto) 0.2 (0.0-0.4) X10*3/uL Baso # (Auto) 0.0 (0.0-0.2) X10*3/uL Abs Immat Gran (auto) 0.04 H (0.00-0.03) X10*3/uL Absolute Neuts (auto) 7.8 (2.0-8.3) x10*3/uL Absolute Nucleated RBC 0.000 (0.0-0.012) X10*3/uL Nucleated RBC % (auto) 0.0 (0.0-0.2) /100WBC Sodium 137 (135-145) mmol/L Potassium 3.5 (3.3-5.1) mmol/L Chloride 102 (96-108) mmol/L Carbon Dioxide 24 (22-29) mmol/L Anion Gap 15 (12-20) BUN 16 (9-16) mg/dL Creatinine 0.78 (0.5-1.4) mg/dL Estim Creat Clear Calc 54.9 Estimated GFR > 60 Random Glucose 111 (60-115) mg/dL Calcium 8.4 (8.4-10.2) mg/dL Total Bilirubin 1.6 H (0.0-1.0) mg/dL AST 44 H (5-31) U/L ALT 34 H (0-31) U/L Alkaline Phosphatase 88 (39-117) U/L Troponin I High Sens 10.7 (<3.5-17.0) ng/L Total Protein 5.9 L (6.5-8.0) g/dL Albumin 3.3 L (3.5-5.0) g/dL Influenza Type A (PCR) NEGATIVE (Negative) Influenza Type B (PCR) NEGATIVE (Negative) RSV RNA Qual (PCR) NEGATIVE (Negative) SARS-CoV-2 RNA (RT-PCR) NEGATIVE (Negative) Independent Interpretation I performed an independent interpretation of an: Plain X-Ray Radiology Impression Discussion of test interpretation with radiology: I have reviewed the radiologist's reading. Radiologist Impression: The lung volumes are low. The cardiomediastinal silhouette is stable. There is right upper lung field infiltrate in the left perihilar infiltrate. There is diffuse increased markings. The costophrenic angles appear to be blunted. The bony structures are osteopenic. Prior vertebroplasties are noted. Soft tissues are unremarkable. XR/XR chest 1V IMPRESSION: 1. Right upper lung field infiltrate and left perihilar infiltrate. Pneumonia suspected. 2. Diffuse increased lung markings Critical Care Time Critical Care Time Critical Care Time: Yes Total Critical Care Time: 60 Attestation: I have personally provided critical care time. Time includes review of lab data, radiology results, discussion with consultants, and monitoring for potential decompensation. Intervention performed as documented. Discharge Plan Discharge Clinical Impression: Pneumonia Patient Disposition: Admitted As Inpatient Prescriptions: No Action atenolol 50 mg tablet 50 mg PO DAILY 90 Days Qty: 90 3RF atorvastatin 10 mg tablet 10 mg PO 3XW Qty: 45 2RF amlodipine 2.5 mg tablet 2.5 mg PO DAILY Qty: 30 3RF multivitamin Tablet 1 tab PO DAILY Calcium 500 500 mg PO DAILY Xarelto 20 mg tablet 20 mg PO DAILY@1700 Rx Instructions: must administer with evening meal ascorbate calcium (vitamin C) 500 mg tablet 500 mg PO DAILY acetaminophen [Tylenol Arthritis Pain] 650 mg tablet extended release 650 mg PO TID Rx Instructions: 1 1/2 po 6 hrs prn dorzolamide-timolol 22.3-6.8 mg/mL drops 1 drp ophthalmic (eye) BID dorzolamide-timolol 22.3-6.8 mg/mL drops 1 drp ophthalmic (eye) Q12H Qty: 10 0RF Multaq 400 mg tablet 400 mg PO BID Qty: 60 5RF Rx Instructions: must administer with a meal/food New - she has a coupon for free 30 day supply Print Language: Gabonese
[2024-05-03 04:46] LABS: Basophils Percent Auto 0.3 % (0-2); Eosinophils Absolute Auto 0.2 X10*3/uL (0.0-0.4); Eosinophils Percent Auto 1.6 % (0-4); Hematocrit 33.1 % (37.0-47.0); Hemoglobin 11.2 g/dl (12.0-16.0); Imm Gran Abs Auto 0.04 X10*3/uL (0.00-0.03); Imm Gran Pct Auto 0.4 % (0.0-0.4); Lymphocytes Absolute Auto 0.7 X10*3/uL (1.2-4.9); Lymphocytes Percent Auto 6.8 % (20-40); MANUAL DIFF FLAG NO; Mean Corpuscular HGB Conc 33.8 g/dl (31.0-35.0); Mean Corpuscular Hemoglobin 31.1 pg (27.0-33.0); Mean Corpuscular Volume 91.9 fL (80.0-98.0); Mean Platelet Volume 11.6 fL (9.4-12.3); Monocytes Absolute Auto 0.9 X10*3/uL (0.1-1.2); Monocytes Percent Auto 9.1 % (2-11); Neutrophils Absolute Auto 7.8 x10*3/uL (2.0-8.3); Neutrophils Percent Auto 81.8 % (45-73); Platelet Count 173 X10*3/uL (160-400); Red Cell Distribution Width 13.5 % (11.0-16.0); White Blood Count 9.6 X10*3/uL (4.8-10.8)
[2024-05-03 04:59] LABS: Alanine Aminotransferase 34 U/L (0-31); Albumin Level 3.3 g/dL (3.5-5.0); Alkaline Phosphatase 88 U/L (39-117); Anion Gap 15 (12-20); Aspartate Amino Transferase 44 U/L (5-31); Bilirubin Total 1.6 mg/dL (0.0-1.0); Blood Urea Nitrogen 16 mg/dL (9-16); Calcium 8.4 mg/dL (8.4-10.2); Carbon Dioxide 24 mmol/L (22-29); Chloride 102 mmol/L (96-108); Creatinine Clr Calc Pharmacy 54.9; Estimated Glomerular Filt Rate > 60; Glucose Random 111 mg/dL (60-115); Potassium 3.5 mmol/L (3.3-5.1); Sodium 137 mmol/L (135-145); Total Protein 5.9 g/dL (6.5-8.0)
--- NOTE | 2024-05-03 05:11 | PC.NURSE ---
pt arrived via EMS, pt reports SOB over last 6 days. this morning she reports being in bed and awoke with increased dyspnea. en route pt recieved solu medrol 125mg and 5mg albuterol. in room pt states her breathing feels much better. of note pt also reports cough, sore throat, and right chest pain worse with cough. SpO2 90%. labs, nasal swab, CXR, EKG complete. ambulation trial showed desat to 88%. placed on 2L NC. family in room laughing and joking with patient. call perera in reach. pt states needs are met at this time.
[2024-05-03 05:22] LABS: Influenza A PCR NEGATIVE (Negative); Influenza B PCR NEGATIVE (Negative); Resp Syncy Virus RNA Qual PCR NEGATIVE (Negative); SARS COV2 PCR INHOUSE NEGATIVE (Negative)
[2024-05-03 05:36] LABS: Troponin-I High Sensitivity 10.7 ng/L (<3.5-17.0)
--- NOTE | 2024-05-03 06:13 | P.HPHOSP_ITS ---
History of Present Illness Date of Service: 05/03/24 Chief Complaint: Shortness of breath 83-year-old female with a history of HTN, HLD, emphysema, and AFIB on Eliquis presents with shortness of breath, which she has been experiencing for nearly six days. Her symptoms worsened this morning, prompting her to call EMS. On evaluation, she was found to have an O2 saturation of 91% on room air and wheezing. She was given nebulized bronchodilators and steroids by EMS, improving her oxygen saturation to 100%. Other symptoms include a recent sore throat and cough associated with right-sided chest pain. ED workup was negative for influenza, COVID-19, and RSV. WBC count is normal. CXR revealed right upper lobe pneumonia (RUL PNA). ECG showed no ischemic changes. ED treatment included ceftriaxone, azithromycin, and IV fluids. Review of Systems 2 Review of Systems: Shortness of breah, cough, rent sore throat, no fever, right side chest pain Yes all other systems are reviewed and are negative [facility] Medical History Irritable bowel syndrome with diarrhea History of compression fracture of spine Emphysema lung Thoracic compression fracture Lumbar compression fracture Colonoscopy refused COVID-19 vaccine series declined Immunization declined Positive FIT (fecal immunochemical test) Mammogram declined Dyslipidemia Postmenopause Normocytic anemia Hx: UTI (urinary tract infection) PAF (paroxysmal atrial fibrillation) Unspecified glaucoma Osteoporosis Thrombocytopenia Hypertension Family History Father Lung cancer Mother Unknown family medical history Maternal Grandfather No problems noted. Maternal Grandmother No problems noted. Paternal Grandmother No problems noted. Sister No problems noted. Surgical History H/O kyphoplasty History of lumpectomy of left breast History of colonoscopy History of section Social History Household Members: None Housing: Condominium Are you a primary healthcare management to a significant other at home: No Do you presently have visiting nurse or other home services: No Alcohol intake: never Patient Tobacco Use Status: Former Tobacco user Tobacco use type: Cigarette e-Cigarette/Vaping Use: Never Used Second Hand Smoke Exposure: No Advance Directives Date on File: 03/12/22 service: No Current occupational status: retired Cognitive needs: No Hearing needs: No Vision needs: Yes Meds Allergies Allergy/AdvReac Type Severity Reaction Status Date / Time diltiazem Allergy Rash Verified 05/03/24 07:05 ssri Allergy Unknown diarrhea Uncoded 05/03/24 07:05 Augmex AdvReac Unknown severe Uncoded 05/03/24 07:05 vomiting/diarrhea Active Medications: Current Medications Sodium Chloride (Ns) 1,000 mls @ 999 mls/hr IVCONT .Q1H1M ONE Stop: 05/03/24 06:47 Azithromycin 500 mg/ Sodium (Chloride) 250 mls @ 125 mls/hr IV ONCE ONE Stop: 05/03/24 07:46 Home Medications ?Medication ?Instructions ?Recorded ?Confirmed ?Last Taken ?Type multivitamin 1 tab PO DAILY 05/18/20 05/03/24 05/02/24 History ascorbate calcium (vitamin C) 500 500 mg PO DAILY 05/16/21 05/03/24 05/02/24 History mg tablet dorzolamide 22.3 mg-timolol 6.8 1 drp ophthalmic (eye) BID 01/22/22 05/03/24 05/02/24 History mg/mL eye drops acetaminophen 650 mg 650 mg PO TID PRN Pain 06/17/23 05/03/24 05/02/24 History tablet,extended release (Tylenol Arthritis Pain) rivaroxaban 20 mg tablet (Xarelto) 20 mg PO DAILY@1700 07/31/23 05/03/24 05/02/24 History atorvastatin 10 mg tablet 10 mg PO MOWE 05/03/24 05/03/24 05/02/24 History calcium carbonate 500 mg PO DAILY 05/03/24 05/03/24 05/02/24 History Physical Exam 2 Vital Signs and Narrative: Vital Signs: Last Vital Signs Temp 98.4 F 05/03/24 04:11 Pulse 93 05/03/24 04:11 Resp 18 05/03/24 04:11 BP 142/55 H 05/03/24 04:11 Pulse Ox 88 L 05/03/24 05:00 O2 Del Method Room Air 05/03/24 04:11 BMI result Body Mass Index 27.0 Const: Other: General: AO X 3, no acute distress Resp: some rales at the bases, 2-3+ leg edema CVS: S1,S2,RRR GI: +BS, NT, no distention Skin: No rash Neuro: motor grossly intact Psych: appropriate affect Results Labs 05/03/24 04:35 05/04/24 04:31 Labs: Laboratory Results - last 24 hr 05/03/24 04:35 MCV 91.9 MCH 31.1 MCHC 33.8 RDW 13.5 Plt Count 173 MPV 11.6 Immature Gran % (Auto) 0.4 Neut % (Auto) 81.8 H Lymph % (Auto) 6.8 L [place] % (Auto) 9.1 Eos % (Auto) 1.6 Baso % (Auto) 0.3 Lymph # (Auto) 0.7 L [place] # (Auto) 0.9 Eos # (Auto) 0.2 Baso # (Auto) 0.0 Abs Immat Gran (auto) 0.04 H Absolute Neuts (auto) 7.8 Absolute Nucleated RBC 0.000 Nucleated RBC % (auto) 0.0 Anion Gap 15 Estim Creat Clear Calc 54.9 Estimated GFR > 60 Random Glucose 111 Calcium 8.4 Total Bilirubin 1.6 H AST 44 H ALT 34 H Alkaline Phosphatase 88 Troponin I High Sens 10.7 Total Protein 5.9 L Albumin 3.3 L Influenza Type A (PCR) NEGATIVE Influenza Type B (PCR) NEGATIVE RSV RNA Qual (PCR) NEGATIVE SARS-CoV-2 RNA (RT-PCR) NEGATIVE Imaging Radiologist's Impressions: Impressions Chest X-Ray 05/03/24 05:05 IMPRESSION: 1. Right upper lung field infiltrate and left perihilar infiltrate. Pneumonia suspected. 2. Diffuse increased lung markings. Electronically signed by: Praful Hopkins MD 05/03/2024 05:19 AM [facility] Assessment and Plan (1) Pneumonia: Status: Acute Plan 83 year female with PAF, HTN, HLD, emphysema here with SOB d/t CAP and emphysema causing acute hypoxic resp failure Acute hypoxic resp failure d/t CAP leading emphysema flare -continue Ceftriaxone and Azithro started 05/03 -check urine legionella and strep pneumo, follow cultures -bronchodilators by Neb -Solu-medrol 40 bid -cough meds PAF, on multaq, would discontinue d/t concern for interstitial lung disease and elevated lfts, previously normal. Continue xarelto Suspect acute heart failure , last echo 2020 60% -IV Lasix, check BNP, get an echo and consider cardiology consultation HLD--hold statin in light of mild elevated lfts which is new HTN--continue Atneolol DVT prophylaxis--xarelto (took it last evening) Full code,, admission for at least 2 midnights for management of acute hypoxic resp failure d/t PNA needing iv Abx and supplemental O2 Quality Stroke Does the patient have a stroke diagnosis?: No VTE Prior VTE?: No VTE Risk Level:: Medical - moderate - high VTE Device Contraindication: Treatment Not Indicated VTE Drug Contraindication: N/A - Med Ordered
[2024-05-03] MEDS: 0.9 % Sodium Chloride 1,000 ML 999 ML IVCONT (06:15)
[2024-05-03] MEDS: cefTRIAXone sodium 1 GM VIAL IVPUSH (06:16)
[2024-05-03] MEDS: Azithromycin 500 MG in 0.9 % Sodium Chloride 250 ML 125 MG IV (06:20)
[2024-05-03 06:32] LABS: Lactic Acid 0.9 mmol/L (0.5-2.0)
--- NOTE | 2024-05-03 06:49 | PC.NURSE ---
MD Carr told this nurse to stop NS bolus while at bedside. bolus stopped and remaining volume wasted.
--- NOTE | 2024-05-03 07:00 | CA_ITS ---
Transthoracic Echocardiogram Patient (Last, First, Middle): Zuleima Shepard E Gender: Female Date of : 1940 Age: 83 Procedure Date: 05/03/2024 Procedure Type: Transthoracic Echocardiogram Location: [facility] [place] Height: 167.64 cm Weight: 75.75 kg BSA: 1.85 m2 Heart Rate: 66 bpm BP: 135 / 69 mmHg Plating Inspector: SB Referring MD: Thaddeus Carr MD Symptoms: heart failure Study Quality: Fair, contrast ECG Rhythm: Sinus Conclusions: - Normal left ventricular size and systolic function. There is mildly increased left ventricular wall thickness. The visually estimated ejection fraction is >70%. - Spectral Doppler is indicative of a restrictive filling pattern. Elevated filling pressures. - Normal right ventricular cavity size and systolic function. - Indeterminate right atrial pressure. PASP= 36 mm of Hg + right atrial pressure. - There is mild dilatation of the ascending aorta measuring 4.00 cm. Findings Procedure Information Contrast agent, definity, is being given per protocol without apparent complications. The study quality is limited by the patients inability to tolerate the test. Left Ventricle Normal left ventricular size and systolic function. There is mildly increased left ventricular wall thickness. The visually estimated ejection fraction is >70%. There is no evidence of regional wall motion abnormalities. Abnormal diastolic function is noted. Spectral Doppler is indicative of a restrictive filling pattern. Elevated filling pressures. Right Ventricle Normal right ventricular cavity size and systolic function. Atria The left atrium is normal in size. Aortic Valve There is a normal trileaflet aortic valve. There is no aortic valve stenosis. There is no aortic valve regurgitation. Mitral Valve The mitral valve appears normal. There is no mitral valve regurgitation. There is no mitral valve stenosis. Pulmonic Valve The pulmonic valve is likely normal. Tricuspid Valve Normal tricuspid valve structure. There is trace tricuspid valve regurgitation. Indeterminate right atrial pressure. PASP= 36 mm of Hg + right atrial pressure. Great Vessels There is mild dilatation of the ascending aorta measuring 4.00 cm. Venous The inferior vena cava was not well visualized. Pericardium/Pleural There is no evidence of pericardial effusion. Prior Study Comparison Changes noted compared to prior study dated: 05/21/2020. Elevated filling pressures, restrictive filling pattern. Measurements 2D Linear Measurements IVSd: 1.16 0.6-0.9/0.6-1.0 cm LVIDd: 4.31 3.9-5.3/4.2-5.9 cm LVIDd Index: 2.33 2.4-3.2/2.2-3.1 cm/m2 LVIDs: 2.64 2.0-3.6 cm LVPWd: 1.03 0.7-1.1 cm LA Diam: 3.90 2.7-3.8/3.0-4.0 cm LAIDs Index: 2.11 1.5-2.3 cm/m2 LV Mass: 202.34 67-162/88-224 g LV Mass Index: 109.38 43-95/49-115 g/m2 LVOT Diam: 2.00 3.0+(-)1.3 cm 2D Systolic Function EF 4C: 72.40 >55% EF 2C: 74.40 >55% EF BiP: 73.20 >55% Mitral Valve MV Pk E: 1.12 MV PK A: 0.54 MV Decel Time: 224.00 E/A: 2.10 E'Lateral: 9.68 E'Medial: 6.64 E/E' Med: 16.90 E/E' Lat: 11.60 PHT: 66.00 MVA PHT: 3.33 Decel [place]: 4.98 Aortic Valve AoV Pk Pasha: 1.12 AoV Pk Grad: 5.00 JHON: 2.50 LVOT LVOT Pk Pasha: 0.89 LVOT Mn Pasha: 0.61 LVOT VTI: 0.20 LVOT Pk Grad: 3.00 LVOT Mn Grad: 2.00 LVOT Diam: 2.00 LVOT Area: 3.14 Diastolic Function MV Pk E: 1.12 MV Pk A: 0.54 E/A: 2.10 E'Medial: 6.64 E/E' Med: 16.90 E' Laterial: 9.68 E/E' Lat: 11.60 Right Ventricle TAPSE (mm): 27.50 TVS' Pasha: 12.10 Tricuspid Valve TR Pk Pasha: 2.89 TR Pk Grad: 33.00 RA Press: 3.00 RVSP: 36.00 Great Vessels Aorta Sinus of Valsalva: 3.30 2.0-3.5 cm Ao Asc: 4.00 2.1-3.4 cm Pulmonary Valve PV Pk Pasha: 0.70 Peak PV Grad: 2.00 Updated in Other Vendor System with Status of Final Sal Mcgrath MD electronically signed on 05/03/2024 2:09:12 PM with status of Final
[2024-05-03] MEDS: Furosemide 40 MG/4 ML VIAL IVPUSH (07:06)
[2024-05-03] MEDS: 0.9 % Sodium Chloride Flush 3 ML SYRINGE IVFLUSH ×3 (07:09→20:59)
--- NOTE | 2024-05-03 09:07 | PM.EVENT ---
Event Note Date of Service: 05/03/24 Event Note: Seen and evaluated Looks comfortable on 2L of O2 +2 swelling in lower extremities On Lasix Pending Echo Cardiology consult Continue IV antibiotics Time Spent With Patient Time: Total time managing care of this patient today ____ minutes.
--- NOTE | 2024-05-03 10:17 | PHA.MEDREC ---
Addendum entered by Lucas Benson RPh 05/03/24 11:49: MED REC CHECKED BY [facility] Original Note: Pharmacy Consult ? Medication Reconciliation Pharmacy has completed the medication reconciliation. Confirmed medications with patient. She was a little confused about her Atenolol 50mg tab, she states she cuts it in half now and thinks she is taking 2.5 tabs but isn't entirely sure if that is correct. In claims the Atenolol was last filled 02/08 daily for 100 days. The patient confirmed she took her medications yesterday.
--- NOTE | 2024-05-03 10:38 | MHC.CM.PN ---
IMM 05/03/24, Pt lives alone in a condo, she is independent, no home health services , or DME she uses a cane. PCP is confirmed: Ellie Chen. HCP is her son: Leon Travis, copy requested. Her son will transport home at [place]. DCP: home with services. CM to follow for DC needs.
--- NOTE | 2024-05-03 13:21 | PM.CNCAR ---
History of Present Illness History of Present Illness Date of Service: 05/03/24 Requesting physician: Raoul Reyes Chief complaint: Acute hypoxic res failure heart failure pneumonia Narrative: 83-year-old female who follows with Ashwini in our office and has background history of hypertension, hyperlipidemia, paroxysmal atrial fibrillation for which she was on amiodarone in the past but had some chest x-ray and CT findings and pulmonology advise getting her off the amiodarone. She was on Multaq since then. She is presenting with lower extremity edema shortness of breath. She has been diagnosed with pneumonia and congestive heart failure. Clinically she is overloaded she has saying compared to yesterday her breathing is improving. [facility] Past Medical History Medical History Irritable bowel syndrome with diarrhea History of compression fracture of spine Emphysema lung Thoracic compression fracture Lumbar compression fracture Colonoscopy refused COVID-19 vaccine series declined Immunization declined Positive FIT (fecal immunochemical test) Mammogram declined Dyslipidemia Postmenopause Normocytic anemia Hx: UTI (urinary tract infection) PAF (paroxysmal atrial fibrillation) Unspecified glaucoma Osteoporosis Thrombocytopenia Hypertension Family History Family History Father Lung cancer Mother Unknown family medical history Maternal Grandfather No problems noted. Maternal Grandmother No problems noted. Paternal Grandmother No problems noted. Sister No problems noted. Surgical History Surgical History H/O kyphoplasty History of lumpectomy of left breast History of colonoscopy History of section Social History Social History Household Members: None Housing: Condominium Are you a primary home care administrator to a significant other at home: No Do you presently have visiting nurse or other home services: No Alcohol intake: never Patient Tobacco Use Status: Former Tobacco user Tobacco use type: Cigarette e-Cigarette/Vaping Use: Never Used Second Hand Smoke Exposure: No Advance Directives Date on File: 03/12/22 service: No Current occupational status: retired Cognitive needs: No Hearing needs: No Vision needs: Yes Meds Allergies Allergy/AdvReac Type Severity Reaction Status Date / Time diltiazem Allergy Rash Verified 05/03/24 07:05 ssri Allergy Unknown diarrhea Uncoded 05/03/24 07:05 Augmex AdvReac Unknown severe Uncoded 05/03/24 07:05 vomiting/diarrhea Active Medications: Current Medications Acetaminophen (Acetaminophen 325 Mg Tablet) 650 mg PO Q6H PRN PRN Reason: Pain, Mild 1-3,fever,headache Azithromycin (Azithromycin 250 Mg Tablet) 250 mg PO Q24H RAFFI Calcium Carbonate (Calcium Carbonate 750 Mg Tab.Chew) 750 mg PO Q4H PRN PRN Reason: Heartburn Ceftriaxone Sodium (Ceftriaxone Sodium 1 Gm Vial) 1 gm IVPUSH Q24H RAFFI Influenza Virus Vaccine (Flu Vacc [id number](6mos Up)/Pf 0.5 Ml Syringe) 0.5 ml IM .ONCE ONE Stop: 05/06/24 09:36 Magnesium Hydroxide (Milk Of Magnesia 30 Ml Oral.Susp) 30 ml PO DAILY PRN PRN Reason: Constipation Melatonin (Melatonin 3 Mg Tablet) 6 mg PO BEDTIME PRN PRN Reason: Insomnia Polyethylene Glycol (Polyethylene Glycol 3350 17 Gm Powd.Pack) 17 gm PO DAILY PRN PRN Reason: Constipation Sodium Chloride (0.9 % Sodium Chloride Flush 3 Ml Syringe) 3 ml IVFLUSH [facility] Last Admin: 05/03/24 07:09 Dose: 3 ml Home Medications ?Medication ?Instructions ?Recorded ?Confirmed ?Last Taken ?Type multivitamin 1 tab PO DAILY 05/18/20 05/03/24 05/02/24 History ascorbate calcium (vitamin C) 500 500 mg PO DAILY 05/16/21 05/03/24 05/02/24 History mg tablet dorzolamide 22.3 mg-timolol 6.8 1 drp ophthalmic (eye) BID 01/22/22 05/03/24 05/02/24 History mg/mL eye drops acetaminophen 650 mg 650 mg PO TID PRN Pain 06/17/23 05/03/24 05/02/24 History tablet,extended release (Tylenol Arthritis Pain) rivaroxaban 20 mg tablet (Xarelto) 20 mg PO DAILY@1700 07/31/23 05/03/24 05/02/24 History atorvastatin 10 mg tablet 10 mg PO MOWE 05/03/24 05/03/24 05/02/24 History calcium carbonate 500 mg PO DAILY 05/03/24 05/03/24 05/02/24 History Physical Exam Vital Signs: Vital Signs: Last Vital Signs Temp 96.8 F 05/03/24 11:46 Pulse 65 05/03/24 11:46 Resp 18 05/03/24 11:46 BP 121/58 L 05/03/24 11:46 Pulse Ox 96 05/03/24 11:46 O2 Del Method Nasal Cannula 05/03/24 11:46 O2 Flow Rate 2 05/03/24 11:46 BMI result Body Mass Index 27.0 GENERAL APPEARANCE: in no acute distress, pleasant. NECK: no carotid bruit, + jugular venous distention. SKIN: no suspicious lesions, warm and dry. HEART: no murmurs, regular rate and rhythm. LUNGS: Crackles and bilateral wheezes. ABDOMEN: soft, nontender. EXTREMITIES: no edema. PERIPHERAL PULSES: equal. NEUROLOGIC: No gross deficits, AAO X 3 Objective Labs and Meds 05/03/24 04:35 05/03/24 04:35 Lab results: Laboratory Results - last 24 hr 05/03/24 05/03/24 04:35 06:05 WBC 9.6 RBC 3.60 L Hgb 11.2 L Hct 33.1 L D MCV 91.9 MCH 31.1 MCHC 33.8 RDW 13.5 Plt Count 173 MPV 11.6 Immature Gran % (Auto) 0.4 Neut % (Auto) 81.8 H Lymph % (Auto) 6.[address] [place] % (Auto) 9.1 Eos % (Auto) 1.6 Baso % (Auto) 0.3 Lymph # (Auto) 0.[address] [place] # (Auto) 0.9 Eos # (Auto) 0.2 Baso # (Auto) 0.0 Abs Immat Gran (auto) 0.04 H Absolute Neuts (auto) 7.8 Absolute Nucleated RBC 0.000 Nucleated RBC % (auto) 0.0 Sodium 137 Potassium 3.5 Chloride 102 Carbon Dioxide 24 Anion Gap 15 BUN 16 Creatinine 0.78 Estim Creat Clear Calc 54.9 Estimated GFR > 60 Random Glucose 111 Lactic Acid 0.9 Calcium 8.4 Total Bilirubin 1.6 H AST 44 H ALT 34 H Alkaline Phosphatase 88 Troponin I High Sens 10.7 Total Protein 5.9 L Albumin 3.3 L Influenza Type A (PCR) NEGATIVE Influenza Type B (PCR) NEGATIVE RSV RNA Qual (PCR) NEGATIVE SARS-CoV-2 RNA (RT-PCR) NEGATIVE Imaging Radiologist's impression: Impressions Chest X-Ray 05/03/24 05:05 IMPRESSION: 1. Right upper lung field infiltrate and left perihilar infiltrate. Pneumonia suspected. 2. Diffuse increased lung markings. Electronically signed by: Praful Hopkins MD 05/03/2024 05:19 AM [facility] [place] Assessment and Plan (1) PAF (paroxysmal atrial fibrillation): Status: Acute (2) Congestive heart failure: Status: Acute Plan Pleasant 83 year female who is here for shortness of breath and congestive heart failure. Continue IV diuretics as she is still volume overloaded. Multaq should be discontinued because it is contraindicated with congestive heart failure. Previously amiodarone has caused issues for her and it was advised by pulmonology that she should not resume amiodarone. Continue anticoagulation otherwise. Hopefully with diuresis she becomes euvolemic in the next day or 2. Unclear about antiarrhythmic therapy currently but will formulate a plan. Thank you for allowing me to participate in the care of your patient. Please feel free to contact me if you have any questions. Procedures Date of Service Date of Service: 05/03/24
[2024-05-03] MEDS: Rivaroxaban 20 MG TABLET PO (16:53)
[2024-05-03] MEDS: Dorzolamide/Timolo 2.23%/0.68% 10 ML DRBTL 1 DROP EYE-BOTH (21:01)
[2024-05-04] VITALS (7 sets, daily range): BP systolic 102–122; BP diastolic 47–69; PULSE 57–124; RESP 16–20; TEMP 36.2–37.7; O2SAT 91–98
[2024-05-04] MEDS: Digoxin 0.5 MG/2 ML AMPUL 0.125 MG IVPUSH ×2 (03:47→09:17)
[2024-05-04 05:44] LABS: Alanine Aminotransferase 45 U/L (0-31); Albumin Level 3.1 g/dL (3.5-5.0); Alkaline Phosphatase 88 U/L (39-117); Anion Gap 13 (12-20); Aspartate Amino Transferase 58 U/L (5-31); Bilirubin Total 0.8 mg/dL (0.0-1.0); Blood Urea Nitrogen 19 mg/dL (9-16); Calcium 8.2 mg/dL (8.4-10.2); Carbon Dioxide 25 mmol/L (22-29); Chloride 106 mmol/L (96-108); Creatinine Clr Calc Pharmacy 52.9; Estimated Glomerular Filt Rate > 60; Glucose Random 136 mg/dL (60-115); Potassium 2.9 mmol/L (3.3-5.1); Sodium 141 mmol/L (135-145)
[2024-05-04] MEDS: Azithromycin 250 MG TABLET PO (06:02)
[2024-05-04] MEDS: cefTRIAXone sodium 1 GM VIAL IVPUSH (06:02)
[2024-05-04] MEDS: Potassium Chloride ER 20 MEQ TAB.ER.PRT 40 MEQ PO (06:27)
--- NOTE | 2024-05-04 06:35 | PM.EVENT ---
Event Note Date of Service: 05/04/24 Event Note: The patient went into AFIB with RVR, with a variable heart rate ranging from 100s to 120s, and remains asymptomatic. She is allergic to Cardizem, and there is reluctance to use beta-blockers due to acute decompensated heart failure. Digoxin was loaded. Potassium is low and is being replaced with IV and PO. The patient is NPO in preparation for possible cardioversion. Time Spent With Patient Time: Total time managing care of this patient today ____ minutes.
--- NOTE | 2024-05-04 06:47 | PC.NURSE ---
Patient noted to have converted from SR to AFIB RVR around 23:00 overnight (has known hx). Patient has consistently denied symptoms. HR ranging 100's to 120's. Covering Dr. Carr notified with order for IV Digoxin and NPO in case of cardioversion. Patient noted to be having brief runs of non-sustained vtach (three to five beats at a time), new from previous occasional PVCs. MD notified with stat labs ordered and obtained. Lab notified news writer and MD of resulted showing critical potassium this morning via tigertext. Pt repleted with PO potassium as pt refused packets that were originally ordered. HR currently low 100's, patient in good spirits this morning. Plan of care continues.
[2024-05-04] MEDS: 0.9 % Sodium Chloride Flush 3 ML SYRINGE IVFLUSH ×3 (07:40→20:35)
[2024-05-04] MEDS: Potassium Chloride/H20 10 MEQ/100 ML PIGGYBACK 100 MEQ IV ×2 (07:40→09:10)
[2024-05-04] MEDS: Multivitamin TABLET 1 TAB PO (07:56)
[2024-05-04] MEDS: amLODIPine Besylate 2.5 MG TABLET PO (07:56)
[2024-05-04] MEDS: Ascorbic Acid 500 MG TABLET PO (07:56)
[2024-05-04] MEDS: Calcium Oyster Shell Elemental 500 MG TABLET PO (07:56)
[2024-05-04] MEDS: Dorzolamide/Timolo 2.23%/0.68% 10 ML DRBTL 1 DROP EYE-BOTH ×2 (07:57→20:34)
[2024-05-04] MEDS: Furosemide 40 MG/4 ML VIAL IVPUSH (09:10)
[2024-05-04] MEDS: atenoloL 50 MG TABLET PO (09:10)
[2024-05-04] MEDS: Spironolactone 25 MG TABLET PO (11:34)
--- NOTE | 2024-05-04 12:17 | PM.PNCARD ---
Subjective Subjective Date of Service: 05/04/24 Interval history: Seen examined at bedside. Physical Exam Vital Signs: Last Vital Signs Temp 97.8 F 05/04/24 11:35 Pulse 57 05/04/24 11:35 Resp 20 05/04/24 11:35 BP 120/58 L 05/04/24 11:35 Pulse Ox 98 05/04/24 11:35 O2 Del Method Nasal Cannula 05/04/24 11:35 O2 Flow Rate 2 05/04/24 11:35 BMI result Body Mass Index 27.0 GENERAL APPEARANCE: in no acute distress, pleasant. NECK: no carotid bruit, no jugular venous distention. SKIN: no suspicious lesions, warm and dry. HEART: no murmurs, regular rate and rhythm. LUNGS: Few crackles at bases. ABDOMEN: soft, nontender. EXTREMITIES: Mild edema. PERIPHERAL PULSES: equal. NEUROLOGIC: No gross deficits, AAO X 3 Objective Labs and Meds 05/03/24 04:35 05/04/24 04:31 Lab results: Laboratory Results - last 24 hr 05/03/24 05/04/24 04:35 04:31 Sodium 141 Potassium 2.9 L* Chloride 106 Carbon Dioxide 25 Anion Gap 13 BUN 19 H Creatinine 0.81 Estim Creat Clear Calc 52.9 Estimated GFR > 60 Random Glucose 136 H Calcium 8.2 L Magnesium 2.0 Total Bilirubin 0.8 AST 58 H ALT 45 H Alkaline Phosphatase 88 B-Natriuretic Peptide Total Protein 6.0 L Albumin 3.1 L Progress Note: A&P Assessment and plan (1) Congestive heart failure: Status: Acute (2) PAF (paroxysmal atrial fibrillation): Status: Acute Plan 83-year-old female here for pneumonia and congestive heart failure. Clinically improving. More less euvolemic at this stage. Multaq has been discontinued due to congestive heart failure episode. Added spironolactone 25 mg daily for hypokalemia. Can be transitioned to oral Lasix. Take her off the supplemental oxygen to see if she is still hypoxic. She was due to get a CT to reassess her interstitial lung disease. As she improves this can be arranged inpatient if possible. Had some issues with amiodarone with interstitial lung disease and we can not use that. Multaq is contraindicated due to heart failure episode. Due to hypokalemia currently sotalol is not an option to. As potassium improves then we will reassess the decision about antiarrhythmic therapy. We may have to consider rate control strategy for now. She was dig loaded but given hypokalemia would not continue any digoxin currently. Thank you for allowing me to participate in the care of your patient. Please feel free to contact me if you have any questions. Time Spent With Patient Time: Total time managing care of this patient today ____ minutes. Progress Note: Quality Stroke Does the patient have a stroke diagnosis?: No Procedures Date of Service Date of Service: 05/04/24
--- NOTE | 2024-05-04 12:29 | P.PNIM_ITS ---
Subjective Subjective Date of Service: 05/04/24 Interval History: Seen and evaluated this morning went into Afib w RvR overnight, converted this morning to sinus feels little better, still overloaded no other events Review of Systems Review of Systems: Yes all other systems are reviewed and are negative Physical Exam 2 Vital Signs: Vital Signs: Last Vital Signs Temp 97.8 F 05/04/24 11:35 Pulse 57 05/04/24 11:35 Resp 20 05/04/24 11:35 BP 120/58 L 05/04/24 11:35 Pulse Ox 98 05/04/24 11:35 O2 Del Method Nasal Cannula 05/04/24 11:35 O2 Flow Rate 2 05/04/24 11:35 BMI result Body Mass Index 27.0 Const: Other: General: AO X 3, no acute distress Resp: has bilateral rales at the bases, 2+ leg edema CVS: S1,S2,RRR GI: +BS, NT, no distention Skin: No rash Neuro: motor grossly intact Psych: appropriate affect Objective Data Active Medications Acetaminophen (Acetaminophen 325 Mg Tablet) 650 mg PO Q6H PRN PRN Reason: Pain, Mild 1-3,fever,headache Amlodipine Besylate (Amlodipine Besylate 2.5 Mg Tablet) 2.5 mg PO DAILY [facility]; Protocol Last Admin: 05/04/24 07:56 Dose: 2.5 mg Documented By: YASMIN Ascorbic Acid (Ascorbic Acid 500 Mg Tablet) 500 mg PO DAILY [facility] Last Admin: 05/04/24 07:56 Dose: 500 mg Documented By: YASMIN Atenolol (Atenolol 50 Mg Tablet) 50 mg PO DAILY [facility]; Protocol Last Admin: 05/04/24 09:10 Dose: 50 mg Documented By: YASMIN Atorvastatin Calcium (Atorvastatin Calcium 10 Mg Tablet) 10 mg PO MOWE [facility] Azithromycin (Azithromycin 250 Mg Tablet) 250 mg PO Q24H [facility] Last Admin: 05/04/24 06:02 Dose: 250 mg Documented By: TODD Calcium Carbonate (Calcium Carbonate 750 Mg Tab.Chew) 750 mg PO Q4H PRN PRN Reason: Heartburn Calcium Carbonate (Calcium Oyster Shell Elemental 500 Mg Tablet) 500 mg PO DAILY [facility] Last Admin: 05/04/24 07:56 Dose: 500 mg Documented By: YASMIN Ceftriaxone Sodium (Ceftriaxone Sodium 1 Gm Vial) 1 gm IVPUSH Q24H [facility] Last Admin: 05/04/24 06:02 Dose: 1 gm Documented By: TODD Dorzolamide/Timolol (Dorzolamide/Timolo 2.23%/0.68% 10 Ml Drbtl) 1 drop EYE- BOTH BID [facility] Last Admin: 05/04/24 07:57 Dose: 1 drop Documented By: YASMIN Furosemide (Furosemide 40 Mg/4 Ml Vial) 40 mg IVPUSH DAILY [facility]; Protocol Last Admin: 05/04/24 09:10 Dose: 40 mg Documented By: YASMIN Influenza Virus Vaccine (Flu Vacc [id number](6mos Up)/Pf 0.5 Ml Syringe) 0.5 ml IM .ONCE ONE Stop: 05/06/24 09:36 Magnesium Hydroxide (Milk Of Magnesia 30 Ml Oral.Susp) 30 ml PO DAILY PRN PRN Reason: Constipation Melatonin (Melatonin 3 Mg Tablet) 6 mg PO BEDTIME PRN PRN Reason: Insomnia Multivitamins/Vitamin C (Multivitamin Tablet) 1 tab PO DAILY [facility] Last Admin: 05/04/24 07:56 Dose: 1 tab Documented By: YASMIN Polyethylene Glycol (Polyethylene Glycol 3350 17 Gm Powd.Pack) 17 gm PO DAILY PRN PRN Reason: Constipation Rivaroxaban (Rivaroxaban 20 Mg Tablet) 20 mg PO DAILY@1700 [facility] Last Admin: 05/03/24 16:53 Dose: 20 mg Documented By: SHANELL Sodium Chloride (0.9 % Sodium Chloride Flush 3 Ml Syringe) 3 ml IVFLUSH QSHIFT [facility] Last Admin: 05/04/24 07:40 Dose: 3 ml Documented By: YASMIN Spironolactone (Spironolactone 25 Mg Tablet) 25 mg PO DAILY [facility]; Protocol Last Admin: 05/04/24 11:34 Dose: 25 mg Documented By: YASMIN Labs 05/03/24 04:35 05/04/24 04:31 Labs: Laboratory Results - last 24 hr 05/03/24 05/04/24 04:35 04:31 Anion Gap 13 Estim Creat Clear Calc 52.9 Estimated GFR > 60 Random Glucose 136 H Calcium 8.2 L Magnesium 2.0 Total Bilirubin 0.8 AST 58 H ALT 45 H Alkaline Phosphatase 88 B-Natriuretic Peptide Total Protein 6.0 L Albumin 3.1 L Microbiology Microbiology Results: Microbiology 05/03/24 06:06 Blood Culture - Preliminary Blood - Venous No growth after 24 hours. 05/03/24 06:05 Blood Culture - Preliminary Blood - Venous No growth after 24 hours. Assessment and Plan (1) Congestive heart failure: Status: Acute (2) Pneumonia: Status: Acute (3) Acute hypokalemia: Status: Acute (4) Acute respiratory failure with hypoxia: Status: Acute Plan 83 year female with PAF, HTN, HLD, emphysema here with SOB d/t CAP and emphysema causing acute hypoxic resp failure Acute hypoxic resp failure 2/2 acute diastolic heart failure and Pneumonia improving Echo showing EF 70% continue Ceftriaxone and Azithro started 05/03 Continue IV Lasix, switch to PO as tolerated Cardiology input appreciated cough meds prn Wean O2 down as tolerated PAF with RvR DC multaq given heart failure Converted back to sinus DC Digoxin, can not use Amiodarone or Sotalol Continue xarelto Continue Atenolol keep on Tele repeat CXR tomorrow, consider repeat CT scan if abnormalities persist Acute hypokalemia replacement given Added spironolactone 25 mg daily HLD hold statin in light of mild elevated lfts which is new HTN continue Atneolol DVT prophylaxis xarelto (took it last evening) Full code,, Will need overnight stay for for management of acute hypoxic resp failure d/t PNA and CHF needing iv Abx, Lasix and supplemental O2 Quality Stroke Does the patient have a stroke diagnosis?: No VTE Prior VTE?: No VTE Risk Level:: Medical - moderate - high VTE Device Contraindication: Treatment Not Indicated VTE Drug Contraindication: N/A - Med Ordered
[2024-05-04 13:32] LABS: Anion Gap 12 (12-20); Blood Urea Nitrogen 18 mg/dL (9-16); Calcium 8.4 mg/dL (8.4-10.2); Carbon Dioxide 28 mmol/L (22-29); Chloride 106 mmol/L (96-108); Creatinine Clr Calc Pharmacy 53.6; Estimated Glomerular Filt Rate > 60; Glucose Random 120 mg/dL (60-115); Potassium 4.2 mmol/L (3.3-5.1); Sodium 142 mmol/L (135-145)
[2024-05-04] MEDS: Atorvastatin Calcium 10 MG TABLET PO (16:02)
[2024-05-04] MEDS: Rivaroxaban 20 MG TABLET PO (16:02)
[2024-05-04] MEDS: Melatonin 3 MG TABLET 6 MG PO (20:38)
[2024-05-05 03:20] VITALS: BP 138/63; PULSE 64; RESP 20; TEMP 36.7; O2SAT 90
[2024-05-05] MEDS: Azithromycin 250 MG TABLET PO (05:58)
[2024-05-05] MEDS: cefTRIAXone sodium 1 GM VIAL IVPUSH (05:59)
[2024-05-05 07:31] VITALS: BP 159/69; PULSE 63; RESP 18; TEMP 36.3; O2SAT 96
[2024-05-05] MEDS: Furosemide 40 MG/4 ML VIAL IVPUSH (09:14)
[2024-05-05] MEDS: Ascorbic Acid 500 MG TABLET PO (09:14)
[2024-05-05] MEDS: Calcium Oyster Shell Elemental 500 MG TABLET PO (09:14)
[2024-05-05] MEDS: atenoloL 50 MG TABLET PO (09:14)
[2024-05-05] MEDS: Multivitamin TABLET 1 TAB PO (09:14)
[2024-05-05] MEDS: amLODIPine Besylate 2.5 MG TABLET PO (09:14)
[2024-05-05] MEDS: 0.9 % Sodium Chloride Flush 3 ML SYRINGE IVFLUSH ×3 (09:14→20:36)
[2024-05-05] MEDS: Spironolactone 25 MG TABLET PO (09:14)
[2024-05-05] MEDS: Dorzolamide/Timolo 2.23%/0.68% 10 ML DRBTL 1 DROP EYE-BOTH ×2 (09:17→20:36)
--- NOTE | 2024-05-05 09:59 | P.PNIM_ITS ---
Subjective Subjective Date of Service: 05/05/24 Interval History: She is feeling better, afib with rvr resolved Physical Exam 2 Vital Signs: Vital Signs: Last Vital Signs Temp 97.3 F 05/05/24 07:31 Pulse 63 05/05/24 07:31 Resp 18 05/05/24 07:31 BP 159/69 H 05/05/24 07:31 Pulse Ox 96 05/05/24 07:31 O2 Del Method Room Air 05/05/24 07:31 O2 Flow Rate 2 05/04/24 11:35 BMI result Body Mass Index 27.0 Const: Other: General: AO X 3, no acute distress Resp: has bilateral rales at the bases, 2+ leg edema CVS: S1,S2,RRR GI: +BS, NT, no distention Skin: No rash Neuro: motor grossly intact Psych: appropriate affect Objective Data Active Medications Acetaminophen (Acetaminophen 325 Mg Tablet) 650 mg PO Q6H PRN PRN Reason: Pain, Mild 1-3,fever,headache Amlodipine Besylate (Amlodipine Besylate 2.5 Mg Tablet) 2.5 mg PO DAILY [facility]; Protocol Last Admin: 05/05/24 09:14 Dose: 2.5 mg Documented By: EDWAR Ascorbic Acid (Ascorbic Acid 500 Mg Tablet) 500 mg PO DAILY [facility] Last Admin: 05/05/24 09:14 Dose: 500 mg Documented By: EDWAR Atenolol (Atenolol 50 Mg Tablet) 50 mg PO DAILY [facility]; Protocol Last Admin: 05/05/24 09:14 Dose: 50 mg Documented By: EDWAR Atorvastatin Calcium (Atorvastatin Calcium 10 Mg Tablet) 10 mg PO MOWE [facility] Last Admin: 05/04/24 16:02 Dose: 10 mg Documented By: YASMIN Azithromycin (Azithromycin 250 Mg Tablet) 250 mg PO Q24H [facility] Last Admin: 05/05/24 05:58 Dose: 250 mg Documented By: IDRIS Calcium Carbonate (Calcium Carbonate 750 Mg Tab.Chew) 750 mg PO Q4H PRN PRN Reason: Heartburn Calcium Carbonate (Calcium Oyster Shell Elemental 500 Mg Tablet) 500 mg PO DAILY [facility] Last Admin: 05/05/24 09:14 Dose: 500 mg Documented By: EDWAR Ceftriaxone Sodium (Ceftriaxone Sodium 1 Gm Vial) 1 gm IVPUSH Q24H [facility] Last Admin: 05/05/24 05:59 Dose: 1 gm Documented By: IDRIS Dorzolamide/Timolol (Dorzolamide/Timolo 2.23%/0.68% 10 Ml Drbtl) 1 drop EYE- BOTH BID [facility] Last Admin: 05/05/24 09:17 Dose: 1 drop Documented By: EDWAR Furosemide (Furosemide 40 Mg/4 Ml Vial) 40 mg IVPUSH DAILY [facility]; Protocol Last Admin: 05/05/24 09:14 Dose: 40 mg Documented By: EDWAR Influenza Virus Vaccine (Flu Vacc [id number](6mos Up)/Pf 0.5 Ml Syringe) 0.5 ml IM .ONCE ONE Stop: 05/06/24 09:36 Magnesium Hydroxide (Milk Of Magnesia 30 Ml Oral.Susp) 30 ml PO DAILY PRN PRN Reason: Constipation Melatonin (Melatonin 3 Mg Tablet) 6 mg PO BEDTIME PRN PRN Reason: Insomnia Last Admin: 05/04/24 20:38 Dose: 3 mg Documented By: IDRIS Comments: pt. only wants one tablet. Multivitamins/Vitamin C (Multivitamin Tablet) 1 tab PO DAILY [facility] Last Admin: 05/05/24 09:14 Dose: 1 tab Documented By: EDWAR Polyethylene Glycol (Polyethylene Glycol 3350 17 Gm Powd.Pack) 17 gm PO DAILY PRN PRN Reason: Constipation Rivaroxaban (Rivaroxaban 20 Mg Tablet) 20 mg PO DAILY@1700 [facility] Last Admin: 05/04/24 16:02 Dose: 20 mg Documented By: YASMIN Sodium Chloride (0.9 % Sodium Chloride Flush 3 Ml Syringe) [facility] Last Admin: 05/05/24 09:14 Dose: 3 ml Documented By: EDWAR Spironolactone (Spironolactone 25 Mg Tablet) 25 mg PO DAILY [facility]; Protocol Last Admin: 05/05/24 09:14 Dose: 25 mg Documented By: EDWAR Labs 05/03/24 04:35 05/04/24 12:52 Labs: Laboratory Results - last 24 hr 05/03/24 05/04/24 04:35 12:52 Anion Gap 12 Estim Creat Clear Calc 53.6 Estimated GFR > 60 Random Glucose 120 H Calcium 8.4 B-Natriuretic Peptide Microbiology Microbiology Results: Microbiology 05/03/24 06:06 Blood Culture - Preliminary Blood - Venous No growth after 48 hours. 05/03/24 06:05 Blood Culture - Preliminary Blood - Venous No growth after 48 hours. Assessment and Plan (1) Pneumonia: Status: Acute (2) Acute respiratory failure with hypoxia: Status: Acute Plan 83 year female with PAF, HTN, HLD, emphysema here with SOB d/t CAP and emphysema causing acute hypoxic resp failure Acute hypoxic resp failure 2/2 acute diastolic heart failure and Pneumonia improving Echo showing EF 70% continue Ceftriaxone and Azithro started 05/03 Continue IV Lasix, switch to PO as tolerated Cardiology input appreciated cough meds prn Wean O2 down as tolerated PAF with RvR DC multaq given heart failure Converted back to sinus No Digoxin, can not use Amiodarone or Sotalol Continue xarelto Continue Atenolol keep on Tele repeat CXR tomorrow, consider repeat CT scan if abnormalities persist Acute hypokalemia replacement given Added spironolactone 25 mg daily HLD hold statin in light of mild elevated lfts which is new HTN continue Atneolol DVT prophylaxis xarelto (took it last evening) Full code,, Will need overnight stay for for management of acute hypoxic resp failure d/t PNA and CHF needing iv Abx, Lasix and supplemental O2 Quality Stroke Does the patient have a stroke diagnosis?: No VTE Prior VTE?: No VTE Risk Level:: Medical - moderate - high VTE Device Contraindication: Treatment Not Indicated VTE Drug Contraindication: N/A - Med Ordered
[2024-05-05 11:07] VITALS: BP 141/64; PULSE 70; RESP 18; TEMP 36.3; O2SAT 94
[2024-05-05 15:28] VITALS: BP 141/63; PULSE 61; RESP 18; TEMP 36.7; O2SAT 95
[2024-05-05] MEDS: Rivaroxaban 20 MG TABLET PO (18:28)
[2024-05-05 20:00] VITALS: BP 134/60; PULSE 64; RESP 16; TEMP 36.9; O2SAT 91
[2024-05-05] MEDS: Melatonin 3 MG TABLET 6 MG PO (20:36)
[2024-05-05] MEDS: Metoprolol Tartrate 5 MG/5 ML VIAL IVPUSH (23:58)
[2024-05-06] VITALS (9 sets, daily range): BP systolic 100–135; BP diastolic 62–76; PULSE 61–106; RESP 14–20; TEMP 36.5–37; O2SAT 90–94
[2024-05-06] MEDS: Azithromycin 250 MG TABLET PO (05:05)
[2024-05-06] MEDS: cefTRIAXone sodium 1 GM VIAL IVPUSH (05:05)
[2024-05-06 06:14] LABS: Strep Pneumo Ag urine Not Detected (Not Detected)
[2024-05-06] MEDS: Ascorbic Acid 500 MG TABLET PO (09:34)
[2024-05-06] MEDS: Calcium Oyster Shell Elemental 500 MG TABLET PO (09:34)
[2024-05-06] MEDS: 0.9 % Sodium Chloride Flush 3 ML SYRINGE IVFLUSH ×3 (09:34→20:10)
[2024-05-06] MEDS: amLODIPine Besylate 2.5 MG TABLET PO (09:34)
[2024-05-06] MEDS: atenoloL 50 MG TABLET PO (09:34)
[2024-05-06] MEDS: Multivitamin TABLET 1 TAB PO (09:34)
[2024-05-06] MEDS: Furosemide 40 MG TABLET PO (09:34)
[2024-05-06] MEDS: Spironolactone 25 MG TABLET PO (09:34)
[2024-05-06] MEDS: Dorzolamide/Timolo 2.23%/0.68% 10 ML DRBTL 1 DROP EYE-BOTH ×2 (09:35→20:06)
--- NOTE | 2024-05-06 14:55 | MHC.CM.PN ---
PT is recommending home with services; CM will follow.
--- NOTE | 2024-05-06 17:28 | HO.PM.IMPN ---
Subjective Subjective Date of Service: 05/06/24 Interval History: Acute hypoxic resp failure 2/2 acute diastolic heart failure and Pneumonia Review of Systems sob seems somewhat improving still sob with excersion Physical Exam Vital Signs: Vital Signs: Last Vital Signs Temp 97.8 F 05/06/24 15:21 Pulse 62 05/06/24 15:21 Resp 18 05/06/24 15:21 BP 113/64 05/06/24 15:21 Pulse Ox 94 05/06/24 15:21 O2 Del Method Room Air 05/06/24 15:21 O2 Flow Rate 2 05/04/24 11:35 BMI result Body Mass Index 27.0 Appearance: Alert.? Oriented X3.?. cvs: rrr, [id number] , no murmur res: air entry fair ,diminshed at bases. abd: no rebound or guarding ,nt, bs present. ext pulses present , no cyanosis . neuro: axo3 , nonfocal. Objective Data Active Medications Acetaminophen (Acetaminophen 325 Mg Tablet) 650 mg PO Q6H PRN PRN Reason: Pain, Mild 1-3,fever,headache Amlodipine Besylate (Amlodipine Besylate 2.5 Mg Tablet) 2.5 mg PO DAILY [facility]; Protocol Last Admin: 05/06/24 09:34 Dose: 2.5 mg Documented By: LUIS Ascorbic Acid (Ascorbic Acid 500 Mg Tablet) 500 mg PO DAILY [facility] Last Admin: 05/06/24 09:34 Dose: 500 mg Documented By: LUIS Atenolol (Atenolol 50 Mg Tablet) 50 mg PO DAILY [facility]; Protocol Last Admin: 05/06/24 09:34 Dose: 50 mg Documented By: LUIS Atorvastatin Calcium (Atorvastatin Calcium 10 Mg Tablet) 10 mg PO MOWE [facility] Last Admin: 05/04/24 16:02 Dose: 10 mg Documented By: YASMIN Azithromycin (Azithromycin 250 Mg Tablet) 250 mg PO Q24H [facility] Last Admin: 05/06/24 05:05 Dose: 250 mg Documented By: AGNIESZKA Calcium Carbonate (Calcium Carbonate 750 Mg Tab.Chew) 750 mg PO Q4H PRN PRN Reason: Heartburn Calcium Carbonate (Calcium Oyster Shell Elemental 500 Mg Tablet) 500 mg PO DAILY [facility] Last Admin: 05/06/24 09:34 Dose: 500 mg Documented By: LUIS Ceftriaxone Sodium (Ceftriaxone Sodium 1 Gm Vial) 1 gm IVPUSH Q24H [facility] Last Admin: 05/06/24 05:05 Dose: 1 gm Documented By: AGNIESZKA Dorzolamide/Timolol (Dorzolamide/Timolo 2.23%/0.68% 10 Ml Drbtl) 1 drop EYE-BOTH BID [facility] Last Admin: 05/06/24 09:35 Dose: 1 drop Documented By: LUIS Furosemide (Furosemide 40 Mg Tablet) 40 mg PO DAILY [facility]; Protocol Last Admin: 05/06/24 09:34 Dose: 40 mg Documented By: LUIS Magnesium Hydroxide (Milk Of Magnesia 30 Ml Oral.Susp) 30 ml PO DAILY PRN PRN Reason: Constipation Melatonin (Melatonin 3 Mg Tablet) 6 mg PO BEDTIME PRN PRN Reason: Insomnia Last Admin: 05/05/24 20:36 Dose: 3 mg Documented By: AGNIESZKA Comments: pt only wants to take 3mg . Metoprolol Tartrate (Metoprolol Tartrate 5 Mg/5 Ml Vial) 5 mg IVPUSH Q6H PRN; Protocol PRN Reason: HR>120 Multivitamins/Vitamin C (Multivitamin Tablet) 1 tab PO DAILY [facility] Last Admin: 05/06/24 09:34 Dose: 1 tab Documented By: LUIS Polyethylene Glycol (Polyethylene Glycol 3350 17 Gm Powd.Pack) 17 gm PO DAILY PRN PRN Reason: Constipation Rivaroxaban (Rivaroxaban 20 Mg Tablet) 20 mg PO DAILY@1700 [facility] Last Admin: 05/05/24 18:28 Dose: 20 mg Documented By: EDWAR Sodium Chloride (0.9 % Sodium Chloride Flush 3 Ml Syringe) 3 ml IVFLUSH QSHIFT [facility] Last Admin: 05/06/24 09:34 Dose: 3 ml Documented By: LUIS Spironolactone (Spironolactone 25 Mg Tablet) 25 mg PO DAILY [facility]; Protocol Last Admin: 05/06/24 09:34 Dose: 25 mg Documented By: LUIS Labs 05/03/24 04:35 05/04/24 12:52 Labs: Laboratory Results - last 24 hr 05/03/24 05/04/24 07:41 04:31 B-Natriuretic Peptide Ur Strep pneumoniae Ag Not Detected Assessment and Plan (1) Pneumonia: Status: Acute (2) Acute respiratory failure with hypoxia: Status: Acute Plan 83 year female with PAF, HTN, HLD, emphysema here with SOB d/t CAP and emphysema causing acute hypoxic resp failure Acute hypoxic resp failure 2/2 acute diastolic heart failure and Pneumonia improving Echo showing EF 70% continue Ceftriaxone and Azithro started 05/03 Continue IV Lasix, switch to PO as tolerated Cardiology input appreciated cough meds prn Wean O2 down as tolerated PAF with RvR DC multaq given heart failure Converted back to sinus No Digoxin, can not use Amiodarone or Sotalol Continue xarelto Continue Atenolol keep on Tele cxr similar , cadded CT scan (? previous ct scam ? of emphysema ) Acute hypokalemia replacement given Added spironolactone 25 mg daily HLD hold statin in light of mild elevated lfts which is new HTN continue Atneolol DVT prophylaxis xarelto (took it last evening) Full code,, Will need overnight stay for for management of acute hypoxic resp failure d/t PNA and CHF needing iv Abx, Lasix and supplemental O2 Quality Stroke Does the patient have a stroke diagnosis?: No VTE Prior VTE?: No VTE Risk Level:: Medical - moderate - high VTE Device Contraindication: Treatment Not Indicated VTE Drug Contraindication: N/A - Med Ordered
[2024-05-06] MEDS: Rivaroxaban 20 MG TABLET PO (17:29)
[2024-05-06] MEDS: Melatonin 3 MG TABLET 6 MG PO (20:05)
[2024-05-07 03:50] VITALS: BP 128/64; PULSE 61; RESP 16; TEMP 36.4; O2SAT 98
[2024-05-07] MEDS: Azithromycin 250 MG TABLET PO (06:29)
[2024-05-07] MEDS: cefTRIAXone sodium 1 GM VIAL IVPUSH (06:31)
[2024-05-07 06:34] LABS: Legionella Ag Urine Not Detected (Not Detected)
[2024-05-07 07:21] VITALS: BP 114/72; PULSE 59; RESP 18; TEMP 36.8; O2SAT 94
[2024-05-07] MEDS: atenoloL 50 MG TABLET PO (09:58)
[2024-05-07] MEDS: Multivitamin TABLET 1 TAB PO (09:58)
[2024-05-07] MEDS: Spironolactone 25 MG TABLET PO (09:59)
[2024-05-07] MEDS: Ascorbic Acid 500 MG TABLET PO (09:59)
[2024-05-07] MEDS: Furosemide 40 MG TABLET PO (09:59)
[2024-05-07] MEDS: 0.9 % Sodium Chloride Flush 3 ML SYRINGE IVFLUSH (09:59)
[2024-05-07] MEDS: amLODIPine Besylate 2.5 MG TABLET PO (09:59)
[2024-05-07] MEDS: Calcium Oyster Shell Elemental 500 MG TABLET PO (10:01)
[2024-05-07] MEDS: Dorzolamide/Timolo 2.23%/0.68% 10 ML DRBTL 1 DROP EYE-BOTH (10:01)
[2024-05-07 11:10] VITALS: BP 123/58; PULSE 62; RESP 18; TEMP 36.7; O2SAT 94
--- NOTE | 2024-05-07 11:22 | PM.CNPUL ---
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 CT chest was obtained and showed findings similar to her prior CT chest. At the time of examination patient is maintaining normal oximetry on room air. Review of Systems Constitutional: Constitutional: Denies daytime sleepiness, Denies excessive sweating, Denies fatigue, Denies fever(s), Denies lethargy, Denies malaise, Denies night sweats, Denies snoring and Denies weight loss Eyes: Eyes: Denies blurry vision and Denies itchy eyes ENT: Denies nasal congestion, Denies post nasal drip, Denies sinus pain, Denies sinus pressure and Denies other ( Thrush) Cardiovascular: Cardiovascular: Denies chest pain, Denies pedal edema, Denies dyspnea, Denies orthopnea and Denies paroxysmal nocturnal dyspnea Respiratory: Respiratory: Denies cough, Denies hemoptysis, Denies excessive phlegm production, Denies dyspnea, Denies snoring and Denies wheezing Gastrointestinal: Gastrointestinal: Denies abdominal pain and Denies heartburn Musculoskeletal: Musculoskeletal: Denies myalgias, Denies arthralgias and Denies joint swelling Integumentary/Breasts: Skin/Breast: Denies rash Neurologic: Denies memory loss and Denies seizure-like activity Psychiatric: Psychiatric: Denies abnormal sleep pattern, Denies anxiety and Denies memory loss Endocrine: Endocrine: Denies excessive sweating, Denies fatigue and Denies heat intolerance Hematologic/Lymphatic: Hematologic/Lymphatic: Denies easy bruising Allergic/Immunologic: Allergic/Immunologic: Denies itchy eyes, Denies seasonal rhinorrhea and Denies wheezing PMFSH Past Medical History Medical History Irritable bowel syndrome with diarrhea History of compression fracture of spine Emphysema lung Thoracic compression fracture Lumbar compression fracture Colonoscopy refused COVID-19 vaccine series declined Immunization declined Positive FIT (fecal immunochemical test) Mammogram declined Dyslipidemia Postmenopause Normocytic anemia Hx: UTI (urinary tract infection) PAF (paroxysmal atrial fibrillation) Unspecified glaucoma Osteoporosis Thrombocytopenia Hypertension Family History Family History Father Lung cancer Mother Unknown family medical history Maternal Grandfather No problems noted. Maternal Grandmother No problems noted. Paternal Grandmother No problems noted. Sister No problems noted. Surgical History Surgical History H/O kyphoplasty History of lumpectomy of left breast History of colonoscopy History of section Social History Social History Household Members: None Housing: Condominium Are you a primary customer care voice consultant to a significant other at home: No Do you presently have visiting nurse or other home services: No Alcohol intake: never Patient Tobacco Use Status: Former Tobacco user Tobacco use type: Cigarette e-Cigarette/Vaping Use: Never Used Second Hand Smoke Exposure: No Advance Directives Date on File: 03/12/22 service: No Current occupational status: retired Cognitive needs: No Hearing needs: No Vision needs: Yes Meds Allergies Allergy/AdvReac Type Severity Reaction Status Date / Time diltiazem Allergy Rash Verified 05/03/24 07:05 ssri Allergy Unknown diarrhea Uncoded 05/03/24 07:05 Augmex AdvReac Unknown severe Uncoded 05/03/24 07:05 vomiting/diarrhea Active Medications: Current Medications Acetaminophen (Acetaminophen 325 Mg Tablet) 650 mg PO Q6H PRN PRN Reason: Pain, Mild 1-3,fever,headache Amlodipine Besylate (Amlodipine Besylate 2.5 Mg Tablet) 2.5 mg PO DAILY [facility]; Protocol Last Admin: 05/07/24 09:59 Dose: 2.5 mg Ascorbic Acid (Ascorbic Acid 500 Mg Tablet) 500 mg PO DAILY [facility] Last Admin: 05/07/24 09:59 Dose: 500 mg Atenolol (Atenolol 50 Mg Tablet) 50 mg PO DAILY [facility]; Protocol Last Admin: 05/07/24 09:58 Dose: 50 mg Atorvastatin Calcium (Atorvastatin Calcium 10 Mg Tablet) 10 mg PO MOWE [facility] Last Admin: 05/04/24 16:02 Dose: 10 mg Azithromycin (Azithromycin 250 Mg Tablet) 250 mg PO Q24H [facility] Last Admin: 05/07/24 06:29 Dose: 250 mg Calcium Carbonate (Calcium Carbonate 750 Mg Tab.Chew) 750 mg PO Q4H PRN PRN Reason: Heartburn Calcium Carbonate (Calcium Oyster Shell Elemental 500 Mg Tablet) 500 mg PO DAILY [facility] Last Admin: 05/07/24 10:01 Dose: 500 mg Ceftriaxone Sodium (Ceftriaxone Sodium 1 Gm Vial) 1 gm IVPUSH Q24H [facility] Last Admin: 05/07/24 06:31 Dose: 1 gm Dorzolamide/Timolol (Dorzolamide/Timolo 2.23%/0.68% 10 Ml Drbtl) 1 drop EYE-BOTH BID [facility] Last Admin: 05/07/24 10:01 Dose: 1 drop Furosemide (Furosemide 40 Mg Tablet) 40 mg PO DAILY [facility]; Protocol Last Admin: 05/07/24 09:59 Dose: 40 mg Magnesium Hydroxide (Milk Of Magnesia 30 Ml Oral.Susp) 30 ml PO DAILY PRN PRN Reason: Constipation Melatonin (Melatonin 3 Mg Tablet) 6 mg PO BEDTIME PRN PRN Reason: Insomnia Last Admin: 05/06/24 20:05 Dose: 3 mg Metoprolol Tartrate (Metoprolol Tartrate 5 Mg/5 Ml Vial) 5 mg IVPUSH Q6H PRN; Protocol PRN Reason: HR>120 Multivitamins/Vitamin C (Multivitamin Tablet) 1 tab PO DAILY [facility] Last Admin: 05/07/24 09:58 Dose: 1 tab Polyethylene Glycol (Polyethylene Glycol 3350 17 Gm Powd.Pack) 17 gm PO DAILY PRN PRN Reason: Constipation Rivaroxaban (Rivaroxaban 20 Mg Tablet) 20 mg PO DAILY@1700 [facility] Last Admin: 05/06/24 17:29 Dose: 20 mg Sodium Chloride (0.9 % Sodium Chloride Flush 3 Ml Syringe) 3 ml IVFLUSH QSHIFT [facility] Last Admin: 05/07/24 09:59 Dose: 3 ml Spironolactone (Spironolactone 25 Mg Tablet) 25 mg PO DAILY [facility]; Protocol Last Admin: 05/07/24 09:59 Dose: 25 mg Home Medications ?Medication ?Instructions ?Recorded ?Confirmed ?Last Taken ?Type multivitamin 1 tab PO DAILY 05/18/20 05/03/24 05/02/24 History ascorbate calcium (vitamin C) 500 500 mg PO DAILY 05/16/21 05/03/24 05/02/24 History mg tablet dorzolamide 22.3 mg-timolol 6.8 1 drp ophthalmic (eye) BID 01/22/22 05/03/24 05/02/24 History mg/mL eye drops acetaminophen 650 mg 650 mg PO TID PRN Pain 06/17/23 05/03/24 05/02/24 History tablet,extended release (Tylenol Arthritis Pain) rivaroxaban 20 mg tablet (Xarelto) 20 mg PO DAILY@1700 07/31/23 05/03/24 05/02/24 History atorvastatin 10 mg tablet 10 mg PO MOWE 05/03/24 05/03/24 05/02/24 History calcium carbonate 500 mg PO DAILY 05/03/24 05/03/24 05/02/24 History Physical Exam Vital Signs: Vital Signs: Last Vital Signs Temp 98.1 F 05/07/24 11:10 Pulse 62 05/07/24 11:10 Resp 18 05/07/24 11:10 BP 123/58 L 05/07/24 11:10 Pulse Ox 94 05/07/24 11:10 O2 Del Method Room Air 05/07/24 11:10 O2 Flow Rate 2 05/04/24 11:35 BMI result Body Mass Index 27.0 Const: General: no acute distress and alert Nutritional Appearance: not obese Orientation/consciousness: Other orientation findings ( oriented) HEENT: Head: Yes atraumatic Eyes: General: appearance normal, both eyes and all related structures Sclerae: sclerae normal EOM: EOMs intact bilaterally Neck: Neck: Yes supple Lymphatic: no lymphadenopathy noted Resp: Effort & Inspection: normal respiratory effort and no use of accessory muscles Auscultation: clear to auscultation bilaterally Cardio: Rate: regular rate Rhythm: regular rhythm Heart sounds: no gallops, no murmurs and no rubs Skin: General skin exam: other ( warm) Extrem: General: No clubbing, No cyanosis and No edema Results Laboratory Findings 05/03/24 04:35 05/04/24 12:52 Abnormal lab findings: Abnormal Labs 05/03/24 05/04/24 05/04/24 04:35 04:31 12:52 RBC 3.60 L Hgb 11.2 L Hct 33.1 L D Neut % (Auto) 81.8 H Lymph % (Auto) 6.8 L Lymph # (Auto) 0.7 L Abs Immat Gran (auto) 0.04 H Potassium 2.9 L* BUN 19 H 18 H Random Glucose 136 H 120 H Calcium 8.2 L Total Bilirubin 1.6 H AST 44 H 58 H ALT 34 H 45 H Total Protein 5.9 L 6.0 L Albumin 3.3 L 3.1 L Microbiology: Microbiology 05/03/24 06:06 Blood - Venous Blood Culture - Preliminary No growth after 48 hours. 05/03/24 06:05 Blood - Venous Blood Culture - Preliminary No growth after 48 hours. Assessment and Plan (1) Interstitial lung disease: Status: Acute Plan Impression: 83-year-old lady admitted with dyspnea and treated for heart failure exacerbation with improvement to baseline. 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 Patient at this time is at her baseline respiratory status. Recommendations: No acute intervention from pulmonary perspective. Continue outpatient pulmonary follow-up. Procedures Date of Service Date of Service: 05/07/24
--- NOTE | 2024-05-07 11:29 | W.MHC.F2F ---
Service Date Service Date: 05/07/24 Encounter Date of encounter: 05/07/24 Encounter: chf Reasons for Services Signs and symptoms assessed: sob Reason for intermediate: medication management, medication treatment and teach disease management Reason for physical therapy: home safety and mobility, therapeutic exercises, restore joint function, gait/transfer training, assess need for DME, ADL training, energy conservation and other MD Overseeing Care: Ellie Chen Homebound: Leaving the home is medically contraindicated at this time without the asist of a device and/or another person due th the listed conditions above and below. Reason homebound: weakness related to hospital stay Homebound supporting statement: Patient is generalised weak post hospitlisation and need help with going to appointments and labs draws as well as PT. Certification: Based on the above findings, I certify that this patient is confined to the home and needs intermittent intermediate care, physical therapy and/or speech therapy, or continues to need occupational therapy. The patient is under my care, and I have initiated the establishment of the plan of care. The patient will be followed by a physician who will periodically review the plan of care. Time Spent With Patient Time: Total time managing care of this patient today ____ minutes.
--- NOTE | 2024-05-07 11:54 | MHC.CM.PN ---
Second IMM 05/07/24, Pt has been medically cleared for DC, she will go home via family transport, and have home care from [facility].
--- NOTE | 2024-05-07 13:43 | P.DS_ITS ---
DS: Providers Provider Date of Service: 05/07/24 Date of admission: 05/03/24 06:47 Date of discharge: 05/07/24 Primary care physician: Ellie Chen MD Consults: 05/03/24 06:48 Consult to Cardiology Routine Consulting Provider: [facility] Reason for consultation: heart failure Has provider been notified: Yes 05/03/24 09:35 Consult to Wound Care Routine Reason for consultation: redness to sacrum/blanchable 05/07/24 08:26 Consult to Pulmonology Routine Consulting Provider: [facility] Reason for consultation: pneumonia vs ILD Has provider been notified: No Attending physician on discharge: Willie Gaspar Discharging clinician: Willie Gaspar DS: Diagnosis Discharge Diagnosis (1) Interstitial lung disease: Status: Acute DS: Summary Hospital Course Hospital Course: Hpi:83-year-old female with a history of HTN, HLD, emphysema, and AFIB on Eliis presents with shortness of breath, which she has been experiencing for nearly six days. Her symptoms worsened this morning, prompting her to call EMS. On evaluation, she was found to have an O2 saturation of 91% on room air and wheezing. She was given nebulized bronchodilators and steroids by EMS, improving her oxygen saturation to 100%. Other symptoms include a recent sore throat and cough associated with right-sided chest pain. ED workup was negative for influenza, COVID-19, and RSV. WBC count is normal. CXR revealed right upper lobe pneumonia (RUL PNA). ECG showed no ischemic changes. ED treatment included ceftriaxone, azithromycin, and IV fluids. Hospital course: 83 year female with PAF, HTN, HLD, emphysema here with SOB d/t CAP and emphysema causing acute hypoxic resp failure possible secondary to CHF(HFpEF/question of pneumonia: started on iv lasix ,also given antibiotics ,echo and cxr done -chest x-ray showed interstitial opacities, echo EF is 70%: Patient diuresed well and improved, Multaq discontinued.reivewed with pulmonary CT chest -has emphysema with interstitial opacities, less likely pneumonia(please see chest imaging for details below in imaging section). Discussed with the Pulmonary-less likely pneumonia, interstitial changes possible related to amiodarone. antibiotics stopped (patient got 5 days antibiotics). PAF with rvr -patient was given IV metoprolol. Heart rate seems to be improved.converted to nsr. Cardiology recommended to continue atenolol, DC multaq given heart failure, no amiodarone secondary to above pulmonary CT changes. Hypokalemia: Repleted and resolved. Monitor BMP outpatient. plan: moniter bmp outpatient continue atenolol follow up with pcp, pulmonary outpatient and cardiology outpatient. above management d/w patient and her son at bedside in detail-they both understands and aggreement with above plan, time spent 40 min. Time Attestation Total time managing care of this patient today: 40 mintues. Discharge Coordination Time (in mins): 40 min Quality: Safe Use of Opioids Does Pt have an Active Cancer Diagnosis on the Problem List?: No Quality: Stroke Does the patient have a stroke diagnosis?: No Physical Exam Vital Signs: Vital Signs: Last Vital Signs Temp 98.1 F 05/07/24 11:10 Pulse 62 05/07/24 11:10 Resp 18 05/07/24 11:10 BP 123/58 L 05/07/24 11:10 Pulse Ox 94 05/07/24 11:10 O2 Del Method Room Air 05/07/24 11:10 O2 Flow Rate 2 05/04/24 11:35 BMI result Body Mass Index 27.0 Appearance: Alert.? Oriented X3.?. cvs: rrr, [id number] , no murmur res: air entry fair. abd: no rebound or guarding ,nt, bs present. ext pulses present , no cyanosis . neuro: axo3 , nonfocal. DS: Data Data Completed and Pending Labs on day of discharge: Laboratory Results - last 24 hr 05/03/24 05/04/24 07:41 04:31 B-Natriuretic Peptide Ur L.pneumophila Ag Not Detected Preliminary micro results at discharge 05/03/24 06:06 Blood Culture - Preliminary Blood - Venous No growth after 48 hours. 05/03/24 06:05 Blood Culture - Preliminary Blood - Venous No growth after 48 hours. Imaging Chest x-ray: Radiologist's impression: ITS Impressions Chest X-Ray 05/03/24 05:05 IMPRESSION: 1. Right upper lung field infiltrate and left perihilar infiltrate. Pneumonia suspected. 2. Diffuse increased lung markings. Electronically signed by: Praful Hopkins MD 05/03/2024 05:19 AM EST RP Chest X-Ray 05/06/24 07:43 IMPRESSION: Chronic interstitial prominence with patchy right upper lobe airspace opacities, similar or slightly increased when compared to the prior examination. Electronically signed by: Corey Juan MD 05/06/2024 10:12 AM EST RP Chest CT 05/06/24 13:30 IMPRESSION: 1. Moderate emphysematous changes are redemonstrated, increased when compared to the prior examination. Interstitial prominence with patchy ground versus airspace opacities most prominent within the right upper lobe as well as the anterior aspect of the left upper lobe, significantly increased when compared to the prior examination. Additional patchy areas within the apex of the right lower lobe. No large, confluent airspace consolidation. 2. Stable dilatation of the ascending thoracic aorta measuring up to 4.1 cm. 3. Stable superior mediastinal lymphadenopathy. 4. Interval kyphoplasty at L1 and T10, new when compared to the prior examination. Near-complete compression deformity of T12, increased when compared to the prior CT. Stable compression deformity of T8. Fleischner guidelines were followed. Electronically signed by: Corey Juan MD 05/06/2024 03:01 PM EST RP Discharge Plan Discharge Anticipated Discharge Date/Time: 05/07/24 11:11 Patient Disposition: Home Health Service Discharge Diagnosis: Acute hypoxic resp failure 2/2 acute diastolic heart failure,less likely pneumonia -? ct changes sec to drug related. Referrals: [facility] [Outside] - 1 Week Ellie Chen MD [Primary Care Provider] - 1 Week Discharge Medications: New spironolactone 25 mg Tablet 25 mg PO DAILY Qty: 90 0RF Protocol: Hold for SBP< HOLD for SBP < : 90 furosemide 40 mg Tablet 40 mg PO DAILY Qty: 90 0RF Protocol: Hold for SBP< HOLD for SBP < : 90 Continued atenolol 50 mg tablet 50 mg PO DAILY 90 Days Qty: 90 3RF amlodipine 2.5 mg tablet 2.5 mg PO DAILY Qty: 30 3RF multivitamin Tablet 1 tab PO DAILY calcium carbonate 500 mg calcium (1,250 mg) Tablet 500 mg PO DAILY atorvastatin 10 mg tablet 10 mg PO MOWE Xarelto 20 mg tablet 20 mg PO DAILY@1700 Rx Instructions: must administer with evening meal ascorbate calcium (vitamin C) 500 mg tablet 500 mg PO DAILY acetaminophen [Tylenol Arthritis Pain] 650 mg tablet extended release 650 mg PO TID PRN (Reason: Pain) Rx Instructions: 1 1/2 po 6 hrs prn dorzolamide-timolol 22.3-6.8 mg/mL drops 1 drp ophthalmic (eye) BID Discontinued Multaq 400 mg tablet 400 mg PO BID Qty: 60 5RF Rx Instructions: must administer with a meal/food New - she has a coupon for free 30 day supply Discharge Orders: Discharge Order (Routine); Ordered 05/07/24 Ordered By: Willie Gaspar Diet: Advance to usual diet Activity on Discharge: As tolerated Stand Alone Forms: Patient Portal Discharge page Print Language: [place] Islander Other Ambulatory Orders: Basic Metabolic Panel (Routine) Timeframe: 1 Week Facility: [facility] - Location: Laboratory Ordered By: Willie Gaspar Care Plan Goals: 83 year female with PAF, HTN, HLD, emphysema here with SOB d/t CAP and emphysema causing acute hypoxic resp failure possible secondary to CHF(HFpEF/question of pneumonia: started on iv lasix ,also given antibiotics ,echo and cxr done -chest x-ray showed interstitial opacities, echo EF is 70%: Patient diuresed well and improved, Multaq discontinued. CT chest was done to clarify interstitial changes-has emphysema with interstitial opacities, less likely pneumonia. Discussed with the Pulmonary-less likely pneumonia, interstitial changes possible related to amiodarone. PAF with rvr -patient was given IV metoprolol. Heart rate seems to be improved. Cardiology recommended to continue atenolol, DC multaq given heart failure, no amiodarone secondary to above pulmonary CT changes. Hypokalemia: Repleted and resolved. Monitor BMP outpatient. Health Concerns: moniter bmp outpatient continue atenolol follow up Plan of Treatment: as above. Assessment: as above.
== END 2024-05-07 15:17 | disposition home health service (06) | DRG 291 ==
LOC: HO.ED 05:56 → HO.EDOVER 06:53 → HO.IMC 08:15
PROVIDERS: Student in an Organized Health Care Education/Training Program; Admitting Provider Internal Medicine; Emergency Provider Emergency Medicine; PCP Internal Medicine; Visit Provider Internal Medicine
DX: I11.0 Hypertensive heart disease with heart failure (principal); I50.31 Acute diastolic (congestive) heart failure; J96.01 Acute respiratory failure with hypoxia; I48.0 Paroxysmal atrial fibrillation; J43.9 Emphysema, unspecified; J70.3 Chronic drug-induced interstitial lung disorders; T46.2X5S Adverse effect of other antidysrhythmic drugs, sequela; E87.6 Hypokalemia; E78.5 Hyperlipidemia, unspecified; Z20.822 Contact with and (suspected) exposure to COVID-19; Z87.891 Personal history of nicotine dependence; Z79.01 Long term (current) use of anticoagulants; Z79.899 Other long term (current) drug therapy
CPT/HCPCS: 0241U; 36415; 71045; 71250; 80048; 80053; 83605; 83735; 83880; 84484; 85025; 87040; 87449; 87899; 93005; 93306; 97162; 99285; J0456; J0696; J1160; J1940; J3480; Q9957

== ENCOUNTER → 2024-05-03 06:47 | Outpatient (BNV) | payer MEDICARE, SELFPAY | PROVIDERS: Admitting Provider Internal Medicine; Emergency Provider Emergency Medicine; PCP Internal Medicine; Visit Provider Internal Medicine Pulmonary Disease | DX: J84.9 Interstitial pulmonary disease, unspecified (principal) | CPT/HCPCS: 99221 ==

== ENCOUNTER → 2024-05-03 06:47 | Outpatient (BNV) | payer MEDICARE, SELFPAY | PROVIDERS: Admitting Provider Internal Medicine; Emergency Provider Emergency Medicine; PCP Internal Medicine; Visit Provider Internal Medicine Cardiovascular Disease | DX: I50.9 Heart failure, unspecified (principal); I48.0 Paroxysmal atrial fibrillation | CPT/HCPCS: 99233 ==

== ENCOUNTER → 2024-05-03 06:47 | Outpatient (BNV) | payer MEDICARE, SELFPAY | PROVIDERS: Admitting Provider Internal Medicine; Emergency Provider Emergency Medicine; PCP Internal Medicine; Visit Provider Student in an Organized Health Care Education/Training Program | DX: J18.9 Pneumonia, unspecified organism (principal); J96.01 Acute respiratory failure with hypoxia | CPT/HCPCS: 99223; 99232; 99499 ==

== ENCOUNTER 2024-05-24 12:46 | Outpatient (AMB) | payer MEDICARE, SELFPAY ==
[2024-05-24 12:54] VITALS: BP 120/72; PULSE 66; BMI 23.3
--- NOTE | 2024-05-24 12:54 | A.OFFVIS_ITS ---
Vital Signs 05/24/24 12:54 Height 5 ft 6 in Weight 144 lb 9.972 oz BMI 23.3 BP 120/72 Blood Pressure Location Lt brachial Position Sitting Pulse 66 Pulse Source Monitor Intake Visit Reasons: f/u [facility] [place] Telecommunication Tower Technician Required: No Solderer Assembler: Solderer Assembler Present Allergies diltiazem Allergy (Verified 05/24/24 12:58) Rash dronedarone [From Multaq] Adverse Reaction (Severe, Verified 05/24/24 13:54) CHF ssri Allergy (Unknown, Uncoded 05/24/24 12:58) diarrhea Amiodarone Adverse Reaction (Severe, Uncoded 05/24/24 13:54) Interstitial lung changes Augmex Adverse Reaction (Unknown, Uncoded 05/24/24 12:58) severe vomiting/diarrhea Medication List - Last Reconciled 05/24/24 by Ashwini Garcia NP-C acetaminophen ER (Tylenol Arthritis Pain) 650 mg PO TID PRN amlodipine 2.5 mg PO DAILY ascorbate calcium (vitamin C) 500 mg PO DAILY atenolol 50 mg PO DAILY atorvastatin 10 mg PO MOWE calcium carbonate 500 mg PO DAILY dorzolamide-timolol 22.3-6.8 mg/mL 1 drp ophthalmic (eye) BID furosemide 40 mg See Protocol PO DAILY multivitamin 1 tab PO DAILY rivaroxaban (Xarelto) 20 mg PO DAILY@1700 spironolactone 25 mg See Protocol PO DAILY HPI HPI f/u [facility] [place] discharge: Details: Zuleima is an 83-year-old female past medical history of hypertension, hyperlipidemia, remote history of smoking, paroxysmal atrial fibrillation which had been suppressed with amiodarone who was found to have lung changes on recent chest x-ray and prior CT scan. She underwent pulmonology evaluation with recommendation to stop amiodarone which was done on 03/17/2024. She was then started on Multaq for rhythm control. She was admitted to [facility] [place] 1 month later with shortness of breath, cough, edema. She was initially thought to have pneumonia and then determined to have new CHF, worsening of emphysema lung changes. She was diuresed and discharged with Lasix and aldactone. She did have PAF during her admission that was managed with rate control. Multaq was stopped. She now presents for follow-up. Today she reports that her breathing is almost back to normal. Still has weakness from being in the hospital and has VNA services and home physical therapy. She is currently ambulating with a walker. She is confused about the medications she is taking and why she is on each of them. She feels the Multaq was the reason for her Congestive heart failure and does not ever want that medication again. She has been taking her atenolol, only half a tablet daily. She does not believe she needs amlodipine 2.5 mg daily. She wants to stay on the diuretics at this time since her breathing has been good and she is still recovering from her hospital admission. No chest pains at rest or with activity. No PND, orthopnea or edema. No heart palpitations, presyncope, syncope, falls. No bleeding issues reported. [id number] is present. [facility] Medical History Irritable bowel syndrome with diarrhea History of compression fracture of spine Emphysema lung Thoracic compression fracture Lumbar compression fracture Colonoscopy refused COVID-19 vaccine series declined Immunization declined Positive FIT (fecal immunochemical test) Mammogram declined Dyslipidemia Postmenopause Normocytic anemia Hx: UTI (urinary tract infection) PAF (paroxysmal atrial fibrillation) Unspecified glaucoma Osteoporosis Thrombocytopenia Hypertension Surgical History H/O kyphoplasty History of lumpectomy of left breast History of colonoscopy History of section Family History Father Lung cancer Mother Unknown family medical history Maternal Grandfather No problems noted. Maternal Grandmother No problems noted. Paternal Grandmother No problems noted. Sister No problems noted. Social History Household Members: None Housing: Condominium Are you a primary daycare director to a significant other at home: No Do you presently have visiting nurse or other home services: No Alcohol intake: never Patient Tobacco Use Status: Former Tobacco user Tobacco use type: Cigarette e-Cigarette/Vaping Use: Never Used Second Hand Smoke Exposure: No Advance Directives Date on File: 03/12/22 service: No Current occupational status: retired Cognitive needs: No Hearing needs: No Vision needs: Yes Review of Systems Const All systems reviewed & are unremarkable except as noted in HPI and below ENT Denies dizziness Card Denies chest pain, Denies chest pain at rest, Denies chest pain with activity, Denies rapid heart rate, Denies pedal edema, Denies edema, Denies leg edema, Denies lightheadedness, Denies palpitations, Denies dyspnea, Denies dyspnea on exertion and Denies orthopnea Resp Denies cough, Denies dyspnea and Denies dyspnea on exertion GI Denies hematochezia and Denies change in stool character Musc Denies abnormal gait, Denies limited range of motion, Denies muscle cramps, Denies muscle weakness, Denies numbness, Denies radiating pain into limb, Denies stiffness and Denies tingling Neuro Denies abnormal gait, Denies dizziness, Denies numbness and Denies tingling Endo Denies palpitations Physical Exam Vital Signs: BMI result Body Mass Index 23.3 Const General: cooperative, healthy appearing, comfortable and no acute distress Orientation/consciousness: patient oriented x3 Neck Neck: Yes normal visual inspection Resp Effort & Inspection: normal respiratory effort Auscultation: clear to auscultation bilaterally, no crackles, no rales, no rhonchi and no wheezes Cardio Jugular venous distension: no JVD Rate: regular rate Rhythm: regular rhythm Heart sounds: S1 normal heart sound present, S2 normal heart sound present, no murmurs and no rubs Neuro General: patient oriented x3 Extrem General: Yes normal to inspection Psych Appearance: grossly normal Mental Status: mental status grossly normal Speech and movement: Normal speech and movement present Office Procedures EKG Details: Today, read by me, normal sinus rhythm, nonspecific ST abnormality, rate 66, QTC 486 millisecond [id number], Complete Assessment & Plan Assessment & Plan (1) PAF (paroxysmal atrial fibrillation): Code(s): I48.0 - Paroxysmal atrial fibrillation Category: Medical Plan: History of paroxysmal atrial fibrillation, symptomatic. Initial finding May 2020 during [facility] [place] admit for UTI, urosepsis. Echocardiogram 05/21/2020 showed EF 60-65%, normal valves. Holter monitor done 06/18/2020 showed sinus rhythm, occasional PACs and PVCs, no AFib, average heart rate 68. A nuclear stress test done on 06/18/2020 showed normal myocardial perfusion imaging. She was initially treated with rate control then eventually required rhythm control with amiodarone. Amiodarone had done very well at suppressing her rhythm however recent chest x-ray showed patchy bilateral upper lobe interstitial prominence and ground-glass densities. A prior CT scan of the chest done 05/30/2022 had shown diffuse emphysema. She has a remote history of smoking. We had her undergo pulmonology evaluation who recommended stopping amiodarone. Amiodarone stopped on 11/2023. She was then started on Multaq to help maintain rhythm control. One month later she was admitted to [facility] [place] with increased shortness of breath and edema. She was treated initially for pneumonia then felt to have Congestive heart failure/increasing emphysema. Multaq was stopped. She was continued on atenolol only. Echocardiogram from 05/03/2024 showed EF greater than 70%, left atrium normal size. Today she reports no heart palpitations since her hospital discharge. She says she was told to take only half the tablet of the atenolol. (discharge note does say 50 mg daily). EKG done today shows sinus rhythm with nonspecific ST abnormality, rate 66. I ambulated her in the [place] and heart rate easily went up to 71. Will have her take a full tablet of atenolol daily, 50 mg. She does not want to take amlodipine as the dose is very small in the atenolol helps keep her blood pressure control. Will have her stop amlodipine. Continue Xarelto for anticoagulation. Going forward we may need to treat her PAF with rate control. We no longer able to use amiodarone, Multaq. She does not want sotalol or Tikosyn as they will require hospital admission for the initial administrations. She adamantly refuses ablation. She has VNA services at home currently. They will check her vital signs and call if any significant abnormalities. ED care if needed for recurrent AFib. Cardiology follow-up 1 month, sooner if needed. - for next visit we talked a bout reducing diuretics if her breathing continues to be normal. (2) Hypertension: Code(s): I10 - Essential (primary) hypertension Category: Medical Qualifiers: Hypertension type: essential hypertension Qualified Code(s): I10 - Essential (primary) hypertension Plan: Well controlled at this time. Adjusting atenolol and stopping amlodipine as above (3) Hospital discharge follow-up: Code(s): Z09 - Encounter for follow-up examination after completed treatment for conditions other than malignant neoplasm Category: Medical Plan: As above Plan Time spent on chart review, documentation, interview, assessment Medications: New atenolol 50 mg PO DAILY 90 tabs 1RF Discontinued amlodipine Discontinued Reason: Doctor's Order 2.5 mg PO DAILY 90 tabs 3RF Coding Level of Care Code Est Pt Level 4 (69986) Complex EM visit Add On G2211 Diagnoses PAF (paroxysmal atrial fibrillation) I48.0 Essential hypertension I10 Hypertension type: essential hypertension Hospital discharge follow-up Z09 CPT Codes EKG - CPT: 42139-[id number], Complete ([id number]) Time Spent (min) 36
== END 2024-05-24 13:52 | disposition home or self-care (01) ==
PROVIDERS: PCP Internal Medicine; Visit Provider Nurse Practitioner Family
DX: I48.0 Paroxysmal atrial fibrillation (principal); I10 Essential (primary) hypertension; Z09 Encounter for follow-up examination after completed treatment for conditions other than malignant neoplasm
CPT/HCPCS: 93010; 99214; G2211

== ENCOUNTER → 2024-05-24 12:46 | Outpatient (BNVA) | payer MEDICARE, SELFPAY | PROVIDERS: PCP Internal Medicine; Visit Provider Nurse Practitioner Family | DX: Z09 Encounter for follow-up examination after completed treatment for conditions other than malignant neoplasm (principal); I48.0 Paroxysmal atrial fibrillation; I10 Essential (primary) hypertension | CPT/HCPCS: 93005; 99212 ==

== ENCOUNTER 2024-07-11 08:11 | Outpatient (AMB) | payer MEDICARE, SELFPAY ==
[2024-07-11 08:28] VITALS: BP 134/60; PULSE 61; BMI 23.5
--- NOTE | 2024-07-11 08:28 | MHC.OFFVIS ---
Vital Signs 07/11/24 08:28 Height 5 ft 6 in Weight 145 lb 8.081 oz BMI 23.5 BP 134/60 Blood Pressure Location Lt brachial Position Sitting Pulse 61 Pulse Source Pulse Oximeter Intake Visit Reasons: 1m f/up [employer] Hrms Developer Required: No Visual Merchandising Specialist: Visual Merchandising Specialist Present Allergies diltiazem Allergy (Verified 07/11/24 08:31) Rash dronedarone [From Multaq] Adverse Reaction (Severe, Verified 07/11/24 08:31) CHF ssri Allergy (Unknown, Uncoded 07/11/24 08:31) diarrhea Amiodarone Adverse Reaction (Severe, Uncoded 07/11/24 08:31) Interstitial lung changes Augmex Adverse Reaction (Unknown, Uncoded 07/11/24 08:31) severe vomiting/diarrhea Medication List - Last Reconciled 07/11/24 by Ashwini Garcia, COMMERCIAL SALES CONSULTANT-C acetaminophen ER (Tylenol Arthritis Pain) 650 mg PO TID PRN ascorbate calcium (vitamin C) 500 mg PO DAILY atenolol 50 mg PO DAILY atorvastatin 10 mg PO MOWE calcium carbonate 500 mg PO DAILY dorzolamide-timolol 22.3-6.8 mg/mL 1 drp ophthalmic (eye) BID furosemide 40 mg See Protocol PO DAILY multivitamin 1 tab PO DAILY rivaroxaban (Xarelto) 20 mg PO QPM spironolactone 25 mg See Protocol PO DAILY HPI HPI 1m f/up: Details: Kallie is an 83-year-old female past medical history of hypertension, hyperlipidemia, remote history of smoking, paroxysmal atrial fibrillation, interstitial lung disease, who presents for follow-up. Today she reports that she has been doing very well since her last visit in May. She tells me her breathing is normal. She denies shortness of breath with activity. No PND, orthopnea or edema. No chest discomfort at rest or with activity. Occasional brief heart palpitations however not causing her concern. No lightheadedness, presyncope, syncope. She has previously on amiodarone which was stopped due to abnormal CT scan of lungs. She was put on Multaq which was then stopped when she developed some mild Congestive heart failure. She is now just on atenolol. Bleeding issues with Xarelto. [id number] is present. [facility] Medical History Irritable bowel syndrome with diarrhea History of compression fracture of spine Emphysema lung Thoracic compression fracture Lumbar compression fracture Colonoscopy refused COVID-19 vaccine series declined Immunization declined Positive FIT (fecal immunochemical test) Mammogram declined Dyslipidemia Postmenopause Normocytic anemia Hx: UTI (urinary tract infection) PAF (paroxysmal atrial fibrillation) Unspecified glaucoma Osteoporosis Thrombocytopenia Hypertension Surgical History H/O kyphoplasty History of lumpectomy of left breast History of colonoscopy History of section Family History Father Lung cancer Mother Unknown family medical history Maternal Grandfather No problems noted. Maternal Grandmother No problems noted. Paternal Grandmother No problems noted. Sister No problems noted. Social History Household Members: None [facility] Are you a primary gericare aide to a significant other at home: No Do you presently have visiting nurse or other home services: No Alcohol intake: never Patient Tobacco Use Status: Former Tobacco user Tobacco use type: Cigarette e-Cigarette/Vaping Use: Never Used Second Hand Smoke Exposure: No Advance Directives Date on File: 03/12/22 service: No Current occupational status: retired Cognitive needs: No Hearing needs: No Vision needs: Yes Review of Systems Const All systems reviewed & are unremarkable except as noted in HPI and below ENT Denies dizziness Card Denies chest pain, Denies chest pain at rest, Denies chest pain with activity, Denies rapid heart rate, Denies pedal edema, Denies edema, Denies leg edema, Denies lightheadedness, Denies palpitations, Denies dyspnea, Denies dyspnea on exertion and Denies orthopnea Resp Denies cough, Denies dyspnea and Denies dyspnea on exertion GI Denies hematochezia and Denies change in stool character Musc Denies abnormal gait, Denies limited range of motion, Denies muscle cramps, Denies muscle weakness, Denies numbness, Denies radiating pain into limb, Denies stiffness and Denies tingling Neuro Denies abnormal gait, Denies dizziness, Denies numbness and Denies tingling Endo Denies palpitations Physical Exam Vital Signs: Last Vital Signs Pulse 61 07/11/24 08:28 BP 134/60 07/11/24 08:28 BMI result Body Mass Index 23.5 Const General: cooperative, healthy appearing, comfortable and no acute distress Orientation/consciousness: patient oriented x3 Neck Neck: Yes normal visual inspection Resp Effort & Inspection: normal respiratory effort Auscultation: clear to auscultation bilaterally, no crackles, no rales, no rhonchi and no wheezes Cardio Jugular venous distension: no JVD Rate: regular rate Rhythm: regular rhythm Heart sounds: S1 normal heart sound present, S2 normal heart sound present, no murmurs and no rubs Neuro General: patient oriented x3 Extrem General: Yes normal to inspection Psych Appearance: grossly normal Mental Status: mental status grossly normal Speech and movement: Normal speech and movement present Assessment & Plan Assessment & Plan (1) PAF (paroxysmal atrial fibrillation): Code(s): I48.0 - Paroxysmal atrial fibrillation Category: Medical Plan: History of paroxysmal atrial fibrillation, symptomatic. Initial finding May [address] [facility] [place] admit for UTI, urosepsis. She was initially treated with rate control then eventually required rhythm control with amiodarone. Amiodarone had done very well at suppressing her rhythm however recent chest x-ray showed patchy bilateral upper lobe interstitial prominence and ground-glass densities. A prior CT scan of the chest done 05/30/2022 had shown diffuse emphysema. Amiodarone stopped 03/17/2024. She was then put on Multaq and had hospital admission for pneumonia and Congestive heart failure. Multaq was stopped and she has just been on atenolol since that time. Pulse is regular on examination today. Last Echocardiogram from 05/03/2024 showed EF greater than 70%, left atrium normal size. Will have her continue atenolol 50 mg daily. Continue Xarelto 20 mg daily for anticoagulation. Going forward we are going to treat her PAF with rate control. We no longer able to use amiodarone, Multaq. She does not want sotalol or Tikosyn as they will require hospital admission for the initial administrations. She adamantly refuses ablation. ED care if needed for recurrent symptomatic AFib. Cardiology follow-up 6 month, sooner if needed. (2) Hypertension: Code(s): I10 - Essential (primary) hypertension Category: Medical Qualifiers: Hypertension type: essential hypertension Qualified Code(s): I10 - Essential (primary) hypertension Plan: Well controlled at this time. No med changes made Plan Time spent on chart review, documentation, interview, assessment Medications: Refilled rivaroxaban (Xarelto) 20 mg PO QPM 90 tabs 3RF Coding Level of Care Code Est Pt Level 4 (25032) Complex EM visit Add On G2211 Diagnoses PAF (paroxysmal atrial fibrillation) I48.0 Essential hypertension I10 Hypertension type: essential hypertension Time Spent (min) 30
== END 2024-07-11 09:00 | disposition home or self-care (01) ==
PROVIDERS: PCP Internal Medicine; Visit Provider Nurse Practitioner Family
DX: I48.0 Paroxysmal atrial fibrillation (principal); I10 Essential (primary) hypertension
CPT/HCPCS: 99214; G2211

== ENCOUNTER → 2024-07-11 08:11 | Outpatient (BNVA) | payer MEDICARE, SELFPAY | PROVIDERS: PCP Internal Medicine; Visit Provider Nurse Practitioner Family | DX: I48.0 Paroxysmal atrial fibrillation (principal); I10 Essential (primary) hypertension | CPT/HCPCS: 99212 ==

== ENCOUNTER 2024-08-26 07:25 | Outpatient (REF) | payer MEDICARE, SELFPAY ==
[2024-08-26 10:05] LABS: Hematocrit 40.8 % (37.0-47.0); Hemoglobin 12.8 g/dl (12.0-16.0)
[2024-08-26 10:28] LABS: Alanine Aminotransferase 14 U/L (0-31); Anion Gap 11 (12-20); Aspartate Amino Transferase 24 U/L (5-31); Blood Urea Nitrogen 21 mg/dL (9-16); Calcium 9.2 mg/dL (8.4-10.2); Carbon Dioxide 26 mmol/L (22-29); Chloride 107 mmol/L (96-108); Cholesterol 190 mg/dL (<200); Estimated Glomerular Filt Rate 39; Glucose Fasting 90 mg/dL (60-99); HDL Cholesterol 63 mg/dL (>40); LDL Cholesterol Calculated 111 mg/dL (<100); Potassium 3.9 mmol/L (3.3-5.1); Sodium 140 mmol/L (135-145); Triglycerides 80 mg/dL (<150)
[2024-08-26 10:46] LABS: Vitamin D 25-OH Total 39.7 ng/mL (>30)
== END 2024-08-26 07:26 | disposition home or self-care (01) ==
LOC: HO.HMGCLDS 07:25
PROVIDERS: PCP Internal Medicine; Visit Provider Internal Medicine
DX: E78.5 Hyperlipidemia, unspecified (principal); I10 Essential (primary) hypertension; M81.0 Age-related osteoporosis without current pathological fracture; I48.0 Paroxysmal atrial fibrillation; Z79.01 Long term (current) use of anticoagulants
CPT/HCPCS: 36415; 80048; 80061; 82306; 84450; 84460; 85014; 85018

== ENCOUNTER 2024-09-01 08:03 | Outpatient (AMB) | payer MEDICARE, SELFPAY ==
--- NOTE | 2024-09-01 08:25 | A.OFFPC_ITS ---
Vital Signs 09/01/24 08:26 Height 5 ft 6 in Weight 146 lb BMI 23.6 BP 100/70 Blood Pressure Location Lt brachial Position Sitting Respiration 16 Pulse 67 Pulse Source Pulse Oximeter Temp 97.5 F Temp Source Oral Pulse Oximetry (%) 97 Oxygen Delivery Method Room Air Intake Visit Reasons: Annual PE - see comments Intake Note: Pt is here today for her PE:Last mammogram 06/23/19, bone density scan 06/22/19, colonoscopy 08/14/11 Allergies diltiazem Allergy (Verified 09/01/24 08:54) Rash dronedarone [From Multaq] Adverse Reaction (Severe, Verified 09/01/24 08:54) CHF ssri Allergy (Unknown, Uncoded 09/01/24 08:54) diarrhea Amiodarone Adverse Reaction (Severe, Uncoded 09/01/24 08:54) Interstitial lung changes Augmex Adverse Reaction (Unknown, Uncoded 09/01/24 08:54) severe vomiting/diarrhea Medication List - Last Reconciled 09/01/24 by Ellie Chen MD acetaminophen ER (Tylenol Arthritis Pain) 650 mg PO TID PRN ascorbate calcium (vitamin C) 500 mg PO DAILY atenolol 50 mg PO DAILY atorvastatin 10 mg PO MOWE calcium carbonate 500 mg PO DAILY dorzolamide-timolol 22.3-6.8 mg/mL 1 drp ophthalmic (eye) BID furosemide 40 mg See Protocol PO DAILY multivitamin 1 tab PO DAILY rivaroxaban (Xarelto) 20 mg PO QPM spironolactone 25 mg See Protocol PO DAILY Tobacco use date assessed: 09/01/24 Fall risk assessment: 2 + Falls in past year Last assessed Fall Risk: 09/01/24 Dental Screening Dental Screen Date: 09/01/24 HPI Annual PE - see comments HPI Details 84 year-old lady with past medical histo ry of hypertension, hyperlipidemia, remote history of smoking, paroxysmal atrial fibrillation, interstitial lung disease, presents today for her physical exam. She currently feels well, but has intermittent episodes of lightheadedness especially sudden turning or getting up from a lying to sitting position. She is currently on furosemide 40 mg daily and spironolactone 25 mg taken 3 times a day. Patient complaining that she has to go to the bathroom almost every hour to urinate. She had recent fasting labs done which showed normal hemoglobin hematocrit, normal fasting glucose, mildly elevated LDL cholesterol at 111 mg/dL but there was noted to be a acute degrees in her GFR and elevations in her serum creatinine as compared to labs done in April 2024. She no longer gets mammograms bone density scans or colon cancer screenings. She is up-to-date with her pneumococcal vaccination and Shingrix vaccine as well as Tdap but does not want to get a flu shot or the COVID vaccine. [facility] Medical History (Updated 09/01/24 @ 09:18 by Ellie Chen MD) Decreased renal clearance Irritable bowel syndrome with diarrhea History of compression fracture of spine Emphysema lung Thoracic compression fracture Lumbar compression fracture Colonoscopy refused COVID-19 vaccine series declined Immunization declined Positive FIT (fecal immunochemical test) Mammogram declined Dyslipidemia Postmenopause Normocytic anemia Hx: UTI (urinary tract infection) PAF (paroxysmal atrial fibrillation) Unspecified glaucoma Osteoporosis Thrombocytopenia Hypertension Surgical History H/O kyphoplasty History of lumpectomy of left breast History of colonoscopy History of section Family History Father Lung cancer Mother Unknown family medical history Maternal Grandfather No problems noted. Maternal Grandmother No problems noted. Paternal Grandmother No problems noted. Sister No problems noted. Social History Household Members: None Housing: Condominium Are you a primary acute care nursing assistant to a significant other at home: No Do you presently have visiting nurse or other home services: No Alcohol intake: never Patient Tobacco Use Status: Former Tobacco user Tobacco use type: Cigarette e-Cigarette/Vaping Use: Never Used Second Hand Smoke Exposure: No Advance Directives Date on File: 03/12/22 service: No Current occupational status: retired Cognitive needs: No Hearing needs: No Vision needs: Yes Questionnaire PHQ-9 Over the last 2 weeks, how often have you been bothered by any of the following problems? 1. Little interest or pleasure in doing things: not at all 2. Feeling down, depressed, or hopeless: not at all 3. Trouble falling or staying asleep, or sleeping too much: not at all 4. Feeling tired or having little energy: not at all 5. Poor appetite or overeating: not at all 6. Feeling bad about yourself - or that you are a failure or have let yourself or your family down: not at all 7. Trouble concentrating on things, such as reading the newspaper or watching television: not at all 8. Moving or speaking so slowly that other people could have noticed. Or the opposite - being so fidgety or restless that you have been moving around a lot more than usual: not at all 9. Thoughts that you would be better off or of hurting yourself in some way: not at all Total score: 0 Depression Screening Interpretation: Negative Depression Screening Done: Yes Source: Developed by Drs. Jorge Hector, Bessie Ervin, Jed Downey and colleagues, with an educational roderick from [employer]. Thrive Questionnaire Date Thrive assessed: 09/01/24 I am a: Patient What is your living situation today?: I have a steady place to live Within the past 12 months, did the food you bought not last and you didn't have the money to get more?: Never true Within the past 12 months, did you worry whether your food would run out before you got money to buy more?: Never true Do you have trouble paying for medicines?: No Do you have trouble getting transportation to medical appointments?: No Do you have trouble paying your heating and electricity bill?: No Do you have trouble taking care of your child, family member or friend?: No Do you have trouble with day-to-day activities such as bathing, preparing meals, shopping, managing finances, etc.?: No Are you currently unemployed and looking for a job?: No Are you interested in more education?: No Please select the resources that you would like help with: None Currently or been in a relationship where the following occur: No concerns reported THRIVE Score: 0 AUDIT C Alcohol Use Questionnaire (AUDIT-C) 1. How often do you have a drink containing alcohol?: Never Total Score: 0 FELY-7 AMB Questionnaire FELY-7 Date FELY - 7 assessed: 09/01/24 Feeling nervous, anxious, or on edge: 0 = Not at all Not being able to stop or control worryin = Not at all Worrying too much about different things: 0 = Not at all Trouble relaxin = Not at all Being so restless that it is hard to sit still: 0 = Not at all Becoming easily annoyed or irritable: 0 = Not at all Feeling afraid as if something awful might happen: 0 = Not at all Total FELY-7 score (0-4 normal; 5-9 mild; 10-14 moderate; 15-21 severe): 0 Source: Developed by Drs. Jorge Hector, Bessie Ervin, Jed Downey and colleagues, with an educational roderick from [employer]. Review of Systems Const All systems reviewed & are unremarkable except as noted in HPI and below Eyes Denies change in vision ENT Denies dizziness Card Denies chest pain, Denies chest pain at rest, Denies chest pain with activity, Denies rapid heart rate, Denies pedal edema, Denies edema, Denies leg edema, Denies lightheadedness, Denies palpitations, Denies dyspnea, Denies dyspnea on exertion and Denies orthopnea Resp Denies cough, Denies dyspnea and Denies dyspnea on exertion GI Denies hematochezia and Denies change in stool character Reports as per HPI Musc Denies abnormal gait, Denies limited range of motion, Denies muscle cramps, Denies muscle weakness, Denies numbness, Denies radiating pain into limb, Denies stiffness and Denies tingling Skin/Breast Denies breast pain, Denies breast mass and Denies rash Neuro Denies abnormal gait, Denies dizziness, Denies numbness, Denies Sensory deficit (Neuro) and Denies tingling Psych Reports no additional complaints Endo Denies palpitations Colten/Lymph Reports no additional complaints Aller/Immun Reports no additional complaints Physical exam (Primary Care) Vital Signs: Last Vital Signs Temp 97.5 F 09/01/24 08:26 Pulse 67 09/01/24 08:26 Resp 16 09/01/24 08:26 BP 100/70 09/01/24 08:26 Pulse Ox 97 09/01/24 08:26 Oxygen Delivery Method Room Air 09/01/24 08:26 BMI result Body Mass Index 23.6 Tobacco/Smoking Status: Tobacco use Status Tobacco use date assessed 09/01/24 09/01/24 08:29 Patient Tobacco Use Status Former Tobacco user 09/01/24 08:29 Tobacco use type Cigarette 09/01/24 08:29 e-Cigarette/Vaping Use Never Used 09/01/24 08:29 PHQ-9: PHQ-9 Score PHQ-9: Total score 0 09/04/24 02:56 Depression Screening Interpretation: Negative Thrive Assessment: Date of Thrive Assessment Date Thrive assessed 09/01/24 09/01/24 08:29 Currently or been in a relationship where the following occur: No concerns reported Const Other: Ambulatory with a cane General: comfortable, no acute distress and alert Orientation/consciousness: patient oriented x3 Limitations: ambulation with cane HENMT Head: Yes normocephalic and Yes atraumatic Ears: external ears normal General nose exam: Normal external nose present Face and sinus: Yes face symmetric Eyes General: appearance normal, both eyes and all related structures Neck Neck: Yes full ROM, Yes no lymphadenopathy and Yes supple Resp Auscultation: clear to auscultation bilaterally Cardio Other: S1-S2 present regular rate GI Palpation (GI): Soft to palpation, nontender, no guarding and no masses Back/Spine/Pelvis Other: kyphotic Skin General skin exam: no rashes or lesions noted Neuro General: patient oriented x3, tone normal, moves all extremities and no focal motor deficits Cognition (Neuro): normal cognition Sensory Exam: No Sensory deficit (Neuro) Extrem General: Yes full ROM, Yes no joint enlargement, Yes no clubbing, cyanosis or edema and Yes normal gait Psych Appearance: grossly normal Mental Status: mental status grossly normal Speech and movement: Normal speech and movement present Affect: normal affect Attitude: cooperative Results Reviewed Results Reviewed: Name: Zuleima Shepard Age/Sex: 84/F : 1940 Unit#: [id number] Attend Dr: Ellie Chen MD Re08/26/24 Status: DEP REF Location: [facility] Disch: SPEC : [id number] GABRIEL: 08/26/24 STATUS: COMP REQ : [id number] RECD: 08/26/[address]: Ellie Chen MD COMP: 08/26/24 ENTERED: 08/26/[address] [facility] [address]: ORDERED: Met Prof Fast, AST, ALT, Lipid Panel, Vitamin D 25-OH Test Result Flag Reference Sodium 140 135-145 mmol/L Potassium 3.9 3.3-5.1 mmol/L CL 107 96-108 mmol/L CO2 26 22-29 mmol/L Gap 11 L 12-20 BUN 21 H 9-16 mg/dL Creat 1.30 0.5-1.4 mg/dL eGFR 39 Chronic Kidney Disease: Estimated GFR < 60 mL/min/1.73m2 Severe Kidney Disease: Estimated GFR < 15 mL/min/1.73m2 FBS 90 60-99 mg/dL CA 9.2 # 8.4-10.2 mg/dL AST (GOT) 24 5-31 U/L ALT (GPT) 14 0-31 U/L Triglyceride 80 <150 mg/dL Desirable Triglyceride: less than 150 mg/dL Borderline High Triglyceride 150-199 mg/dL High Triglyceride: 200-499 mg/dL Very High Triglyceride: greater than or equal to 5OO mg/dL Cholesterol 190 <200 mg/dL Desirable Cholesterol: less than 200 mg/dL Borderline High Cholesterol: 200-239 mg/dL High Cholesterol: greater than 239 mg/dL LDL Calculated 111 H <100 mg/dL Desirable LDL: less than 100 mg/dL Near Optimal/Above Optimal LDL: 110-129 mg/dL Borderline High LDL: 130-159 mg/dL High LDL: 160-189 mg/dL Very High LDL: greater than or equal to 190 mg/dL HDL 63 >40 mg/dL Desirable HDL: greater than 40 mg/dL Note: This HDL assay may give artificially low results in patients with liver disease. Vitamin D 25-OH 39.7 >30 ng/mL Health Based Reference Values* < 20 ng/mL Deficient 20-30 ng/mL Insufficient > 30 ng/mL Sufficient *Sandra RILEY. N Engl J Med. 2007;[id number] Laboratory Tests 08/26/24 07:30 Hgb 12.8 Hct 40.8 D Coding Level of Care Code Est Pt Prev Care >65y(58150) Diagnoses Annual visit for general adult medical examination with abnormal findings Z00.01 Essential hypertension I10 Hypertension type: essential hypertension PAF (paroxysmal atrial fibrillation) I48.0 Dyslipidemia E78.5 Chronic anticoagulation Z79.01 Assessment & Plan Assessment & Plan (1) Annual visit for general adult medical examination with abnormal findings: Code(s): Z00.01 - Encounter for general adult medical examination with abnormal findings Plan: Recent fasting lab results reviewed with patient. Patient no longer gets screening mammograms, colonoscopies or cervical cancer screenings, does not want to do any bone density scan. Will repeat labs again in 3 months. Declines getting flu vaccine or COVID booster, up-to-date with her pneumonia vaccination and Shingrix vaccine (2) Hypertension: Code(s): I10 - Essential (primary) hypertension Category: Medical Qualifiers: Hypertension type: essential hypertension Qualified Code(s): I10 - Essential (primary) hypertension Plan: Blood pressure noted to be on the low side, with patient experiencing intermittent episodes of lightheadedness especially with sudden changes in position. Decreased renal function noted on recent labs done. Consulted with cardiology who did recommend stopping spironolactone, and continued on furosemide but at a lower dose of 20 mg daily in a.m.. Will have patient come back in a week to check blood pressure with nurse navigator and recheck another basic metabolic panel next month. (3) PAF (paroxysmal atrial fibrillation): Code(s): I48.0 - Paroxysmal atrial fibrillation Category: Medical Plan: Continued on rivaroxaban 20 mg daily and atenolol 50 mg once a day (4) Dyslipidemia: Code(s): E78.5 - Hyperlipidemia, unspecified Category: Medical Plan: Will continue on atorvastatin 10 mg Mondays and Wednesdays, latest fasting lipids are within normal limits (5) Chronic anticoagulation: Code(s): Z79.01 - penitentiary (current) use of anticoagulants Category: Medical Plan: Currently on chronic anticoagulation with rivaroxaban. Orders: Orders Comprehensive [place]. Panel Fast 11/08/24 E78.5 - Hyperlipidemia, unspecified, I10 - Essential (primary) hypertension, I48.0 - Paroxysmal atrial fibrillation, R94.4 - Abnormal results of kidney function studies, Z79.01 - penitentiary (current) use of anticoagulants Lipid Panel 11/08/24 E78.5 - Hyperlipidemia, unspecified, I10 - Essential (primary) hypertension, I48.0 - Paroxysmal atrial fibrillation, R94.4 - Abnormal results of kidney function studies, Z79.01 - long term care administrator (current) use of anti coagulants Hemoglobin and Hematocrit 11/08/24 E78.5 - Hyperlipidemia, unspecified, I10 - Essential (primary) hypertension, I48.0 - Paroxysmal atrial fibrillation, R94.4 - Abnormal results of kidney function studies, Z79.01 - penitentiary (current) use of anticoagulants Vitamin D 25-OH Total 11/08/24 E78.5 - Hyperlipidemia, unspecified, I10 - Essen tial (primary) hypertension, I48.0 - Paroxysmal atrial fibrillation, R94.4 - Abnormal results of kidney function studies, Z79.01 - long term care administrator (current) use of anticoagulants Medications: Discontinued spironolactone Discontinued Reason: Doctor's Order 25 mg See Protocol PO DAILY 90 tabs 3RF
[2024-09-01 08:26] VITALS: BP 100/70; PULSE 67; RESP 16; TEMP 36.4; O2SAT 97; BMI 23.6
== END 2024-09-01 09:44 | disposition home or self-care (01) ==
PROVIDERS: PCP Internal Medicine; Visit Provider Internal Medicine
DX: Z00.01 Encounter for general adult medical examination with abnormal findings (principal); I10 Essential (primary) hypertension; I48.0 Paroxysmal atrial fibrillation; E78.5 Hyperlipidemia, unspecified; Z79.01 Long term (current) use of anticoagulants

== ENCOUNTER → 2024-09-01 08:03 | Outpatient (BNVA) | payer OTHER, MEDICARE, SELFPAY | PROVIDERS: PCP Internal Medicine; Visit Provider Internal Medicine | DX: Z00.01 Encounter for general adult medical examination with abnormal findings (principal); I10 Essential (primary) hypertension; I48.0 Paroxysmal atrial fibrillation; E78.5 Hyperlipidemia, unspecified; Z79.01 Long term (current) use of anticoagulants; Z79.899 Other long term (current) drug therapy | CPT/HCPCS: 96127; 99397 ==

== ENCOUNTER 2024-09-09 13:21 | Outpatient (REF) | payer MEDICARE, SELFPAY ==
[2024-09-09 16:32] LABS: Anion Gap 13 (12-20); Blood Urea Nitrogen 26 mg/dL (9-16); Calcium 9.2 mg/dL (8.4-10.2); Carbon Dioxide 28 mmol/L (22-29); Chloride 104 mmol/L (96-108); Estimated Glomerular Filt Rate 46; Glucose Random 93 mg/dL (60-115); Potassium 3.6 mmol/L (3.3-5.1); Sodium 141 mmol/L (135-145)
== END 2024-09-09 13:22 | disposition home or self-care (01) ==
LOC: HO.HMGCLDS 13:21
PROVIDERS: PCP Internal Medicine; Visit Provider Internal Medicine
DX: I10 Essential (primary) hypertension (principal); R94.4 Abnormal results of kidney function studies
CPT/HCPCS: 36415; 80048

== ENCOUNTER 2024-11-29 07:29 | Outpatient (REF) | payer MEDICARE, SELFPAY ==
--- OUTSIDE RECORDS SUMMARY | 2024-11-29 07:32 | XMS_ITS | Patient Health Record ---
Author Organization [facility] Address [address] [place] [address] Care Team Providers Care [place] [employer] Specialist Name Role Phone Melinda [address], Celina Primary Care Provider U Jorge Turner Unavailable [phone] Reason For Referral No Information Medications Medication SIG (Take, Route, Frequency, Duration) Notes Start Date End Date Status MoviPrep 100 GM as directed Orally o nce for 1 dose 07/10/2011 05/11/2024 Active Calcium + D 500mg Ac tive Centrum Silver Activ e Zolpidem Tartrate 5mg Active Brimonidine Tartrate Active Latanoprost Active Alendronate Sodium 70mg Active Atenolol 50mg Active Problems Problem Type SNOMED Code ICD Code Onset Dates Problem Status W/U Status Risk Notes Problem Diverticulosis of colon (finding) (762605470) Diverticulosis of colon (without mention of hemorrhage) (562.10) Active confirmed Problem Special screenin g for malignant neoplasms, colon (V76.51) Active confirmed Plan Of Treatment Future Test Test Name Order Date COLONOSCOPY 07/10/2011 Insurance Providers Payer Name Payer Address Payer Phone Subscriber Number Group Number Insured Name Patient Relationship to Insured Coverage Start Date Coverage End Date [facility] [address] [place] [phone] [id number] RANDELL GALEANO Self - patient is the insured Medical (General) History Medical History History ICD Code Irregular heartbeat HTN Diverticulosis Denies OR,DM,CVA,Lung disease,renal dise ase Osteoporosis Glaucoma Surgical History Surgery Date(Month/Year) Benign breast mass
[2024-11-29 10:28] LABS: Hematocrit 41.1 % (37.0-47.0); Hemoglobin 13.0 g/dl (12.0-16.0)
[2024-11-29 10:53] LABS: Alanine Aminotransferase 12 U/L (0-31); Albumin Level 3.9 g/dL (3.5-5.0); Alkaline Phosphatase 82 U/L (39-117); Anion Gap 12 (12-20); Aspartate Amino Transferase 26 U/L (5-31); Blood Urea Nitrogen 13 mg/dL (9-16); Calcium 8.8 mg/dL (8.4-10.2); Carbon Dioxide 25 mmol/L (22-29); Chloride 110 mmol/L (96-108); Cholesterol 211 mg/dL (<200); Estimated Glomerular Filt Rate 54; HDL Cholesterol 59 mg/dL (>40); Potassium 3.9 mmol/L (3.3-5.1); Sodium 143 mmol/L (135-145); Total Protein 6.4 g/dL (6.5-8.0); Triglycerides 108 mg/dL (<150)
== END 2024-11-29 07:30 | disposition home or self-care (01) ==
LOC: HO.HMGCLDS 07:29
PROVIDERS: PCP Internal Medicine; Visit Provider Internal Medicine
DX: I10 Essential (primary) hypertension (principal); E78.5 Hyperlipidemia, unspecified; I48.0 Paroxysmal atrial fibrillation; R94.4 Abnormal results of kidney function studies; Z79.01 Long term (current) use of anticoagulants
CPT/HCPCS: 36415; 80053; 80061; 82306; 85014; 85018

== ENCOUNTER 2024-12-06 09:48 | Outpatient (AMB) | payer MEDICARE, SELFPAY ==
[2024-12-06 09:59] VITALS: BP 112/72; PULSE 66; O2SAT 96; BMI 24.2
--- NOTE | 2024-12-06 09:59 | A.OFFPC_ITS ---
Vital Signs 12/06/24 09:59 Height 5 ft 6 in Weight 150 lb BMI 24.2 BP 112/72 Blood Pressure Location Lt brachial Position Sitting Pulse 66 Pulse Source Pulse Oximeter Pulse Oximetry (%) 96 Oxygen Delivery Method Room Air Intake Visit Reasons: 3m follow up Allergies diltiazem Allergy (Verified 12/06/24 10:46) Rash dronedarone (From Multaq) Adverse Reaction (Severe, Verified 12/06/24 10:46) CHF ssri Allergy (Unknown, Uncoded 12/06/24 10:46) diarrhea Amiodarone Adverse Reaction (Severe, Uncoded 12/06/24 10:46) Interstitial lung changes Augmex Adverse Reaction (Unknown, Uncoded 12/06/24 10:46) severe vomiting/diarrhea Medication List - Last Reconciled 12/06/24 by Ellie Chen MD acetaminophen ER (Tylenol Arthritis Pain) 650 mg PO TID PRN ascorbate calcium (vitamin C) 500 mg PO DAILY atenolol 50 mg PO DAILY calcium carbonate 500 mg PO DAILY dorzolamide-timolol 22.3-6.8 mg/mL 1 drp ophthalmic (eye) BID furosemide 40 mg See Protocol PO DAILY multivitamin 1 tab PO DAILY rivaroxaban (Xarelto) 20 mg PO QPM Tobacco use date assessed: 09/01/24 Fall risk assessment: No Falls in past year Last assessed Fall Risk: 12/06/24 Dental Screening Dental Screen Date: 09/01/24 HPI 3m follow up HPI Details - The patient is an 84-year-old female p resenting with a review of her current health status and management of chronic conditions. - Hyperlipidemia: The patient recently stopped taking atorvastatin two months , was blaming it for her muscle pain, which has not resolved even after discontinuation of the medicine. - Recent lab results indicate an increas e in cholesterol levels from 190 to 211 mg/dL, and LDL cholesterol increased from 111 to 131 mg/dL off atorvastatin for the last 2 months - Lactose intolerance: The patient exper iences gastrointestinal symptoms, including bloating and diarrhea, when consuming dairy products. She manages these symptoms by avoiding dairy and using lactase supplements. - Constipation and diarrhea: The patient reports alternating between constipation and diarrhea, with loose stools that are sometimes unformed. She uses probiotics and dietary adjustments to manage these symptoms. - Hypertension: The patient continues to manage hypertension with atenolol and furosemide, although she is seeking a change in her furosemide prescription from 40 mg to 20 mg due to difficulty splitting the pills. - Chronic kidney disease: The patient's kidney function is improving, has been staying well hydrated [facility] Medical History (Updated 12/13/24 @ 01:02 by Ellie Chen MD) Decreased renal clearance Irritable bowel syndrome with diarrhea History of compression fracture of spine Emphysema lung Thoracic compression fracture Lumbar compression fracture Colonoscopy refused COVID-19 vaccine series declined Immunization declined Positive FIT (fecal immunochemical test) Mammogram declined Dyslipidemia Postmenopause Normocytic anemia Hx: UTI (urinary tract infection) PAF (paroxysmal atrial fibrillation) Unspecified glaucoma Osteoporosis Thrombocytopenia Hypertension Surgical History H/O kyphoplasty History of lumpectomy of left breast History of colonoscopy History of section Family History Father Lung cancer Mother Unknown family medical history Maternal Grandfather No problems noted. Maternal Grandmother No problems noted. Paternal Grandmother No problems noted. Sister No problems noted. Social History Household Members: None Housing: Condominium Are you a primary reproductive healthcare assistant to a significant other at home: No Do you presently have visiting nurse or other home services: No Alcohol intake: never Patient Tobacco Use Status: Former Tobacco user Tobacco use type: Cigarette e-Cigarette/Vaping Use: Never Used Second Hand Smoke Exposure: No Advance Directives Date on File: 03/12/22 service: No Current occupational status: retired Cognitive needs: No Hearing needs: No Vision needs: Yes Questionnaire PHQ-9 Over the last 2 weeks, how often have you been bothered by any of the following problems? 1. Little interest or pleasure in doing things: not at all 2. Feeling down, depressed, or hopeless: not at all 3. Trouble falling or staying asleep, or sleeping too much: not at all 4. Feeling tired or having little energy: not at all 5. Poor appetite or overeating: not at all 6. Feeling bad about yourself - or that you are a failure or have let yourself or your family down: not at all 7. Trouble concentrating on things, such as reading the newspaper or watching television: not at all 8. Moving or speaking so slowly that other people could have noticed. Or the opposite - being so fidgety or restless that you have been moving around a lot more than usual: not at all 9. Thoughts that you would be better off or of hurting yourself in some way: not at all Total score: 0 Depression Screening Interpretation: Negative Depression Screening Done: Yes 89116 - PHQ-9 Billing: Yes Source: Developed by Drs. Jorge Hector, Bessie Ervin, Jed Downey and colleagues, with an educational roderick from [employer]. Thrive Questionnaire Date Thrive assessed: 12/06/24 I am a: Patient What is your living situation today?: I have a steady place to live Within the past 12 months, did the food you bought not last and you didn't have the money to get more?: Never true Within the past 12 months, did you worry whether your food would run out before you got money to buy more?: Never true Do you have trouble paying for medicines?: No Do you have trouble getting transportation to medical appointments?: No Do you have trouble paying your heating and electricity bill?: No Do you have trouble taking care of your child, family member or friend?: No Do you have trouble with day-to-day activities such as bathing, preparing meals, shopping, managing finances, etc.?: No Are you currently unemployed and looking for a job?: No Are you interested in more education?: No Please select the resources that you would like help with: None Currently or been in a relationship where the following occur: No concerns reported THRIVE Score: 0 AUDIT C Alcohol Use Questionnaire (AUDIT-C) 1. How often do you have a drink containing alcohol?: Never 3. How often do you have six or more drinks on one occasion?: Never Total Score: 0 Score Reviewed/Action Taken: Yes FELY-7 AMB Questionnaire FELY-7 Date FELY - 7 assessed: 09/01/24 Source: Developed by Drs. Jorge Hector, Bessie Ervin, Jed Downey and colleagues, with an educational roderick from [employer]. Review of Systems Const All systems reviewed & are unremarkable except as noted in HPI and below Eyes Denies change in vision ENT Denies dizziness Card Denies chest pain, Denies chest pain at rest, Denies chest pain with activity, Denies rapid heart rate, Denies pedal edema, Denies lightheadedness, Denies palpitations, Denies dyspnea and Denies dyspnea on exertion Resp Denies cough, Denies dyspnea and Denies dyspnea on exertion GI Denies hematochezia and Denies change in stool character Reports as per HPI Musc Denies abnormal gait, Denies limited range of motion, Denies muscle cramps, Denies muscle weakness, Denies numbness, Denies radiating pain into limb, Denies stiffness and Denies tingling Skin/Breast Denies breast pain, Denies breast mass and Denies rash Neuro Denies abnormal gait, Denies dizziness, Denies numbness, Denies Sensory deficit (Neuro) and Denies tingling Psych Reports no additional complaints Endo Denies palpitations Colten/Lymph Reports no additional complaints Aller/Immun Reports no additional complaints Physical exam (Primary Care) Vital Signs: Last Vital Signs Pulse 66 12/06/24 09:59 BP 112/72 12/06/24 09:59 Pulse Ox 96 12/06/24 09:59 Oxygen Delivery Method Room Air 12/06/24 09:59 BMI result Body Mass Index 24.2 Tobacco/Smoking Status: Tobacco use Status Tobacco use date assessed 09/01/24 12/06/24 09:59 Patient Tobacco Use Status Former Tobacco user 12/06/24 09:59 Tobacco use type Cigarette 12/06/24 09:59 e-Cigarette/Vaping Use Never Used 12/06/24 09:59 PHQ-9: PHQ-9 Score PHQ-9: Total score 0 12/06/24 10:44 Depression Screening Interpretation: Negative Thrive Assessment: Date of Thrive Assessment Date Thrive assessed 12/06/24 12/06/24 10:17 Currently or been in a relationship where the following occur: No concerns reported Const Other: Ambulatory with a cane General: comfortable, no acute distress and alert Orientation/consciousness: patient oriented x3 HENMT Head: Yes normocephalic and Yes atraumatic Ears: external ears normal General nose exam: Normal external nose present Face and sinus: Yes face symmetric Eyes General: appearance normal, both eyes and all related structures Neck Neck: Yes full ROM, Yes no lymphadenopathy and Yes supple Resp Auscultation: clear to auscultation bilaterally Cardio Other: S1-S2 present regular rate GI Palpation (GI): Soft to palpation, nontender, no guarding and no masses Back/Spine/Pelvis Other: kyphotic Skin General skin exam: no rashes or lesions noted Neuro General: patient oriented x3, tone normal, moves all extremities and no focal motor deficits Cognition (Neuro): normal cognition Sensory Exam: No Sensory deficit (Neuro) Extrem General: Yes full ROM, Yes no joint enlargement, Yes no clubbing, cyanosis or edema and Yes normal gait Psych Appearance: grossly normal Mental Status: mental status grossly normal Speech and movement: Normal speech and movement present Affect: normal affect Attitude: cooperative Results Reviewed Results Reviewed: brenda: Zuleima Shepard Age/Sex: 84/F : 1940 Unit#: [id number] Attend Dr: Ellie Chen MD Re11/29/24 Status: DEP REF Location: [facility] Disch: SPEC : [id number] GABRIEL: 11/29/24 STATUS: COMP REQ : [id number] RECD: 11/29/[address]: Ellie Chen MD COMP: 11/29/24 ENTERED: 11/29/[address] [facility] [address]: ORDERED: CMP Fast, Lipid Panel, Vitamin D 25-OH Test Result Flag Reference Sodium 143 135-145 mmol/L Potassium 3.9 3.3-5.1 mmol/L CL 110 H 96-108 mmol/L CO2 25 22-29 mmol/L Gap 12 12-20 BUN 13 9-16 mg/dL Creat 0.98 0.5-1.4 mg/dL eGFR 54 Chronic Kidney Disease: Estimated GFR < 60 mL/min/1.73m2 Severe Kidney Disease: Estimated GFR < 15 mL/min/1.73m2 FBS 91 60-99 mg/dL CA 8.8 8.4-10.2 mg/dL Total Bili 0.7 0.0-1.0 mg/dL AST (GOT) 26 5-31 U/L ALT (GPT) 12 0-31 U/L Protein, Total 6.4 L 6.5-8.0 g/dL Alb 3.9 3.5-5.0 g/dL Triglyceride 108 <150 mg/dL Desirable Triglyceride: less than 150 mg/dL Borderline High Triglyceride 150-199 mg/dL High Triglyceride: 200-499 mg/dL Very High Triglyceride: greater than or equal to 5OO mg/dL Cholesterol 211 H <200 mg/dL Desirable Cholesterol: less than 200 mg/dL Borderline High Cholesterol: 200-239 mg/dL High Cholesterol: greater than 239 mg/dL LDL Calculated 131 H <100 mg/dL Desirable LDL: less than 100 mg/dL Near Optimal/Above Optimal LDL: 110-129 mg/dL Borderline High LDL: 130-159 mg/dL High LDL: 160-189 mg/dL Very High LDL: greater than or equal to 190 mg/dL HDL 59 >40 mg/dL Desirable HDL: greater than 40 mg/dL Note: This HDL assay may give artificially low results in patients with liver disease. Alk Phos 82 39-117 U/L Vitamin D 25-OH 65.9 >30 ng/mL Health Based Reference Values* < 20 ng/mL Deficient 20-30 ng/mL Insufficient > 30 ng/mL Sufficient Laboratory Tests 11/29/24 07:38 Hgb 13.0 Hct 41.1 Coding Level of Care Code Est Pt Level 4 (46599) Diagnoses Dyslipidemia E78.5 Essential hypertension I10 Hypertension type: essential hypertension PAF (paroxysmal atrial fibrillation) I48.0 Additional Codes PHQ-9 - 48225 - PHQ-9 Billing: Yes ([id number]) Assessment & Plan Assessment & Plan (1) Dyslipidemia: Code(s): E78.5 - Hyperlipidemia, unspecified Category: Medical (2) Hypertension: Code(s): I10 - Essential (primary) hypertension Category: Medical Qualifiers: Hypertension type: essential hypertension Qualified Code(s): I10 - Essential (primary) hypertension (3) PAF (paroxysmal atrial fibrillation): Code(s): I48.0 - Paroxysmal atrial fibrillation Category: Medical Plan The patient will continue to monitor her cholesterol levels, and if they remain elevated, she may need to resume atorvastatin therapy. Dietary modifications, including reducing butter intake, are recommended to help manage hyperlipidemia. The patient is advised to continue avoiding dairy products and using lactase supplements to manage lactose intolerance symptoms. Probiotics and dietary adjustments will be maintained to manage gastrointestinal symptoms, including constipation and diarrhea. The patient will continue her current antihy pertensive regimen, with a request to adjust her furosemide prescription to 20 mg for ease of use. Regular follow-up appointments will be scheduled to monitor her kidney function and overall health status. The patient is encouraged to maintain adequate sun exposure for vitamin D levels and to return for a follow- up visit in three months to reassess her condition and lab results. Patient was informed and verbally consented to the use of an ambient scribe for clinic note documentation during this visit. Orders: Orders Basic Metabolic Panel Fasting 3 Months E78.5 - Hyperlipidemia, unspecified Lipid Panel 3 Months E78.5 - Hyperlipidemia, unspecified Alanine Aminotransferase 3 Months E78.5 - Hyperlipidemia, unspecified Aspartate Amino Transferase 3 Months E78.5 - Hyperlipidemia, unspecified Medications: Discontinued furosemide Discontinued Reason: Doctor's Order 40 mg See Protocol PO DAILY 90 tabs 3RF
--- OUTSIDE RECORDS SUMMARY | 2024-12-06 10:24 | XMS_ITS | Patient Health Record ---
Author Organization [facility] Address [address] [place] [address] Care Team Providers Care Us Marketing Director Name Role Phone Melinda TSREET, Celina Primary Care Provider U madelinejulianne Jorge Webb Unavailable [phone] Reason For Referral No Information Medications Medication [...] Risk Notes Problem Diverticulosis of colon (finding) (088264830) Diverticulosis of colon (without mention of hemorrhage) (562.10) Active confirmed Problem Screening for malignant neoplasm of colon (297349008) Special screening for malignant neoplasms, colon (V76.51) Active confirmed Plan Of Treatment Future Test Test Name Order Date COLONOSCOPY 07/10/2011 Insurance Providers Payer Name Payer Address Payer Phone Subscriber Number Group Number Insured Name Patient Relationship to Insured Coverage Start Date Coverage End Date [facility] [address] [place] [phone] [id number] RANDELL GALEANO Self - patient is the insured Medical (General) History Medical History History ICD Code Irregular heartbeat HTN Diverticulosis Denies MD,DM,CVA,Lung disease,renal dise ase Osteoporosis Glaucoma Surgical History Surgery Date(Month/Year) Benign breast mass
== END 2024-12-06 11:14 | disposition home or self-care (01) ==
LOC: HO.HMCC 09:48
PROVIDERS: PCP Internal Medicine; Visit Provider Internal Medicine
DX: E78.5 Hyperlipidemia, unspecified (principal); I10 Essential (primary) hypertension; I48.0 Paroxysmal atrial fibrillation

== ENCOUNTER → 2024-12-06 09:48 | Outpatient (BNVA) | payer MEDICARE, OTHER, SELFPAY | PROVIDERS: PCP Internal Medicine; Visit Provider Internal Medicine | DX: E78.5 Hyperlipidemia, unspecified (principal); I10 Essential (primary) hypertension; I48.0 Paroxysmal atrial fibrillation | CPT/HCPCS: 96127; 99212 ==

== ENCOUNTER 2025-01-12 09:41 | Outpatient (AMB) | payer MEDICARE, SELFPAY ==
[2025-01-12 10:08] VITALS: BP 118/62; PULSE 63; BMI 24.4
--- NOTE | 2025-01-12 10:08 | A.OFFVIS_ITS ---
Vital Signs 01/12/25 10:08 Height 5 ft 6 in Weight 151 lb 3.794 oz BMI 24.4 BP 118/62 Blood Pressure Location Lt brachial Position Sitting Pulse 63 Pulse Source Monitor Intake Visit Reasons: 6m follow up Attendant Child Activity Required: No Allergies diltiazem Allergy (Verified 01/12/25 10:11) Rash dronedarone (From Multaq) Adverse Reaction (Severe, Verified 01/12/25 10:11) CHF ssri Allergy (Unknown, Uncoded 12/06/24 10:46) diarrhea Amiodarone Adverse Reaction (Severe, Uncoded 12/06/24 10:46) Interstitial lung changes Augmex Adverse Reaction (Unknown, Uncoded 12/06/24 10:46) severe vomiting/diarrhea Medication List - Last Reconciled 01/12/25 by Ashwini Garcia, FINANCIAL ANALYST-C acetaminophen ER (Tylenol Arthritis Pain) 650 mg PO TID PRN ascorbate calcium (vitamin C) 500 mg PO DAILY atenolol 50 mg PO DAILY calcium carbonate 500 mg PO DAILY dorzolamide-timolol 22.3-6.8 mg/mL 1 drp ophthalmic (eye) BID furosemide (Lasix) 20 mg PO DAILY multivitamin 1 tab PO DAILY rivaroxaban (Xarelto) 20 mg PO QPM HPI HPI 6m follow up: Details: Kallie is an 84-year-old female past medical history of hypertension, hyperlipidemia, remote history of smoking, paroxysmal atrial fibrillation, interstitial lung disease, who presents for follow-up. Today she reports that she has noticed a few episodes of heart palpitations. She can feel that her heart rate is elevated at times but not very fast. She has no other associated symptoms. She believes this to be her atrial fibrillation. She denies shortness of breath at rest or with activity. No PND, orthopnea or edema. No chest discomfort, lightheadedness, presyncope, syncope. She has previously on amiodarone which was stopped due to abnormal CT scan of lungs. She was put on Multaq which was then stopped due to mild Congestive heart failure. She is now just on atenolol and treated with rate control. No Bleeding issues with Xarelto. [facility] Medical History Decreased renal clearance Irritable bowel syndrome with diarrhea History of compression fracture of spine Emphysema lung Thoracic compression fracture Lumbar compression fracture Colonoscopy refused COVID-19 vaccine series declined Immunization declined Positive FIT (fecal immunochemical test) Mammogram declined Dyslipidemia Postmenopause Normocytic anemia Hx: UTI (urinary tract infection) PAF (paroxysmal atrial fibrillation) Unspecified glaucoma Osteoporosis Thrombocytopenia Hypertension Surgical History H/O kyphoplasty History of lumpectomy of left breast History of colonoscopy History of section Family History Father Lung cancer Mother Unknown family medical history Maternal Grandfather No problems noted. Maternal Grandmother No problems noted. Paternal Grandmother No problems noted. Sister No problems noted. Social History Household Members: None [facility]: [facility] Are you a primary medicare biller to a significant other at home: No Do you presently have visiting nurse or other home services: No Alcohol intake: never Patient Tobacco Use Status: Former Tobacco user Tobacco use type: Cigarette e-Cigarette/Vaping Use: Never Used Second Hand Smoke Exposure: No Advance Directives Date on File: 03/12/22 service: No Current occupational status: retired Cognitive needs: No Hearing needs: No Vision needs: Yes Review of Systems Const All systems reviewed & are unremarkable except as noted in HPI and below Denies daytime sleepiness, Denies difficulty sleeping, Denies snoring, Denies stops breathing during sleep and Denies weakness Card Denies chest pain, Denies rapid heart rate, Denies irregular heart rhythm, Denies claudication, Denies leg edema, Denies lightheadedness, Reports palpitations, Denies dyspnea, Denies dyspnea on exertion, Denies orthopnea, Denies paroxysmal nocturnal dyspnea and Denies slow heart rate Resp Denies cough, Denies dyspnea, Denies dyspnea on exertion and Denies snoring GI Reports no additional complaints, Denies hematochezia, Denies change in stool character and Denies dyspepsia Musc Denies abnormal gait, Denies muscle weakness and Denies numbness Neuro Denies abnormal gait, Denies numbness and Denies weakness Endo Reports palpitations Physical Exam Vital Signs: Last Vital Signs Pulse 63 01/12/25 10:08 BP 118/62 01/12/25 10:08 BMI result Body Mass Index 24.4 Const General: cooperative, healthy appearing, comfortable and no acute distress Orientation/consciousness: patient oriented x3 Neck Neck: Yes normal visual inspection Resp Effort & Inspection: normal respiratory effort Auscultation: clear to auscultation bilaterally, no crackles, no rales, no rhonchi and no wheezes Cardio Jugular venous distension: no JVD Rate: regular rate Rhythm: regular rhythm Heart sounds: S1 normal heart sound present, S2 normal heart sound present, no murmurs and no rubs Neuro General: patient oriented x3 Extrem General: Yes normal to inspection Psych Appearance: grossly normal Mental Status: mental status grossly normal Speech and movement: Normal speech and movement present Office Procedures EKG Details: Today, read by me, normal sinus rhythm, nonspecific T wave abn, rate 63, Qtc 419ms [id number], Complete Assessment & Plan Assessment & Plan (1) PAF (paroxysmal atrial fibrillation): Code(s): I48.0 - Paroxysmal atrial fibrillation Category: Medical Plan: History of paroxysmal atrial fibrillation, currently being treated with rate control. She does have short episodes of heart palpitations at times. EKG done today showing sinus rhythm with nonspecific ST abnormality, rate 63. Last Echocardiogram from 05/03/2024 showed EF greater than 70%, left atrium normal size. She was taken off amiodarone in the past due to concern for interstitial lung disease. She was taken off Multaq in the past for Congestive heart failure. She does not want Tikosyn or sotalol as they require hospital administrations for initiation. She adamantly refuses ablation. At this time will continue with rate control. Continue atenolol 50 mg daily. Continue Xarelto 20 mg daily for anticoagulation. ED care if needed for prolonged or symptomatic AFib. Cardiology follow-up 6 month, sooner if needed. (2) Hypertension: Code(s): I10 - Essential (primary) hypertension Category: Medical Qualifiers: Hypertension type: essential hypertension Qualified Code(s): I10 - Essential (primary) hypertension Plan: Blood pressure goal less than 130/80. Well controlled at this time. No med changes made Plan Time spent on chart review, documentation, interview, assessment Coding Level of Care Code Est Pt Level 4 (51358) Complex EM visit Add On G2211 Diagnoses PAF (paroxysmal atrial fibrillation) I48.0 Essential hypertension I10 Hypertension type: essential hypertension CPT Codes EKG - CPT: [id number], Complete ([id number]) Time Spent (min) 32
--- OUTSIDE RECORDS SUMMARY | 2025-01-12 10:34 | XMS_ITS | Patient Health Record ---
Author Organization [facility] Address [address] [place] [address] Care Team Providers Care Supervisor Cd Area Name Role Phone Melinda STREET, Celina Primary Care Provider U madelinejulianne Jorge Webb Unavailable [phone] Reason For Referral No Information Medications Medication [...] Risk Notes Problem Diverticulosis of colon (finding) (176940009) Diverticulosis of colon (without mention of hemorrhage) (562.10) Active confirmed Problem Screening for malignant neoplasm of colon (232822481) Special screening for malignant neoplasms, colon (V76.51) Active confirmed Plan Of Treatment Future Test Test Name Order Date COLONOSCOPY 07/10/2011 Insurance Providers Payer Name Payer Address Payer Phone Subscriber Number Group Number Insured Name Patient Relationship to Insured Coverage Start Date Coverage End Date [facility] [address] [place] [phone] [id number] RANDELL GALEANO Self - patient is the insured Medical (General) History Medical History History ICD Code Irregular heartbeat HTN Diverticulosis Denies IA,DM,CVA,Lung disease,renal dise ase Osteoporosis Glaucoma Surgical History Surgery Date(Month/Year) Benign breast mass
== END 2025-01-12 10:48 | disposition home or self-care (01) ==
LOC: HO.HCS 09:42
PROVIDERS: PCP Internal Medicine; Visit Provider Nurse Practitioner Family
DX: I48.0 Paroxysmal atrial fibrillation (principal); I10 Essential (primary) hypertension
CPT/HCPCS: 93010; 99214; G2211

== ENCOUNTER → 2025-01-12 09:41 | Outpatient (BNVA) | payer MEDICARE, SELFPAY | PROVIDERS: PCP Internal Medicine; Visit Provider Nurse Practitioner Family | DX: I48.0 Paroxysmal atrial fibrillation (principal); I10 Essential (primary) hypertension; R94.31 Abnormal electrocardiogram [ECG] [EKG] | CPT/HCPCS: 93005; 99212 ==

== ENCOUNTER 2025-03-02 07:32 | Outpatient (REF) | payer MEDICARE, SELFPAY ==
[2025-03-02 10:48] LABS: Alanine Aminotransferase 10 U/L (0-31); Anion Gap 11 (12-20); Aspartate Amino Transferase 25 U/L (5-31); Blood Urea Nitrogen 12 mg/dL (9-16); Calcium 8.6 mg/dL (8.4-10.2); Carbon Dioxide 26 mmol/L (22-29); Chloride 109 mmol/L (96-108); Cholesterol 205 mg/dL (<200); Estimated Glomerular Filt Rate 49; HDL Cholesterol 56 mg/dL (>40); Potassium 3.6 mmol/L (3.3-5.1); Sodium 142 mmol/L (135-145); Triglycerides 125 mg/dL (<150)
== END 2025-03-02 07:33 | disposition home or self-care (01) ==
LOC: HO.HMGCLDS 07:32
PROVIDERS: PCP Internal Medicine; Visit Provider Internal Medicine
DX: E78.5 Hyperlipidemia, unspecified (principal)
CPT/HCPCS: 36415; 80048; 80061; 84450; 84460

== ENCOUNTER 2025-03-07 09:17 | Outpatient (AMB) | payer MEDICARE, SELFPAY ==
[2025-03-07 10:03] VITALS: BP 120/70; PULSE 78; RESP 16; TEMP 36.6; O2SAT 92; BMI 24.5
--- NOTE | 2025-03-07 10:03 | MHC.PC.OV ---
Vital Signs 03/07/25 10:03 Height 5 ft 6 in Weight 152 lb BMI 24.5 BP 120/70 Blood Pressure Location Rt brachial Position Sitting Respiration 16 Pulse 78 Pulse Source Pulse Oximeter Temp 97.8 F Temp Source Oral Pulse Oximetry (%) 92 Oxygen Delivery Method Room Air Intake Visit Reasons: 3m follow up - see comments Intake Note: Pt is here today for her 3mo. f/u Guest Experience Manager Required: No Allergies diltiazem Allergy (Verified 03/07/25 10:19) Rash dronedarone (From Multaq) Adverse Reaction (Severe, Verified 03/07/25 10:19) CHF ssri Allergy (Unknown, Uncoded 03/07/25 10:19) diarrhea Amiodarone Adverse Reaction (Severe, Uncoded 03/07/25 10:19) Interstitial lung changes Augmex Adverse Reaction (Unknown, Uncoded 03/07/25 10:19) severe vomiting/diarrhea Medication List - Last Reconciled 03/07/25 by Ellie Chen MD acetaminophen ER (Tylenol Arthritis Pain) 650 mg PO TID PRN ascorbate calcium (vitamin C) 500 mg PO DAILY atenolol 50 mg PO DAILY calcium carbonate 500 mg PO DAILY dorzolamide-timolol 22.3-6.8 mg/mL 1 drp ophthalmic (eye) BID furosemide (Lasix) 20 mg PO DAILY multivitamin 1 tab PO DAILY rivaroxaban (Xarelto) 20 mg PO QPM Tobacco use date assessed: 03/07/25 Last assessed Fall Risk: 03/07/25 Dental Screening Dental Screen Date: 03/07/25 Did you have a dental visit in the last 12 months?: Yes Did you have a dental problem in the last 6 months where you did not have access to dental care?: No Was dental information given to patient?: Patient has dentist HPI 3m follow up - see comments HPI Details The patient is an 84-year-old female presenting for follow-up visit. The patient has a history of atrial fibrillation and saw her family practice nurse practitioner one month ago. She is on Xarelto and takes atenolol blood pressure well controlled The primary complaint is related to her posture and ptotic breasts, which she states are pressing on her rib cage, making it difficult to take a deep breath, especially when she is sitting. She attributes this to her compressed spine and scoliosis. She has tried supportive bras without success and has previously completed physical therapy, stating she can do the exercises at home. 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 A CT scan in April revealed emphysema and interstitial prominence, but she no longer sees a cellophane worker. Recent labs from November showed declining kidney function, but she has declined a referral to a herpetologist. She has known osteoporosis and her vitamin D level is normal. Other lab results were normal, including blood sugar and electrolytes, with an improvement in her cholesterol. Regarding immunizations, the patient has received the shingles and pneumonia vaccines but consistently declines the influenza and COVID-19 shots. [facility] Medical History Decreased renal clearance Irritable bowel syndrome with diarrhea History of compression fracture of spine Emphysema lung Thoracic compression fracture Lumbar compression fracture Colonoscopy refused COVID-19 vaccine series declined Immunization declined Positive FIT (fecal immunochemical test) Mammogram declined Dyslipidemia Postmenopause Normocytic anemia Hx: UTI (urinary tract infection) PAF (paroxysmal atrial fibrillation) Unspecified glaucoma Osteoporosis Thrombocytopenia Hypertension Surgical History H/O kyphoplasty History of lumpectomy of left breast History of colonoscopy History of section Family History Father Lung cancer Mother Unknown family medical history Maternal Grandfather No problems noted. Maternal Grandmother No problems noted. Paternal Grandmother No problems noted. Sister No problems noted. Social History Household Members: None Housing: Condominium Are you a primary child care supervisor to a significant other at home: No Do you presently have visiting nurse or other home services: No Alcohol intake: never Patient Tobacco Use Status: Former Tobacco user Tobacco use type: Cigarette e-Cigarette/Vaping Use: Never Used Second Hand Smoke Exposure: No Advance Directives Date on File: 03/12/22 service: No Current occupational status: retired Cognitive needs: No Hearing needs: No Vision needs: Yes Questionnaire PHQ-9 Over the last 2 weeks, how often have you been bothered by any of the following problems? Depression Screening Interpretation: Negative Depression Screening Done: Yes Source: Developed by Drs. Jorge Hector, Bessie Ervin, Jed Downey and colleagues, with an educational roderick from [employer]. Thrive Questionnaire Date Thrive assessed: 09/01/24 I am a: Patient What is your living situation today?: I have a steady place to live Within the past 12 months, did the food you bought not last and you didn't have the money to get more?: Never true Within the past 12 months, did you worry whether your food would run out before you got money to buy more?: Never true Do you have trouble paying for medicines?: No Do you have trouble getting transportation to medical appointments?: No Do you have trouble paying your heating and electricity bill?: No Do you have trouble taking care of your child, family member or friend?: No Do you have trouble with day-to-day activities such as bathing, preparing meals, shopping, managing finances, etc.?: No Are you currently unemployed and looking for a job?: No Are you interested in more education?: No Please select the resources that you would like help with: None Currently or been in a relationship where the following occur: No concerns reported THRIVE Score: 0 FELY-7 AMB Questionnaire FELY-7 Date FELY - 7 assessed: 09/01/24 Source: Developed by Drs. Jorge Hector, Jed Mcallister and colleagues, with an educational roderick from [employer]. Review of Systems Const Denies difficulty sleeping and Denies weakness Card Denies chest pain, Denies rapid heart rate, Denies irregular heart rhythm, Denies claudication, Denies leg edema, Denies lightheadedness, Denies dyspnea, Denies dyspnea on exertion and Denies orthopnea Resp Details: Reports inability to take a deep breath due to thoracic compression from posture. Denies cough, Denies dyspnea and Denies dyspnea on exertion GI Denies hematochezia, Denies change in stool character and Denies dyspepsia Reports no additional complaints Musc Reports as per HPI, Denies abnormal gait, Denies muscle weakness and Denies numbness Neuro Denies abnormal gait, Denies numbness, Denies Sensory deficit (Neuro) and Denies weakness Psych Reports no additional complaints Endo Reports no additional complaints Colten/Lymph Reports no additional complaints Physical exam (Primary Care) Vital Signs: Last Vital Signs Temp 97.8 F 03/07/25 10:03 Pulse 78 03/07/25 10:03 Resp 16 03/07/25 10:03 BP 120/70 03/07/25 10:03 Pulse Ox 92 03/07/25 10:03 Oxygen Delivery Method Room Air 03/07/25 10:03 BMI result Body Mass Index 24.5 Tobacco/Smoking Status: Tobacco use Status Tobacco use date assessed 03/07/25 03/07/25 10:05 Patient Tobacco Use Status Former Tobacco user 03/07/25 10:05 Tobacco use type Cigarette 03/07/25 10:05 e-Cigarette/Vaping Use Never Used 03/07/25 10:05 Depression Screening Interpretation: Negative Thrive Assessment: Date of Thrive Assessment Date Thrive assessed 09/01/24 03/07/25 10:05 Currently or been in a relationship where the following occur: No concerns reported Const Other: Ambulatory with a cane General: comfortable, no acute distress and alert Orientation/consciousness: patient oriented x3 HENMT Head: Yes normocephalic Ears: external ears normal General nose exam: Normal external nose present Face and sinus: Yes face symmetric Eyes General: appearance normal, both eyes and all related structures Neck Neck: Yes full ROM, Yes no lymphadenopathy and Yes supple Resp Auscultation: clear to auscultation bilaterally Cardio Other: S1-S2 present regular rate GI Palpation (GI): Soft to palpation, nontender, no guarding and no masses Back/Spine/Pelvis Other: kyphotic Skin General skin exam: no rashes or lesions noted Neuro General: patient oriented x3, tone normal, moves all extremities and no focal motor deficits Cognition (Neuro): normal cognition Sensory Exam: No Sensory deficit (Neuro) Extrem General: Yes full ROM, Yes no joint enlargement, Yes no clubbing, cyanosis or edema and Yes normal gait Psych Appearance: grossly normal Mental Status: mental status grossly normal Speech and movement: Normal speech and movement present Affect: normal affect Results Reviewed Results Reviewed: Name: Zuleima Shepard Age/Sex: 84/F : 1940 Unit#: [id number] Attend Dr: Ellie Chen MD Re03/02/25 Status: DEP REF Location: [facility] Disch: SPEC : [id number] GABRIEL: 03/02/25 STATUS: COMP REQ : [id number] RECD: 03/02/[address]: Ellie Chen MD COMP: 03/02/25 ENTERED: 03/02/[address]: ORDERED: Met Prof Fast, AST, ALT, Lipid Panel Test Result Flag Reference Sodium 142 135-145 mmol/L Potassium 3.6 3.3-5.1 mmol/L CL 109 H 96-108 mmol/L CO2 26 22-29 mmol/L Gap 11 L 12-20 BUN 12 9-16 mg/dL Creat 1.07 0.5-1.4 mg/dL eGFR 49 Chronic Kidney Disease: Estimated GFR < 60 mL/min/1.73m2 Severe Kidney Disease: Estimated GFR < 15 mL/min/1.73m2 FBS 89 60-99 mg/dL CA 8.6 8.4-10.2 mg/dL AST (GOT) 25 5-31 U/L ALT (GPT) 10 0-31 U/L Triglyceride 125 <150 mg/dL Desirable Triglyceride: less than 150 mg/dL Borderline High Triglyceride 150-199 mg/dL High Triglyceride: 200-499 mg/dL Very High Triglyceride: greater than or equal to 5OO mg/dL Cholesterol 205 H <200 mg/dL Desirable Cholesterol: less than 200 mg/dL Borderline High Cholesterol: 200-239 mg/dL High Cholesterol: greater than 239 mg/dL LDL Calculated 124 H <100 mg/dL Desirable LDL: less than 100 mg/dL Near Optimal/Above Optimal LDL: 110-129 mg/dL Borderline High LDL: 130-159 mg/dL High LDL: 160-189 mg/dL Very High LDL: greater than or equal to 190 mg/dL HDL 56 >40 mg/dL Desirable HDL: greater than 40 mg/dL Note: This HDL assay may give artificially low results in patients with liver disease. Coding Level of Care Code Est Pt Level 4 (80349) Complex EM visit Add On G2211 Diagnoses Back pain M54.9 PAF (paroxysmal atrial fibrillation) I48.0 Decreased renal clearance R94.4 COPD (chronic obstructive pulmonary disease) J44.9 Age-related osteoporosis without current pathological fracture M81.0 Osteoporosis type: age-related Presence of current pathological fracture: without current pathological fracture Dyslipidemia E78.5 Essential hypertension I10 Hypertension type: essential hypertension Immunization declined Z Assessment & Plan Assessment & Plan (1) Back pain: Code(s): M54.9 - Dorsalgia, unspecified (2) PAF (paroxysmal atrial fibrillation): Code(s): I48.0 - Paroxysmal atrial fibrillation Category: Medical Plan: Currently on Xarelto and atenolol by Cardiology (3) Decreased renal clearance: Code(s): R94.4 - Abnormal results of kidney function studies Category: Medical (4) COPD (chronic obstructive pulmonary disease): Code(s): J44.9 - Chronic obstructive pulmonary disease, unspecified (5) Osteoporosis: Comment: declines repeat bone density scan Code(s): M81.0 - Age-related osteoporosis without current pathological fracture Category: Medical Qualifiers: Osteoporosis type: age-related Presence of current pathological fracture: without current pathological fracture Qualified Code(s): M81.0 - Age-related osteoporosis without current pathological fracture (6) Dyslipidemia: Code(s): E78.5 - Hyperlipidemia, unspecified Category: Medical Plan: Fasting lipids are within acceptable limits. Continue with adherence to healthy eating habits and regular exercise. (7) Hypertension: Code(s): I10 - Essential (primary) hypertension Category: Medical Qualifiers: Hypertension type: essential hypertension Qualified Code(s): I10 - Essential (primary) hypertension Plan: Blood pressure at goal of less than 130/80. Continue with current medication. Reinforced importance of following a low sodium diet, getting regular exercise, and lowering stress levels. (8) Immunization declined: Code(s): Z28.21 - Immunization not carried out because of patient refusal Category: Medical Plan 1. 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 A rigid back brace is unlikely to help and may worsen discomfort. The plan is to explore a soft posture corrector for minimal support, as discussed. I encouraged gentle stretching and movement to maintain mobility. 2. Atrial Fibrillation The patient is stable and rate-controlled on atenolol, with good blood pressure. She remains on a blood thinner as prescribed by cardiology, whom she saw a month ago. She has previously declined ablation. The plan is to continue current medications and follow-up with cardiology as directed. 3. Chronic Kidney Disease Recent labs show declining renal function, consistent with an aging process but requiring monitoring. The plan includes advising increased water intake and strict avoidance of NSAIDs. The patient declined a nephrology referral. 4. Emphysema Findings on a CT scan from last April are noted. 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 She is asymptomatic from a respiratory standpoint and has declined specialist follow-up. The plan is to monitor for symptoms. 5. Osteoporosis Known diagnosis. Her vitamin D level is normal. The plan is to continue her current regimen to prevent progression. 6. Hyperlipidemia Cholesterol has shown improvement on recent labs. The plan is to continue current management and monitoring. 7, hypertension Continue on atenolol and furosemide 8. Health Maintenance The patient has had shingles and pneumonia vaccines but refuses influenza and COVID-19 vaccinations despite counseling on risks. She also declines to wear a mask in public. Follow-up is scheduled with cardiology slight in July and a physical with me in September 2025. Patient was informed and verbally consented to the use of an ambient scribe for clinic note documentation during this visit.
--- OUTSIDE RECORDS SUMMARY | 2025-03-07 10:26 | XMS_ITS | Patient Health Record ---
Author Organization [facility] Address [address] [place] [address] Care Team Providers Care Pig Breeder Name Role Phone Melinda [address], Celina Primary Care Provider U Jorge Turner Unavailable [phone] Reason For Referral No Information Medications Medication SIG (Take, Route, Frequency, Duration) Notes Start Date End Date Status MoviPrep 100 GM as directed Orally o nce; Duration: 1 dose 07/10/2011 05/11/2024 Active Calcium + D 500mg Ac tive Centrum Silver Activ e Zolpidem Tartrate 5mg Active Brimonidine Tartrate Active Latanoprost Active Alendronate Sodium 70mg Active Atenolol 50mg Active Problems Problem Type SNOMED Code ICD Code Onset Dates Problem Status W/U Status Risk Notes Problem Diverticulosis of colon (finding) (595344138) Diverticulosis of colon (without mention of hemorrhage) (562.10) Active confirmed Problem Screening for malignant neoplasm of colon (567283360) Special screening for malignant neoplasms, colon (V76.51) Active confirmed Plan Of Treatment Future Test Test Name Order Date COLONOSCOPY 07/10/2011 Insurance Providers Payer Name Payer Address Payer Phone Subscriber Number Group Number Insured Name Patient Relationship to Insured Coverage Start Date Coverage End Date [facility] [address] [place] [phone] [id number] RANDELL GALEANO Self - patient is the insured Medical (General) History Medical History History ICD Code Irregular heartbeat HTN Diverticulosis Denies [place],DM,CVA,Lung disease,renal dise ase Osteoporosis Glaucoma Surgical History Surgery Date(Month/Year) Benign breast mass
== END 2025-03-07 11:22 | disposition home or self-care (01) ==
LOC: HO.HMCC 09:19
PROVIDERS: PCP Internal Medicine; Visit Provider Internal Medicine
DX: M54.9 Dorsalgia, unspecified (principal); I48.0 Paroxysmal atrial fibrillation; R94.4 Abnormal results of kidney function studies; J44.9 Chronic obstructive pulmonary disease, unspecified; M81.0 Age-related osteoporosis without current pathological fracture; E78.5 Hyperlipidemia, unspecified; I10 Essential (primary) hypertension; Z28.21 Immunization not carried out because of patient refusal

== ENCOUNTER → 2025-03-07 09:17 | Outpatient (BNVA) | payer MEDICARE, OTHER, SELFPAY | PROVIDERS: PCP Internal Medicine; Visit Provider Internal Medicine | DX: M54.9 Dorsalgia, unspecified (principal); I48.0 Paroxysmal atrial fibrillation; R94.4 Abnormal results of kidney function studies; J44.9 Chronic obstructive pulmonary disease, unspecified; M81.0 Age-related osteoporosis without current pathological fracture; E78.5 Hyperlipidemia, unspecified; I10 Essential (primary) hypertension | CPT/HCPCS: 99212 ==

== ENCOUNTER 2025-04-29 10:53 | Emergency (ER) | payer MEDICARE, SELFPAY ==
--- NOTE | 2025-04-29 | ECG_ITS ---
Test Reason : CP Blood Pressure : */* mmHG Vent. Rate : 70 BPM Atrial Rate : 70 BPM P-R Int : 186 ms QRS Dur : 72 ms QT Int : 392 ms P-R-T Axes : 70 1 29 degrees QTcB Int : 423 ms Sinus rhythm with Premature atrial complexes Septal infarct , age undetermined Abnormal ECG When compared with ECG of 03-May-2024 04:37, QT has shortened Referred By: Generic ED Physician Electronically Signed By: Sal Mcgrath
--- NOTE | ~2025-04-29 | XR_ITS ---
CLINICAL HISTORY: chest pain Chest Radiographs, 2 views Comparison: CT/SR - CT CHEST WITHOUT IV CONTRAST - 05/06/24 13:30 EST CR/SR - XR CHEST 1 VIEW - 05/06/24 07:14 EST CR/SR - XR CHEST 1 VIEW - 05/03/24 04:56 EST Findings: No cardiomegaly. Normal mediastinal contours. No pneumothorax. No focal opacity. Increased reticulation likely indicating chronic lung pathology. No pleural effusion. No acute findings in the upper abdomen. No definitive acute fracture. Multilevel vertebral body height loss. Status post kyphoplasty of T10 and L1. Impression: No acute findings. This document has been electronically signed by: Brittny Herbert MD on 04/29/2025 14:30:43
[2025-04-29 11:05] VITALS: BP 149/67; PULSE 70; RESP 18; TEMP 36.8; O2SAT 95; BMI 26.1
[2025-04-29 11:21] LABS: MANUAL DIFF FLAG NO
[2025-04-29 11:22] LABS: Hematocrit 41.0 % (37.0-47.0); Hemoglobin 13.4 g/dl (12.0-16.0); Imm Gran Abs Auto 0.02 X10*3/uL (0.00-0.03); Imm Gran Pct Auto 0.3 % (0.0-0.4); Lymphocytes Absolute Auto 1.8 X10*3/uL (1.2-4.9); Mean Corpuscular HGB Conc 32.7 g/dl (31.0-35.0); Mean Corpuscular Hemoglobin 29.7 pg (27.0-33.0); Mean Corpuscular Volume 90.9 fL (80.0-98.0); NRBC Abs Auto 0.000 X10*3/uL (0.0-0.012); NRBC Pct Auto 0.0 /100WBC (0.0-0.2); Platelet Count 161 X10*3/uL (160-400); Red Blood Count 4.51 X10*6/uL (4.20-5.50); White Blood Count 6.4 X10*3/uL (4.8-10.8)
[2025-04-29 11:35] LABS: Anion Gap 13 (12-20); Blood Urea Nitrogen 18 mg/dL (9-16); Calcium 9.3 mg/dL (8.4-10.2); Carbon Dioxide 24 mmol/L (22-29); Chloride 108 mmol/L (96-108); Creatinine Clr Calc Pharmacy 37.7; Estimated Glomerular Filt Rate 51; Potassium 3.9 mmol/L (3.3-5.1); Sodium 141 mmol/L (135-145)
[2025-04-29 11:43] LABS: Troponin-I High Sensitivity 6.6 ng/L (<3.5-17.0)
--- NOTE | 2025-04-29 12:02 | ED_ITS ---
HPI - Chest Pain General Chief Complaint: Chest Pain Stated Complaint: chest pain Time Seen by Provider: 04/29/25 12:01 Source: patient, RN notes reviewed and old records reviewed Mode of arrival: ambulatory Limitations: no limitations History of Present Illness ED Provider: Eveline NUNEZ narrative: Patient is an 84-year-old female with history of hypertension, hyperlipidemia, remote history of smoking, paroxysmal atrial fibrillation, interstitial lung disease presenting to the ED with complaint of brief episode of chest pain this morning after eating breakfast. She reports the pain radiated up to her neck and lasted a few minutes before spontaneously resolving. She then went to the [facility] and had 1 additional brief episode of chest pain upon returning home. She denies any associated palpitations, dyspnea, nausea or vomiting, diaphoresis, dizziness or lightheadedness. She is currently pain-free. Denies any recent pedal edema, calf pain or swelling. Denies recent cough or fevers. MD complaint: chest pain Related Data Home Medications ?Medication ?Instructions ?Recorded ?Confirmed multivitamin 1 tab PO DAILY 05/18/2002/09 ascorbate calcium (vitamin C) 500 500 mg PO DAILY 10/3003/07/25 mg tablet dorzolamide 22.3 mg-timolol 6.8 1 drp ophthalmic (eye) BID 01/22/22 03/07/25 mg/mL eye drops acetaminophen 650 mg 650 mg PO TID PRN Pain 06/1703/07/25 tablet,extended release (Tylenol Arthritis Pain) calcium carbonate 500 mg PO DAILY 05/03/24 Previous Rx's ?Medication ?Instructions ?Recorded atenolol 50 mg tablet 50 mg PO DAILY #90 tabs 11/08 09/02 furosemide 20 mg tablet (Lasix) 20 mg PO DAILY #90 tab s 12/07/24 rivaroxaban 20 mg tablet (Xarelto) 20 mg PO QPM #90 ta bs 03/24/25 Allergies Allergy/AdvReac Type Severity Reaction Status Date / Time diltiazem Allergy Rash Verified 04/29/25 11:06 dronedarone (From Multaq) AdvReac Severe CHF Verified 04/29/25 11:06 ssri Allergy Unknown diarrhea Uncoded 03/07/25 10:19 Amiodarone AdvReac Severe Interstitial Uncoded 03/07/25 10:19 lung changes Augmex AdvReac Unknown severe Uncoded 03/07/25 10:19 vomiting/diarrhea Review of Systems 2 Review of Systems: As per HPI Yes all other systems are reviewed and are negative Constitutional: Constitutional: Reports as per HPI [facility] Past Medical History Medical History Decreased renal clearance Irritable bowel syndrome with diarrhea History of compression fracture of spine Emphysema lung Thoracic compression fracture Lumbar compression fracture Colonoscopy refused COVID-19 vaccine series declined Immunization declined Positive FIT (fecal immunochemical test) Mammogram declined Dyslipidemia Postmenopause Normocytic anemia Hx: UTI (urinary tract infection) PAF (paroxysmal atrial fibrillation) Unspecified glaucoma Osteoporosis Thrombocytopenia Hypertension Surgical History H/O kyphoplasty History of lumpectomy of left breast History of colonoscopy History of section Family History Family History Father Lung cancer Mother Unknown family medical history Maternal Grandfather No problems noted. Maternal Grandmother No problems noted. Paternal Grandmother No problems noted. Sister No problems noted. Social History Social History Household Members: None [facility] Are you a primary care team coordinator scheduler to a significant other at home: No Do you presently have visiting nurse or other home services: No Alcohol intake: never Patient Tobacco Use Status: Former Tobacco user Tobacco use type: Cigarette Smoked in Last 30 Days: No e-Cigarette/Vaping Use: Never Used Second Hand Smoke Exposure: No Use of substances other than those prescribed or required for medical reasons: No Advance Directives: Yes Advance Directives on File: Yes Advance Directives Date on File: 03/12/22 Do you have a plan to hurt others: No Plan service: No Current occupational status: retired Cognitive needs: No Hearing needs: No Vision needs: Yes Physical Exam 2 Vital Signs: Vital Signs: Last Vital Signs Temp 98.3 F 04/29/25 12:59 Pulse 70 04/29/25 12:59 Resp 16 04/29/25 12:59 BP 130/91 H 04/29/25 12:59 Pulse Ox 95 04/29/25 12:59 O2 Del Method Room Air 04/29/25 12:59 BMI result Body Mass Index 26.1 Vital signs have been reviewed and appear to be correct. Blood pressure normal. Heart rate normal. Respiratory rate normal. Temperature normal. Oxygen saturation normal. Const: General: cooperative, healthy appearing and no acute distress O rientation/consciousness: oriented to person, oriented to place, oriented to time and patient oriented x3 Limitations: no limitations HEENT: Head: Yes normocephalic and Yes atraumatic Ears: external ears normal General nose exam: Normal external nose present Face and sinus: Yes face symmetric Mouth: oropharynx normal and moist mucous membranes Throat: Yes uvula midline Eyes: Pupils: Equal, round and reactive pupils present Neck: Neck: Yes normal visual inspection and Yes supple Resp: Effort & Inspection: normal respiratory effort and able to speak in complete sentences Auscultation: clear to auscultation bilaterally Cardio: Rate: regular rate Rhythm: regular rhythm Heart sounds: S1 normal heart sound present and S2 normal heart sound present GI: Palpation (GI): Soft to palpation and nontender Auscultation: n ormoactive bowel sounds : General: Yes no CVA tenderness Back/Spine/Pelvis: Back: no CVA tenderness Skin: General skin exam: elasticity normal and turgor normal Neuro: General: oriented to person, oriented to place, oriented to time, patient oriented x3, moves all extremities, no focal motor deficits and CN's II- XI intact bilaterally Cranial nerves: Yes Equal, round and reactive pupils present Cognition (Neuro): normal cognition Extrem: General: Yes full ROM, Yes no pedal edema and Yes no calf tenderness Psych: Mental Status: mental status grossly normal Affect: normal affect Thought process: Normal thought process present Medical Decision Making Medical Decision Making MDM Narrative: Patient is an 84-year-old female with history of hypertension, hyperlipidemia, remote history of smoking, paroxysmal atrial fibrillation, interstitial lung disease presenting to the ED with complaint of brief episode of chest pain this morning after eating breakfast. On exam patient is awake, A+Ox3, VS WNL, afebrile, normal neurological exam without focal deficits, physical exam findings as above. Given reported symptoms and physical exam findings, initial differential includes but is not limited to ACS/unstable angina, GERD, gastritis, musculoskeletal pain. PE unlikely as she is anticoagulated. wells score 0. EKG shows sinus rhythm with PACs. Labs notable for negative troponin x2, no leukocytosis or anemia, no significant electrolyte abnormalities. X-ray chest notable for no evidence of pneumonia or pneumothorax. My interpretation is in agreement with the radiologist's interpretation. HEART score of 3. Results discussed with patient and all questions answered. Feel patient is stable for discharge home at this time. Advised close follow up with PCP. Return precautions discussed. Patient verbalized understanding of and agreement with plan. Differential Diagnosis Differential Diagnoses: The differential diagnosis associated with the presentation includes as per [facility] Admission/Observation Consideration of admission/observation: Escalation of care including admission/observation considered Patient would have been admitted to the hospital and transferred to appropriate facility had their clinical presentation warranted hospital admission. Lab Data [facility] Lab Attestation statement: I reviewed the patient's lab results. as per [facility] 04/29/25 11:14 04/29/25 11:14 Labs: Lab Results 04/29/25 04/29/25 Range/Units 11:14 13:58 WBC 6.4 (4.8-10.8) X10*3/uL RBC 4.51 D (4.20-5.50) X10*6/uL Hgb 13.4 (12.0-16.0) g/dl Hct 41.0 (37.0-47.0) % MCV 90.9 (80.0-98.0) fL MCH 29.7 (27.0-33.0) pg MCHC 32.7 (31.0-35.0) g/dl RDW 13.8 (11.0-16.0) % Plt Count 161 (160-400) X10*3/uL MPV 11.7 (9.4-12.3) fL Immature Gran % (Auto) 0.3 (0.0-0.4) % Neut % (Auto) 59.9 (45-73) % Lymph % (Auto) 28.4 (20-40) % [place] % (Auto) 8.1 (2-11) % Eos % (Auto) 2.8 (0-4) % Baso % (Auto) 0.5 (0-2) % Lymph # (Auto) 1.8 (1.2-4.9) X10*3/uL [place] # (Auto) 0.5 (0.1-1.2) X10*3/uL Eos # (Auto) 0.2 (0.0-0.4) X10*3/uL Baso # (Auto) 0.0 (0.0-0.2) X10*3/uL Abs Immat Gran (auto) 0.02 (0.00-0.03) X10*3/uL Absolute Neuts (auto) 3.9 (2.0-8.3) x10*3/uL Absolute Nucleated RBC 0.000 (0.0-0.012) X10*3/uL Nucleated RBC % (auto) 0.0 (0.0-0.2) /100WBC Sodium 141 (135-145) mmol/L Potassium 3.9 (3.3-5.1) mmol/L Chloride 108 (96-108) mmol/L Carbon Dioxide 24 (22-29) mmol/L Anion Gap 13 (12-20) BUN 18 H (9-16) mg/dL Creatinine 1.02 (0.5-1.4) mg/dL Estim Creat Clear Calc 37.7 Estimated GFR 51 Random Glucose 90 (60-115) mg/dL Calcium 9.3 D (8.4-10.2) mg/dL Troponin I High Sens 6.6 7.3 (<3.5-17.0) ng/L Independent Interpretation I performed an independent interpretation of an: EKG ( Sinus rhythm with PACs, rate 70 beats per minute, normal IL interval and QTc) and Plain X-Ray Interpretation: chest x-ray is without evidence of pneumonia or pneumothorax Radiology Impression Discussion of test interpretation with radiology: I have reviewed the radiologist's reading. Radiologist Impression: Findings: No cardiomegaly. Normal mediastinal contours. No pneumothorax. No focal opacity. Increased reticulation likely indicating chronic lung pathology. No pleural effusion. No acute findings in the upper abdomen. No definitive acute fracture. Multilevel vertebral body height loss. Status post kyphoplasty of T10 and L1. Impression: No acute findings. External Record Review External record reviewed: Inpatient record, Office record and Outpatient record Discharge Plan Discharge Clinical Impression: Chest pain Patient Disposition: Home, Self-Care Instructions: Chest Pain (DC) Additional Instructions: You were evaluated in the emergency department today for chest pain. Your evaluation has shown no signs of medical conditions requiring emergent intervention at this time, however we recommend that you follow-up with your primary care physician or your automated cutting machine operator for further testing as an outpatient. Please schedule an appointment for follow-up with your primary care physician this week. Return to the emergency department if you experience worsening or uncontrolled chest pain, shortness of breath, lightheadedness, feeling faint, loss of consciousness, nausea, vomiting, or any other concerning symptoms. Prescriptions: No Action atenolol 50 mg tablet 50 mg PO DAILY Qty: 90 3RF furosemide [Lasix] 20 mg tablet 20 mg PO DAILY Qty: 90 2RF Xarelto 20 mg tablet 20 mg PO QPM Qty: 90 3RF multivitamin Tablet 1 tab PO DAILY calcium carbonate 500 mg calcium (1,250 mg) Tablet 500 mg PO DAILY ascorbate calcium (vitamin C) 500 mg tablet 500 mg PO DAILY acetaminophen [Tylenol Arthritis Pain] 650 mg tablet extended release 650 mg PO TID PRN (Reason: Pain) Rx Instructions: 1 1/2 po 6 hrs prn dorzolamide-timolol 22.3-6.8 mg/mL drops 1 drp ophthalmic (eye) BID Print Language: Emirati
--- OUTSIDE RECORDS SUMMARY | 2025-04-29 12:07 | XMS_ITS | Patient Health Record ---
Author Organization [facility] Address [address] [place] [address] Care Team Providers Care Transportation Maintenance Specialist Name Role Phone Melinda [address], Celina Primary Care Provider U madelinejulianne Jorge Webb Unavailable [phone] Reason For Referral No Information Medications Medication SIG (Take, Route, Frequency, Duration) Notes Start Date End Date Status MoviPrep 100 GM Solution Reconstituted as directed Orally once; Duration: 1 dose 07/10/2011 Active Calcium + D 500mg Ac tive Centrum Silver Activ e Zolpidem Tartrate 5mg Active Brimonidine Tartrate Active Latanoprost Active Alendronate Sodium 70mg Active Atenolol 50mg Active Social History Social History Additional Details Category Social Info Options Details Miscellaneous: Marital status: Section Notes: Stopped smoking 2 yrs. ago; does not use any sig. amount of alcohol Problems Problem Type SNOMED Code ICD Code Onset Dates Problem Status W/U Status Risk Notes Problem Diverticulosis of colon (finding) (726557574) Diverticulosis of colon (without mention of hemorrhage) (562.10) Active confirmed Problem Screening for malignant neoplasm of colon (537250363) Special screening for malignant neoplasms, colon (V76.51) Active confirmed Plan Of Treatment Future Test Test Name Order Date COLONOSCOPY 07/10/2011 Insurance Providers Payer Name Payer Address Payer Phone Subscriber Number Group Number Insured Name Patient Relationship to Insured Coverage Start Date Coverage End Date [facility] [address] [place] [phone] [id number] RANDELL GALEANO Self - patient is the insured Medical (General) History Medical History History ICD Code Irregular heartbeat HTN Diverticulosis Denies AR,DM,CVA,Lung disease,renal dise ase Osteoporosis Glaucoma Surgical History Surgery Date(Month/Year) Benign breast mass
[2025-04-29 12:59] VITALS: BP 130/91; PULSE 70; RESP 16; TEMP 36.8; O2SAT 95
[2025-04-29 14:36] LABS: Troponin-I High Sensitivity 7.3 ng/L (<3.5-17.0)
[2025-04-29 15:17] VITALS: BP 130/91; PULSE 70; RESP 16; TEMP 36.8; O2SAT 95
== END 2025-04-29 15:17 | disposition home or self-care (01) ==
PROVIDERS: Registered Nurse Emergency; Emergency Provider Emergency Medicine; PCP Internal Medicine
DX: R07.9 Chest pain, unspecified (principal); I49.1 Atrial premature depolarization
CPT/HCPCS: 36415; 71046; 80048; 84484; 85025; 93005; 99283; 99284

== ENCOUNTER → 2025-04-29 10:58 | Outpatient (BNV) | payer MEDICARE, SELFPAY | PROVIDERS: Emergency Provider Emergency Medicine; PCP Internal Medicine; Visit Provider Internal Medicine Cardiovascular Disease | DX: I49.1 Atrial premature depolarization (principal) | CPT/HCPCS: 93010 ==

== ENCOUNTER → 2025-04-29 12:32 | Outpatient (BNV) | payer MEDICARE, SELFPAY | PROVIDERS: Emergency Provider Emergency Medicine; PCP Internal Medicine; Visit Provider Radiology Diagnostic Radiology | DX: R07.9 Chest pain, unspecified (principal) | CPT/HCPCS: 71046 ==